=== PATIENT | male | born 1940 | race Caucasian/White ===

== ENCOUNTER 2016-07-24 06:09 | Inpatient (IN) | payer OTHER ==
[2016-07-24] MEDS ORDERED: IPRATROPIUM/ALBUTEROL 3 ML DEYVIAL IH ONE (06:14)
--- NOTE | 2016-07-24 06:17 | EDPHY ---
H & P HPI/ROS: HPI CHIEF COMPLAINT: Shortness of breath HISTORY OF PRESENT ILLNESS: Patient is a very pleasant 76-year-old male significant past medical history for COPD, coronary artery disease with multiple stents, hypertension, hyperlipidemia, chronic pain, depression, anemia recurrent falls, presents to the emergency room by EMS after he has been having progressively worsening shortness of breath over the past 2 days. He had called 911 this morning due to respiratory distress. Upon arrival by 911 they found him to be tachypneic in the 30s with room air saturations in the high 80s but with great deal work of breathing and wet breath sounds. They placed him on CPAP and brought emergently here to the emergency room. Upon arrival to the emergency room the patient is tachypneic in the 30s. Does have wet breath sounds bilaterally. He denies chest pain. He tells me he has been coughing and sick for the past 48 hours progressively worse. Past Medical History: COPD, coronary artery disease with multiple stents, hypertension, hyperlipidemia, chronic pain, depression, anemia recurrent falls, Past Surgical History: No recent surgical history Social History: denies daily use of drugs alcohol tobacco products lives independently with Family History: noncontributory ROS REVIEW OF SYSTEMS: A comprehensive 10 point review of systems is otherwise negative aside from elements mentioned in the history of present illness. Exam Constitutional appears nontoxic, moderate respiratory distress, triage nursing summary reviewed, vital signs reviewed, awake/alert. (Fever 39, tachy, tachypnea ) Eyes normal conjunctivae and sclera, EOMI, PERRLA. HENT normal inspection, atraumatic, moist mucus membranes, no epistaxis, neck supple/ no meningismus, no raccoon eyes. Respiratory decreased breath sounds bilaterally, wet breath sounds bilaterally, Cardiovascular rate normal, regular rhythm, no murmur, no edema, distal pulses normal. Gastrointestinal soft, non-tender, no rebound, no guarding, normal bowel sounds, no distension, no pulsatile mass. Genitourinary no CVA tenderness. Musculoskeletal no midline vertebral tenderness, full range of motion, no calf swelling, no tenderness of extremities, no meningismus, good pulses, neurovascularly intact. Skin pink, warm, & dry, no rash, skin atraumatic. Neurologic awake, alert and oriented x 3, AAOx3, moves all 4 extremities equally, motor intact, sensory intact, CN II-XII intact, normal cerebellar, normal vision, normal speech. Psychiatric normal mood/affect. Heme/Lymph/Immune no lymphadenopathy. Differential Diagnosis: Includes but is not limited to in a particular order decompensated heart failure, pneumonia, pneumothorax, COPD exacerbation, ACS Medical Decision Making: plan for this patient transition over from EMS CPAP to full face BiPAP in the emergency room. In-line DuoNeb breathing treatment. EKG blood draw, portable one-view chest x-ray. ABG. Patient will need to be admitted for respiratory distress. Re-evaluation: EKG interpretation by me on record in [employer] system. Impression time of EKG 6:22 a.m., sinus tachycardia rate of 107, of the anterior fascicular block present. Some motion artifact in the inferior leads to 3 AVF. Otherwise I do not appreciate acute ischemic change. When Compared to old EKG 12/06/2014 acute change. Critical Care: Total Critical Care Time Spent Managing this Patient: 65 Minutes. This time was spent Exclusively with this patient. This Care was exclusive of procedures. The Organ System/life at risk was Pulmonary This Patient was in Critical Condition because Resp distress, Pneumonia, Fever , Sepsis. ED x-ray chest one view: Multifocal pneumonia appreciated. Image interpreted by myself. [id number]: Patient currently on full face BiPAP still tachypneic but not in severe distress. X-ray reviewed shows multifocal pneumonia. Broad-spectrum antibiotics have been ordered IV vancomycin IV Zosyn. 1 g of Tylenol for fever. 2 L fluid bolus. Lactic is pending. Blood cultures pending. Influenza pending. Sputum culture I have ordered. Due the patient's respiratory distress, hypoxia, fever, evidence of sepsis with pneumonia on his x -ray and elevated white count patient be admitted to the ICU. Spoke with Dr. Silveira who agrees to admit this patient. Source: Patient, EMS - Personal History Tetanus Vaccine Date: last 10 years - Medical/Surgical History Hx Asthma: No Hx Chronic Respiratory Disease: Yes Hx Diabetes: No Hx Cardiac Disease: Yes Hx Renal Disease: No Hx Cirrhosis: No Hx Alcoholism: No Hx HIV/AIDS: No Hx Splenectomy or Spleen Trauma: Yes Other PMH: pmh- chronic pain, COPD, htn, hld. psh- 6 cardiac stents, artifical L femur, appy, tonsilectomy, cataract sx both eyes - Social History Smoking Status: Former smoker Constitutional: Initial Vital Signs O2 Sat (%) 98 07/24/16 06:14 O2 Delivery Mode Bi-Pap O2 (L/minute) 6 Allergies/Adverse Reactions: No Known Allergies Allergy (Unverified 07/24/16 06:25) Home Medications: Medication Instructions Recorded Bupropion HCl [Bupropion XL] 300 mg PO DAILY 10/25/11 Clopidogrel Bisulfate [Plavix (*)] 75 mg PO DAILY 10/25/11 Montelukast Sodium [Singulair 10 10 mg PO DAILY@18 10/25/11 mg (RX)] Ranolazine [RANEXA 500mg (RX)] 500 mg PO BID 10/25/11 Simvastatin [Zocor 40 mg] 40 mg PO DAILY18 10/25/11 Ropinirole HCl [Requip 0.5mg] 0.5 mg PO HS 02/10/15 clonIDINE [Catapres (*)] 0.1 mg PO BID 02/10/15 Acyclovir 5% [Zovirax 5%] 1 eb TP 5XD 07/24/16 Albuterol [Proventil Inhaler HFA 1 - 2 puffs IH Q6HRS PRN 07/24/16 (*)] Betamethasone Lary 0.1% 1 eb TP BID 07/24/16 [Betamethasone Lary 0.1% (*)] Cholecalciferol Vit D3 [Vitamin D3 2,000 units PO DAILY 07/24/16 2000 units tab (OTC)] Diclofenac Sodium [Voltaren Gel 4 g TP QID 07/24/16 (*)] Fluticasone/Vilanterol [Breo 1 each IH DAILY 07/24/16 Ellipta 200-25 Mcg INH] Herbals/Supplements -Info Only 1 ea PO DAILY 07/24/16 Lidocaine 5% [Lidoderm 5% Patch 2 ea TD DAILY 07/24/16 (*)] Lubiprostone [Amitiza 24 mcg (*)] 24 mcg PO BIDMEAL 07/24/16 Methocarbamol [Robaxin 750 mg (*)] 375 - 750 mg PO HS PRN 07/24/16 amLODIPine BESYLATE [Norvasc 5 mg 5 mg PO DAILY 07/24/16 (*)] oxyCODONE IR [Oxycodone Ir (*)] 5 mg PO BID PRN 07/24/16 traZODone [traZODONE 50MG (*)] 50 mg PO HS 07/24/16 Medical Decision Making - Data Points Laboratory Results: Laboratory Results 07/24/16 06:10 07/24/16 06:10 Microbiology Results: MICROBIOLOGY 07/24/16 06:15 Urine,Clean Catch Urine Culture - Preliminary 07/24/16 06:30 Blood Blood Culture - Preliminary Medications Given: Discontinued Medications Acetaminophen (Tylenol) 1,000 mg PO EDNOW ONE Stop: 07/24/16 06:25 Last Admin: 07/24/16 06:40 Dose: 1,000 mg Albuterol/Ipratropium (Duoneb) 3 ml IH EDNOW ONE Stop: 07/24/16 06:15 Last Admin: 07/24/16 06:54 Dose: 3 ml Clopidogrel Bisulfate (Plavix) 75 mg PO DAILY VANDANA Stop: 01/20/17 13:29 Last Admin: 07/24/16 15:35 Dose: Not Given Sodium Chloride (Ns) 1,000 mls @ 0 mls/hr IV ONCE ONE PRN Reason: Wide Open Stop: 07/24/16 06:25 Last Admin: 07/24/16 06:40 Dose: 1,000 mls Vancomycin/Sodium Chloride (Vancomycin 1 Gm (Premix)) 250 mls @ 250 mls/hr IV EDNOW ONE PRN Reason: Protocol Stop: 07/24/16 07:24 Last Admin: 07/24/16 06:50 Dose: 250 mls Piperacillin/Tazobactam/Dextrose (Zosyn (Premix)) 100 mls @ 200 mls/hr IV EDNOW ONE PRN Reason: Protocol Stop: 07/24/16 06:54 Last Admin: 07/24/16 06:50 Dose: 100 mls Sodium Chloride (Ns) 1,000 mls @ 0 mls/hr IV ONCE ONE PRN Reason: Wide Open Stop: 07/24/16 06:26 Last Admin: 07/24/16 06:45 Dose: 1,000 mls Sodium Chloride (Ns) 1,000 mls @ 75 mls/hr IV CONT VANDANA Stop: 07/24/16 20:19 Last Admin: 07/24/16 15:54 Dose: 1,000 mls Departure - Departure Disposition: [facility] Inpatient Acute Clinical Impression: Dyspnea Qualifiers: Dyspnea type: unspecified Qualified Code(s): R06.00 - Dyspnea, unspecified Pneumonia Qualifiers: Pneumonia type: due to unspecified organism Laterality: bilateral Lung location : unspecified part of lung Qualified Code(s): J18.9 - Pneumonia, unspecified organism Sepsis Qualifiers: Sepsis type: sepsis due to unspecified organism Qualified Code(s): A41.9 - Sepsis, unspecified organism Condition: Serious
[2016-07-24 06:22] LABS: % IMMATURE GRANULYOCYTES 0.8 % (0.0-1.1); ABSOLUTE IMMATURE GRANULOCYTES 0.17 10^3/uL (0.00-0.10); ADD DIFF? NO; ADD MORPH? NO; ADD SCAN? NO; ATYPICAL LYMPHOCYTE FLAG 0 (0-99); FRAGMENT RBC FLAG 0 (0-99); HEMATOCRIT 50.2 % (40.0-51.0); HEMOGLOBIN 17.2 g/dL (13.7-17.5); LEFT SHIFT FLG 10 (0-99); LIPEMIA HEMOLYSIS FLAG 90 (0-99); MEAN CELL HEMOGLOBIN CONCENTR. 34.3 g/dL (32.4-36.7); MEAN PLATELET VOLUME 8.7 fL (8.7-11.7); PLATELET CLUMPS FLAG 0 (0-99); PLATELET COUNT 265 10^3/uL (150-400); RED BLOOD CELL COUNT 4.78 10^6/uL (4.40-6.38); RED CELL DISTRIBUTION WIDTH 15.9 % (11.5-15.2)
[2016-07-24] MEDS ORDERED: NS 1,000 ML IV ONE ×2 (06:24→06:25)
[2016-07-24] MEDS ORDERED: ACETAMINOPHEN 500 MG TAB PO ONE (06:24)
--- NOTE | 2016-07-24 06:24 | CPEKG ---
Heart Rate: 107 RR Interval: 561 P-R Interval: 136 QRSD Interval: 94 QT Interval: 336 QTC Interval: 449 P [place]: 0 QRS [place]: 266 T Wave [place]: 74 EKG Severity - ABNORMAL ECG - EKG Impression: SINUS TACHYCARDIA EKG Impression: LEFT ANTERIOR FASCICULAR BLOCK EKG Impression: CONSIDER RIGHT VENTRICULAR HYPERTROPHY Electronically Signed By: Jimmy Penaloza 25-Jul-2016 23:56:37
[2016-07-24] MEDS ORDERED: PIPERACILLIN/TAZO 4.5 GM/DEX 100 ML IV ONE (06:25)
[2016-07-24] MEDS ORDERED: VANCOMYCIN HCL/NORMAL SALINE 250 ML IV ONE (06:25)
[2016-07-24 06:33] LABS: INR 1.04 (0.83-1.16); PROTIME(PATIENT) 13.5 SEC (12.0-15.0)
[2016-07-24 06:34] LABS: ALANINE AMINOTRANSFERASE 28 IU/L (21-72); ALBUMIN 3.9 g/dL (3.5-5.0); ALKALINE PHOSPHATASE 100 IU/L (38-126); ANION GAP 12 mEq/L (8-16); ASPARTATE AMINOTRANSFERASE 38 IU/L (17-59); BILIRUBIN,TOTAL 1.1 mg/dL (0.1-1.4); BILIRUBIN-CONJUGATED 0.4 mg/dL (0.0-0.5); BILIRUBIN-UNCONJUGATED 0.7 mg/dL (0.0-1.1); CALCIUM 8.8 mg/dL (8.5-10.4); CARBON DIOXIDE 26 mEq/l (22-31); CHLORIDE 98 mEq/L (97-110); CREATININE 0.9 mg/dL (0.7-1.3); GLOMERULAR FILTRATION RATE > 60; GLUCOSE 128 mg/dL (70-100); SODIUM 136 mEq/L (134-144); TOTAL PROTEIN 7.6 g/dL (6.3-8.2)
[2016-07-24 06:35] LABS: COLOR YELLOW; LEUKOCYTE ESTERASE,URINE NEGATIVE (NEGATIVE); NITRITE,URINE NEGATIVE (NEGATIVE)
[2016-07-24] MEDS ORDERED: ONDANSETRON 4 MG/2 ML VIAL IVP PRN (06:39)
[2016-07-24] MEDS ORDERED: ONDANSETRON DISINTEGRATING 4 MG TAB PO PRN (06:39)
[2016-07-24] MEDS ORDERED: ACETAMINOPHEN 325 MG TAB PO PRN (06:39)
[2016-07-24 06:45] LABS: BACTERIA TRACE /hpf (NONE SEEN); MUCUS TRACE /lpf (NONE-1+); RBC,URINE 25-50 /hpf (0-3); YEAST PRESENT /hpf (NONE SEEN)
[2016-07-24 06:46] LABS: CREATINE KINASE-MB FRACTION 2.43 ng/mL (0-3.19); TROPONIN I 0.081 ng/mL (0-0.034)
[2016-07-24 07:04] LABS: BASE EXCESS -1.4 mEq/L (-2.5-2.5); BICARBONATE 21 mEq/L (22-26); MEASURED OXYGEN SATURATION 99 % (92-95); PCO2 28 mmHg (34-38); PO2 114 mmHg (65-75); TCO2 21 mEq/L (23-27)
[2016-07-24 07:05] LABS: BIPAP YES; EXP PRESSURE 7; INSP PRESSURE 14; O2 CONCENTRATIION 50 % (0-100); P/F RATIO 228 RATIO
[2016-07-24] MEDS: NS 1,000 ML IV SCH ×4 (08:04→15:54)
--- NOTE | 2016-07-24 08:24 | GHP ---
[f rep st] HISTORY AND PHYSICAL DATE OF ADMISSION: 07/24/2016 CHIEF COMPLAINT: Severe sepsis, [id number] hypoxic respiratory failure. HISTORY OF PRESENT ILLNESS: The patient is a 76-year-old male with multiple comorbidities including CAD with 6 stents, COPD on oxygen, hypertension, hyperlipidemia, presented to the emergency room by EMS having progressive shortness of breath over the past couple days. He called 911 this morning due to respiratory distress. Per , it sounded like he was gurgling this morning. He endorses a dry cough that started yesterday. Denied fevers, chills , or sweats. No nausea, vomiting, diarrhea. No ill contacts. Has tight chest pain with breathing; no radiation or associated numbness or tingling or diaphoresis. In the emergency room, he was tachypneic in the 30s with a room sat in the 80s with increased work of breathing. REVIEW OF SYSTEMS: I completed a 10-point review of systems, negative, except as noted in HPI. PAST MEDICAL HISTORY: 1. CAD, status post 6 stents to RCA, LAD, left circumflex. 2. Chronic pain, on chronic narcotics. 3. Hypertension. 4. Hyperlipidemia. 5. COPD, on CPAP. 6. Chronic hypoxemic respiratory failure. 7. Depression. 8. Anemia. 9. Recurrent falls. PAST SURGICAL HISTORY: Appendectomy, right hip surgery, tonsillectomy. FAMILY HISTORY: Adopted. 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 Smoked a pack a day for 40 years. No illicits or alcohol. PHYSICAL EXAM: VITAL SIGNS: Temperature 39.1, blood pressure 176/108, heart rate 105, respiration 30s. 80s on room air, 92% on 6 L, 98% on BiPAP. GENERAL : Patient is sitting in bed on BiPAP with no distress. HEENT: PERRLA. EOMI. Dry mucous membranes. CV: Tachy, regular. No murmurs, gallops, or rubs. LUNGS: Rhonchorous bilaterally. Increased work of breathing using accessory muscles. ABDOMEN: Firm, nondistended. No tenderness with palpation. Positive bowel sounds. : No suprapubic tenderness. MUSCULOSKELETAL: 5/5 upper and lower extremity strength. NEURO: 2 through 12 intact. PSYCH: Alert and oriented x3. LABORATORY DATA: WBC 20, hemoglobin 17, hematocrit 50, platelets 265. Coags within normal. Blood gas AB.48, pCO2 of 28, pO2 of 114. Sodium 136, potassium 4, chloride 98, carbon dioxide 24, BUN 14, creatinine 0.9 , glucose 128, calcium 8.8. LFTs within normal. Lactate is 2.7. Troponin 0.081. BNP is 6060. UA: 25-50 RBCs, trace bacteria. Influenza negative. Blood cultures, urine cultures pending. Sputum culture pending. EKG, personally reviewed by me: Biphasic T waves in the anterior leads. Chest x-ray, personally reviewed by me: Right lower lobe opacity. ASSESSMENT/PLAN: 1. Severe sepsis: Patient with suspected pneumonia with elevated WBC to 20, elevated lactate of 2.7, and tachycardia. Patient received IV vancomycin and Zosyn in the emergency room. Will treat for community-acquired pneumonia with azithromycin and ceftriaxone. IV fluids; patient has already received 2 L, will continue IV fluids. Repeat lactate. Will be admitted to the ICU for closer monitoring. Blood and sputum cultures are pending. UA is negative. Added Legionella and strep urine antigens. Influenza negative. 2. Ctfii-ni-efwxiqm hypoxemic respiratory failure secondary to pneumonia: Patient is currently on BiPAP. Would permit intubation if warranted. Again, start broad-spectrum antibiotics as stated above. Cultures pending. 3. Indeterminate troponin, elevated at 0.081: Patient denies active chest pain. EKG does show biphasic T waves in the anterior leads. Will rapid cycle with repeat troponin and EKG in 4 hours. 4. Accelerated hypertension: Will hold off on antihypertensive at this time with sepsis. Will re-evaluate. 5. Lactic acidosis elevated to 2.7 due to acute infection: IV fluids and repeat lab. 6. Hyperlipidemia: Statin. 7. Coronary artery disease: Continue Plavix, statin, and Ranexa. 8. Chronic obstructive pulmonary disease: Will treat with DuoNeb. 9. Depression: Wellbutrin. 10. Constipation: Bowel protocol. 11. Diet: Cardiac. 12. Deep vein thrombosis prophylaxis: Lovenox. DISPOSITION: Patient warrants inpatient admission to the ICU, given acute-on- chronic hypoxemic respiratory failure and sepsis warranting IV antibiotics, IV fluids, and close monitoring. Critical care time spent: 60 min evaluating pt, obtaining hx, reviewing imagining, records, and treatment plan /[id number]/MODL MTDD
[2016-07-24] MEDS: CLOPIDOGREL BISULFATE 75 MG TAB PO SCH (09:32)
[2016-07-24] MEDS: ENOXAPARIN 40 MG/0.4 ML SYR SC SCH (09:32)
[2016-07-24] MEDS: AZITHROMYCIN IV 500 MG in D5W 250 ML IV SCH (09:32)
--- NOTE | 2016-07-24 10:40 | CPEKG ---
Heart Rate: 90 RR Interval: 667 P-R Interval: 180 QRSD Interval: 106 QT Interval: 396 QTC Interval: 485 P [place]: -74 QRS [place]: -88 T Wave [place]: 79 EKG Severity - ABNORMAL ECG - EKG Impression: MULTIPLE ATRIAL PREMATURE COMPLEXES EKG Impression: LEFT ANTERIOR FASCICULAR BLOCK EKG Impression: BORDERLINE PROLONGED QT INTERVAL EKG Impression: SINUS RHYTHM Electronically Signed By: Jimmy Lee 25-Jul-2016 08:33:41
[2016-07-24] MEDS: IPRATROPIUM/ALBUTEROL 3 ML DEYVIAL IH SCH ×3 (12:07→22:20)
[2016-07-24] MEDS ORDERED: METHOCARBAMOL 750 MG TAB PO PRN (13:05)
[2016-07-24] MEDS ORDERED: CLOPIDOGREL BISULFATE 75 MG TAB PO SCH (13:30)
[2016-07-24] MEDS ORDERED: ACYCLOVIR 5% TP SCH (14:00)
[2016-07-24] MEDS: oxyCODONE IR 5 MG TAB PO PRN ×2 (14:14→20:54)
[2016-07-24] MEDS ORDERED: HYDROmorphONE/DILAUDID 1 MG/ML SYR IVP PRN (15:35)
--- NOTE | 2016-07-24 15:36 | HOSPPROG ---
Hospitalist Progress Note Assessment/Plan: patient seen and examined pneumonia is responding to antibiotics and oxygen requirements come down mild sepsis has resolved continue antibiotics Objective: Vital Signs Temp Pulse Resp BP Pulse Ox 36.8 C 76 24 H 132/79 H 96 07/24/16 08:45 07/24/16 12:05 07/24/16 12:05 07/24/16 12:00 07/24/16 12:05 Microbiology 07/24/16 09:17 - Final Sputum, Expectorated 07/23/16 07/24/16 07/25/16 05:59 05:59 05:59 Intake Total 2200 Balance 2200 PT 13.5 SEC (12.0-15.0) 07/24/16 06:10 INR 1.04 (0.83-1.16) 07/24/16 06:10 ICD10 Worksheet Patient Problems: Problems Problem Status Onset Chronic Disease Mgmt/Transitional Care Acute Dyspnea Acute Pneumonia Acute Sepsis Acute Anemia Acute CHI (closed head injury) Acute Depression Acute HTN (hypertension) Acute Multiple falls Acute Post concussion syndrome Acute Unsteady gait Acute Weakness of both legs Acute
[2016-07-24] MEDS: LIDOCAINE 5% 1 EA PATCH TD SCH (15:53)
[2016-07-24] MEDS: (Fluticasone/Vilanterol [Breo Ellipta 200-25 Mcg Inh] 1 EACH) IH SCH (16:12)
[2016-07-24] MEDS ORDERED: PRAVASTATIN SODIUM 40 MG TAB PO SCH (18:00)
[2016-07-24] MEDS ORDERED: NON-FORMULARY NEW DRUG (Simvastatin [Zocor 40 Mg] 40 MG) PO SCH (18:00)
[2016-07-24] MEDS: MONTELUKAST SODIUM 10 MG TAB PO SCH (18:07)
[2016-07-24] MEDS: ATORVASTATIN CALCIUM 20 MG TAB PO SCH (18:07)
[2016-07-24] MEDS: LUBIPROSTONE 24 MCG CAP PO SCH (18:09)
[2016-07-24] MEDS: RANOLAZINE 500 MG TAB.ER PO SCH (20:53)
[2016-07-24] MEDS: traZODone 50 MG TAB PO SCH (20:54)
[2016-07-24] MEDS: BETAMETHASONE VAL 0.1% 15 GM CREAM TP SCH (20:54)
[2016-07-24] MEDS ORDERED: NON-FORMULARY NEW DRUG (Ropinirole Hcl [Requip 0.5mg] 0.5 MG) PO SCH (21:00)
[2016-07-24 21:42] LABS: TROPONIN I 0.07 ng/mL (0-0.034)
[2016-07-25] MEDS: IPRATROPIUM/ALBUTEROL 3 ML DEYVIAL IH SCH ×4 (04:38→23:16)
[2016-07-25 05:31] LABS: HEMATOCRIT 36.2 % (40.0-51.0); HEMOGLOBIN 12.2 g/dL (13.7-17.5); MEAN CELL HEMOGLOBIN 35.9 pg (27.9-34.1); MEAN CELL HEMOGLOBIN CONCENTR. 33.7 g/dL (32.4-36.7); MEAN CELL VOLUME 106.5 fL (81.5-99.8); RED BLOOD CELL COUNT 3.4 10^6/uL (4.40-6.38); RED CELL DISTRIBUTION WIDTH 16.1 % (11.5-15.2)
[2016-07-25 06:04] LABS: ANION GAP 6 mEq/L (8-16); CALCIUM 7.3 mg/dL (8.5-10.4); CARBON DIOXIDE 24 mEq/l (22-31); CHLORIDE 103 mEq/L (97-110); CREATININE 0.8 mg/dL (0.7-1.3); GLOMERULAR FILTRATION RATE > 60; GLUCOSE 94 mg/dL (70-100); POTASSIUM 3.4 mEq/L (3.5-5.2); SODIUM 133 mEq/L (134-144)
[2016-07-25] MEDS: BETAMETHASONE VAL 0.1% 15 GM CREAM TP SCH ×2 (08:18→21:29)
[2016-07-25] MEDS ORDERED: BUPROPION HCL 300 MG PO SCH (09:00)
[2016-07-25] MEDS: BENZONATATE 100 MG CAP PO PRN (09:21)
[2016-07-25] MEDS: RANOLAZINE 500 MG TAB.ER PO SCH ×2 (09:22→21:24)
[2016-07-25] MEDS: buPROPion XL 150 MG TAB PO SCH (09:23)
[2016-07-25] MEDS: CLOPIDOGREL BISULFATE 75 MG TAB PO SCH (09:23)
[2016-07-25] MEDS: amLODIPine BESYLATE 5 MG TAB PO SCH (09:24)
[2016-07-25] MEDS: AZITHROMYCIN IV 500 MG in D5W 250 ML IV SCH (09:31)
[2016-07-25] MEDS: ENOXAPARIN 40 MG/0.4 ML SYR SC SCH (09:32)
[2016-07-25] MEDS: LIDOCAINE 5% 1 EA PATCH TD SCH (09:34)
[2016-07-25] MEDS: (Fluticasone/Vilanterol [Breo Ellipta 200-25 Mcg Inh] 1 EACH) IH SCH (10:14)
--- NOTE | 2016-07-25 11:21 | HOSPPROG ---
Hospitalist Progress Note Assessment/Plan: # severe sepsis d/t pna - resolved, WBC improving # acute hypoxic resp failure - d/t pna with underlying COPD # bilat pneumonia - cont rocephin and azith - blood and suptum cx's indeterminate # COPD with acute exacerbation d/t pna - start pred and mucinex, cont nebs # indet troponin - ECG ok, no CP; suspect d/t demand ischemia # CAD s/p stents - plavix/statin/ranexa # htn - clonidine/norvasc # depression - buproprion ## CXR personally reviewed ECG personally reviewed chart reviewed Subjective: ongoing SOB, unable to cough up sputum; no CP Objective: Vital Signs Temp Pulse Resp BP Pulse Ox 36.7 C 98 16 135/84 H 93 07/25/16 08:00 07/25/16 08:00 07/25/16 08:00 07/25/16 09:24 07/25/16 10:48 Microbiology 07/24/16 09:17 - Final Sputum, Expectorated Laboratory Results 07/25/16 05:01 07/25/16 05:01 07/24/16 07/25/16 07/26/16 05:59 05:59 05:59 Intake Total 3025 305 Balance 3025 305 PT 13.5 SEC (12.0-15.0) 07/24/16 06:10 INR 1.04 (0.83-1.16) 07/24/16 06:10 - Physical Exam Constitutional: other (mild resp distress) Cardiovascular: regular rate and rhythym, no murmur, rub, or gallop Respiratory: other (mild resp distress; diffuse rhonchi and wheezes; no rales) Gastrointestinal: normoactive bowel sounds, soft, non-tender abdomen, no palpable masses ICD10 Worksheet Patient Problems: Problems Problem Status Onset Chronic Disease Mgmt/Transitional Care Acute Dyspnea Acute Pneumonia Acute Sepsis Acute Anemia Acute CHI (closed head injury) Acute Depression Acute HTN (hypertension) Acute Multiple falls Acute Post concussion syndrome Acute Unsteady gait Acute Weakness of both legs Acute
[2016-07-25] MEDS: predniSONE 20 MG TAB PO SCH (11:45)
[2016-07-25] MEDS: guaiFENesin 600 MG TAB.ER PO SCH ×2 (11:46→21:23)
[2016-07-25] MEDS: LUBIPROSTONE 24 MCG CAP PO SCH ×2 (11:47→17:56)
[2016-07-25] MEDS ORDERED: FUROSEMIDE 20 MG/2 ML VIAL IVP ONE (15:40)
[2016-07-25] MEDS: ATORVASTATIN CALCIUM 20 MG TAB PO SCH (17:54)
[2016-07-25] MEDS: MONTELUKAST SODIUM 10 MG TAB PO SCH (17:55)
[2016-07-25] MEDS: oxyCODONE IR 5 MG TAB PO PRN ×2 (18:01→21:28)
[2016-07-25] MEDS: traZODone 50 MG TAB PO SCH (21:24)
[2016-07-26 05:16] LABS: HEMATOCRIT 38.5 % (40.0-51.0); MEAN CELL HEMOGLOBIN CONCENTR. 33.8 g/dL (32.4-36.7); MEAN CELL VOLUME 106.6 fL (81.5-99.8); RED BLOOD CELL COUNT 3.61 10^6/uL (4.40-6.38); RED CELL DISTRIBUTION WIDTH 15.3 % (11.5-15.2)
[2016-07-26 05:29] LABS: ANION GAP 4 mEq/L (8-16); CARBON DIOXIDE 25 mEq/l (22-31); CHLORIDE 100 mEq/L (97-110); CREATININE 0.8 mg/dL (0.7-1.3); GLOMERULAR FILTRATION RATE > 60; GLUCOSE 120 mg/dL (70-100); POTASSIUM 3.9 mEq/L (3.5-5.2); SODIUM 129 mEq/L (134-144)
[2016-07-26] MEDS: IPRATROPIUM/ALBUTEROL 3 ML DEYVIAL IH SCH ×4 (06:19→22:21)
[2016-07-26] MEDS: CLOPIDOGREL BISULFATE 75 MG TAB PO SCH (09:03)
[2016-07-26] MEDS: guaiFENesin 600 MG TAB.ER PO SCH ×2 (09:03→20:18)
[2016-07-26] MEDS: RANOLAZINE 500 MG TAB.ER PO SCH ×2 (09:03→20:19)
[2016-07-26] MEDS: amLODIPine BESYLATE 5 MG TAB PO SCH (09:04)
[2016-07-26] MEDS: predniSONE 20 MG TAB PO SCH (09:04)
[2016-07-26] MEDS: buPROPion XL 150 MG TAB PO SCH (09:05)
[2016-07-26] MEDS: AZITHROMYCIN IV 500 MG in D5W 250 ML IV SCH (09:06)
[2016-07-26] MEDS: ENOXAPARIN 40 MG/0.4 ML SYR SC SCH (09:06)
[2016-07-26] MEDS: LIDOCAINE 5% 1 EA PATCH TD SCH (09:07)
[2016-07-26] MEDS: BETAMETHASONE VAL 0.1% 15 GM CREAM TP SCH ×2 (09:09→20:18)
[2016-07-26] MEDS: (Fluticasone/Vilanterol [Breo Ellipta 200-25 Mcg Inh] 1 EACH) IH SCH (09:10)
--- NOTE | 2016-07-26 09:12 | HOSPPROG ---
Hospitalist Progress Note Assessment/Plan: #Acute on chronic hypoxemic resp failure: / #CAP: cont abx for total of 5 days #COPD exacerbation: cont inhalers, add pred for 3 more days #Normocytic anemia: H/H stable. Denies bleeding. Had colonoscopy in past that was normal #CAD: statin #Disp: See full dc summary. DC today Subjective: Cough with min sputum Objective: Vital Signs Temp Pulse Resp BP Pulse Ox 36.4 C 77 16 149/102 H 94 07/26/16 08:00 07/26/16 08:00 07/26/16 08:00 07/26/16 09:04 07/26/16 08:00 Microbiology 07/24/16 09:17 - Final Sputum, Expectorated Laboratory Results 07/26/16 04:42 07/26/16 04:42 07/25/16 07/26/16 07/27/16 05:59 05:59 05:59 Intake Total 3025 2067 540 Output Total 800 650 Balance 3025 1267 -110 PT 13.5 SEC (12.0-15.0) 07/24/16 06:10 INR 1.04 (0.83-1.16) 07/24/16 06:10 - Physical Exam Constitutional: no apparent distress Eyes: PERRL Ears, Nose, Mouth, Throat: moist mucous membranes Cardiovascular: regular rate and rhythym Respiratory: expiratory wheeze (mild exp wheeze), rhonchi Gastrointestinal: normoactive bowel sounds Genitourinary: no bladder fullness Skin: warm Musculoskeletal: full muscle strength Neurologic: AAOx3 ICD10 Worksheet Patient Problems: Problems Problem Status Onset Chronic Disease Mgmt/Transitional Care Acute Dyspnea Acute Pneumonia Acute Sepsis Acute Anemia Acute CHI (closed head injury) Acute Depression Acute HTN (hypertension) Acute Multiple falls Acute Post concussion syndrome Acute Unsteady gait Acute Weakness of both legs Acute
--- NOTE | 2016-07-26 09:46 | GDS ---
[f rep st] DISCHARGE SUMMARY DISCHARGE DIAGNOSES: 1. Severe sepsis. 2. Community-acquired pneumonia. 3. Gqsud-ht-isgbgcs hypoxemic respiratory failure. 4. Coronary artery disease, status post stents. 5. Chronic pain. 6. Indeterminate troponin. 7. Accelerated hypertension. 8. Hyperlipidemia. 9. Chronic obstructive pulmonary disease exacerbation. 10. Depression. 11. Normocytic anemia. 12. Recurrent falls. HISTORY OF PRESENT ILLNESS: The patient is a 76-year-old male with multiple comorbidities including CAD with 6 stents, COPD on oxygen, hypertension, hyperlipidemia who presented to emergency room having progressive shortness of breath over the past couple days prior to admission. He called 911 early in the morning due to respiratory distress. Per his , it sounds like he was gurgling that morning. He endorsed a dry cough that started the day prior, but he denied fevers, chills, or sweats. No nausea, vomiting, or diarrhea. He has tight chest pain with breathing, but no radiation or associated numbness or diaphoresis. In the emergency room, he was tachypneic to the 30s and had a room sat in the 80s. HOSPITAL COURSE BY PROBLEM: 1. Severe sepsis: Secondary to bilateral pneumonia. WBC was elevated to 20 with a lactate of 2.7. Patient was initially warranting BiPAP due to respiratory distress. He was initially admitted to the ICU and started on community-acquired pneumonia coverage with azithromycin and ceftriaxone. This has since resolved with normal white count. 2. Leukocytosis: WBC elevated at 20 secondary to pneumonia, now resolved. Blood, urine, and sputum cultures have remained negative. 3. Mdmza-dp-ivvbnlp hypoxemic respiratory failure: The patient normally uses oxygen only at night. Needs 1-2L now with acute illness. RT to arrange at [place]. 4. COPD exacerbation: Secondary to pneumonia. We will continue prednisone and azithromycin at discharge. 5. Community-acquired pneumonia: Bilateral infiltrate. The patient will receive a total of 5 days of antibiotics. 6. Accelerated hypertension: Resume home medications. 7. Hyperlipidemia: Statin. 8. CAD, status post stents to RCA, LAD, and left circumflex: Continue statin, Ranexa, Plavix. 9. Chronic pain: Patient may resume home medications. 10. Indeterminate troponin: Troponin peaked at 0.107. It was likely secondary to demand with acute illness. He denies chest pain. 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 11. Depression: Continue Wellbutrin. 12. Normocytic anemia: The patient was to be discharged yesterday; however, there was a noted drop in his H and H from 17 and 50 to 12 and 36. Suspect this was probably dilutional with fluids. He denies any overt bleeding. H and H are stable today. He has had a prior colonoscopy that was normal. Patient may follow up with his PCP. DISPOSITION: Patient is stable for discharge. NEW MEDICATIONS: 1. Tessalon Perles. 2. Azithromycin. 3. Prednisone. FOLLOWUP: Follow up with primary care physician, Dr. Breezy Rocha /[id number]/MODL LEONEL
[2016-07-26] MEDS: LUBIPROSTONE 24 MCG CAP PO SCH ×2 (12:20→18:31)
[2016-07-26] MEDS: FUROSEMIDE 20 MG TAB PO SCH (16:00)
[2016-07-26] MEDS: MONTELUKAST SODIUM 10 MG TAB PO SCH (18:31)
[2016-07-26] MEDS: ATORVASTATIN CALCIUM 20 MG TAB PO SCH (18:31)
[2016-07-26] MEDS: traZODone 50 MG TAB PO SCH (20:20)
[2016-07-26] MEDS: oxyCODONE IR 5 MG TAB PO PRN (20:26)
[2016-07-27] MEDS: oxyCODONE IR 5 MG TAB PO PRN (01:30)
[2016-07-27] MEDS: BENZONATATE 100 MG CAP PO PRN (01:42)
[2016-07-27 05:18] LABS: HEMATOCRIT 39.5 % (40.0-51.0); HEMOGLOBIN 13.3 g/dL (13.7-17.5); MEAN CELL HEMOGLOBIN 35.7 pg (27.9-34.1); MEAN CELL HEMOGLOBIN CONCENTR. 33.7 g/dL (32.4-36.7); MEAN CELL VOLUME 105.9 fL (81.5-99.8); RED BLOOD CELL COUNT 3.73 10^6/uL (4.40-6.38); RED CELL DISTRIBUTION WIDTH 15.1 % (11.5-15.2)
[2016-07-27 05:27] LABS: ANION GAP 4 mEq/L (8-16); CALCIUM 8.4 mg/dL (8.5-10.4); CARBON DIOXIDE 27 mEq/l (22-31); CHLORIDE 99 mEq/L (97-110); CREATININE 0.7 mg/dL (0.7-1.3); GLOMERULAR FILTRATION RATE > 60; GLUCOSE 116 mg/dL (70-100); POTASSIUM 3.9 mEq/L (3.5-5.2); SODIUM 130 mEq/L (134-144)
[2016-07-27] MEDS: IPRATROPIUM/ALBUTEROL 3 ML DEYVIAL IH SCH ×2 (05:42→11:02)
[2016-07-27 08:34] VITALS: TEMP 97.8
[2016-07-27] MEDS: ENOXAPARIN 40 MG/0.4 ML SYR SC SCH (09:35)
[2016-07-27] MEDS: RANOLAZINE 500 MG TAB.ER PO SCH (09:36)
[2016-07-27] MEDS: amLODIPine BESYLATE 5 MG TAB PO SCH (09:36)
[2016-07-27] MEDS: FUROSEMIDE 20 MG TAB PO SCH (09:36)
[2016-07-27] MEDS: CLOPIDOGREL BISULFATE 75 MG TAB PO SCH (09:36)
[2016-07-27] MEDS: predniSONE 20 MG TAB PO SCH (09:36)
[2016-07-27] MEDS: LUBIPROSTONE 24 MCG CAP PO SCH (09:36)
[2016-07-27] MEDS: guaiFENesin 600 MG TAB.ER PO SCH (09:36)
[2016-07-27] MEDS: buPROPion XL 150 MG TAB PO SCH (09:37)
[2016-07-27] MEDS: (Fluticasone/Vilanterol [Breo Ellipta 200-25 Mcg Inh] 1 EACH) IH SCH (09:45)
[2016-07-27] MEDS: AZITHROMYCIN IV 500 MG in D5W 250 ML IV SCH (10:45)
[2016-07-27 11:07] VITALS: RESP 20; O2SAT 92
[2016-07-27 11:34] VITALS: BP 144/89; PULSE 83
--- NOTE | 2016-07-27 12:54 | GDS ---
[f rep st] DISCHARGE SUMMARY ADDENDUM TO DISCHARGE SUMMARY DISCHARGE DIAGNOSES: 1. Acute on chronic hypoxic respiratory failure. 2. Severe sepsis. 3. Community-acquired pneumonia. 4. Coronary artery disease, status post stents. 5. Chronic pain. 6. Indeterminate troponin. 7. Accelerated hypertension. 8. Hyperlipidemia. 9. Chronic obstructive pulmonary disease exacerbation. 10. Depression. 11. Normocytic anemia. HISTORY OF PRESENT ILLNESS: Please see the full discharge summary dated 2016 for full details of the hospital stay. The patient was kept overnight due to worsening shortness of breath that has since resolved. ASSESSMENT AND PLAN: 1. Pneumonia. We will treat for total of 7 days, with 3 more days at home. 2. Chronic obstructive pulmonary disease exacerbation. We will send him home with a nebulizer machine and DuoNebs, along with prednisone. 3. Deconditioning: home PT, RN PE: Gen: NAD, CV: RRR, no LE edema, Lungs: less rhochi and wheezing today, Abd: soft, NT, +BS [place]: 5/5 strength, Neuro: 2-12 intact afebrile, 94% on 2L FOLLOWUP: The patient should follow up with his primary baler. /[id number]/MODL MTDD
--- NOTE | 2016-07-27 14:20 | PDIAF ---
- Diagnosis Diagnosis: CAP Code Status: Full Code - Medication Management Discharge Medications: Medications to Continue on Transfer Bupropion HCl [Bupropion XL] 300 mg PO DAILY 10/25/11 [Last Taken 07/23/16] Clopidogrel Bisulfate [Plavix (*)] 75 mg PO DAILY 10/25/11 [Last Taken 07/23/16] Montelukast Sodium [Singulair 10 mg (*)] 10 mg PO DAILY@18 10/25/11 [Last Taken 07/22/16] Ranolazine [Ranexa] 500 mg PO BID 10/25/11 [Last Taken 07/23/16 09:00] Simvastatin [Zocor 40 mg] 40 mg PO DAILY18 10/25/11 [Last Taken 07/22/16] Ropinirole HCl [Requip 0.5mg] 0.5 mg PO HS 02/10/15 [Last Taken 07/22/16] clonIDINE [Catapres (*)] 0.1 mg PO BID 02/10/15 [Last Taken 07/23/16 09:00] Acyclovir 5% [Zovirax 5% Cream 2gm (RX)] 1 eb TP 5XD 07/24/16 [Last Taken Unknown] Albuterol [Proventil Inhaler HFA (*)] 1 - 2 puffs IH Q6HRS PRN 07/24/16 [Last Taken Unknown] Betamethasone Lary 0.1% [Betamethasone Lary 0.1% (*)] 1 eb TP BID 07/24/16 [Last Taken Unknown] Cholecalciferol Vit D3 [Vitamin D3 2000 units tab (OTC)] 2,000 units PO DAILY [Last Taken 07/23/16] Diclofenac Sodium [Voltaren Gel (*)] 4 g TP QID 07/24/16 [Last Taken Unknown] Fluticasone/Vilanterol [Breo Ellipta 200-25 Mcg INH] 1 each IH DAILY 07/24/16 [ Last Taken 07/23/16] Herbals/Supplements -Info Only 1 ea PO DAILY 07/24/16 [Last Taken Unknown] Lidocaine 5% [Lidoderm 5% Patch (*)] 2 ea TD DAILY 07/24/16 [Last Taken 07/23/16 ] Lubiprostone [Amitiza 24 mcg (*)] 24 mcg PO BIDMEAL 07/24/16 [Last Taken 09:00] Methocarbamol [Robaxin 750 mg (*)] 375 - 750 mg PO HS PRN 07/24/16 [Last Taken Unknown] amLODIPine BESYLATE [Norvasc 5 mg (*)] 5 mg PO DAILY 07/24/16 [Last Taken ] oxyCODONE IR [Oxycodone Ir (*)] 5 mg PO BID PRN 07/24/16 [Last Taken 07/23/16] traZODone [traZODONE 50MG (*)] 50 mg PO HS 07/24/16 [Last Taken 07/22/16] Albuterol [Proventil Inhaler HFA (*)] 1 - 2 puffs IH Q6H #1 mdi 07/26/16 [Last Taken Unknown] Benzonatate [Tessalon Pearles] 100 mg PO TID PRN #20 cap 07/26/16 [Last Taken Unknown] predniSONE 40 mg PO DAILY #6 tablet 07/26/16 [Last Taken Unknown] Azithromycin 500 mg PO DAILY #3 tablet 07/27/16 [Last Taken Unknown] Ipratropium/Albuterol [Duoneb (*)] 3 ml IH QID PRN #30 deyvial 07/27/16 [Last Taken Unknown] Discharge Medications: Refer to the Discharge Home Medication list for PRN reason. - Orders Services needed: Home Care, Registered Nurse, Physical Therapy Home Care Face to Face: I certify that this patient was under my care and that I had the required [id number] encounter meeting the encounter requirements on the discharge day. My findings support the fact that the patient is homebound as defined in CMS Chapter 7 Medicare Benefits Manual 30.1.1, The condition of the patient is such that there exists a normal inability to leave home and consequently, leaving home would require a considerable and taxing effort. Diet Recommendation: no restrictions on diet Diet Texture: Regular Texture Diet - Follow Up Care Current Providers and Referrals: Patient,NotPresent [Unknown] - As per Instructions
== END 2016-07-27 14:12 | disposition home health service (06) | DRG 871 ==
LOC: EDUNIT# → EEVIPCON 06:37 → F2N 08:41 → F1N 13:58
PROVIDERS: ADMIT Internal Medicine; ATTEND Internal Medicine
DX: A41.9 Sepsis, unspecified organism (principal); J18.9 Pneumonia, unspecified organism; R65.20 Severe sepsis without septic shock; J96.21 Acute and chronic respiratory failure with hypoxia; I25.10 Atherosclerotic heart disease of native coronary artery without angina pectoris; G89.29 Other chronic pain; I10 Essential (primary) hypertension; E78.5 Hyperlipidemia, unspecified; J44.0 Chronic obstructive pulmonary disease with (acute) lower respiratory infection; J44.1 Chronic obstructive pulmonary disease with (acute) exacerbation; F32.9 Major depressive disorder, single episode, unspecified; D64.9 Anemia, unspecified; K59.00 Constipation, unspecified; R29.6 Repeated falls; Z95.5 Presence of coronary angioplasty implant and graft; Z99.81 Dependence on supplemental oxygen; Z79.02 Long term (current) use of antithrombotics/antiplatelets
CPT/HCPCS: 87449-90; J0456; J0696; J1170; J1650; J2543; J3370

== ENCOUNTER → 2016-08-30 | Outpatient (CLI) | payer OTHER | LOC: FIMAGING 15:24 | PROVIDERS: ATTEND Internal Medicine Pulmonary Disease | DX: J18.1 Lobar pneumonia, unspecified organism (principal); J44.9 Chronic obstructive pulmonary disease, unspecified; J42 Unspecified chronic bronchitis; J45.909 Unspecified asthma, uncomplicated; Z87.81 Personal history of (healed) traumatic fracture ==

== ENCOUNTER 2016-09-22 07:13 | Inpatient (IN) | payer OTHER ==
--- NOTE | 2016-09-22 07:20 | EDPHY ---
H & P Time Seen by Provider: 09/22/16 07:13 HPI/ROS: CHIEF COMPLAINT: Left chest pain after trauma HISTORY OF PRESENT ILLNESS: This 76-year-old man slipped last night fell down 3 steps landing on the left side of his chest. He did hit his head but did not lose consciousness. He called the paramedics today because of severe left- sided chest wall pain which is much worse with deep breath or moving. He was unable to move out of his bed to the stair chair until they gave him 100 mcg of IV fentanyl. On arrival his pain is all in the left side of his chest. Does not radiate. Worse with certain things as described above. Pain is moderate now after IV narcotics. REVIEW OF SYSTEMS: Eye: no change in vision ENT: no sore throat Cardiac: No fainting or syncope. Pulmonary: Mildly short of breath. Abdomen: no vomiting, diarrhea, abdominal pain Musculoskeletal: no back pain or neck pain Skin: Skin abrasion to the left knee and left elbow and left forehead. Neuro: no headache Constitutional: no fever : no urinary symptoms A comprehensive 10 point review of systems is otherwise negative aside from elements mentioned in the history of present illness. PAST MEDICAL HISTORY: Includes cardiac stenting on Plavix Social history: Nonsmoker, lives with his General Appearance: Alert and conversant, cooperative. Eyes: No scleral icterus. Pupils equal and extraocular motion intact, left eyebrow abrasion. ENT, Mouth: Normal mucous membranes. Respiratory: Breath sounds equal but decreased effort because of splinting. Cardiovascular: Regular rate and rhythm. Gastrointestinal: Left upper quadrant abdominal tenderness over the spleen but no rebound or guarding. Neurological: Alert and oriented x3. Normally conversant. Face symmetric, normal movement and sensation in all extremities. Skin: Skin tear on the left elbow and abrasion on the left knee, abrasion to the left eyebrow with bruising around the left eye. Musculoskeletal: No cervical thoracic or lumbar spine tenderness. No extremity tenderness and normal range of motion of the left elbow. Tender to palpation over the left chest wall from the axilla to the costal margin Psychiatric: Not agitated. Emergency Department course/MDM: Plan for head CT in 76-year-old man with trauma on Plavix. Supplemental oxygen applied for relative hypoxemia on arrival. Cervical spine, chest abdomen and pelvis CT. Wound care. 838: CT reported by Dr. Arshad at this time. Head and cervical spine negative. Chest shows displaced rib fractures 2 and 7 anteriorly and 4-6 posteriorly. Also has nondisplaced anterior 3rd through 8th rib fractures. Left inferior and superior pubic rami fractures. Negative for pneumothorax or hemothorax or splenic injury. Plan for surgery admission to Trauma Service. Multiple doses IV Dilaudid for pain. 940: Left shoulder x-ray shows minimally displaced clavicle fracture. Smoking Status: Former smoker Constitutional: Initial Vital Signs Temperature (C) 37.3 C 09/22/16 07:13 Heart Rate 97 09/22/16 07:13 Respiratory Rate 16 09/22/16 07:13 Blood Pressure 202/122 H 09/22/16 07:13 O2 Sat (%) 93 09/22/16 07:13 O2 Delivery Mode Nasal Cannula O2 (L/minute) 2 Allergies/Adverse Reactions: No Known Allergies Allergy (Unverified 07/24/16 06:25) Home Medications: Medication Instructions Recorded Clopidogrel Bisulfate [Plavix (*)] 75 mg PO DAILY 10/25/11 Montelukast Sodium [Singulair 10 10 mg PO DAILY@18 10/25/11 mg (*)] Ranolazine [Ranexa] 500 mg PO BID 10/25/11 Simvastatin [Zocor 40 mg] 20 mg PO DAILY18 10/25/11 Ropinirole HCl [Requip 0.5mg] 0.5 mg PO HS 02/10/15 clonIDINE [Catapres (*)] 0.1 mg PO BID 02/10/15 Lubiprostone [Amitiza 24 mcg (*)] 24 mcg PO BIDMEAL 07/24/16 oxyCODONE IR [Oxycodone Ir (*)] 5 mg PO BID PRN 07/24/16 traZODone [traZODONE 50MG (*)] 50 mg PO HS 07/24/16 Albuterol [Proventil Inhaler HFA 1 - 2 puffs IH Q6H PRN 09/22/16 (*)] Medical Decision Making - Diagnostics Imaging Results: Imaging Impressions Abdomen CT 09/22/16 07:17 Impression: 1. Acute, mildly displaced rib fractures as above, with 2 site fractures in the left fourth, fifth, sixth, eighth, and probably seventh ribs. 2. Comminuted, minimally displaced left superior pubic ramus fracture and minimally displaced left inferior pubic ramus fracture. 3. Nonspecific mildly prominent lymph nodes in the chest. Follow-up CT is recommended in 3 months. 4. Diffuse bladder wall thickening with an enhancing nodule that could be related to prostatic hypertrophy or a bladder mass. Recommend ultrasound or direct visualization to exclude malignancy. 5. Mild [id number] dilatation of the ascending aorta, measuring 4.3 cm, without dissection. 6. Additional findings as above. Findings discussed with Giulia Parker , at 0839 hours. The images were subsequently reviewed with Dr. Dasha Sofia, and several additional posterior rib fractures were discussed with her September 22, 2016 at [address] 09/22/16 07:17 Impression: 1. No acute posttraumatic abnormality identified. If there is persistent pain or neurologic deficit, consider MRI and/or flexion and extension views if clinically indicated. 2. Grossly stable multilevel degenerative change most prominent from C5 through C7 with spinal canal narrowing and neural foraminal stenosis. Findings discussed with GIULIA PARKER 09/22/[address] 09/22/16 07:17 Impression: 1. Acute, mildly displaced rib fractures as above, with 2 site fractures in the left fourth, fifth, sixth, eighth, and probably seventh ribs. 2. Comminuted, minimally displaced left superior pubic ramus fracture and minimally displaced left inferior pubic ramus fracture. 3. Nonspecific mildly prominent lymph nodes in the chest. Follow-up CT is recommended in 3 months. 4. Diffuse bladder wall thickening with an enhancing nodule that could be related to prostatic hypertrophy or a bladder mass. Recommend ultrasound or direct visualization to exclude malignancy. 5. Mild [id number] dilatation of the ascending aorta, measuring 4.3 cm, without dissection. 6. Additional findings as above. Findings discussed with Giulia Parker , at 0839 hours. The images were subsequently reviewed with Dr. Dasha Sofia, and several additional posterior rib fractures were discussed with her September 22, [address] 09/22/16 07:17 Impression: 1. No acute intracranial findings. 2. Maxillary and sphenoid sinusitis. 3. Diffuse cerebral atrophy with periventricular and subcortical low attenuation consistent with chronic microvascular ischemic gliosis. Findings discussed with GIULIA PARKER 09/22/2016 at 839. Differential Diagnosis: Differential diagnosis considered for chest trauma considered including but not limited to pneumothorax, hemothorax, rib fracture, chest contusion, spleen injury. Consult/Admit Bed Type: [facility] 843am for admit Critical Care Time: Critical care time spent by me, Dr. Parker, exclusively with the care of this patient was 30 minutes, exclusive of PA or COUNTY LIBRARY DIRECTOR time and exclusive of separate procedures. The organ system at risk was pulmonary and I ordered supplemental oxygen, Trauma surgery consultation, multiple doses of IV pain medications, multiple diagnostic studies to stabilize the patient and prevent worsening of the patient's condition. - Data Points Laboratory Results: Laboratory Results 09/22/16 07:24 09/22/16 07:24 09/22/16 09/22/16 09/22/16 07:24 07:24 07:24 WBC 14.61 10^3/uL H 10^3/uL (3.80-9.50) RBC 4.08 10^6/uL L 10^6/uL (4.40-6.38) Hgb 14.8 g/dL g/dL (13.7-17.5) POC Hgb Hct 42.7 % % (40.0-51.0) POC Hct MCV 104.7 fL H fL (81.5-99.8) MCH 36.3 pg H pg (27.9-34.1) MCHC 34.7 g/dL g/dL (32.4-36.7) RDW 15.5 % H % (11.5-15.2) Plt Count 229 10^3/uL 10^3/uL (150-400) MPV 8.8 fL fL (8.7-11.7) Neut % (Auto) Not Reported Lymph % (Auto) Not Reported [place] % (Auto) Not Reported Eos % (Auto) Not Reported Baso % (Auto) Not Reported Nucleat RBC Rel Count 0.0 % % (0.0-0.2) Absolute Neuts (auto) Not Reported Absolute Lymphs (auto) Not Reported Absolute Monos (auto) Not Reported Absolute Eos (auto) Not Reported Absolute Basos (auto) Not Reported Absolute Nucleated RBC 0.00 10^3/uL 10^3/uL (0-0.01) Immature Gran % Not Reported Seg Neutrophils % 59 % % Band Neutrophils % 4 % % Lymphocytes % 15 % % Monocytes % 9 % % Eosinophils % 8 % % Basophils % 1 % % Metamyelocytes % 4 % % Immature Gran # Not Reported Absolute Seg Neuts 8.62 10^/uL H 10^/uL (1.70-6.50) Absolute Band Neuts 0.58 10^3/uL 10^3/uL (0.00-0.70) Absolute Lymphocytes 2.19 10^3/uL 10^3/uL (1.00-3.00) Absolute Monocytes 1.31 10^3/uL H 10^3/uL (0.30-0.80) Absolute Eosinophils 1.17 10^3/uL H 10^3/uL (0.03-0.40) Absolute Basophils 0.15 10^3/uL H 10^3/uL (0.02-0.10) Absolute Metamyelocyte 0.58 10^3/mL H 10^3/mL (0.00-0.00) RBC/WBC/PLT Morphology NORMAL (NORMAL) Platelet Estimate ADEQUATE (ADEQ) PT 13.3 SEC SEC (12.0-15.0) INR 1.02 (0.83-1.16) POC Sodium Sodium 134 mEq/L mEq/L (134-144) POC Potassium Potassium 3.6 mEq/L mEq/L (3.5-5.2) POC Chloride Chloride 102 mEq/L mEq/L (97-110) Carbon Dioxide 22 mEq/l mEq/l (22-31) Anion Gap 10 mEq/L mEq/L (8-16) POC BUN BUN 11 mg/dL mg/dL (7-23) Creatinine 0.8 mg/dL mg/dL (0.7-1.3) POC Creatinine Estimated GFR > 60 Glucose 99 mg/dL mg/dL (70-100) POC Glucose Calcium 9.1 mg/dL mg/dL (8.5-10.4) 09/22/16 07:23 WBC RBC Hgb POC Hgb 15.3 gm/dL gm/dL (13.7-17.5) Hct POC Hct 45 % % (40-51) MCV MCH MCHC RDW Plt Count MPV Neut % (Auto) Lymph % (Auto) [place] % (Auto) Eos % (Auto) Baso % (Auto) Nucleat RBC Rel Count Absolute Neuts (auto) Absolute Lymphs (auto) Absolute Monos (auto) Absolute Eos (auto) Absolute Basos (auto) Absolute Nucleated RBC Immature Gran % Seg Neutrophils % Band Neutrophils % Lymphocytes % Monocytes % Eosinophils % Basophils % Metamyelocytes % Immature Gran # Absolute Seg Neuts Absolute Band Neuts Absolute Lymphocytes Absolute Monocytes Absolute Eosinophils Absolute Basophils Absolute Metamyelocyte RBC/WBC/PLT Morphology Platelet Estimate PT INR POC Sodium 139 mEq/L mEq/L (134-144) Sodium POC Potassium 3.3 mEq/L mEq/L (3.3-5.0) Potassium POC Chloride 99 mEq/L mEq/L (97-110) Chloride Carbon Dioxide Anion Gap POC BUN 10 mg/dL mg/dL (7-23) BUN Creatinine POC Creatinine 0.9 mg/dL mg/dL (0.7-1.3) Estimated GFR Glucose POC Glucose 105 mg/dL H mg/dL (70-100) Calcium Medications Given: Discontinued Medications Hydromorphone HCl (Dilaudid) 0.5 mg IVP EDNOW ONE Stop: 09/22/16 08:29 Last Admin: 09/22/16 08:00 Dose: 0.5 mg Hydromorphone HCl (Dilaudid) 0.5 mg IVP EDNOW ONE Stop: 09/22/16 08:56 Last Admin: 09/22/16 09:05 Dose: 0.5 mg Hydromorphone HCl (Dilaudid) 1 mg IVP EDNOW ONE Stop: 09/22/16 10:01 Last Admin: 09/22/16 10:00 Dose: 1 mg Point of Care Test Results: 09/22/16 07:23 POC Sodium 139 POC Potassium 3.3 POC Chloride 99 POC BUN 10 POC Creatinine 0.9 POC Glucose 105 H Departure - Departure Disposition: [facility] Inpatient Acute Clinical Impression: Ribs, multiple fractures Qualifiers: Encounter type: initial encounter Fracture type: closed Laterality: left Qualified Code(s): S22.42XA - Multiple fractures of ribs, left side, initial encounter for closed fracture Closed left clavicular fracture Qualifiers: Encounter type: initial encounter Clavicle location: lateral end Fracture alignment: displaced Qualified Code(s): S42.032A - Displaced fracture of lateral end of left clavicle, initial encounter for closed fracture Fracture of pubic ramus Qualifiers: Encounter type: initial encounter Fracture type: closed Laterality: left Qualified Code(s): S32.592A - Other specified fracture of left pubis, initial encounter for closed fracture Abrasion of left elbow, initial encounter Qualifiers: Encounter type: initial encounter Qualified Code(s): S50.312A - Abrasion of left elbow, initial encounter Condition: Serious
[2016-09-22] MEDS ORDERED: IOPAMIDOL (ISOVUE-300) 100 ML BTL ONE (07:21)
[2016-09-22 07:42] LABS: ADD DIFF? YES; ADD MORPH? NO; ADD SCAN? NO; ATYPICAL LYMPHOCYTE FLAG 0 (0-99); FRAGMENT RBC FLAG 0 (0-99); HEMATOCRIT 42.7 % (40.0-51.0); HEMOGLOBIN 14.8 g/dL (13.7-17.5); LEFT SHIFT FLG 10 (0-99); LIPEMIA HEMOLYSIS FLAG 90 (0-99); MEAN CELL HEMOGLOBIN 36.3 pg (27.9-34.1); MEAN CELL HEMOGLOBIN CONCENTR. 34.7 g/dL (32.4-36.7); MEAN CELL VOLUME 104.7 fL (81.5-99.8); MEAN PLATELET VOLUME 8.8 fL (8.7-11.7); PLATELET CLUMPS FLAG 10 (0-99); PLATELET COUNT 229 10^3/uL (150-400); RED BLOOD CELL COUNT 4.08 10^6/uL (4.40-6.38); RED CELL DISTRIBUTION WIDTH 15.5 % (11.5-15.2)
[2016-09-22] MEDS ORDERED: HYDROmorphONE/DILAUDID 1 MG/ML SYR ONE (07:53)
[2016-09-22 07:55] LABS: INR 1.02 (0.83-1.16); PROTIME(PATIENT) 13.3 SEC (12.0-15.0)
[2016-09-22] MEDS ORDERED: ONDANSETRON 4 MG/2 ML VIAL ONE (08:01)
[2016-09-22 08:05] LABS: ANION GAP 10 mEq/L (8-16); CALCIUM 9.1 mg/dL (8.5-10.4); CARBON DIOXIDE 22 mEq/l (22-31); CHLORIDE 102 mEq/L (97-110); CREATININE 0.8 mg/dL (0.7-1.3); GLOMERULAR FILTRATION RATE > 60; GLUCOSE 99 mg/dL (70-100); POTASSIUM 3.6 mEq/L (3.5-5.2); SODIUM 134 mEq/L (134-144)
[2016-09-22 08:09] LABS: PLATELET ESTIMATE ADEQUATE (ADEQ)
[2016-09-22] MEDS ORDERED: HYDROmorphONE/DILAUDID 1 MG/ML SYR IVP ONE ×3 (08:28→10:00)
[2016-09-22] MEDS ORDERED: LET GEL TOPICAL 1 EA SYR TP ONE (08:47)
[2016-09-22] MEDS ORDERED: NALOXONE HCL 0.4 MG/ML INJ IVP PRN (09:18)
[2016-09-22] MEDS ORDERED: ONDANSETRON 4 MG/2 ML VIAL IVP PRN (09:18)
[2016-09-22] MEDS ORDERED: NS 1,000 ML IV SCH (09:30)
[2016-09-22] MEDS ORDERED: KETAMINE 500 MG in D5W 500 ML IV SCH (09:30)
--- NOTE | 2016-09-22 10:28 | GHP ---
[f rep st] HISTORY AND PHYSICAL DATE OF ADMISSION: 09/22/2016 REASON FOR CONSULTATION: Multi-system trauma. REQUESTING PHYSICIAN: Dr. Robert Garcia HISTORY OF PRESENT ILLNESS: The patient is a 76-year-old man who is on Plavix for previous stents and fell down 3 stairs yesterday. Today, he had difficulty ambulating and breathing, and so he called EMS. He had a workup performed in the emergency room, which included a head CT, C-spine CT, chest CT, and abdominal and pelvis CT. His diagnoses included multiple rib fractures and superior and inferior pubic rami fractures. He does not think that his pain is controlled with fentanyl. The ribcage hurts the worst. He does have difficulty moving his left leg. PAST MEDICAL HISTORY: Includes frequent falls, coronary artery disease, status post 6 stents, chronic pain, hypertension, hyperlipidemia, COPD on CPAP, depression and anemia. PAST SURGICAL HISTORY: Appendectomy,left hip arthoplasty, tonsillectomy. FAMILY HISTORY: He is adopted. 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 He lives in [place] with his . He previously smoked a pack a day for 40 years. He likes to ride his bicycle. He does not use any illegal drugs. REVIEW OF SYSTEMS: Significant for frequent falls, some shortness of breath, pain on left side. Otherwise, 10-point review of systems is negative. PHYSICAL EXAMINATION: VITAL SIGNS: Temperature 37.3, pulse 97, blood pressure 173/97, respiratory rate 18, 95% on 2 L. GENERAL: Pleasant, sitting up in bed. Alert, oriented. at bedside. He is cheerful, but is in obvious discomfort when even moving slightly. HEENT: Normocephalic, no gross hearing deficits. Pupils equal and round. No scleral icterus. No hemotympanum, no otorrhea. No rhinorrhea. Teeth fit together normally. Ecchymosis by left eye. CERVICAL SPINE: No cervical spine tenderness. Full range of motion without pain. LUNGS: Decreased breath sounds bilaterally. No wheezing. Moderate inspiratory effort due to pain. CARDIAC: Regular rate. No peripheral edema. Chest: Tender by ribs and clavicle ABDOMEN: Bowel sounds present. He is slightly firm, as he is maryana his abdominal muscles. Bowel sounds present. No ecchymosis. MUSCULOSKELETAL: 5/5 strength upper and lower extremity, with the exception of his left upper proximal arm, as well as his proximal leg. NEURO: Sensation intact. Neuro: II-XII intact. SKIN: He has a skin tear that is at least 10 cm x 4 cm on his left arm, I did trim the devitalized skin. PSYCH: Mood and affect normal. LABORATORY WORK: Reveals a white count of 14,000. His hemoglobin and hematocrit are within normal limits. He had a CT scan of his head, which showed no intracranial abnormality. The C-spine showed no acute posttraumatic abnormalities. There is degenerative change C5 through C7. His chest CT reveals rib fractures 2 through 8, with fractures in 4th, 5th, 6th, 8th and 7th ribs. He has a mixture of old and new fractures. He does have a comminuted minimally displaced left superior pubic rami fracture, and minimally displaced left inferior pubic rami fracture. He does have some lymph nodes in his chest and follow up CT is recommended in 3 months. He does have diffuse bladder wall thickening, which should be followed up as an outpatient. IMPRESSION AND PLAN: 1. The patient is a 76-year-old man status post fall, on Plavix. His injuries include multiple rib fractures with pain not controlled. I will admit him to the ICU and put him on the ketamine drip for the rib protocol. He will be encouraged to use the incentive spirometer. He will also have breakthrough for morphine. 2. Chronic obstructive pulmonary disease. May continue on his home CPAP. 3. Coronary artery disease. He should continue his home medications. Due to his multiple medical problems, I have asked the hospitalist to also see him. 4. Superior and inferior pubic rami fracture, and distal clavicle fracture. I have asked Dr. Alcantar to see him. Sling for comfort 5. Outpatient follow up CT chest and bladder ultrasound 6. Prophylaxis. He will be on subcu Lovenox. DISPOSITION: I anticipate this will be greater than 2 midnights due to the multiple injuries. /[id number]/MODL MTDD
--- NOTE | 2016-09-22 12:14 | GCON ---
[f rep st] CONSULTATION REFERRING PHYSICIAN: Dasha Watts MD REASON FOR CONSULTATION: Management of chronic medical issues. CHIEF COMPLAINT: Multiple rib fractures, pain. HISTORY OF PRESENT ILLNESS: Patient is a 76-year-old male with multiple comorbidities, including CAD with 6 stents, COPD on oxygen, hypertension, hyperlipidemia who presented to the emergency room today with left flank pain. He was at a friend's house last night for dinner and lost his balance and fell down 3 steps on the left side of his chest. He did hit his head but denies any loss of consciousness. His drove him home, and he went to bed without issue. However, today the pain was so significant that he came in. Pain is worse with movement. He denies any prodromal symptoms before fall, including chest pain, shortness of breath, dizziness, clamminess, lightheadedness. Currently, pain in the left ribs is 5-1/2 right now. REVIEW OF SYSTEMS: I completed a 10-point review of systems, negative except as noted in HPI. PAST MEDICAL HISTORY: 1. CAD, status post 6 stents to RCA, LAD and left circumflex. 2. Chronic pain, on chronic narcotics. 3. Hypertension. 4. Hyperlipidemia. 5. COPD on CPAP. 6. Chronic hypoxemic respiratory failure. 7. Depression. 8. Anemia. 9. Recurrent falls. 10. Sepsis secondary to pneumonia in July 2016. PAST SURGICAL HISTORY: Appendectomy, right hip surgery, tonsillectomy. FAMILY HISTORY: Adopted. 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 He smoked a pack a day for 40 years. No illicits, has occasional alcohol. ALLERGIES: No known drug allergies. HOME MEDICATIONS: 50 mg at bedtime, , oxycodone 5 mg twice daily p.r.n., clonidine 0.1 mg twice daily, Norvasc 5 daily, Zocor 40 mg daily, Requip 0.5 mg at bedtime, Ranexa 500 mg twice daily, Singulair 10 mg daily, Robaxin 750 mg as needed, Amitiza 24 mcg p.o. twice daily, Lidoderm patch 2 each daily, DuoNebs as needed, herbal supplement, fluticasone/vilanterol 1 inhale daily, Voltaren gel, Plavix 75 mg daily, vitamin D 2000 units daily, bupropion 300 mg daily, Tessalon Perles as needed, albuterol inhaler as needed. PHYSICAL EXAM: VITAL SIGNS: Temperature 37.3, blood pressure initially 202/122 , now 145/63, heart rate is in the 80s, respiration 18, 95% on room air. GENERAL: Patient is lying in bed, no acute distress. HEENT: Small abrasion above left eye. Pupils are round and reactive. Moist mucous membranes. CV: Regular rate and rhythm. No murmurs, gallops, or rubs. LUNGS: Clear to auscultation anteriorly. ABDOMEN: Soft, nontender, nondistended. He has tenderness along his left flank. He has left upper quadrant tenderness to palpation. NEURO: 2 through 12 intact. MUSCULOSKELETAL: He has a sling on left arm. Moving all extremities. Limited range of motion left lower extremity secondary to pain in the pubic region. PSYCH: Alert and oriented x3. LABS: WBCs 14, hemoglobin is 14, hematocrit is 42, platelets are 229. Coags within normal. Sodium 134, potassium 3.6, chloride 102 carbon dioxide 22, creatinine 0.8, calcium 9.1. IMAGING: Head CT: No acute intracranial findings. Maxillary and sphenoid sinusitis. Abdominal CT: Comminuted, minimally displaced left superior pubic ramus fracture, minimally displaced left inferior pubic ramus fracture. Nonspecific prominent lymph nodes in the chest. Diffuse bladder wall thickening with an enhancing nodule. Mild aneurysm measuring 4.[address] chest : Acute mildly displaced anterior left 2nd and lateral 7th rib fractures with subtle contour irregularities of the lateral left 3rd, 4th, 5th, 6th, 7th and 8th ribs, suggesting nondisplaced fractures. Mildly displaced posterior left through 4th, 6th rib fractures. Acute nondisplaced posterior left 8th and 9th rib fractures with probable nondisplaced left 7th fracture. Shoulder x-ray: Nondisplaced distal left clavicular fracture. ASSESSMENT AND PLAN: 1. Multiple rib fractures. Patient will be admitted to the ICU under the care of Dr. Watts with Trauma Surgery and started on a ketamine drip for rib protocol. Encourage incentive spirometry. 2. Clavicular, pubic ramus fractures: Dr. Alcatnar with Orthopedics will see. Sling for comfort. 3. Chronic obstructive pulmonary disease. Stable. No evidence of exacerbation. Continue the CPAP. 4. Coronary artery disease. Significant stenting in the past with 6 to the RCA , LAD and left circumflex. We will continue his home medications. His will bring these in. 5. Depression. Continue home medications. 6. Accelerated hypertension: This likely in setting of acute pain. Will resume his home medications. Bladder wall thickening with nodule: Patient can have a bladder ultrasound as an outpatient. 7. Prominent chest lymphadenopathy. Repeat CT and chest in 3 months. 8. Hyperlipidemia. Statin. 9. Normocytic anemia. H and H are stable. 10. Leukocytosis: Suspect this is a stress inflammation given acute fall with fractures. He is afebrile. Will monitor. Denies any infectious symptoms. 11. Diet: Regular. 12. Deep venous thrombosis prophylaxis. Lovenox. Thank you for this consultation. We will follow along. Please call if questions. /[id number]/MODL MTDD
--- NOTE | 2016-09-22 12:57 | SOAPPROG ---
SOAP Progress Note Assessment/Plan: Assessment: HPI: 76 y/o old male s/p fall on 09/21/16 with multiple left-sided rib fractures, left lateral clavicle fracture (non-displaced), and left superior and inferior pubic rami fractures s/p previous left EDIL. PE: Gen: NAD AVSS LUE: TTP overlying the lateral clavicle, TTP overlying the anterior and posterior rib cage +D, B, T, ECRL, ECRB, EPL, FPL, FDS, FDP, FDP-I, DI, PI +M/R/U SILT 2+ radial and ulnar pulses LLE: TTP overlying the groin +Q, H, TA, EHL, FHL, G/S +SILT in DP, SP, Sural, T, Saphenous distributions 2+ DP and PT pulses Assessment and plan: 76 y/o old male s/p fall on 09/21/16 with multiple left-sided rib fractures, left lateral clavicle fracture (non-displaced), and left superior and inferior pubic rami fractures s/p previous left EDIL. -Strict NWB on LUE with sling for comfort -WBAT on LLE with assist due to balance problems and probable intolerance to full weight bearing without an assistive device -FU as an outpatient in 2 weeks -Full consult to follow 09/22/16 12:54 09/22/16 16:08 Objective: Vital Signs Temp Pulse Resp BP Pulse Ox 36.8 C 79 19 179/91 H 97 09/22/16 12:00 09/22/16 12:00 09/22/16 12:00 09/22/16 12:00 09/22/16 12:00 09/21/16 09/22/16 09/23/16 05:59 05:59 05:59 Intake Total 250 Balance 250 PT 13.3 SEC (12.0-15.0) 09/22/16 07:24 INR 1.02 (0.83-1.16) 09/22/16 07:24 ICD10 Worksheet Patient Problems: Problems Problem Status Onset Abrasion of left elbow, initial encounter Acute Closed left clavicular fracture Acute Fracture of pubic ramus Acute Ribs, multiple fractures Acute Anemia Acute CHI (closed head injury) Acute Chronic Disease Mgmt/Transitional Care Acute Depression Acute Dyspnea Acute HTN (hypertension) Acute Multiple falls Acute Pneumonia Acute Post concussion syndrome Acute Sepsis Acute Unsteady gait Acute Weakness of both legs Acute
[2016-09-22] MEDS ORDERED: IPRATROPIUM/ALBUTEROL 3 ML DEYVIAL IH PRN (13:07)
[2016-09-22] MEDS ORDERED: ALBUTEROL 60 PUFFS/8 GM MDI IH PRN (13:14)
[2016-09-22] MEDS ORDERED: PROMETHAZINE HCL 25 MG/ML INJ IVP PRN (13:52)
[2016-09-22] MEDS ORDERED: hydrALAZINE 20 MG/ML VIAL IVP PRN (13:53)
--- NOTE | 2016-09-22 14:09 | GCON ---
[f rep st] CONSULTATION DATE OF CONSULTATION: 09/22/2016 HISTORY OF PRESENT ILLNESS: The patient is a 76-year-old male with a history of COPD and sleep apne a who had a mechanical fall last night. He slipped on a few short stairs and went to bed thinking i t was just a few bruises and came to the emergency department today after the pain seemed to be subs tantially worse. On his workup, he was found to have multiple rib fractures as well as superior and inferior pubic rami fractures and was having difficulty with pain control. He was evaluated by Dr. Watts, admitted to the ICU for a ketamine drip and better pain control and nonoperative management of his fractures. REVIEW OF SYSTEMS: Otherwise negative. The patient has not been having any issues until this mecha nical fall and denies any syncope or cardiac arrhythmias. PAST MEDICAL HISTORY: 1. Does include coronary artery disease, as well as COPD and nocturnal hypoxemia as well as sleep a pnea using CPAP. His FEV1 is 54% of predicted on his most recent pulmonary function tests. 2. Hypertension. 3. Hyperlipidemia. 4. Depression. 5. Anemia. 6. Remote compression fractures. 7. Remote rib fractures. 8. Chronic pain syndrome. 9. Pneumonia. PAST SURGICAL HISTORY: Includes left total hip arthroplasty, appendectomy and tonsillectomy in the past. SOCIAL HISTORY: He has a [id number] smoking history but quit some years ago. Denies any signific ant alcohol or IV drug use. FAMILY HISTORY: Noncontributory. MEDICATIONS: Outpatient medications: Include Breo, Singulair and DuoNeb. Current inpatient medications: Include Warren, Lovenox, ketamine, morphine, Narcan, Zofran and ahmet l saline. PHYSICAL EXAMINATION: VITAL SIGNS: His blood pressure was 179/91 with a heart rate of 79, respirat ions 19, oxygen saturation 97% on 2 L. GENERAL: He was awake and alert, in no apparent distress, a ble to speak in full sentences without using accessory muscles for breathing. HEENT: Pupils are eq ually round, reactive to light. Nonicteric and noninjected. Mucous membranes are moist without cesario thema or exudate. NECK: Supple without adenopathy or jugular vein distention. LUNGS: Breath soun ds were clear to auscultation bilaterally without wheezes, rubs or rales. HEART: Regular rate and rhythm without obvious murmur. ABDOMEN: Soft, nontender, nondistended without hepatosplenomegaly. EXTREMITIES: Show no clubbing, cyanosis, or edema. NEUROLOGIC: A cursory neurological exam is no nfocal, including cranial nerves and deep tendon reflexes. OBJECTIVE DATA: Includes a white count of 14.6, hematocrit of 42, platelets of 229. Basic metaboli c panel was normal. INR was 1.02. I believe he was on Plavix as well. ASSESSMENT/PLAN: 1. Mechanical fall with multiple fractures and intractable pain. This is being managed by Dr. eTllo law with a ketamine drip as well as narcotics as mentioned above. Toradol may be an acceptable altern ative, though we would have to be cautious about his renal function given his advanced age. 2. Chronic obstructive pulmonary disease. This appears to be relatively stable at this time. I wo uld simply continue his outpatient medications, including Breo and Singulair, as well as p.r.n. DuoN eb. 3. Sleep apnea. Will try to make efforts to get his device, though I had difficulty finding that i n his history, and he may just have nocturnal hypoxemia and require oxygen alone. All investigate t hat further. Otherwise, he appears to be relatively stable. /[id number]/MODL
[2016-09-22] MEDS: RANOLAZINE 500 MG TAB.ER PO SCH ×2 (14:47→20:07)
[2016-09-22] MEDS: CLOPIDOGREL BISULFATE 75 MG TAB PO SCH (14:47)
[2016-09-22] MEDS ORDERED: POTASSIUM CL 20 MEQ/15 ML UDCUP PO ONE (15:40)
[2016-09-22] MEDS ORDERED: HYDROmorphONE/DILAUDID 6 MG/30 ML PCA IV PRN (15:41)
[2016-09-22] MEDS ORDERED: MAGNESIUM HYDROXIDE 30 ML UDCUP PO PRN (15:42)
[2016-09-22] MEDS ORDERED: POLYETHYLENE GLYCOL 3350 17 GM PKT PO PRN (15:42)
[2016-09-22] MEDS ORDERED: MONTELUKAST SODIUM 10 MG TAB PO SCH (18:00)
[2016-09-22] MEDS: LUBIPROSTONE 24 MCG CAP PO SCH (18:01)
[2016-09-22] MEDS: KETOROLAC 15 MG/1 ML SDV IVP SCH ×2 (18:01→23:58)
[2016-09-22] MEDS: MONTELUKAST SODIUM 10 MG TAB PO SCH (18:01)
[2016-09-22] MEDS: ATORVASTATIN CALCIUM 10 MG TAB PO SCH (18:01)
--- NOTE | 2016-09-22 18:13 | GCON ---
[f rep st] CONSULTATION Patient Name: OMA FERNANDEZ N-Number: [id number] Date of : 1940 Patient Status: Inpatient Attending Doctor: Dasha Watts MD Consulting Doctor: Chi Alcantar MD Date of service: 09/22/16 CPT codes: CPT code 56451 ER visit requiring admission or initial inpatient visit, level three CPT code 24123 Closed treatment of a pelvic ring fracture, without manipulation CPT code 52267 Closed treatment of a clavicle fracture, without manipulation Modifier 57 Decision for surgery CHIEF COMPLAINT: Chest and pelvic pain s/p a fall HISTORY OF PRESENT ILLNESS: This is a very pleasant 76 year old male with a significant history for left chest and groin pain after a fall down a few stairs at his home last night (09/21). He reports he did hit his head but did not lose consciousness. He did not sustain any other trauma. Upon evaluation he was found to have multiple left- sided rib fractures, left superior and inferior pubic rami fractures, and a left lateral clavicular shaft fracture. PROBLEM LIST: Multiple left-sided rib fracture, left superior and inferior pubic rami fractures, left lateral clavicular shaft fracture PAST MEDICAL HISTORY: CAD, chronic pain (chronic narcotic use), HTN, hyperlipidemia, COPD (CPAP), chronic hypoxemic respiratory failure, depression, anemia, recurrent falls, sepsis secondary to pneumonia in July 2016 SURGERIES: appendectomy, left EDIL, tonsillectomy SOCIAL HISTORY: He is retired and lives with his . He smoked a pack a day for 40 years FAMILY HISTORY: Adopted CURRENT MEDICATIONS: Oxycodone, Clonidine, Norvasc, Zocor, Requip, Ranex, Singulair, Robaxin, Amitiza , Lidoderm patch, Duoneb, Breo ALLERGIES: NKDA REVIEW OF SYSTEMS Constitutional: No unexpected weight loss, weight gain, fevers, chills, or fatigue. Eyes: No blurred or double vision, no eye pain, redness or swelling. ENT: No headaches, difficulty swallowing, nose bleeds, tinnitus, or earaches. Cardiovascular: No chest pain, palpitations, fainting or murmurs. Respiratory: No shortness of breath, wheezing, cough, of difficulty breathing. GI: No reflux, no nausea or vomiting, no constipation, diarrhea, or bloody stools. Genitourinary: No urinary frequency or urgency, no pain with urination. Skin: No skin changes, rashes, itching, or redness. Neurologic: No dizziness, tremors, or seizures. Psychiatric: No nervousness, anxiety, depression, or hallucinations. Hematologic: No increased bleeding or easy bruising. Endocrine: No excessive thirst or urination and no heat or cold intolerances. Allergic: No reactions to food or environment. Musculoskeletal: See history of present illness. PHYSICAL EXAM General: No apparent distress. Orientation: Alert and oriented times three Mood and affect: Calm, appropriate. Gait and station: Normal gait and station. Skin: Warm, dry. Lymph: Non tender neck, axillary and inguinal nodes. Chest: Equal expansion, no pain with deep breaths, speaks in coherent sentences. Cardiovascular: Regular pulse. Abdomen: Soft, non-tender, no masses, no palpable hernias. Bilateral shoulder examination Inspection/palpation: Right: Normal resting posture. Left: TTP overlying the lateral clavicle Shoulder ROM (R / L / Normal) Forward flexion: 170 / KEVIN / 170 Abduction: 160 / KEVIN / 160 Extension: 40 / KEVIN / 40 Shoulder strength (R / L / Normal) Deltoid : 5/ 4 / 5 Biceps: 5/ 4 / 5 Shoulder sensory (R / L / Normal) Axillary: + / + / + Bilateral hip examination Inspection/palpation: Right: Soft, non-tender. Left: Left groin pain Range of motion Flexion: 100 / 40 / 100 Extension: 30 / 10 / 30 Abduction: 40 / 20 / 40 Adduction: 20 / 15 / 20 Strength (R / L / Normal) Muscle(s) Quadriceps (L3-L4): 5 / 3 / 5 Hamstrings (L4-L5): 5 / 3 / 5 Tibialis anterior (L4): 5 / 3 / 5 EHL (L5): 5 / 3 / 5 FHL (S1): 5 / 3 / 5 Gastroc-soleus (S1): 5 / 3 / 5 Sensory (R / L / Normal) Dermatomes L1 (groin): + / + / + L2 (medial upper thigh): + / + / + L3 (anterior thigh): + / + / + L4 (medial ankle): + / + / + L5 (first dorsal web space): + / + / + S1 (lateral border of foot): + / + / + Peripheral nerves Superficial peroneal: + / + / + Deep peroneal: + / + / + Sural: + / + / + Tibial: + / + / + Saphenous: + / + / + Vascular exam (R / L / Normal) Dorsalis pedis: 2+ / 2+ / 2+ Tibialis posterior: 2+ / 2+ / 2+ Medical decision making Data Imaging study: CT of Chest Action: interpreted Interpretation / pertinent findings: 1. Mildly displaced anterior left second and seventh rib fractures with probable nondisplaced fractures of the left third , fourth, fifth, sixth, and eighth ribs. Posterior fourth through ninth rib fractures. 2. Comminuted, minimally displaced left superior pubic ramus fracture and minimally displaced left inferior pubic ramus fracture. Imaging Study: Left shoulder radiographs, two views Action: Interpreted Interpretation/pertinent findings: non-displaced left lateral clavicular shaft fracture Imaging Study: Left hip radiographs, three views Action: Ordered and interpreted Interpretation/pertinent findings: s/p left EDIL without acute fracture. Minimally displaced left superior and inferior pubic rami fractures Diagnoses New diagnosis: Multiple left rib fractures Work-up planned: yes: see assessment and plan New diagnosis: Left superior and inferior pubic rami fractures Work-up planned: yes: see assessment and plan New diagnosis: Left lateral clavicular shaft fracture Work-up planned: yes: see assessment and plan Assessment and plan This is a very pleasant 76 year old male with multiple left-sided rib fractures , left superior and inferior pubic rami fractures, and a non-displaced left lateral clavicular shaft fracture after injury on 09/21/16 - NWB on LUE. Sling for comfort - WBAT on LLE with assistance - Follow up in 2 weeks as an outpatient Time I have spent 80 minutes of [id number] time with the patient during this visit. Over fifty percent of this time was spent counseling the patient on the risks, benefits, alternatives, and complications of both non-operative and operative forms of treatment as outlined above. /[id number]/MODL MTDD
[2016-09-22] MEDS: FAMOTIDINE 20 MG TAB PO SCH (20:07)
[2016-09-22] MEDS: SENNOSIDES/DOCUSATE SODIUM TAB PO SCH (20:08)
[2016-09-22] MEDS: HYDROCODONE/APAP 5/325 TAB PO PRN (20:09)
[2016-09-22] MEDS: traZODone 50 MG TAB PO SCH (20:09)
[2016-09-22] MEDS: FLUTICASONE/SALMETER 250/50MCG DISKUS IH SCH (20:36)
[2016-09-23 04:46] LABS: % IMMATURE GRANULYOCYTES 1.4 % (0.0-1.1); ABSOLUTE IMMATURE GRANULOCYTES 0.14 10^3/uL (0.00-0.10); ABSOLUTE NRBC COUNT 0.03 10^3/uL (0-0.01); ADD DIFF? NO; ADD MORPH? NO; ADD SCAN? NO; ATYPICAL LYMPHOCYTE FLAG 0 (0-99); FRAGMENT RBC FLAG 0 (0-99); HEMATOCRIT 37.6 % (40.0-51.0); HEMOGLOBIN 12.6 g/dL (13.7-17.5); LEFT SHIFT FLG 10 (0-99); LIPEMIA HEMOLYSIS FLAG 80 (0-99); MEAN CELL HEMOGLOBIN 36.4 pg (27.9-34.1); MEAN CELL HEMOGLOBIN CONCENTR. 33.5 g/dL (32.4-36.7); MEAN CELL VOLUME 108.7 fL (81.5-99.8); MEAN PLATELET VOLUME 8.9 fL (8.7-11.7); NRBC-AUTO% 0.3 % (0.0-0.2); PLATELET CLUMPS FLAG 0 (0-99); PLATELET COUNT 159 10^3/uL (150-400); RED BLOOD CELL COUNT 3.46 10^6/uL (4.40-6.38); RED CELL DISTRIBUTION WIDTH 16.1 % (11.5-15.2)
[2016-09-23 04:55] LABS: ANION GAP 3 mEq/L (8-16); CALCIUM 8.2 mg/dL (8.5-10.4); CARBON DIOXIDE 26 mEq/l (22-31); CHLORIDE 105 mEq/L (97-110); CREATININE 0.9 mg/dL (0.7-1.3); GLOMERULAR FILTRATION RATE > 60; GLUCOSE 100 mg/dL (70-100); SODIUM 134 mEq/L (134-144)
[2016-09-23] MEDS: KETOROLAC 15 MG/1 ML SDV IVP SCH ×2 (06:45→11:26)
[2016-09-23 06:57] LABS: COLOR AMBER; LEUKOCYTE ESTERASE,URINE NEGATIVE (NEGATIVE); NITRITE,URINE NEGATIVE (NEGATIVE)
[2016-09-23 07:08] LABS: BACTERIA TRACE /hpf (NONE SEEN); MUCUS 1+ /lpf (NONE-1+)
[2016-09-23] MEDS: SENNOSIDES/DOCUSATE SODIUM TAB PO SCH ×2 (08:55→21:57)
[2016-09-23] MEDS: ENOXAPARIN 40 MG/0.4 ML SYR SC SCH (08:55)
[2016-09-23] MEDS: FAMOTIDINE 20 MG TAB PO SCH ×2 (08:56→21:56)
[2016-09-23] MEDS: HYDROCODONE/APAP 5/325 TAB PO PRN ×4 (08:56→21:58)
[2016-09-23] MEDS: CLOPIDOGREL BISULFATE 75 MG TAB PO SCH (08:57)
[2016-09-23] MEDS: LUBIPROSTONE 24 MCG CAP PO SCH ×2 (09:01→18:14)
[2016-09-23] MEDS: FLUTICASONE/SALMETER 250/50MCG DISKUS IH SCH (09:04)
--- NOTE | 2016-09-23 09:14 | PDINTPN ---
Fire Officer Progress Note Assessment/Plan: Assessment/plan: 76 M s/p mechanical fall resulting in multiple mildly displaced acute left rib fractures (with old healed rib fractures on contralateral side), comminuted mildly displaced left inferior and superior pubic rami fractures, and a non displaced acute distal left clavicular fracture. He had intractable pain in the ED so was admitted for ketamine. Also on long-term plavix and COPD (no ADAN). * Mechanical fall with multiple fractures- Pain well controlled this AM with Dilaudid, Toradol, tylenol. * COPD stable on Advair (substitue for home Breo), singulair, and prn Ventolin. No complaints. Does not use CPAP. * * Objective: Vital Signs Temp Pulse Resp BP Pulse Ox 37 C 66 14 111/98 H 100 09/23/16 04:32 09/23/16 08:28 09/23/16 08:28 09/23/16 08:56 09/23/16 08:28 Laboratory Results 09/23/16 04:35 09/23/16 04:35 09/22/16 09/23/16 09/24/16 05:59 05:59 05:59 Intake Total 2357 Output Total 675 Balance 1682 PT 13.3 SEC (12.0-15.0) 09/22/16 07:24 INR 1.02 (0.83-1.16) 09/22/16 07:24 Physical Exam - Physical Exam General Appearance: WD/WN, alert, no apparent distress EENT: PERRL/EOMI, other (left eye ecchymosis) Neck: supple Respiratory: lungs clear, normal breath sounds, No respiratory distress Cardiac/Chest: regular rate, rhythm, No edema Abdomen: normal bowel sounds, non-tender, soft, No distended Skin: normal color, warm/dry Lymphatic: no adenopathy Extremities: No pedal edema Neuro/Psych: alert, normal mood/affect, oriented x 3 ICD10 Worksheet Patient Problems: Problems Problem Status Onset Abrasion of left elbow, initial encounter Acute Closed left clavicular fracture Acute Fracture of pubic ramus Acute Ribs, multiple fractures Acute Anemia Acute CHI (closed head injury) Acute Chronic Disease Mgmt/Transitional Care Acute Depression Acute Dyspnea Acute HTN (hypertension) Acute Multiple falls Acute Pneumonia Acute Post concussion syndrome Acute Sepsis Acute Unsteady gait Acute Weakness of both legs Acute
[2016-09-23] MEDS: RANOLAZINE 500 MG TAB.ER PO SCH ×2 (10:20→22:12)
--- NOTE | 2016-09-23 11:29 | HOSPPROG ---
Hospitalist Progress Note Assessment/Plan: #Acute rib fractures: pain controlled on oral opioids, Toradol. 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 Bowel regimen. PT/OT #Pubic rami fractures/clavicle fractures: evaluated by Ortho. WBAT on leg, sling for arm #CAD: cont home meds #Accelerated HTN: improved with pain control. Cont Clonidine #Leukocytosis: resolved. Likely stress inflammation with acute fxs #HLD #Diet: regular #DVT ppx: Lovenox #Disp: please call if questions. We will cont to follow Subjective: not requiring TELETYPESETTER OPERATOR overnight Objective: Vital Signs Temp Pulse Resp BP Pulse Ox 37 C 66 14 111/98 H 100 09/23/16 04:32 09/23/16 08:28 09/23/16 08:28 09/23/16 08:56 09/23/16 08:28 Laboratory Results 09/23/16 04:35 09/23/16 04:35 09/22/16 09/23/16 09/24/16 05:59 05:59 05:59 Intake Total 2357 Output Total 675 Balance 1682 PT 13.3 SEC (12.0-15.0) 09/22/16 07:24 INR 1.02 (0.83-1.16) 09/22/16 07:24 - Physical Exam Constitutional: no apparent distress Eyes: other (periorbital brusing. Small lac above left eye) Ears, Nose, Mouth, Throat: moist mucous membranes, hearing normal Cardiovascular: regular rate and rhythym, no murmur, rub, or gallop Respiratory: no respiratory distress, no rales or rhonchi Gastrointestinal: normoactive bowel sounds, soft, non-tender abdomen Genitourinary: no bladder fullness Musculoskeletal: other (sling left arm. TTP along left ribcage) Neurologic: AAOx3, CN II-XII Intact Psychiatric: interacting appropriately ICD10 Worksheet Patient Problems: Problems Problem Status Onset Abrasion of left elbow, initial encounter Acute Closed left clavicular fracture Acute Fracture of pubic ramus Acute Ribs, multiple fractures Acute Anemia Acute CHI (closed head injury) Acute Chronic Disease Mgmt/Transitional Care Acute Depression Acute Dyspnea Acute HTN (hypertension) Acute Multiple falls Acute Pneumonia Acute Post concussion syndrome Acute Sepsis Acute Unsteady gait Acute Weakness of both legs Acute
--- NOTE | 2016-09-23 12:43 | SOAPPROG ---
SOAP Progress Note Assessment/Plan: Assessment: Plan: Subjective: l rib and clavicle x, pelvic fx lungs clear, heart nml s1s2 abd soft. tolerating multiple spring fx very well. plan: eval with ot/pt today to see if he can function at home with walker,etc Objective: Vital Signs Temp Pulse Resp BP Pulse Ox 37 C 66 14 111/98 H 100 09/23/16 04:32 09/23/16 08:28 09/23/16 08:28 09/23/16 08:56 09/23/16 08:28 Laboratory Results 09/23/16 04:35 09/23/16 04:35 09/22/16 09/23/16 09/24/16 05:59 05:59 05:59 Intake Total 2357 Output Total 675 Balance 1682 PT 13.3 SEC (12.0-15.0) 09/22/16 07:24 INR 1.02 (0.83-1.16) 09/22/16 07:24 ICD10 Worksheet Patient Problems: Problems Problem Status Onset Abrasion of left elbow, initial encounter Acute Closed left clavicular fracture Acute Fracture of pubic ramus Acute Ribs, multiple fractures Acute Anemia Acute CHI (closed head injury) Acute Chronic Disease Mgmt/Transitional Care Acute Depression Acute Dyspnea Acute HTN (hypertension) Acute Multiple falls Acute Pneumonia Acute Post concussion syndrome Acute Sepsis Acute Unsteady gait Acute Weakness of both legs Acute
[2016-09-23] MEDS: MONTELUKAST SODIUM 10 MG TAB PO SCH (17:20)
[2016-09-23] MEDS: ATORVASTATIN CALCIUM 10 MG TAB PO SCH (17:21)
[2016-09-23] MEDS: IBUPROFEN 600 MG TAB PO PRN (18:14)
[2016-09-23] MEDS: traZODone 50 MG TAB PO SCH (21:58)
[2016-09-23] MEDS: BREO PO SCH (22:12)
[2016-09-24 05:03] LABS: ANION GAP 1 mEq/L (8-16); CALCIUM 8.3 mg/dL (8.5-10.4); CARBON DIOXIDE 26 mEq/l (22-31); CHLORIDE 103 mEq/L (97-110); CREATININE 0.8 mg/dL (0.7-1.3); GLOMERULAR FILTRATION RATE > 60; GLUCOSE 89 mg/dL (70-100); POTASSIUM 4.4 mEq/L (3.5-5.2); SODIUM 130 mEq/L (134-144)
--- NOTE | 2016-09-24 08:20 | HOSPPROG ---
Hospitalist Progress Note Assessment/Plan: #Acute rib fractures: pain uncontrolled last night, bc he did not take PM dose. Sched APAP, PRN Advil, [place]. Bowel regimen. PT/OT #Pubic rami fractures/clavicle fractures: evaluated by Ortho. WBAT on leg, sling for arm #CAD: cont home meds #Constipation: bowel regimen #Accelerated HTN: improved with pain control. Cont Clonidine #Leukocytosis: resolved. Likely stress inflammation with acute fxs #HLD #Diet: regular #DVT ppx: Lovenox #Disp: please call if questions. We will cont to follow. looking at [facility] rehab Subjective: pain uncontrolled this morning Objective: Vital Signs Temp Pulse Resp BP Pulse Ox 36.8 C 62 14 131/84 H 99 09/24/16 00:00 09/24/16 04:00 09/24/16 04:00 09/24/16 04:00 09/24/16 04:00 Laboratory Results 09/23/16 04:35 09/24/16 04:40 09/23/16 09/24/16 09/25/16 05:59 05:59 05:59 Intake Total 2357 1730 Output Total 675 2025 Balance 1682 -295 PT 13.3 SEC (12.0-15.0) 09/22/16 07:24 INR 1.02 (0.83-1.16) 09/22/16 07:24 - Physical Exam Constitutional: uncomfortable Eyes: PERRL Ears, Nose, Mouth, Throat: moist mucous membranes, hearing normal Cardiovascular: regular rate and rhythym, no murmur, rub, or gallop Respiratory: no respiratory distress, no rales or rhonchi Gastrointestinal: normoactive bowel sounds, soft, non-tender abdomen Genitourinary: no bladder fullness Skin: warm Musculoskeletal: other (TTP along left flank, sling left arm) Neurologic: AAOx3, CN II-XII Intact Psychiatric: interacting appropriately ICD10 Worksheet Patient Problems: Problems Problem Status Onset Abrasion of left elbow, initial encounter Acute Closed left clavicular fracture Acute Fracture of pubic ramus Acute Ribs, multiple fractures Acute Anemia Acute CHI (closed head injury) Acute Chronic Disease Mgmt/Transitional Care Acute Depression Acute Dyspnea Acute HTN (hypertension) Acute Multiple falls Acute Pneumonia Acute Post concussion syndrome Acute Sepsis Acute Unsteady gait Acute Weakness of both legs Acute
[2016-09-24] MEDS: FAMOTIDINE 20 MG TAB PO SCH ×2 (08:30→20:47)
[2016-09-24] MEDS: HYDROCODONE/APAP 5/325 TAB PO PRN ×4 (08:30→20:47)
[2016-09-24] MEDS: IBUPROFEN 600 MG TAB PO PRN ×2 (08:30→16:30)
[2016-09-24] MEDS: SENNOSIDES/DOCUSATE SODIUM TAB PO SCH ×2 (08:31→20:47)
[2016-09-24] MEDS: CLOPIDOGREL BISULFATE 75 MG TAB PO SCH (08:31)
[2016-09-24] MEDS: ENOXAPARIN 40 MG/0.4 ML SYR SC SCH (08:32)
[2016-09-24] MEDS: RANOLAZINE 500 MG TAB.ER PO SCH ×2 (08:47→20:47)
[2016-09-24] MEDS: LUBIPROSTONE 24 MCG CAP PO SCH ×2 (09:13→18:00)
[2016-09-24] MEDS: BREO PO SCH (09:14)
[2016-09-24] MEDS ORDERED: HYDROmorphONE/DILAUDID 1 MG/ML SYR IVP PRN (09:34)
[2016-09-24] MEDS: ACETAMINOPHEN 325 MG TAB PO SCH ×2 (14:27→20:46)
[2016-09-24] MEDS: LACTULOSE 20 GM/30 ML UDCUP PO PRN (16:30)
[2016-09-24] MEDS ORDERED: NS 1,000 ML IV SCH (16:30)
--- NOTE | 2016-09-24 17:18 | SOAPPROG ---
SOAP Progress Note Assessment/Plan: Assessment/Plan: Willie Singh this 76-year-old gentleman status post fall with multiple rib fractures on the left, left clavicular fracture and left superior and inferior rami fracture. Pain control was an issue yesterday he has been started on medications which are addressing his pain. He is able to use his incentive spirometer without difficulty. He has tolerated a diet. He is yet to have a bowel movement. Alert oriented x3 Regular rate and rhythm Clear to auscultation bilaterally Abdomen soft nontender nondistended Left upper extremity in a sling. Good muscle strength. Range of motion painful as expected. Bilateral lower extremities full muscle strength and range of motion Impression: Multi trauma secondary to fall. Plan: Pain control. Encourage incentive spirometry PT OT 09/24/16 17:16 Objective: Vital Signs Temp Pulse Resp BP Pulse Ox 36.5 C 74 18 153/82 H 97 09/24/16 16:00 09/24/16 16:00 09/24/16 16:00 09/24/16 16:00 09/24/16 08:00 Laboratory Results 09/23/16 04:35 09/24/16 04:40 09/23/16 09/24/16 09/25/16 05:59 05:59 05:59 Intake Total 2357 1730 960 Output Total 675 2025 800 Balance 1682 -295 160 PT 13.3 SEC (12.0-15.0) 09/22/16 07:24 INR 1.02 (0.83-1.16) 09/22/16 07:24 ICD10 Worksheet Patient Problems: Problems Problem Status Onset Abrasion of left elbow, initial encounter Acute Closed left clavicular fracture Acute Fracture of pubic ramus Acute Ribs, multiple fractures Acute Anemia Acute CHI (closed head injury) Acute Chronic Disease Mgmt/Transitional Care Acute Depression Acute Dyspnea Acute HTN (hypertension) Acute Multiple falls Acute Pneumonia Acute Post concussion syndrome Acute Sepsis Acute Unsteady gait Acute Weakness of both legs Acute
[2016-09-24] MEDS: MONTELUKAST SODIUM 10 MG TAB PO SCH (18:00)
[2016-09-24] MEDS: ATORVASTATIN CALCIUM 10 MG TAB PO SCH (18:00)
[2016-09-24] MEDS: traZODone 50 MG TAB PO SCH (20:47)
[2016-09-25] MEDS: IBUPROFEN 600 MG TAB PO PRN ×3 (00:30→13:47)
[2016-09-25] MEDS: HYDROCODONE/APAP 5/325 TAB PO PRN ×6 (00:30→21:31)
[2016-09-25 05:53] LABS: ANION GAP 3 mEq/L (8-16); CALCIUM 8.4 mg/dL (8.5-10.4); CARBON DIOXIDE 25 mEq/l (22-31); CHLORIDE 101 mEq/L (97-110); CREATININE 0.7 mg/dL (0.7-1.3); GLOMERULAR FILTRATION RATE > 60; GLUCOSE 96 mg/dL (70-100); POTASSIUM 4.4 mEq/L (3.5-5.2); SODIUM 129 mEq/L (134-144)
[2016-09-25] MEDS: ACETAMINOPHEN 325 MG TAB PO SCH (05:57)
[2016-09-25] MEDS: BISACODYL 10 MG SUPP PR PRN (05:58)
[2016-09-25] MEDS: LUBIPROSTONE 24 MCG CAP PO SCH ×2 (08:04→19:44)
[2016-09-25] MEDS: SENNOSIDES/DOCUSATE SODIUM TAB PO SCH ×2 (08:04→19:45)
[2016-09-25] MEDS: FAMOTIDINE 20 MG TAB PO SCH ×2 (08:04→19:44)
[2016-09-25] MEDS: CLOPIDOGREL BISULFATE 75 MG TAB PO SCH (08:05)
[2016-09-25] MEDS: RANOLAZINE 500 MG TAB.ER PO SCH ×2 (08:06→19:40)
[2016-09-25] MEDS: BREO PO SCH (08:06)
[2016-09-25] MEDS: ENOXAPARIN 40 MG/0.4 ML SYR SC SCH (08:06)
--- NOTE | 2016-09-25 09:03 | TRAUMAPN ---
Assessment/Plan: 76yo M s/p mech fall c L 4-8 min displaced rib fx, L clav fx, L sup/inf pubic rami fx Neuro: pain appears well controlled. AO. No deficits Pulm: min NC supplement, aggressive IS (pulling 200cc this AM) CV: HDS, plavix restarted Abd: soft, ND, NT, having bowel function Sylwia: voiding, UOP appropriate Hb: Hb stable since the . on LMWH Lytes: chronic hypoNa, will defer to IM Re starting salt tabs vs fluid restrict vs monitor Dispo: PT, OT, WBAT per orthopedics. L arm in sling. Wants to go home but has only taken about 3 steps. Subjective: Doing well, wants Ambien Objective: Vital Signs Temp Pulse Resp BP Pulse Ox 36.1 C 92 18 153/89 H 92 09/25/16 08:00 09/25/16 08:00 09/25/16 08:00 09/25/16 08:00 09/25/16 08:00 Laboratory Results 09/23/16 04:35 09/25/16 05:20 09/24/16 09/25/16 09/26/16 05:59 05:59 05:59 Intake Total 1730 2666 Output Total 2024 2049 Balance -295 616 PT 13.3 SEC (12.0-15.0) 09/22/16 07:24 INR 1.02 (0.83-1.16) 09/22/16 07:24 - C-Spine Clearance Cervical Spine Cleared: Yes Physical Exam - Physical Exam General Appearance: WD/WN, alert, no apparent distress EENT: PERRL/EOMI Neck: non-tender, full range of motion Respiratory: chest non-tender, lungs clear Cardiac/Chest: normal peripheral pulses, regular rate, rhythm Abdomen: normal bowel sounds, non-tender Back: Normal inspection Skin: normal color Lymphatic: no adenopathy Extremities: normal range of motion Neuro/Psych: no motor/sensory deficits
--- NOTE | 2016-09-25 14:25 | HOSPPROG ---
Hospitalist Progress Note Assessment/Plan: #Acute rib fractures: pain uncontrolled last night, bc he did not take PM dose. Sched APAP, PRN Advil, [place]. Bowel regimen. PT/OT #Pubic rami fractures/clavicle fractures: evaluated by Ortho. WBAT on leg, sling for arm #CAD: cont home meds #Hyponatremia: he reports taking salt tabs at home. Check urine lytes. #Constipation: had BM today #Accelerated HTN: improved with pain control. Cont Clonidine #Leukocytosis: resolved. Likely stress inflammation with acute fxs #Diet: regular #DVT ppx: Lovenox #Deconditioning: minimal ambulation, will need rehab #Disp: please call if questions. We will cont to follow. looking at [facility] Subjective: wants to go home. Pain controlled this morning Objective: Vital Signs Temp Pulse Resp BP Pulse Ox 36.1 C 92 18 153/89 H 92 09/25/16 08:00 09/25/16 08:00 09/25/16 08:00 09/25/16 08:00 09/25/16 08:00 Laboratory Results 09/23/16 04:35 09/25/16 05:20 09/24/16 09/25/16 09/26/16 05:59 05:59 05:59 Intake Total 1730 2666 Output Total 2024 2049 200 Balance -295 616 -200 PT 13.3 SEC (12.0-15.0) 09/22/16 07:24 INR 1.02 (0.83-1.16) 09/22/16 07:24 - Physical Exam Constitutional: no apparent distress Eyes: PERRL Ears, Nose, Mouth, Throat: moist mucous membranes, other (laceration over left eye) Cardiovascular: regular rate and rhythym, no murmur, rub, or gallop Respiratory: no respiratory distress, no rales or rhonchi Gastrointestinal: normoactive bowel sounds, soft, non-tender abdomen Genitourinary: no bladder fullness Skin: warm Musculoskeletal: other (left arm in sling) Neurologic: AAOx3, CN II-XII Intact Psychiatric: interacting appropriately ICD10 Worksheet Patient Problems: Problems Problem Status Onset Abrasion of left elbow, initial encounter Acute Closed left clavicular fracture Acute Fracture of pubic ramus Acute Ribs, multiple fractures Acute Anemia Acute CHI (closed head injury) Acute Chronic Disease Mgmt/Transitional Care Acute Depression Acute Dyspnea Acute HTN (hypertension) Acute Multiple falls Acute Pneumonia Acute Post concussion syndrome Acute Sepsis Acute Unsteady gait Acute Weakness of both legs Acute
[2016-09-25] MEDS: ATORVASTATIN CALCIUM 10 MG TAB PO SCH (17:33)
[2016-09-25] MEDS: MONTELUKAST SODIUM 10 MG TAB PO SCH (17:34)
[2016-09-25] MEDS: SODIUM CHLORIDE 1,000 MG TAB PO SCH (17:34)
[2016-09-25] MEDS: traZODone 50 MG TAB PO SCH (19:45)
[2016-09-25] MEDS ORDERED: MELATONIN 3 MG TAB PO SCH (21:45)
[2016-09-26 00:22] VITALS: O2SAT 98
[2016-09-26 05:28] LABS: ANION GAP 5 mEq/L (8-16); CALCIUM 8.6 mg/dL (8.5-10.4); CARBON DIOXIDE 27 mEq/l (22-31); CHLORIDE 99 mEq/L (97-110); CREATININE 0.8 mg/dL (0.7-1.3); GLOMERULAR FILTRATION RATE > 60; GLUCOSE 87 mg/dL (70-100); POTASSIUM 4.4 mEq/L (3.5-5.2); SODIUM 131 mEq/L (134-144)
[2016-09-26] MEDS: BISACODYL 10 MG SUPP PR PRN (05:37)
[2016-09-26] MEDS: LACTULOSE 20 GM/30 ML UDCUP PO PRN (05:38)
[2016-09-26] MEDS: HYDROCODONE/APAP 5/325 TAB PO PRN ×3 (06:01→14:04)
[2016-09-26 07:57] VITALS: BP 146/85; PULSE 79; RESP 18; TEMP 98.3
--- NOTE | 2016-09-26 08:32 | HOSPPROG ---
Hospitalist Progress Note Assessment/Plan: #Acute rib fractures: pain uncontrolled last night, bc he did not take PM dose. Sched APAP, PRN Advil, [place]. Bowel regimen. PT/OT #Pubic rami fractures/clavicle fractures: evaluated by Ortho. WBAT on leg, sling for arm #CAD: cont home meds #Hyponatremia: Na improved on salt tabs. #Constipation: having BMs #Accelerated HTN: improved with pain control. Cont Clonidine #Leukocytosis: resolved. Likely stress inflammation with acute fxs #Diet: regular #DVT ppx: Lovenox #Deconditioning: minimal ambulation, will need rehab #Disp: please call if questions. We will cont to follow. Plan for DC to [facility] Subjective: pain better controlled. Mild nausea today Objective: Vital Signs Temp Pulse Resp BP Pulse Ox 36.8 C 79 18 146/85 H 98 09/26/16 07:53 09/26/16 07:53 09/26/16 07:53 09/26/16 07:53 09/26/16 07:53 Laboratory Results 09/23/16 04:35 09/26/16 04:58 09/25/16 09/26/16 09/27/16 05:59 05:59 05:59 Intake Total 2666 280 Output Total 2050 2600 200 Balance 616 -2320 -200 PT 13.3 SEC (12.0-15.0) 09/22/16 07:24 INR 1.02 (0.83-1.16) 09/22/16 07:24 - Physical Exam Constitutional: no apparent distress Eyes: PERRL Ears, Nose, Mouth, Throat: moist mucous membranes Cardiovascular: regular rate and rhythym, no murmur, rub, or gallop Respiratory: no respiratory distress, no rales or rhonchi Gastrointestinal: normoactive bowel sounds, soft, non-tender abdomen Genitourinary: no bladder fullness Skin: warm Musculoskeletal: other (sling left arm) Neurologic: AAOx3, CN II-XII Intact Psychiatric: interacting appropriately Lymph, Heme, Immunologic: no cervical LAD ICD10 Worksheet Patient Problems: Problems Problem Status Onset Abrasion of left elbow, initial encounter Acute Anemia Acute CHI (closed head injury) Acute Chronic Disease Mgmt/Transitional Care Acute Closed left clavicular fracture Acute Depression Acute Dyspnea Acute Fracture of pubic ramus Acute HTN (hypertension) Acute Multiple falls Acute Pneumonia Acute Post concussion syndrome Acute Ribs, multiple fractures Acute Sepsis Acute Unsteady gait Acute Weakness of both legs Acute
[2016-09-26] MEDS: IBUPROFEN 600 MG TAB PO PRN (09:06)
[2016-09-26] MEDS: RANOLAZINE 500 MG TAB.ER PO SCH (09:06)
[2016-09-26] MEDS: ENOXAPARIN 40 MG/0.4 ML SYR SC SCH (09:06)
[2016-09-26] MEDS: SODIUM CHLORIDE 1,000 MG TAB PO SCH (09:06)
[2016-09-26] MEDS: FAMOTIDINE 20 MG TAB PO SCH (09:06)
[2016-09-26] MEDS: SENNOSIDES/DOCUSATE SODIUM TAB PO SCH (09:06)
[2016-09-26] MEDS: CLOPIDOGREL BISULFATE 75 MG TAB PO SCH (09:06)
[2016-09-26] MEDS: LUBIPROSTONE 24 MCG CAP PO SCH (10:02)
[2016-09-26] MEDS: BREO PO SCH (11:47)
--- NOTE | 2016-09-26 11:50 | PDIAF ---
- Diagnosis Diagnosis: s/p fall, rib fractures, clavicle fracture, pubic rami fracture Code Status: Full Code - Medication Management Discharge Medications: Medications to Continue on Transfer Clopidogrel Bisulfate [Plavix (*)] 75 mg PO DAILY 10/25/11 [Last Taken 09/21/16] Montelukast Sodium [Singulair 10 mg (*)] 10 mg PO DAILY@18 10/25/11 [Last Taken 09/21/16] Ranolazine [Ranexa] 500 mg PO BID 10/25/11 [Last Taken 09/21/16] Simvastatin [Zocor 40 mg] 20 mg PO DAILY18 10/25/11 [Last Taken 09/21/16] Ropinirole HCl [Requip 0.5mg] 0.5 mg PO HS 02/10/15 [Last Taken 09/21/16] clonIDINE [Catapres (*)] 0.1 mg PO BID 02/10/15 [Last Taken 09/21/16] Lubiprostone [Amitiza 24 mcg (*)] 24 mcg PO BIDMEAL 07/24/16 [Last Taken ] traZODone [traZODONE 50MG (*)] 50 mg PO HS 07/24/16 [Last Taken 09/21/16] Albuterol [Proventil Inhaler HFA (*)] 1 - 2 puffs IH Q6H PRN 09/22/16 [Last Taken Unknown] Hydrocodone/APAP 5/325 [[place] 5/325 (*)] 1 - 2 tab PO Q4HRS PRN #30 tab [Last Taken Unknown] Ibuprofen [Motrin (*)] 600 mg PO Q6HRS PRN #0 tab 09/26/16 [Last Taken Unknown] Sodium Chloride [Salt Tablet] 1,000 mg PO BIDMEAL #0 tab 09/26/16 [Last Taken Unknown] Discharge Medications: Refer to the Discharge Home Medication list for PRN reason. - Orders Services needed: Registered Nurse, Certified Grab Operator, Physical Therapy, Occupational Therapy Diet Recommendation: no restrictions on diet Diet Texture: Regular Texture Diet Activity/Weight Bearing Restrictions: wbat - Follow Up Care Current Providers and Referrals: Patient,NotPresent [Unknown] - As per Instructions Dasha Watts MD [Medical Doctor] -
--- NOTE | 2016-09-26 12:29 | TRAUMAPN ---
Assessment/Plan: 76yo M s/p mech fall c L 4-8 min displaced rib fx, L clav fx, L sup/inf pubic rami fx Pain controlled Continue IS Return of bowel function, bowel protocol Voiding spontaneousll Chronic hyponatremia- appreciate hospitalists ARTURO VALLE, NGOC MYERSE per Dr. Alcantar Dispo: to rehab today. F/u Dr Watts and Dr Alcantar in 2 weeks Objective: Vital Signs Temp Pulse Resp BP Pulse Ox 36.8 C 79 18 146/85 H 98 09/26/16 07:53 09/26/16 07:53 09/26/16 07:53 09/26/16 07:53 09/26/16 07:53 Laboratory Results 09/23/16 04:35 09/26/16 04:58 09/25/16 09/26/16 09/27/16 05:59 05:59 05:59 Intake Total 2666 280 Output Total 2050 2600 400 Balance 616 -2320 -400 PT 13.3 SEC (12.0-15.0) 09/22/16 07:24 INR 1.02 (0.83-1.16) 09/22/16 07:24 - C-Spine Clearance Cervical Spine Cleared: Yes
[2016-09-26] MEDS ORDERED: MELATONIN 3 MG TAB PO SCH (21:00)
== END 2016-09-26 14:12 | DRG 184 ==
LOC: EDUNIT# → F2N 10:46
PROVIDERS: ADMIT Surgery; ATTEND Surgery
DX: S22.42XA Multiple fractures of ribs, left side, initial encounter for closed fracture (principal); S32.512A Fracture of superior rim of left pubis, initial encounter for closed fracture; S42.002A Fracture of unspecified part of left clavicle, initial encounter for closed fracture; W10.9XXA Fall (on) (from) unspecified stairs and steps, initial encounter; Y92.019 Unspecified place in single-family (private) house as the place of occurrence of the external cause; J96.11 Chronic respiratory failure with hypoxia; G47.30 Sleep apnea, unspecified; E87.1 Hypo-osmolality and hyponatremia; R29.6 Repeated falls; J44.9 Chronic obstructive pulmonary disease, unspecified; I25.10 Atherosclerotic heart disease of native coronary artery without angina pectoris; I10 Essential (primary) hypertension; E78.5 Hyperlipidemia, unspecified; Z96.642 Presence of left artificial hip joint; Z95.5 Presence of coronary angioplasty implant and graft; Z87.891 Personal history of nicotine dependence
CPT/HCPCS: 82947-QW; 92523-GN; 96374; 97116-GP; 97162-GP; 97166-GO; 97530-GO; 97530-GP; 97535-GO; A4565; G8978-GP-CM; G8979-GP-CK; G8987-GO-CL; G8988-GO-CK; G8989-GO-CL; G9165-GN-CH; G9166-GN-CH; G9167-GN-CH; J1170; J1650; J1885; J2405; J2550; Q9967

== ENCOUNTER → 2017-01-14 | Outpatient (CLI) | payer OTHER | LOC: GIMAGING 11:21 | PROVIDERS: ATTEND Family Medicine | DX: S22.42XD Multiple fractures of ribs, left side, subsequent encounter for fracture with routine healing (principal); S42.002D Fracture of unspecified part of left clavicle, subsequent encounter for fracture with routine healing | CPT/HCPCS: 71020-PO ==

== ENCOUNTER → 2017-05-13 | Outpatient (CLI) | payer OTHER | LOC: BMCIMAGING 14:14 | PROVIDERS: ATTEND Family Medicine | DX: Z13.820 Encounter for screening for osteoporosis (principal); M81.0 Age-related osteoporosis without current pathological fracture; S22.42XS Multiple fractures of ribs, left side, sequela ==

== ENCOUNTER 2017-07-16 08:05 | Inpatient (IN) | payer OTHER ==
--- NOTE | 2017-07-16 08:54 | EDPHY ---
HPI/HX/ROS/PE/MDM Narrative: CHIEF COMPLAINT: Weakness HISTORY OF PRESENT ILLNESS: This patient is an anticoagulated (Plavix) 77 year old male arriving with his family complaining of weakness. Over the last 2-3 months, the patient has experienced worsening shakiness and imbalance with bilateral leg weakness. He and his were in [place] recently and about 2.5 weeks ago he collapsed after getting out of a chair. He was unable to assist him up and he was subsequently admitted for three days at a hospital in [place]. He had CT studies of his chest and abdomen at that time, no CT head. His and son at bedside state he has had 3-4 falls with head trauma in the last 2 years. His additionally notes that he has had considerable weight loss recently. They arrived back home about 12 days ago and were scheduled for follow-up testing and imagining today ordered by Dr. Forrest, the patient's primary care provider. For the past two days, the patient has been unable to get out of bed due to weakness. This morning, he wanted to get up but remained very weak so his called for EMS. He does have a wheelchair and a walker at home. The patient denies back pain. No fever, chills, chest pain, shortness of breath, palpitations, vomiting, diarrhea, urinary complaints, headache, lightheadedness. REVIEW OF SYSTEMS: Aside from elements discussed in the HPI, a comprehensive 10-point review of systems was reviewed and is negative. PAST MEDICAL HISTORY: CAD s/p stent placement. SOCIAL HISTORY: . and son at bedside. Former smoker. Moderate alcohol consumption. VITAL SIGNS: Reviewed by me GENERAL: Well-developed, well-nourished, resting comfortably in no respiratory distress. HEENT: Atraumatic. Eyes: No icterus, no injection. Mouth: moist mucous membranes. No erythema or lesions. Neck: supple with no adenopathy. LUNGS: Clear to auscultation bilaterally, no wheezes, rhonchi or rales. CARDIAC: Regular rate and rhythm, no rubs, murmurs or gallops. ABDOMEN: Soft, nontender, nondistended, bowel sounds normal. BACK: No CVA tenderness. No lumbar spine tenderness. EXTREMITIES: No trauma. No edema. Range of motion is normal throughout. NEURO: Alert and oriented, grossly nonfocal. SKIN: Warm and dry, no rash. PSYCHIATRIC: Normal mentation, no agitation. Portions of this note were transcribed by a medical officer. I personally performed a history, physical exam, medical decision making, and confirmed accuracy of information the transcribed note. ED Course: 77 y/o male presents with weakness and imbalance worsening over the past 2-3 months. He is neurologically intact on exam. Gait not assessed. Plan for CT head. Plan for repeat CT chest, abdomen/pelvis. Plan for EKG, labs including CBC , chemistries, troponin, liver, UA. 12-LEAD EKG: Please see the full report in [facility]. My interpretation: Sinus rhythm. Reviewed results of CT scan from patient's recent admission on [place]. CT chest 07/01/17 showed 3.7x3.3cm right perihilar mass suspicious for primary pulmonary malignancy. Patient scheduled for followup here in [place]. CT abdomen showed moderate diverticulosis. Read by Dr. Herron, radiologist. Plan to consult with Dr. Forrest, the patient's primary care provider. 10:[address] Collazo, radiologist. CT head negative for acute processes. UA negative for UTI. 11:[address] Collazo, radiologist. CT chest shows large right pleural effusion. Evidence of cardiomegaly and CAD. CT abdomen/pelvis shows prostatomegaly, diverticulosis. Reassessed patient. Discussed results. His is concerned regarding stairs in the home. Plan to admit. 12:[address] Webb, hospitalist. He accepts admission for weakness , pleural effusion, failure to thrive. MDM: Differential diagnosis of the patient's weakness was considered including but not limited to electrolyte abnormality, anemia, cardiac ischemia, CVA, spinal cord abnormality, and infectious causes. - Data Points Imaging Results: Imaging Impressions Head CT 07/16/17 09:14 Impression: Elderly head CT. Nothing acute identified.. Results called to Dr. Sow at 10:45 AM. General information for patients regarding this examination can be found at [email or web address]. If you have questions or comments about this report, please contact me at (hospital) or [phone] (cell). Abdomen CT 07/16/17 09:15 Impression: 1. No evidence for pulmonary embolic disease. 2. Large right pleural effusion. 3. Cardiomegaly without failure. Triple-vessel coronary artery disease. 2. CT Abdomen and Pelvis With Contrast History: Abdominal pain Technique: 128 slice volumetric data set helical CT obtained through the abdomen and pelvis during bolus administration of 90 mL Isovue-370 nonionic contrast without complication. Images are reviewed on the computer workstation. Dose reduction techniques were utilized. Comparison: None Findings: Abdomen- The liver and spleen are normal in size and homogeneous. There is no biliary dilatation. The gallbladder, pancreas, and kidneys look normal. The adrenal glands and retroperitoneum look normal. There is no ascites or evidence for bowel obstruction. Is dense atherosclerotic calcification of the normal sized abdominal aorta and iliac arteries. Pelvis: There is prostatomegaly with asymmetrical prominence of the right posterolateral gland. The anterior gland indents the urinary bladder base. There is mild circumferential urinary bladder wall thickening suggesting hypertrophy. There is diverticulosis of the sigmoid colon without CT evidence of diverticulitis. There is no pelvic adenopathy or free fluid. There is no retroperitoneal or inguinal adenopathy. Is a chronic severe compression deformity of L2 vertebral body (since September 22, 2016) and is associated with moderate compromise of the central lumbar neural canal. There is a stable mild compression of T12. No new compressions have developed. Impression: 1. No source for abdominal pain identified. 2. Prostatomegaly. Asymmetric enlargement of the right posterior lateral gland. 3. Constipation. 4. Diverticulosis. Results called and discussed with Estella Sow MD, at 07/16/2017 11:21 General information for patients regarding this examination can be found at [email or web address]. If you have questions or comments about this report, please contact me at (hospital) or [phone] (cell). Chest/Thorax CTA 07/16/17 09:16 Impression: 1. No evidence for pulmonary embolic disease. 2. Large right pleural effusion. 3. Cardiomegaly without failure. Triple-vessel coronary artery disease. 2. CT Abdomen and Pelvis With Contrast History: Abdominal pain Technique: 128 slice volumetric data set helical CT obtained through the abdomen and pelvis during bolus administration of 90 mL Isovue-370 nonionic contrast without complication. Images are reviewed on the computer workstation. Dose reduction techniques were utilized. Comparison: None Findings: Abdomen- The liver and spleen are normal in size and homogeneous. There is no biliary dilatation. The gallbladder, pancreas, and kidneys look normal. The adrenal glands and retroperitoneum look normal. There is no ascites or evidence for bowel obstruction. Is dense atherosclerotic calcification of the normal sized abdominal aorta and iliac arteries. Pelvis: There is prostatomegaly with asymmetrical prominence of the right posterolateral gland. The anterior gland indents the urinary bladder base. There is mild circumferential urinary bladder wall thickening suggesting hypertrophy. There is diverticulosis of the sigmoid colon without CT evidence of diverticulitis. There is no pelvic adenopathy or free fluid. There is no retroperitoneal or inguinal adenopathy. Is a chronic severe compression deformity of L2 vertebral body (since September 22, 2016) and is associated with moderate compromise of the central lumbar neural canal. There is a stable mild compression of T12. No new compressions have developed. Impression: 1. No source for abdominal pain identified. 2. Prostatomegaly. Asymmetric enlargement of the right posterior lateral gland. 3. Constipation. 4. Diverticulosis. Results called and discussed with Estella Sow MD, at 07/16/2017 11:21 General information for patients regarding this examination can be found at [email or web address]. If you have questions or comments about this report, please contact me at (hospital) or [phone] (cell). Imaging: Discussed imaging studies w/ on call Radiologist Laboratory Results: Laboratory Results 07/16/17 08:10 07/16/17 08:10 07/16/17 07/16/17 07/16/17 10:30 08:10 08:10 WBC RBC Hgb Hct MCV MCH MCHC RDW Plt Count MPV Neut % (Auto) Lymph % (Auto) [place] % (Auto) Eos % (Auto) Baso % (Auto) Nucleat RBC Rel Count Absolute Neuts (auto) Absolute Lymphs (auto) Absolute Monos (auto) Absolute Eos (auto) Absolute Basos (auto) Absolute Nucleated RBC Immature Gran % Immature Gran # Sodium 134 mEq/L L mEq/L (135-145) Potassium 4.5 mEq/L mEq/L (3.5-5.2) Chloride 93 mEq/L L mEq/L (97-110) Carbon Dioxide 28 mEq/l mEq/l (22-31) Anion Gap 13 mEq/L mEq/L (8-16) BUN 14 mg/dL mg/dL (7-23) Creatinine 1.0 mg/dL mg/dL (0.7-1.3) Estimated GFR > 60 Glucose 72 mg/dL mg/dL (70-100) Calcium 9.3 mg/dL mg/dL (8.5-10.4) Total Bilirubin 1.3 mg/dL mg/dL (0.1-1.4) Conjugated Bilirubin 0.6 mg/dL H mg/dL (0.0-0.5) Unconjugated Bilirubin 0.7 mg/dL mg/dL (0.0-1.1) AST 23 IU/L IU/L (17-59) ALT 33 IU/L IU/L (21-72) Alkaline Phosphatase 94 IU/L IU/L (38-126) Troponin I 0.024 ng/mL ng/mL (0.000-0.034) Total Protein 7.1 g/dL g/dL (6.3-8.2) Albumin 3.4 g/dL L g/dL (3.5-5.0) Urine Color YELLOW Urine Appearance CLEAR Urine pH 6.0 (5.0-7.5) Ur Specific [place] 1.014 (1.002-1.030) Urine Protein 2+ H (NEGATIVE) Urine Ketones NEGATIVE (NEGATIVE) Urine Blood NEGATIVE (NEGATIVE) Urine Nitrate NEGATIVE (NEGATIVE) Urine Bilirubin NEGATIVE (NEGATIVE) Urine Urobilinogen 2.0 EU H EU (0.2-1.0) Ur Leukocyte Esterase NEGATIVE (NEGATIVE) Urine RBC 1-3 /hpf /hpf (0-3) Urine WBC 1-3 /hpf /hpf (0-3) Ur Epithelial Cells NONE SEEN /lpf /lpf (NONE-1+) Urine Mucus TRACE /lpf /lpf (NONE-1+) Urine Glucose NEGATIVE (NEGATIVE) 07/16/17 08:10 WBC 7.75 10^3/uL 10^3/uL (3.80-9.50) RBC 4.61 10^6/uL 10^6/uL (4.40-6.38) Hgb 16.1 g/dL g/dL (13.7-17.5) Hct 48.2 % % (40.0-51.0) MCV 104.6 fL H fL (81.5-99.8) MCH 34.9 pg H pg (27.9-34.1) MCHC 33.4 g/dL g/dL (32.4-36.7) RDW 14.9 % % (11.5-15.2) Plt Count 305 10^3/uL 10^3/uL (150-400) MPV 8.9 fL fL (8.7-11.7) Neut % (Auto) 52.2 % % (39.3-74.2) Lymph % (Auto) 28.1 % % (15.0-45.0) [place] % (Auto) 12.8 % % (4.5-13.0) Eos % (Auto) 3.5 % % (0.6-7.6) Baso % (Auto) 1.7 % % (0.3-1.7) Nucleat RBC Rel Count 0.0 % % (0.0-0.2) Absolute Neuts (auto) 4.05 10^3/uL 10^3/uL (1.70-6.50) Absolute Lymphs (auto) 2.18 10^3/uL 10^3/uL (1.00-3.00) Absolute Monos (auto) 0.99 10^3/uL H 10^3/uL (0.30-0.80) Absolute Eos (auto) 0.27 10^3/uL 10^3/uL (0.03-0.40) Absolute Basos (auto) 0.13 10^3/uL H 10^3/uL (0.02-0.10) Absolute Nucleated RBC 0.00 10^3/uL 10^3/uL (0-0.01) Immature Gran % 1.7 % H % (0.0-1.1) Immature Gran # 0.13 10^3/uL H 10^3/uL (0.00-0.10) Sodium Potassium Chloride Carbon Dioxide Anion Gap BUN Creatinine Estimated GFR Glucose Calcium Total Bilirubin Conjugated Bilirubin Unconjugated Bilirubin AST ALT Alkaline Phosphatase Troponin I Total Protein Albumin Urine Color Urine Appearance Urine pH Ur Specific [place] Urine Protein Urine Ketones Urine Blood Urine Nitrate Urine Bilirubin Urine Urobilinogen Ur Leukocyte Esterase Urine RBC Urine WBC Ur Epithelial Cells Urine Mucus Urine Glucose General Time Seen by Provider: 07/16/17 08:26 Initial Vital Signs: Initial Vital Signs Temperature (C) 36.4 C 04/10/18 08:09 Heart Rate 65 07/16/17 08:09 Respiratory Rate 18 07/16/17 08:09 Blood Pressure 181/117 H 07/16/17 08:09 O2 Sat (%) 96 07/16/17 08:09 O2 Delivery Mode Room Air Allergies/Adverse Reactions: No Known Allergies Allergy (Unverified 07/24/16 06:25) Home Medications: Medication Instructions Recorded Clopidogrel Bisulfate [Plavix (*)] 75 mg PO DAILY 10/25/11 Montelukast Sodium [Singulair 10 10 mg PO DAILY@18 10/25/11 mg (*)] Ranolazine [Ranexa] 500 mg PO BID 10/25/11 Ropinirole HCl [Requip 0.5mg] 0.5 mg PO HS 02/10/15 Lubiprostone [Amitiza 24 mcg (*)] 24 mcg PO BIDMEAL 07/24/16 traZODone [traZODONE 50MG (*)] 50 mg PO HS 07/24/16 Albuterol [Proventil Inhaler HFA 1 - 2 puffs IH Q6H PRN 09/22/16 (*)] Atorvastatin Calcium [Lipitor 10 10 mg PO HS 07/16/17 mg (*)] Carvedilol [Coreg (*)] 12.5 mg PO BID 07/16/17 Cholecalciferol Vit D3 [Vitamin D3 2,000 units PO DAILY 07/16/17 2000 units tab (OTC)] Ferrous Sulfate [Ferrous Sulf 325 325 mg PO DAILY 07/16/17 MG (*)] Fluticasone/Vilanterol [Breo 1 each IH DAILY 07/16/17 Ellipta 200-25 Mcg INH] Lisinopril [Zestril 20 mg (*)] 20 mg PO BID 07/16/17 Sodium Chloride [Salt Tablet] 1,000 mg PO DAILY 07/16/17 buPROPion XL [Wellbutrin Xl] 150 mg PO DAILY 07/16/17 oxyCODONE IR [Oxycodone Ir (*)] 5 mg PO DAILY PRN 07/16/17 Departure - Departure Disposition: [facility] Acute Clinical Impression: Pleural effusion, Weakness, Failure to thrive in adult Condition: Fair Report Scribed for: Estella Sow Report Scribed by: Mckayla Riggs Date of Report: 07/16/17 Time of Report: 10:53
[2017-07-16 09:29] LABS: PLATELET COUNT 305 10^3/uL (150-400)
[2017-07-16] MEDS ORDERED: IOPAMIDOL (ISOVUE 370) 100 ML BTL IV ONE (09:48)
--- NOTE | 2017-07-16 11:03 | CPEKG ---
Heart Rate: 64 RR Interval: 938 P-R Interval: 216 QRSD Interval: 114 QT Interval: 436 QTC Interval: 450 P [place]: 265 QRS [place]: 266 T Wave [place]: 84 EKG Severity - ABNORMAL ECG - EKG Impression: SINUS OR ECTOPIC ATRIAL RHYTHM EKG Impression: LEFT ANTERIOR FASCICULAR BLOCK Electronically Signed By: Evonne Braga 17-Jul-2017 17:02:13
[2017-07-16] MEDS ORDERED: NS 1,000 ML IV SCH (12:45)
[2017-07-16 15:53] LABS: INR 1.24 (0.83-1.16); PROTIME(PATIENT) 15.8 SEC (12.0-15.0)
--- NOTE | 2017-07-16 15:57 | GHP ---
[f rep st] HISTORY AND PHYSICAL DATE OF ADMISSION: 07/16/2017 CHIEF COMPLAINT: Weakness and falls. HISTORY OF PRESENT ILLNESS: A 77-year-old male with extensive past medical history, who presents aft er multiple falls in the recent several weeks. Per the patient and family's report they were traveli ng in [place] when he experienced a very traumatic fall leading to hospitalization. In the process o f his workup in [place] was found to have a pleural effusion and a suspected right-sided pulmonary ma ss. Patient returned home from that hospital stay and remained quite weak with stuttering falls and gait instability. Morning of presentation the was so concerned about his weakness that prompted his presentation to the ED. In the emergency room, patient is denying any lightheadedness, any dizz iness, any palpitations. Denies chest pain. Denies shortness of breath. Denies cough. Denies subj ective fevers or chills. Denies any new rashes. Has been a bit constipated. Denies dysuria. Denie s hematuria. Does report a sensation that his lower extremities are not well coordinated, but denies specific weakness, numbness or tingling. Denies any recent cough or shortness of breath. PAST MEDICAL HISTORY: 1. Coronary artery disease status post 6 stents to his RCA, LAD and left circumflex. 2. Hypertension. 3. Hyperlipidemia. 4. COPD. 5. ADAN on CPAP. 6. Depression. 7. Anemia. 8. History of recurrent falls. SOCIAL HISTORY: Negative for tobacco, rare alcohol. No illicit drugs or marijuana. FAMILY HISTORY: Unknown. He is adopted. ADVANCED DIRECTIVES: Patient is full COR, full tube. REVIEW OF SYSTEMS: A 10-point review of systems is negative with the exception of that reported in t he HPI. PHYSICAL EXAMINATION: VITAL SIGNS: Blood pressure 173/109, heart rate 71, respiratory rate 18, 91% on room air, 36.7. GENERAL: This is a healthy-appearing elderly male in no acute distress. HEENT: Exam is notable for moist mucous membranes. Eye exam is negative for any icterus. CARDIAC: Patien t is regular rate and rhythm. A quiet systolic murmur is appreciated. PULMONARY: Clear to ausculta tion bilaterally. The patient does have diminished breath sounds on the right. No rales or rhonchi are appreciated. GASTROINTESTINAL: Positive bowel sounds. ABDOMEN: Soft and nontender. MUSCULOSK ELETAL: Negative for any lower extremity edema. SKIN: Exam is negative for any rashes. NEUROLOGIC : He is alert and oriented x3. Sensation is intact throughout. Strength appears intact throughout. PSYCHIATRIC: He is pleasant and cooperative on interview and examination. DATA: White count 7.7, hematocrit 48.2, platelet count of 305. Sodium 134, potassium 4.5, creatinin e 1.0. Liver function tests are normal. Troponin 0.024. TSH is 4.4 checked 05/2017. CTA of the est which I personally reviewed and interpreted, shows large right-sided pleural effusion. Radiology comments on no evidence of pulmonary embolic disease. Our radiologist say there is no evidence for mass or pneumonia. ASSESSMENT AND PLAN: This is a 77-year-old male presenting with weakness and new pleural effusion. 1. Large right-sided pleural effusion. We will send the patient for thoracentesis and appropriate a nalysis of his pleural fluid. Imaging performed at [facility] is less concerning for m alignancy. Will need a workup for better understanding. The patient is currently on room air. 2. Weakness with gait instability and falls. Will ask our physical therapy and occupational therapy teams to work with the patient and make recommendations related to safe disposition. 3. Hyponatremia. The patient reports a history of chronic hyponatremia, although his oral intake jaquez s been low. Will fluid resuscitate with normal saline x1 L and recheck his labs in the morning. 4. Coronary artery disease. Patient is without chest pain complaints. We will continue his appropr iate outpatient regimen which includes Plavix, statin, beta shaq, and SAMEER inhibitor. PROPHYLAXIS: Lovenox. DIET: Regular. DISPOSITION: I expect in less than 2 midnights if the patient's thoracentesis is uncomplicated and h e is cleared by Physical Therapy for discharge home with home PT. I have discussed the case with the emergency room physician. Patient will be triaged to the medical surgical floor for care. /[id number]/MODL
[2017-07-16] MEDS: LUBIPROSTONE 24 MCG CAP PO SCH (18:21)
[2017-07-16] MEDS: MONTELUKAST SODIUM 10 MG TAB PO SCH (18:21)
[2017-07-16] MEDS: RANOLAZINE 500 MG TAB.ER PO SCH (20:48)
[2017-07-16] MEDS: CARVEDILOL 6.25 MG TAB PO SCH (20:48)
[2017-07-16] MEDS: ATORVASTATIN CALCIUM 10 MG TAB PO SCH (20:48)
[2017-07-16] MEDS: LISINOPRIL 20 MG TAB PO SCH (20:50)
[2017-07-16] MEDS: traZODone 50 MG TAB PO SCH (20:50)
[2017-07-16] MEDS ORDERED: NON-FORMULARY NEW DRUG (Ropinirole Hcl [Requip 0.5mg] 0.5 MG) PO SCH (21:00)
[2017-07-16] MEDS ORDERED: LACTULOSE 20 GM/30 ML UDCUP PO PRN (23:31)
[2017-07-16] MEDS ORDERED: POLYETHYLENE GLYCOL 3350 17 GM PKT PO PRN (23:31)
[2017-07-16] MEDS ORDERED: BISACODYL 10 MG SUPP PR PRN (23:31)
[2017-07-16] MEDS ORDERED: MAGNESIUM HYDROXIDE 30 ML UDCUP PO PRN (23:31)
[2017-07-17 05:21] LABS: PLATELET COUNT 280 10^3/uL (150-400)
--- NOTE | 2017-07-17 08:28 | PDMN ---
Medical Necessity Medical necessity: Pt meets IP criteria per MD; est los >2 mn for eval/tx of pleural effusion, hyponatremia & failure to thrive w/weakness & gait instability /multiple recent falls; admit for further monitoring/workup-thoracentesis w/ analysis of pleural fluid, IVFs & therapies; hx CAD s/p stents on AC, HTN, COPD , ADAN on CPAP & anemia; per H&P & order 07/16/17
[2017-07-17] MEDS ORDERED: NON-FORMULARY NEW DRUG (Fluticasone/Vilanterol [Breo Ellipta 200-25 Mcg Inh] 1 EACH) IH SCH (09:00)
--- NOTE | 2017-07-17 09:27 | ASMTCMCOM ---
CM Note CM Note Notes: Patient admitted for weakness and falls, both of which have been progressing rapidly in the past weeks. He is also presenting with a large R sided pleural effusion. Patient lives with his and is normally independent. PT/OT have been ordered to evaluate for home safety. Case Management will follow for discharge planning. Date Signed: 07/17/2017 09:26 AM Electronically Signed By:Natacha Plata RN
[2017-07-17] MEDS: SODIUM CHLORIDE 1,000 MG TAB PO SCH (09:31)
[2017-07-17] MEDS: LUBIPROSTONE 24 MCG CAP PO SCH ×2 (09:31→17:25)
[2017-07-17] MEDS: LISINOPRIL 20 MG TAB PO SCH ×2 (09:31→20:29)
[2017-07-17] MEDS: FERROUS SULFATE 325 MG TAB PO SCH (09:31)
[2017-07-17] MEDS: SENNOSIDES/DOCUSATE SODIUM TAB PO SCH ×2 (09:32→20:33)
[2017-07-17] MEDS: RANOLAZINE 500 MG TAB.ER PO SCH ×2 (09:32→20:30)
[2017-07-17] MEDS: CARVEDILOL 6.25 MG TAB PO SCH ×2 (09:32→20:30)
[2017-07-17] MEDS: buPROPion XL 150 MG TAB PO SCH (09:32)
[2017-07-17] MEDS: CHOLECALCIFEROL VIT D3 2,000 UNITS TAB/CAP PO SCH (09:32)
[2017-07-17] MEDS: CLOPIDOGREL BISULFATE 75 MG TAB PO SCH (09:35)
[2017-07-17] MEDS: ENOXAPARIN 40 MG/0.4 ML SYR SC SCH (09:36)
[2017-07-17] MEDS: (Fluticasone/Vilanterol [Breo Ellipta 200-25 Mcg Inh] 1 EACH) IH SCH (09:36)
--- NOTE | 2017-07-17 12:36 | HOSPPROG ---
Hospitalist Progress Note Assessment/Plan: 77 y male admitted with recurrent falls, generalized weakness, and Right pleural effusion #Recurrent Falls #Generalized Weakness: Pt/OT to eval #Right Pleural Effusion: to get diagnostic thoracentesis today #Reported right pulmonary mass found on imaging in [place] -Not seen in our CT study -The pt will obtain records from [place] and f/u with his PCP #Hx of HTN: currently BP appears well controlled. -check Orthostatics -for now cont with home meds #Hyponatremia, possibly chronic. possible SiADH -Appears Euvolemic -Will stop IVF and check urine studies #CAD #COPD not in exacerbation #ADAN DVT Proph: Lovenox Dispo: cont inpatient. May need SNF vs Rehab, awaiting PT eval. Await thoracentesis Subjective: feels about the same. He is concerned about his falling. No clear history of how he has fallens. Reports that his balance is not what it was once. No resp sx's. Na has decreased with IVF Objective: Vital Signs Temp Pulse Resp BP Pulse Ox 36.6 C 67 18 125/109 H 95 07/17/17 08:00 07/17/17 10:55 07/17/17 10:55 07/17/17 09:45 07/17/17 10:55 Laboratory Results 07/17/17 04:35 07/17/17 04:35 07/16/17 07/17/17 07/18/17 05:59 05:59 05:59 Intake Total 1488 Output Total 825 325 Balance 663 -325 PT 15.8 SEC (12.0-15.0) H 07/16/17 15:35 INR 1.24 (0.83-1.16) H 07/16/17 15:35 - Physical Exam Constitutional: no apparent distress Eyes: PERRL, EOMI Ears, Nose, Mouth, Throat: moist mucous membranes, hearing normal Cardiovascular: regular rate and rhythym, No edema Respiratory: reduced air movement (right side) Gastrointestinal: normoactive bowel sounds, soft, non-tender abdomen Skin: warm Musculoskeletal: generalized weakness Neurologic: AAOx3 Psychiatric: interacting appropriately, not anxious, not encephalopathic, thought process linear Lymph, Heme, Immunologic: No petechiae ICD10 Worksheet Patient Problems: Problems Problem Status Onset Failure to thrive in adult Acute Pleural effusion Acute Weakness Acute Abrasion of left elbow, initial encounter Acute Anemia Acute CHI (closed head injury) Acute Chronic Disease Mgmt/Transitional Care Acute Closed left clavicular fracture Acute Depression Acute Dyspnea Acute Fracture of pubic ramus Acute HTN (hypertension) Acute Multiple falls Acute Pneumonia Acute Post concussion syndrome Acute Ribs, multiple fractures Acute Sepsis Acute Unsteady gait Acute Weakness of both legs Acute
[2017-07-17] MEDS ORDERED: LIDOCAINE 1% 300 MG/30 ML SDV ONE (15:07)
[2017-07-17] MEDS: MONTELUKAST SODIUM 10 MG TAB PO SCH (17:25)
[2017-07-17] MEDS: traZODone 50 MG TAB PO SCH (20:29)
[2017-07-17] MEDS: ATORVASTATIN CALCIUM 10 MG TAB PO SCH (20:30)
[2017-07-17] MEDS: ACETAMINOPHEN 325 MG TAB PO PRN (23:49)
[2017-07-18] MEDS: oxyCODONE IR 5 MG TAB PO PRN ×3 (02:01→21:31)
[2017-07-18] MEDS ORDERED: hydrALAZINE 25 MG TAB PO ONE (03:54)
[2017-07-18 05:22] LABS: PLATELET COUNT 238 10^3/uL (150-400)
[2017-07-18] MEDS: SODIUM CHLORIDE 1,000 MG TAB PO SCH (09:04)
[2017-07-18] MEDS: RANOLAZINE 500 MG TAB.ER PO SCH ×2 (09:05→21:31)
[2017-07-18] MEDS: CHOLECALCIFEROL VIT D3 2,000 UNITS TAB/CAP PO SCH (09:07)
[2017-07-18] MEDS: FERROUS SULFATE 325 MG TAB PO SCH (09:07)
[2017-07-18] MEDS: ENOXAPARIN 40 MG/0.4 ML SYR SC SCH (09:07)
[2017-07-18] MEDS: CLOPIDOGREL BISULFATE 75 MG TAB PO SCH (09:07)
[2017-07-18] MEDS: buPROPion XL 150 MG TAB PO SCH (09:07)
[2017-07-18] MEDS: CARVEDILOL 6.25 MG TAB PO SCH ×2 (09:08→22:56)
[2017-07-18] MEDS: LISINOPRIL 20 MG TAB PO SCH (09:08)
[2017-07-18] MEDS ORDERED: hydrALAZINE 20 MG/ML VIAL IVP PRN (09:26)
[2017-07-18] MEDS: LUBIPROSTONE 24 MCG CAP PO SCH ×2 (09:37→17:59)
[2017-07-18] MEDS: SENNOSIDES/DOCUSATE SODIUM TAB PO SCH ×2 (09:38→21:30)
[2017-07-18] MEDS: (Fluticasone/Vilanterol [Breo Ellipta 200-25 Mcg Inh] 1 EACH) IH SCH (09:56)
[2017-07-18] MEDS ORDERED: ALBUTEROL 60 PUFFS/8 GM MDI IH PRN (11:15)
[2017-07-18] MEDS ORDERED: LISINOPRIL 20 MG TAB PO SCH (14:06)
--- NOTE | 2017-07-18 14:14 | HOSPPROG ---
Hospitalist Progress Note Assessment/Plan: 77 y male admitted with recurrent falls, generalized weakness, and Right pleural effusion. He was seen 3 times today I Was called to pts bedside for STAT code called due to pt with near syncope, this was the third time I saw him today #Near Syncope #Recurrent Falls #Generalized Weakness: Pt/OT recc inpatient rehab #Right Pleural Effusion: s/p diagnostic thoracentesis, studies pending #Reported right pulmonary mass found on imaging in [place] -Not seen in our CT study -The pt will obtain records from [place] and f/u with his PCP #Hx of HTN: BPs have been labile -check Orthostatics, normal thus far #Hyponatremia, studies c/w SiADH -fluid restrict -trial of Salt replacement #CAD #COPD not in exacerbation #ADAN #Leukocytosis, likely reactive, no e/o infection. afebrile. DVT Proph: Lovenox Dispo: cont inpatient. May need SNF vs Rehab, awaiting PT eval. Await thoracentesis Plan: I was called to the pt's bedside due to near syncope. Mentation is now near baseline. I had nursing check orthostatics and it appears that he does have orthostatic hypotension. His BP's have been labile and were actually in the 180' s last night. He will get a 500ml Bolus of Normal Saline now We will check an echocardiogram Decrease Lisinopril to 10mg BID as it is currently at 20mg bid. If BP is high will give Hydralazine total critical care time is 40 minutes Subjective: was doing well this morning, felt like he had more energy, but then he had a near syncopal episode. no cp or sob Objective: Vital Signs Temp Pulse Resp BP Pulse Ox 36.6 C 82 22 H 135/78 H 90 L 07/18/17 08:15 07/18/17 11:08 07/18/17 11:08 07/18/17 13:10 07/18/17 11:08 Microbiology 07/16/17 15:01 Gram Stain - Final Thoracic Fluid - Aspirate Laboratory Results 07/18/17 04:58 07/18/17 04:58 07/17/17 07/18/17 07/19/17 05:59 05:59 05:59 Intake Total 1488 915 150 Output Total 825 1225 25 Balance 663 -310 125 PT 15.8 SEC (12.0-15.0) H 07/16/17 15:35 INR 1.24 (0.83-1.16) H 07/16/17 15:35 - Physical Exam Constitutional: no apparent distress Eyes: PERRL Ears, Nose, Mouth, Throat: moist mucous membranes, hearing normal, ears appear normal Cardiovascular: regular rate and rhythym, No edema Respiratory: no respiratory distress, no rales or rhonchi, clear to auscultation Gastrointestinal: normoactive bowel sounds, soft, non-tender abdomen, no palpable masses Genitourinary: no bladder fullness Skin: warm Musculoskeletal: generalized weakness Neurologic: AAOx3 Psychiatric: interacting appropriately, not anxious, not encephalopathic Lymph, Heme, Immunologic: No petechiae ICD10 Worksheet Patient Problems: Problems Problem Status Onset Failure to thrive in adult Acute Pleural effusion Acute Weakness Acute Abrasion of left elbow, initial encounter Acute Anemia Acute CHI (closed head injury) Acute Chronic Disease Mgmt/Transitional Care Acute Closed left clavicular fracture Acute Depression Acute Dyspnea Acute Fracture of pubic ramus Acute HTN (hypertension) Acute Multiple falls Acute Pneumonia Acute Post concussion syndrome Acute Ribs, multiple fractures Acute Sepsis Acute Unsteady gait Acute Weakness of both legs Acute
--- NOTE | 2017-07-18 16:40 | ASMTCMCOM ---
CM Note CM Note Notes: Referral submitted to [facility] yesterday. They have accepted pending review. DC unclear. CM to follow. Date Signed: 07/18/2017 04:39 PM Electronically Signed By:Michelle Schmitz LCSW
[2017-07-18] MEDS: MONTELUKAST SODIUM 10 MG TAB PO SCH (17:57)
[2017-07-18] MEDS: ONDANSETRON 4 MG/2 ML VIAL IVP PRN (18:32)
[2017-07-18] MEDS: ACETAMINOPHEN 325 MG TAB PO PRN (18:57)
[2017-07-18] MEDS ORDERED: LISINOPRIL 10 MG TAB PO SCH (21:00)
[2017-07-18] MEDS: ATORVASTATIN CALCIUM 10 MG TAB PO SCH (21:30)
[2017-07-18] MEDS: traZODone 50 MG TAB PO SCH (21:31)
[2017-07-19] MEDS: (Fluticasone/Vilanterol [Breo Ellipta 200-25 Mcg Inh] 1 EACH) IH SCH (08:06)
[2017-07-19] MEDS: LUBIPROSTONE 24 MCG CAP PO SCH ×2 (09:12→18:23)
[2017-07-19] MEDS: SODIUM CHLORIDE 1,000 MG TAB PO SCH (09:13)
[2017-07-19] MEDS: RANOLAZINE 500 MG TAB.ER PO SCH (09:13)
[2017-07-19] MEDS: buPROPion XL 150 MG TAB PO SCH (09:14)
[2017-07-19] MEDS: FERROUS SULFATE 325 MG TAB PO SCH (09:14)
[2017-07-19] MEDS: SENNOSIDES/DOCUSATE SODIUM TAB PO SCH ×2 (09:14→20:33)
[2017-07-19] MEDS: CLOPIDOGREL BISULFATE 75 MG TAB PO SCH (09:14)
[2017-07-19] MEDS: CHOLECALCIFEROL VIT D3 2,000 UNITS TAB/CAP PO SCH (09:14)
[2017-07-19] MEDS: ENOXAPARIN 40 MG/0.4 ML SYR SC SCH (09:15)
[2017-07-19] MEDS: NS W/ 20 KCl/L 1,000 ML IV SCH ×2 (09:28→21:27)
[2017-07-19 09:59] LABS: PLATELET COUNT 180 10^3/uL (150-400)
[2017-07-19] MEDS ORDERED: NS 500 ML IV ONE ×3 (11:46→13:05)
--- NOTE | 2017-07-19 12:08 | HOSPPROG ---
Hospitalist Progress Note Assessment/Plan: 77 y male admitted with recurrent falls, generalized weakness, and Right pleural effusion. on 07/18 he had a rapid response called for near syncope and AMS. Cognition recovered very quickly and he did not have a post ictal period. BP was found to be low 100's systolic. Orthostatics were positive. BP overnight has continued to drop and all BP meds have been held. He is now confused. He looks dry. He has remained afebrile. He has leukocytosis. Infectious w/u originally was negative. He is on 2-3 liters O2 which are essentially what he has been on. There is no cough. He denies urinary symptoms. He has not had urgency or increased urinary frequency. He does have erythema to the left arm which is actually improved since admission. #Hypotension, Dehydration, possible infectious source, possible sepsis. Source unclear -will provide IVF bolus now -obtain procalcitonin -repeat CBC -Hold all BP meds -Hold Ranexa -Hold Ropinerole -will likely start abx pending repeat labs and w/u -CXR, UA, Blood Cultures #Acute Encephalopathy: likely due to above -holding meds per above. -For now hold off on imaging head #Leukocytosis #Near Syncope on 07/18 #Recurrent Falls #Generalized Weakness: Pt/OT [facility] inpatient rehab #Right Pleural Effusion: s/p diagnostic thoracentesis, studies pending #Reported right pulmonary mass found on imaging in [place] -Not seen in our CT study -The pt will obtain records from [place] and f/u with his PCP. I have spoken to his and she is obtaining the imaging #Hyponatremia, studies c/w SiADH -given possible sepsis, will lift fluid restriction -trial of Salt replacement #CAD #COPD not in exacerbation #ADAN #Restless Leg Syndrome: holding Requip DVT Proph: Lovenox Plan: per above await w/u will likely start empiric abx IVF per above Subjective: altereded mentation. hypotensive. looks dry. denies pain. Objective: Vital Signs Temp Pulse Resp BP Pulse Ox 36.7 C 90 18 130/88 H 94 07/19/17 11:41 07/19/17 11:41 07/19/17 11:41 07/19/17 11:41 07/19/17 11:41 Microbiology 07/16/17 15:01 Gram Stain - Final Thoracic Fluid - Aspirate Laboratory Results 07/19/17 09:52 07/19/17 04:34 07/18/17 07/19/17 07/20/17 05:59 05:59 05:59 Intake Total 915 1650 220 Output Total 1225 225 Balance -310 1425 220 PT 15.8 SEC (12.0-15.0) H 07/16/17 15:35 INR 1.24 (0.83-1.16) H 07/16/17 15:35 - Physical Exam Constitutional: no apparent distress Eyes: PERRL, EOMI Ears, Nose, Mouth, Throat: dry mucous membranes Cardiovascular: regular rate and rhythym, No edema Respiratory: reduced air movement Gastrointestinal: normoactive bowel sounds, soft, non-tender abdomen Genitourinary: no bladder fullness Skin: warm Musculoskeletal: generalized weakness Neurologic: No AAOx3 Psychiatric: encephalopathic Lymph, Heme, Immunologic: No petechiae ICD10 Worksheet Patient Problems: Problems Problem Status Onset Failure to thrive in adult Acute Pleural effusion Acute Weakness Acute Abrasion of left elbow, initial encounter Acute Anemia Acute CHI (closed head injury) Acute Chronic Disease Mgmt/Transitional Care Acute Closed left clavicular fracture Acute Depression Acute Dyspnea Acute Fracture of pubic ramus Acute HTN (hypertension) Acute Multiple falls Acute Pneumonia Acute Post concussion syndrome Acute Ribs, multiple fractures Acute Sepsis Acute Unsteady gait Acute Weakness of both legs Acute
[2017-07-19] MEDS: PIPERACILLIN/TAZO 3.375 GM/DEX 50 ML IV SCH ×2 (12:47→18:23)
[2017-07-19] MEDS ORDERED: VANCOMYCIN HCL/NORMAL SALINE 250 ML IV SCH (13:30)
[2017-07-19] MEDS ORDERED: VANCOMYCIN 1 GM in NS 250 ML IV SCH (13:30)
[2017-07-19] MEDS ORDERED: NS 1,000 ML IV ONE (14:30)
[2017-07-19] MEDS: oxyCODONE IR 5 MG TAB PO PRN (16:40)
--- NOTE | 2017-07-19 17:32 | ASMTCMCOM ---
CM Note CM Note Notes: Reviewed chart, spoke with FRANSICO Craig regarding discharge plan of care, pt's progress. Per Kiara, pt with elevated WBC today, 's to r/o bactertial infection. Call received from Addis with [facility] - Addis requesting CM resend H&P and pt's medication list. Information resent twice via [employer]. Addis to review pt's chart for final acceptance. LVM with Addis to follow up, awaiting call back. Pt to discharge to [facility], pending acceptance, when medically stable. CM will continue to follow. Current Discharge Plan: SNF Date Signed: 07/19/2017 05:31 PM Electronically Signed By:Jessica Resendiz RN
[2017-07-19] MEDS: MONTELUKAST SODIUM 10 MG TAB PO SCH (18:23)
[2017-07-19] MEDS: ATORVASTATIN CALCIUM 10 MG TAB PO SCH (20:33)
[2017-07-19] MEDS ORDERED: NS 250 ML IV ONE (20:43)
[2017-07-19] MEDS: traZODone 50 MG TAB PO SCH (22:46)
[2017-07-20] MEDS: PIPERACILLIN/TAZO 3.375 GM/DEX 50 ML IV SCH ×3 (00:45→12:26)
[2017-07-20] MEDS: oxyCODONE IR 5 MG TAB PO PRN ×2 (02:28→12:30)
[2017-07-20 05:30] LABS: PLATELET COUNT 164 10^3/uL (150-400)
[2017-07-20] MEDS: NS W/ 20 KCl/L 1,000 ML IV SCH ×2 (05:42→15:25)
[2017-07-20] MEDS: LUBIPROSTONE 24 MCG CAP PO SCH ×2 (09:08→17:38)
[2017-07-20] MEDS: SENNOSIDES/DOCUSATE SODIUM TAB PO SCH ×2 (09:08→22:34)
[2017-07-20] MEDS: FERROUS SULFATE 325 MG TAB PO SCH (09:09)
[2017-07-20] MEDS: ENOXAPARIN 40 MG/0.4 ML SYR SC SCH (09:09)
[2017-07-20] MEDS: CHOLECALCIFEROL VIT D3 2,000 UNITS TAB/CAP PO SCH (09:09)
[2017-07-20] MEDS: SODIUM CHLORIDE 1,000 MG TAB PO SCH (09:09)
[2017-07-20] MEDS: buPROPion XL 150 MG TAB PO SCH (09:09)
[2017-07-20] MEDS: CLOPIDOGREL BISULFATE 75 MG TAB PO SCH (09:09)
[2017-07-20] MEDS: (Fluticasone/Vilanterol [Breo Ellipta 200-25 Mcg Inh] 1 EACH) IH SCH (09:11)
--- NOTE | 2017-07-20 13:11 | GCON ---
[f rep st] CONSULTATION INFECTIOUS DISEASE CONSULTATION DATE OF CONSULTATION: 07/20/2017 Physician requesting consultation is Prsoper Lira. REASON FOR CONSULTATION: Group A strep bacteremia, query source. HPI: [age]-old male who has a past medical history of COPD and coronary artery disease, who was in his usual state of health until earlier in June, when he had a fall while traveling in [place]. Reportedly, patient was hospitalized and underwent imaging that showed a small right upper lobe nodule, 4-mm, a 3.7 mediastinal mass, but was on a noncontrasted CT, and a right-sided effusion. Some mediastinal adenopathy was noted. Over this period, patient has had continued generalized weakness, and on 07/16, symptoms became severe enough that patient was prompted to present to the emergency room where he was evaluated and found to have a normal white count at that time. Over the course of his hospitalization, he became increasingly confused with a near syncopal episode on 07/19. In addition, he had a rapidly progressive leukocytosis, and on 07/19/2017, his white count was 26,000. Sepsis protocol was initiated and blood cultures were obtained, which rapidly grew group A strep. The patient's only complaint is pleuritic chest pain on the right and left great toe pain. Notably, there is erythema on his left forearm. He is unclear of the chronicity of this abnormality. He denies any GI complaints or other rashes that he has noted. He admits to weight loss of 40 pounds recently with an associated decreased appetite. He denies any night sweats at home. He describes the duration of his weakness as 3 months and has been progressive. Imaging was also performed at time of admission on 07/16/2017, that was personally reviewed by me with Radiology. The chest CT showed a right pleural effusion with no associated parenchymal abnormalities, no pulmonary embolus. He did have mild mediastinal adenopathy and a 4 mm pulmonary nodule in the right upper lobe that was previously present years back on prior CT scans, dated 09/25/2016. Patient continues to feel significant malaise today and denies any significant changes in his minimal symptomatology other than weakness today. Of note, in addition, laboratory findings include an increasing creatinine to 1.4 today. PAST MEDICAL AND SURGICAL HISTORY: 1. Coronary artery disease with stent. 2. COPD. 3. Appendectomy. 4. Left hip replacement. 5. Dementia. 6. Hyperlipidemia. 7. Hypertension. 8. Osteoporosis with compression compression fractures. 9. Vitamin D deficiency. SOCIAL HISTORY: Two children. He is . 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 Occasional alcohol. Former tobacco. Has 2 children. FAMILY HISTORY: Reviewed and noncontributory. VACCINATIONS: Flu was received 12/19/2016, Prevnar 07/21/2014. ALLERGIES: NKDA. MEDICATIONS: Overnight, patient received vancomycin 1 g IV q.24 and Zosyn 3.375 g IV q6. He is also on Tylenol, albuterol, Lipitor, Wellbutrin, vitamin D , Plavix 75 mg daily, Lovenox 40 subcu daily, hydralazine 5 mg IV q.6 p.r.n., iron 325 daily, Amitiza 24 mcg twice daily, Singulair 10 mg daily, Zofran as needed, oxycodone as needed, MiraLAX as needed, trazodone 50 mg p.o. q.h.s. p.r.n. REVIEW OF SYSTEMS: A complete 10-point review of systems was performed and is negative except as mentioned in the HPI. PHYSICAL EXAMINATION: VITAL SIGNS: T-max is 37.3, T. current 36.6, BP 106/62, heart rate 85, respiratory rate 14, saturation 96% on 3 L. GENERAL: This is an elderly male, lying in bed in no acute distress. He has fluent speech and is responding appropriately to questions. HEENT: Pupils are reactive bilaterally. No conjunctival hemorrhages. No icterus. Oropharynx: Fair dentition. Moist mucous membranes. No oral ulcerations or exudate. NECK: Supple. No lymphadenopathy. CARDIOVASCULAR: Distant heart sounds. Regular rate. No murmurs were appreciated. CHEST: Patient had decreased breath sounds in bilateral bases, right greater than left, and generalized decreased breath sounds throughout. No wheezing. ABDOMEN: Soft, nontender. Bowel sounds are present. SKIN: Patient had a full skin exam. No rashes were appreciated except the left antecubital erythema seem to be associated with prior IV site/thrombosis. EXTREMITIES: No joint swelling was noted. No lower extremity edema. The patient had some pain of his right great toe, but no abnormalities noted on exam other than tenderness to palpation. NEUROLOGICAL: He had generalized weakness. No focal neurologic deficits were noted by me. Cranial nerves were grossly intact and he answered all questions appropriately. LABORATORY: White count 26 yesterday, 23,000, with 88% neutrophils today. Hematocrit 44, platelets of 180. Creatinine today 1.4, previously 0.8. Sodium 133, BUN 25, procalcitonin 3.33. Admission AST 23, ALT 33. The patient underwent a thoracentesis with pleural WBCs of 1212, RBCs of 76,000, 88% lymphocytes, 4% other cells, LDH 579, glucose 68. Path review showed negative flow cytometry and no cells that were consistent with malignancy. Blood cultures, 07/19/2017, two sets, group A strep, 2/2 sets. Pleural fluid culture 07/16/2017, is no growth to date with a negative Gram stain. ASSESSMENT AND PLAN: This is a 77-year-old male with chronic obstructive pulmonary disease and coronary artery disease, with a several month history of progressive weakness and weight loss, and was undergoing an evaluation for possible underlying malignancy, who worsened and presented to the emergency room 4 days ago. While hospitalized, patient became increasingly weak, altered , and developed a leukocytosis and soft BP. Blood cultures rapidly revealed 2/ 2 sets of group A strep. Source considerations include left antecubital superficial clot. Pulmonary source seems less likely as pleural fluid is exudative but not consistent with empyema and further cultures are no growth to date, and no clear associated parenchymal abnormalities to associate with effusion. There were some minor abnormalities on imaging that could be reactive to infection, such as very mild increased mediastinal adenopathy. A previously mentioned pulmonary nodule has been present for several years without significant change. RECOMMENDATIONS: 1. Would discontinue vancomycin and Zosyn and narrow antibiotics to ceftriaxone 2 g IV daily. 2. Due to unclear source of group A strep bacteremia, I would obtain an echocardiogram. 3. US left antecubital to evaluate for deeper thrombosis/septic thrombophlebitis. Currently, clinically, appears to be a superficial septic thrombophlebitis. 4. We will repeat blood cultures after on antibiotics for 48 hours. Thank you for this consultation. We will continue to follow on a daily basis. Time 75 min >50% time spent with education and counseling of patient and family regarding potential sources for infection and planned work up to include ECHO, doppler, potential repeat chest imaging, multiple cultures. Review of radiologic reports. Imaging personally reviewed with radiologist. /[id number]/MODL MTDD
--- NOTE | 2017-07-20 13:38 | HOSPPROG ---
Hospitalist Progress Note Assessment/Plan: 77 y male admitted with recurrent falls, generalized weakness, and Right pleural effusion. #Sepsis as e/o by Leukocytosis, Hypotension, encephalopathy, acute renal failure , and now Strep Pyogenes Bacteremia -Source is unclear. Possible sources include lung (not as likely) and left forearm thrombophlebitis which is more likely but the erythema appears to have been receding prior to abx administration -He was empirically started on Vancomycin and Zosyn and these likely can be deescalated. I will consult ID for abx mgmt -Cont IVF at 125ml/hr given still low output -MAP is stable and at goal #Hypotension -Hold all BP meds -Hold Ranexa -Hold Ropinerole #Acute Encephalopathy: Resolved. This was transient due to infection #Leukocytosis, likely from infection. will Trend #Near Syncope on 07/18 #Recurrent Falls and Generalized Weakness and rapid physical decline over the past 6 weeks: Pt/OT [facility] inpatient rehab #Concern for Malignantcy, and Right Pleural Effusion: s/p diagnostic thoracentesis -Cytology c/w Lymphocytic Effusion with immature appearing forms. The sample is being sent for flow cytometric analysis. Correlate with pending cytology and flow cytometry -Other test shows no clear diagnosis #Reported right pulmonary mass found on imaging in [place] -Not seen in our CT study -The pt will obtain records from [place] and f/u with his PCP. I have spoken to his and she is obtaining the imaging #Hyponatremia, studies c/w SiADH -fluid restriction was lifted due to sepsis, once better, will need to restart -trial of Salt replacement #CAD #COPD not in exacerbation #ADAN #Restless Leg Syndrome: holding Requip DVT Proph: Lovenox Plan: ID consult Awaiting flow cytometric analysis, will discuss with Oncology Cont IVF total critical care time spent on this pt with improving Sepsis is 45 minutes. D /W ID. Subjective: feeling better. no cp or sob. still with left forearm erythema and pain, but better. Occassional cough. Objective: Vital Signs Temp Pulse Resp BP Pulse Ox 36.6 C 80 17 102/58 L 97 07/20/17 11:52 07/20/17 11:52 07/20/17 11:52 07/20/17 11:52 07/20/17 11:52 Microbiology 07/19/17 12:30 Blood Panel (PCR) - Final Blood Strep Pyogenes Group A 07/16/17 15:01 Gram Stain - Final Thoracic Fluid - Aspirate Laboratory Results 07/20/17 04:46 07/20/17 04:46 07/19/17 07/20/17 07/21/17 05:59 05:59 05:59 Intake Total 1650 4890 Output Total 225 705 250 Balance 1425 4185 -250 PT 15.8 SEC (12.0-15.0) H 07/16/17 15:35 INR 1.24 (0.83-1.16) H 07/16/17 15:35 - Physical Exam Constitutional: no apparent distress, appears nourished, not in pain Eyes: PERRL, anicteric sclera, EOMI Ears, Nose, Mouth, Throat: moist mucous membranes, No dry mucous membranes Cardiovascular: regular rate and rhythym, no murmur, rub, or gallop Respiratory: no respiratory distress, reduced air movement Gastrointestinal: normoactive bowel sounds, soft, non-tender abdomen Genitourinary: no bladder fullness Skin: warm, other (erythema and induration at left forearm/arm) Musculoskeletal: generalized weakness Neurologic: AAOx3 Psychiatric: interacting appropriately, not anxious, not encephalopathic Lymph, Heme, Immunologic: No petechiae ICD10 Worksheet Patient Problems: Problems Problem Status Onset Failure to thrive in adult Acute Pleural effusion Acute Weakness Acute Abrasion of left elbow, initial encounter Acute Anemia Acute CHI (closed head injury) Acute Chronic Disease Mgmt/Transitional Care Acute Closed left clavicular fracture Acute Depression Acute Dyspnea Acute Fracture of pubic ramus Acute HTN (hypertension) Acute Multiple falls Acute Pneumonia Acute Post concussion syndrome Acute Ribs, multiple fractures Acute Sepsis Acute Unsteady gait Acute Weakness of both legs Acute
[2017-07-20] MEDS ORDERED: VANCOMYCIN 1 GM in NS 250 ML IV SCH (14:30)
[2017-07-20] MEDS: cefTRIAXone 2 GM in STERILE WATER INJ 20 ML IV SCH (14:30)
[2017-07-20] MEDS: MONTELUKAST SODIUM 10 MG TAB PO SCH (17:38)
[2017-07-20] MEDS: traZODone 50 MG TAB PO SCH (22:34)
[2017-07-20] MEDS: ATORVASTATIN CALCIUM 10 MG TAB PO SCH (22:34)
[2017-07-21] MEDS: NS W/ 20 KCl/L 1,000 ML IV SCH ×2 (01:03→10:24)
[2017-07-21] MEDS ORDERED: ALBUTEROL 3 ML DEYVIAL ONE (05:09)
[2017-07-21] MEDS: ALBUTEROL 3 ML DEYVIAL IH PRN ×2 (05:24→09:50)
[2017-07-21] MEDS: (Fluticasone/Vilanterol [Breo Ellipta 200-25 Mcg Inh] 1 EACH) IH SCH (08:55)
[2017-07-21] MEDS: oxyCODONE IR 5 MG TAB PO PRN ×2 (09:26→20:47)
[2017-07-21] MEDS: CHOLECALCIFEROL VIT D3 2,000 UNITS TAB/CAP PO SCH (09:28)
[2017-07-21] MEDS: buPROPion XL 150 MG TAB PO SCH (09:28)
[2017-07-21] MEDS: FERROUS SULFATE 325 MG TAB PO SCH (09:28)
[2017-07-21] MEDS: CLOPIDOGREL BISULFATE 75 MG TAB PO SCH (09:28)
[2017-07-21] MEDS: SODIUM CHLORIDE 1,000 MG TAB PO SCH (09:28)
[2017-07-21] MEDS: SENNOSIDES/DOCUSATE SODIUM TAB PO SCH ×2 (09:28→20:46)
[2017-07-21] MEDS: cefTRIAXone 2 GM in STERILE WATER INJ 20 ML IV SCH (09:28)
[2017-07-21] MEDS: LUBIPROSTONE 24 MCG CAP PO SCH ×2 (09:29→19:29)
[2017-07-21] MEDS: ENOXAPARIN 40 MG/0.4 ML SYR SC SCH (09:29)
--- NOTE | 2017-07-21 10:17 | ECHO ---
[email or web address] [address] [address] Main: [phone] Fax: Transthoracic Echocardiogram Name: OMA FERNANDEZ MR#: [id number] Study Date: 07/20/2017 Study Time: 03:11 PM Date of : 1940 Age: 77 year(s) Height: 175.3 cm (69 in.) Weight: 79.38 kg (175 lb.) BSA: 1.95 m2 Gender: Male Examination: Echo Indication: No source for GAS bacteremia/hx COPD/CAD Image Quality: Technically Difficult Contrast: Requested by: Abimbola Mcneil BP: 106 mmHg/62 mmHg Heart Rate: Rhythm: Indication: No source for GAS bacteremia/hx COPD/CAD Procedure Staff Vtc Technician: Katerina Oliveira RDCS Reading Physician: Yung Bermudez MD Requesting Provider: Conclusions: Normal global systolic LV function. The ejection fraction is estimated to be 65-70 %. Normal size right ventricle. The mitral valve is normal in appearance. Mild mitral valve regurgitation is present. Mild tricuspid regurgitation is present. The pulmonary artery pressure is normal. Pulmonary valve not well visualized. Limited views available for interpretation due to COPD. This test was ordered and canceled yesterday for no images to obtain. . Measurements: Chambers Valvular Assessment AV/MV Valvular Assessment TV/PV Normal Normal Normal Name Value Range Name Value Range Name Value Range Ao Jazz[place] (MM): 4.0 cm (2.2 cm-3.7 AV Vmax: 0.99 m/s (1 m/s-1.7 TR Vmax: 2.90 mm/s ( - ) cm) m/s) TR PGmax: 34 mmHg ( - ) IVSd (2D): 0.5 cm (0.6 cm-1.1 AV maxP mmHg ( - ) syst. PAP: 39 mmHg ( - ) cm) LVDd (2D): 5.6 cm (4.2 cm-5.9 cm) LVDs (2D): 3.1 cm (2.1 cm-4 cm) LVPWd (2D): 0.6 cm (0.6 cm-1 cm) LVEF (2D): 76 (>=54 %) EF Range: 65-70 % Continued Measurements: Chambers Valvular Assessment TV/PV Patient: OMA FERNANDEZ Study Date: 07/20/2017 Page 1 of 2 03:11 PM Name Value Name Value LADs: 4.9 cm CVP (est.): 5 mmHg Findings: Left Ventricle: Normal global systolic LV function. The ejection fraction is estimated to be 65-70 %. Right Ventricle: Normal size right ventricle. Mitral Valve: The mitral valve is normal in appearance. Mild mitral valve regurgitation is present. Aortic Valve: AV opens well.. Tricuspid Valve: Mild tricuspid regurgitation is present. The pulmonary artery pressure is normal. Pulmonic Valve: Pulmonary valve not well visualized. Pericardium: Left side pleural effusion. Exam Comments: Limited views available for interpretation due to COPD. This test was ordered and canceled yesterday for no images to obtain. . (No Signature Object) Patient: OMA FERNANDEZ Study Date: 07/20/2017 Page 2 of 2 03:11 PM [id number]
[2017-07-21] MEDS ORDERED: ALTEPLASE 2 MG VIAL IVP PRN (13:20)
--- NOTE | 2017-07-21 13:24 | PCMIDPN ---
Assessment/Plan: # Group a strep bacteremia due to septic thrombophlebitis left arm, likely superficial. --unable to repeat blood cultures today due to difficult blood draws, will place PICC. Drop blood cultures after placement with the hopes that blood cultures are clear --ultrasound of left upper extremity to establish whether superficial or deep thrombosis --follow-up on echocardiographic result --continue ceftriaxone, reviewed with family he will need a minimum of 2 weeks of therapy and possibly longer depending on extent of infection established # general decline: No clear source of malignancy on CT chest, abdomen, pelvis Medication Ceftriaxone 2 g IV daily, # 2 Microbiology 07/19/2017 blood cultures (05/10) group a strep 07/16/2017 pleural fluid culture: No growth to date Subjective: Still feels severe fatigue Objective: Vital Signs Temp Pulse Resp BP Pulse Ox 36.8 C 90 20 152/81 H 96 07/21/17 08:00 07/21/17 09:51 07/21/17 09:51 07/21/17 08:00 07/21/17 09:51 Microbiology 07/19/17 12:25 Blood Culture - Final Blood Streptococcus Pyogenes Grp A 07/19/17 12:30 Blood Culture - Final Blood Streptococcus Pyogenes Grp A Blood Panel (PCR) - Final Strep Pyogenes Group A 07/16/17 15:01 Gram Stain - Final Thoracic Fluid - Aspirate Laboratory Results 07/21/17 09:48 07/20/17 07/21/17 07/22/17 05:59 05:59 05:59 Intake Total 4890 2213 Output Total 705 700 Balance 4185 1513 - Physical Exam General Appearance: alert, no apparent distress EENT: pale conjunctiva Respiratory: other (Decreased breath sounds throughout), No accessory muscle use Neck: supple Extremities: pedal edema, erythema (Left antecubital with palpable cord. Stable erythema compared to yesterday) Abdomen: non-tender, soft Male Genitalia: No phan Skin: No rash (Other than was described on extremity exam, multiple scattered ecchymosis from repeated phlebotomy) Neuro/Psych: alert, normal mood/affect, oriented x 3 - Time Spent With Patient Time Spent with Patient: greater than 35 minutes (Reviewed diagnosis, source of bacteremia, planned treatment and side effects with patient, , son and [id number].) Time Spent with Patient: Greater than 35 minutes spent on this patients care, greater than 50% of time spent counseling, educating, and coordinating care regarding the above mentioned plan. ICD10 Worksheet Patient Problems: Problems Problem Status Onset Failure to thrive in adult Acute Pleural effusion Acute Weakness Acute Abrasion of left elbow, initial encounter Acute Anemia Acute CHI (closed head injury) Acute Chronic Disease Mgmt/Transitional Care Acute Closed left clavicular fracture Acute Depression Acute Dyspnea Acute Fracture of pubic ramus Acute HTN (hypertension) Acute Multiple falls Acute Pneumonia Acute Post concussion syndrome Acute Ribs, multiple fractures Acute Sepsis Acute Unsteady gait Acute Weakness of both legs Acute
--- NOTE | 2017-07-21 13:53 | ASMTCMCOM ---
CM Note CM Note Notes: Pt will now need IV ABX at DC. Sent [facility] an update. CM to follow. Date Signed: 07/21/2017 01:53 PM Electronically Signed By:Michelle Schmitz LCSW
--- NOTE | 2017-07-21 17:12 | HOSPPROG ---
Hospitalist Progress Note Assessment/Plan: 77 y male admitted with recurrent falls, generalized weakness, and Right pleural effusion. #Sepsis as e/o by Leukocytosis, Hypotension, encephalopathy, acute renal failure , and Strep Pyogenes Bacteremia -Source is unclear. Possible sources include lung (not as likely) and left forearm/basilic thrombophlebitis (per Doppler) which is more likely but the erythema appears to have been receding prior to abx administration -He was empirically started on Vancomycin and Zosyn. ID is following and these have been stopped and Rocephin started. -BP is better, and will do a trial off IVF -MAP is stable and at goal -place PICC #Hypotension -Hold all BP meds. May need to restart in the future -Hold Ranexa -Hold Ropinerole #Acute Encephalopathy: Resolved. This was transient due to infection #Leukocytosis, likely from infection. will Trend #Near Syncope on 07/18, likely from infection and orthostatic hypotension. #Recurrent Falls and Generalized Weakness and rapid physical decline over the past 6 weeks: Pt/OT [facility] inpatient rehab #Concern for Malignancy, and Right Pleural Effusion: s/p diagnostic thoracentesis -Cytology c/w Lymphocytic Effusion with immature appearing forms. The sample is being sent for flow cytometric analysis. Correlate with pending cytology and flow cytometry -Other test, CT chest, abd, pelvist shows no clear diagnosis -Oncology will consult #Reported right pulmonary mass found on imaging in [place] -Not seen in our CT study -The pt will obtain records from [place] and f/u with his PCP. I have spoken to his and she is obtaining the imaging #Hyponatremia, initial studies c/w SiADH. However since starting aggressive IVF , Na has improved. -fluid restriction was lifted due to sepsis, once better, may need to restart -trial of Salt replacement #CAD #COPD not in exacerbation #ADAN #Restless Leg Syndrome: holding Requip DVT Proph: Lovenox Subjective: feeling better. no confusion. no cp or sob. Objective: Vital Signs Temp Pulse Resp BP Pulse Ox 36.7 C 82 17 162/78 H 94 07/21/17 16:00 07/21/17 16:00 07/21/17 16:00 07/21/17 16:00 07/21/17 16:00 Microbiology 07/19/17 12:25 Blood Culture - Final Blood Streptococcus Pyogenes Grp A 07/19/17 12:30 Blood Culture - Final Blood Streptococcus Pyogenes Grp A Blood Panel (PCR) - Final Strep Pyogenes Group A Laboratory Results 07/21/17 13:13 07/21/17 09:48 07/20/17 07/21/17 07/22/17 05:59 05:59 05:59 Intake Total 4890 2213 Output Total 705 700 240 Balance 4185 1513 -240 PT 15.8 SEC (12.0-15.0) H 07/16/17 15:35 INR 1.24 (0.83-1.16) H 07/16/17 15:35 - Physical Exam Constitutional: no apparent distress Eyes: PERRL, EOMI Ears, Nose, Mouth, Throat: moist mucous membranes, hearing normal Cardiovascular: regular rate and rhythym, edema Respiratory: no respiratory distress, no rales or rhonchi, clear to auscultation Gastrointestinal: normoactive bowel sounds, soft, non-tender abdomen Skin: warm Musculoskeletal: generalized weakness Neurologic: AAOx3 Psychiatric: interacting appropriately, not anxious, not encephalopathic Lymph, Heme, Immunologic: petechiae ICD10 Worksheet Patient Problems: Problems Problem Status Onset Failure to thrive in adult Acute Pleural effusion Acute Weakness Acute Abrasion of left elbow, initial encounter Acute Anemia Acute CHI (closed head injury) Acute Chronic Disease Mgmt/Transitional Care Acute Closed left clavicular fracture Acute Depression Acute Dyspnea Acute Fracture of pubic ramus Acute HTN (hypertension) Acute Multiple falls Acute Pneumonia Acute Post concussion syndrome Acute Ribs, multiple fractures Acute Sepsis Acute Unsteady gait Acute Weakness of both legs Acute
[2017-07-21] MEDS: MONTELUKAST SODIUM 10 MG TAB PO SCH (19:29)
--- NOTE | 2017-07-21 19:51 | GCON ---
[f rep st] CONSULTATION HEMATOLOGY/ONCOLOGY CONSULTATION REASON FOR CONSULTATION: Unexplained weight loss with lymphocytic pleural effusion. HISTORY OF PRESENT ILLNESS: The patient is a very pleasant 77-year-old male recently admitted after being evaluated in [place] for falling, and was found to have a large right pleural effusion and a questionable pulmonary nodule. The patient is accompanied today by his and daughter. They state that he has been in his usual state of health up until a few months ago. Over the last few months, he has lost anywhere from 15-20 pounds. He describe increasing anorexia. He has fallen a number of times and has had a significant increase in generalized weakness. He fell while in [place] on a recent trip and was evaluated with a CT scan showing a small 4 mm right-sided lung nodule with a question of a mediastinal mass and a right-sided pleural effusion. The patient returned home and due to increasing weakness, presented to the emergency room here for further evaluation. On admission, he had a normal white blood cell count, but shortly after admission, he developed a significant leukocytosis with a white blood cell counts in the 20,000 range. This is primarily a neutrophilia. Blood cultures grew group A strep and ultimately he was diagnosed with group A strep bacteremia felt to be due to a septic thrombophlebitis in his left arm from an IV while he was in [place]. He has been started on ceftriaxone and an echocardiogram has been performed. ID is following. On admission, a chest CT showed a large right pleural effusion with cardiomegaly and some shotty noncalcified mediastinal and right hilar lymph nodes. There was no evidence of an obvious mass. CT scan of the abdomen and pelvis showed a normal liver and spleen without any adenopathy. Of note, he does have an enlarged prostate. He underwent a diagnostic thoracentesis on July 17. The pleural fluid was described as having septations and 220 mL of serosanguineous pleural fluid was removed. The cytology described atypical cells present, mostly lymphocytes. While the cells appeared atypical, flow cytometry was unremarkable. The features of the pleural fluid were more consistent with a transudate. Twelve hundred white blood cells were seen, 88% lymphocytes, and 75,000 red blood cells were seen. The patient currently describes right-sided chest pain that is somewhat pleuritic. He denies any abdominal pain or change in bowel habits or blood in the stool. He denies any night sweats, or adenopathy. He denies any pain other than the right-sided chest pain. We are asked to consult regarding concern for possible underlying malignancy. PAST MEDICAL HISTORY: Coronary artery disease with placement of a stent, COPD, dementia, hyperlipidemia, hypertension, osteoporosis. PAST SURGICAL HISTORY: Appendectomy, left hip replacement. SOCIAL HISTORY: He has 2 children. 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 He is . Drinks alcohol occasionally. Has a remote history of smoking. FAMILY HISTORY: Noncontributory. REVIEW OF SYSTEMS: A 10-point review of systems is negative other than HPI. PHYSICAL EXAM: VITAL SIGNS: Blood pressure is 106/62, heart rate 85, respirations 14, O2 saturation is 96% on 3 L. GENERAL: He is an elderly male appearing comfortable in bed. HEENT: Pupils are equal. NECK: Supple without any lymphadenopathy. HEART: Regular rate. LUNGS: Decreased breath sounds bilaterally, right greater than left. No wheezing. ABDOMEN: Soft and nontender without organomegaly. EXTREMITIES: He has some mild tenderness in the left antecubital area at the site of a prior IV with some associated erythema. NEUROLOGIC: Generalized weakness. LABORATORY DATA: White blood cell count 22,000, hematocrit 36.9 (41.9 on admission), platelets 164. Differentials consistent with neutrophilia, 87% neutrophils, 7% bands, 1%, lymphocytes. Comprehensive metabolic panel unremarkable except for mild hyponatremia with sodium of 134. IMPRESSION: This is a 77-year-old male with a several-month history of weight loss and generalized weakness and has been found to have a right pleural effusion of uncertain etiology. The effusion is primarily lymphocytic and transudative with negative flow cytometry. Cytology is described as atypical cells. We will try to gain some additional information tomorrow, speaking with the pathologist. Currently, the patient is acutely bacteremic and being treated for group A streptococcus bacteremia. While imaging studies are not identifying any obvious malignancy, the patient's history and presentation is worrisome for some type of underlying malignancy that has not yet been identified. He may need an additional thoracentesis with repeat cytology. We will check a prostate-specific antigen, but his presentation is not consistent with metastatic prostate cancer, nor is imaging. Thus far, there is not an obvious infectious etiology identified for the pleural effusion. We will continue to follow along with you. /[id number]/MODL MTDD
[2017-07-21] MEDS: ATORVASTATIN CALCIUM 10 MG TAB PO SCH (20:46)
[2017-07-21] MEDS: traZODone 50 MG TAB PO SCH (20:46)
[2017-07-22 05:09] LABS: PLATELET COUNT 195 10^3/uL (150-400)
--- NOTE | 2017-07-22 08:30 | HOSPPROG ---
Hospitalist Progress Note Assessment/Plan: #Group A strep bacteremia: from superficial thrombophlebitis. IV ceftriaxone for 2 weeks from date of blood clearance. No veggies on echo -repeat bld cultures today #Lymphocytic predominate pleural effusion: reaccumulated quickly. No e/o cancer on cytology or imaging. Normal EF, no e/o cirrhosis -Repeat tap tomorrow: repeat cytology, add Cr. -SPEP, PSA pending. Rheum eval: check WAQAS, RF -coags, hold LMWH for procedure #Acute hypoxic resp failure: due to effusion #Hypotension: resolved. Now hypertensive. Normal EF #Hypoglycemia: not eating much, infection. q6hr glucose checks. D5W for 500cc #CAD: h/o stents. Plavix, statin #Hypertension: restart low-dose SAMEER-I tomorrow. PRN hydral #Leukocytosis: mild improvement #LUE thrombophlebitis: apply warm compress, Ibuprofen #Falls: PT/OT #Reported lung mass: not seen on CT #Diet: regular #DVT ppx: SCDs #Disp: cont inpatient admission for thoracentesis, PT, IV abx Subjective: fatigued. Pain in LUE, swelling Objective: Vital Signs Temp Pulse Resp BP Pulse Ox 36.5 C 85 16 162/79 H 97 07/22/17 07:56 07/22/17 07:56 07/22/17 07:56 07/22/17 07:56 07/22/17 07:56 Microbiology 07/19/17 12:25 Blood Culture - Final Blood Streptococcus Pyogenes Grp A 07/19/17 12:30 Blood Culture - Final Blood Streptococcus Pyogenes Grp A Blood Panel (PCR) - Final Strep Pyogenes Group A Laboratory Results 07/22/17 04:30 07/22/17 04:30 07/21/17 07/22/17 07/23/17 05:59 05:59 05:59 Intake Total 2213 500 500 Output Total 700 730 Balance 1513 -230 500 PT 15.8 SEC (12.0-15.0) H 07/16/17 15:35 INR 1.24 (0.83-1.16) H 07/16/17 15:35 - Physical Exam Constitutional: cachectic, other (ill-appearing) Eyes: PERRL Ears, Nose, Mouth, Throat: moist mucous membranes Cardiovascular: regular rate and rhythym Respiratory: other (decreased BS right mid-lung to base) Gastrointestinal: normoactive bowel sounds, soft, non-tender abdomen Skin: warm Musculoskeletal: other (LUE with mild erythema, palpable cord, TTP. RUE with PICC) ICD10 Worksheet Patient Problems: Problems Problem Status Onset Failure to thrive in adult Acute Pleural effusion Acute Weakness Acute Abrasion of left elbow, initial encounter Acute Anemia Acute CHI (closed head injury) Acute Chronic Disease Mgmt/Transitional Care Acute Closed left clavicular fracture Acute Depression Acute Dyspnea Acute Fracture of pubic ramus Acute HTN (hypertension) Acute Multiple falls Acute Pneumonia Acute Post concussion syndrome Acute Ribs, multiple fractures Acute Sepsis Acute Unsteady gait Acute Weakness of both legs Acute
[2017-07-22] MEDS: (Fluticasone/Vilanterol [Breo Ellipta 200-25 Mcg Inh] 1 EACH) IH SCH (08:33)
[2017-07-22] MEDS: FERROUS SULFATE 325 MG TAB PO SCH (09:38)
[2017-07-22] MEDS: SENNOSIDES/DOCUSATE SODIUM TAB PO SCH ×2 (09:38→21:54)
[2017-07-22] MEDS: SODIUM CHLORIDE 1,000 MG TAB PO SCH (09:39)
[2017-07-22] MEDS: buPROPion XL 150 MG TAB PO SCH (09:39)
[2017-07-22] MEDS: CLOPIDOGREL BISULFATE 75 MG TAB PO SCH (09:39)
[2017-07-22] MEDS: CHOLECALCIFEROL VIT D3 2,000 UNITS TAB/CAP PO SCH (09:39)
[2017-07-22] MEDS: ENOXAPARIN 40 MG/0.4 ML SYR SC SCH (09:40)
[2017-07-22] MEDS: cefTRIAXone 2 GM in STERILE WATER INJ 20 ML IV SCH (09:40)
[2017-07-22] MEDS: LUBIPROSTONE 24 MCG CAP PO SCH ×2 (09:45→18:53)
[2017-07-22] MEDS ORDERED: IBUPROFEN 200 MG TAB PO PRN (10:08)
--- NOTE | 2017-07-22 10:41 | PCMIDPN ---
Assessment/Plan: Assessment: Left upper extremity superficial septic thrombophlebitis secondary to group a strep. Patient was bacteremic. Echocardiogram did not reveal any vegetations. Patient is doing well on ceftriaxone monotherapy. Plan to continue this going forward. Plan: 1. Continue IV ceftriaxone daily. Suspect will need a 2 week course from blood culture clearance. Subjective: Patient is sleeping in his hospital room. Did not awakened. No significant overnight events. Objective: Ceftriaxone # 3 Vital Signs Temp Pulse Resp BP Pulse Ox 36.5 C 87 16 162/79 H 97 07/22/17 07:56 07/22/17 08:34 07/22/17 08:34 07/22/17 07:56 07/22/17 08:34 Microbiology 07/19/17 12:25 Blood Culture - Final Blood Streptococcus Pyogenes Grp A 07/19/17 12:30 Blood Culture - Final Blood Streptococcus Pyogenes Grp A Blood Panel (PCR) - Final Strep Pyogenes Group A Laboratory Results 07/22/17 04:30 07/22/17 04:30 07/21/17 07/22/17 07/23/17 05:59 05:59 05:59 Intake Total 2213 500 500 Output Total 700 730 Balance 1513 -230 500 - Physical Exam General Appearance: WD/WN, alert, no apparent distress, non-toxic Respiratory: lungs clear, normal breath sounds, No respiratory distress Cardiac/Chest: regular rate, rhythm, No tachycardia Extremities: No normal inspection Skin: normal color, warm/dry, No rash ICD10 Worksheet Patient Problems: Problems Problem Status Onset Failure to thrive in adult Acute Pleural effusion Acute Weakness Acute Abrasion of left elbow, initial encounter Acute Anemia Acute CHI (closed head injury) Acute Chronic Disease Mgmt/Transitional Care Acute Closed left clavicular fracture Acute Depression Acute Dyspnea Acute Fracture of pubic ramus Acute HTN (hypertension) Acute Multiple falls Acute Pneumonia Acute Post concussion syndrome Acute Ribs, multiple fractures Acute Sepsis Acute Unsteady gait Acute Weakness of both legs Acute
[2017-07-22] MEDS: oxyCODONE IR 5 MG TAB PO PRN (11:21)
--- NOTE | 2017-07-22 13:01 | SOAPPROG ---
SOAP Progress Note Assessment/Plan: Assessment/Plan: 77 yo man w weight loss, fatigue and recurrent falls admitted for workup discovered to have large R sided pleual effusion 1. Pleural effusion - thoracentesis transudative w some "atypical lymphocytes" however, flow cytometry normal pt is reaccumulating unilaterally plan repeat CXR and repeat diagnostic/therapeutic thoracentesis - will resend flow Notably, Echo shows no sig heart failure, UA w 3+ protein, liver fxn ok Could this be a viral process? may need pulmonology consult 2. fatigue/weakness - unclear etiology of recurrent falls not entirely clear if malignant process going on LDH slightly up ongoing workup consider brain imaging? given recurrent falls 3. Group A strep bacteremia - appreciate ID on ceftriaxone Echo neg for vegetations 4. Macrocytosis - sent B12 and folate as well as TSH will follow along 30 min spent w pt and family D/W Dr Silveira 07/22/17 13:06 07/22/17 13:08 07/22/17 13:10 Subjective: Still feeling very weak and short of breath Objective: Vital Signs Temp Pulse Resp BP Pulse Ox 36.5 C 87 24 H 173/89 H 94 07/22/17 11:03 07/22/17 11:03 07/22/17 11:03 07/22/17 11:03 07/22/17 11:03 Microbiology 07/19/17 12:25 Blood Culture - Final Blood Streptococcus Pyogenes Grp A 07/19/17 12:30 Blood Culture - Final Blood Streptococcus Pyogenes Grp A Blood Panel (PCR) - Final Strep Pyogenes Group A Laboratory Results 07/22/17 04:30 07/22/17 04:30 07/21/17 07/22/17 07/23/17 05:59 05:59 05:59 Intake Total 2213 500 500 Output Total 700 730 Balance 1513 -230 500 PT 15.8 SEC (12.0-15.0) H 07/16/17 15:35 INR 1.24 (0.83-1.16) H 07/16/17 15:35 Gen - weak and fatigued appearing, NAD HEENT - anicteric, OP clear CV - RRR Chest - decreased BS on R half way up coarse BS on left Abd - soft, NT Ext - TTP along RUE where previous IVs in place, +hematoma Neuro - A&O x 3 ICD10 Worksheet Patient Problems: Problems Problem Status Onset Failure to thrive in adult Acute Pleural effusion Acute Weakness Acute Abrasion of left elbow, initial encounter Acute Anemia Acute CHI (closed head injury) Acute Chronic Disease Mgmt/Transitional Care Acute Closed left clavicular fracture Acute Depression Acute Dyspnea Acute Fracture of pubic ramus Acute HTN (hypertension) Acute Multiple falls Acute Pneumonia Acute Post concussion syndrome Acute Ribs, multiple fractures Acute Sepsis Acute Unsteady gait Acute Weakness of both legs Acute
[2017-07-22] MEDS ORDERED: D50W 25 GM/50 ML VIAL IVP PRN (15:44)
[2017-07-22] MEDS ORDERED: D5W 1,000 ML IV SCH (15:45)
[2017-07-22] MEDS: MONTELUKAST SODIUM 10 MG TAB PO SCH (18:51)
[2017-07-22] MEDS: traZODone 50 MG TAB PO SCH (21:53)
[2017-07-22] MEDS: ATORVASTATIN CALCIUM 10 MG TAB PO SCH (21:53)
[2017-07-23 05:35] LABS: INR 1.15 (0.83-1.16); PROTIME(PATIENT) 14.9 SEC (12.0-15.0)
[2017-07-23] MEDS ORDERED: POTASSIUM CL 20 MEQ TAB PO ONE ×2 (08:05→11:30)
[2017-07-23] MEDS ORDERED: NS 1,000 ML IV SCH (08:15)
[2017-07-23] MEDS ORDERED: LIDOCAINE 1% 300 MG/30 ML SDV ONE (08:32)
[2017-07-23] MEDS ORDERED: LISINOPRIL 5 MG TAB PO SCH ×2 (09:00→11:30)
[2017-07-23] MEDS ORDERED: IBUPROFEN 600 MG TAB PO PRN (11:24)
--- NOTE | 2017-07-23 11:25 | ASMTCMCOM ---
CM Note CM Note Notes: Patient with profound fatigue complicating discharge. Multiple etiologies in question. I updated Add[facility] at [facility] that patient will not d/c for a few days. Sent PT/OT notes through [employer]. Case Management will follow. Date Signed: 07/23/2017 11:24 AM Electronically Signed By:Natacha Plata RN
[2017-07-23] MEDS: cefTRIAXone 2 GM in STERILE WATER INJ 20 ML IV SCH (11:26)
[2017-07-23] MEDS: LUBIPROSTONE 24 MCG CAP PO SCH ×2 (11:28→20:08)
[2017-07-23] MEDS: CLOPIDOGREL BISULFATE 75 MG TAB PO SCH (11:29)
[2017-07-23] MEDS: CHOLECALCIFEROL VIT D3 2,000 UNITS TAB/CAP PO SCH (11:29)
[2017-07-23] MEDS: buPROPion XL 150 MG TAB PO SCH (11:29)
[2017-07-23] MEDS: SODIUM CHLORIDE 1,000 MG TAB PO SCH (11:29)
[2017-07-23] MEDS: SENNOSIDES/DOCUSATE SODIUM TAB PO SCH ×2 (11:29→21:15)
[2017-07-23] MEDS: FERROUS SULFATE 325 MG TAB PO SCH (11:29)
[2017-07-23] MEDS: (Fluticasone/Vilanterol [Breo Ellipta 200-25 Mcg Inh] 1 EACH) IH SCH (11:32)
--- NOTE | 2017-07-23 12:36 | SOAPPROG ---
SOAP Progress Note Assessment/Plan: Assessment/Plan: 77 yo man w weight loss, fatigue and recurrent falls admitted for workup discovered to have large R sided pleual effusion 1. Pleural effusion - initial thoracentesis transudative w some "atypical lymphocytes" however, flow cytometry normal pt is reaccumulated unilaterally repeat thoracentesis now looks exudative? repeating flow pulmonology to see Notably, Echo shows no sig heart failure, UA w 3+ protein, liver fxn ok 2. fatigue/weakness - unclear etiology of recurrent falls not entirely clear if malignant process going on LDH slightly up ongoing workup consider brain imaging? given recurrent falls 3. Group A strep bacteremia - appreciate ID on ceftriaxone Echo neg for vegetations 4. Macrocytosis - B12 and folate ok TSH up but likely due to acute illness add T4 will follow along 30 min spent w pt and family D/W Dr Silveira 07/23/17 12:33 07/23/17 12:35 07/23/17 12:36 Subjective: Pt c/o fatigue today denies new symptoms breathing still an issue Objective: Vital Signs Temp Pulse Resp BP Pulse Ox 36.6 C 77 18 153/83 H 93 07/23/17 10:03 07/23/17 10:03 07/23/17 10:03 07/23/17 11:32 07/23/17 10:03 Microbiology 07/23/17 10:00 Gram Stain - Final Thoracic Fluid - Aspirate Laboratory Results 07/23/17 05:15 07/23/17 05:15 07/22/17 07/23/17 07/24/17 05:59 05:59 05:59 Intake Total 500 1300 Output Total 730 1300 800 Balance -230 0 -800 PT 14.9 SEC (12.0-15.0) 07/23/17 05:15 INR 1.15 (0.83-1.16) 07/23/17 05:15 Gen - fatigues appearing, chronically ill HEENT - anicteric CV - RRR Chest - diminished BS bilaterally Abd - soft, NT Ext - no edema ICD10 Worksheet Patient Problems: Problems Problem Status Onset Failure to thrive in adult Acute Pleural effusion Acute Weakness Acute Abrasion of left elbow, initial encounter Acute Anemia Acute CHI (closed head injury) Acute Chronic Disease Mgmt/Transitional Care Acute Closed left clavicular fracture Acute Depression Acute Dyspnea Acute Fracture of pubic ramus Acute HTN (hypertension) Acute Multiple falls Acute Pneumonia Acute Post concussion syndrome Acute Ribs, multiple fractures Acute Sepsis Acute Unsteady gait Acute Weakness of both legs Acute
--- NOTE | 2017-07-23 12:42 | HOSPPROG ---
Hospitalist Progress Note Assessment/Plan: #Group A strep bacteremia: from superficial thrombophlebitis. -IV ceftriaxone for 2 weeks from date of blood clearance. No veggies on echo -blood cxs 07/22 NGTD #Recurrent right pleural effusion: -repeat tap c/w empyema. IR stats no residual fluid for chest tube placement. Monitor and repeat imaging in 2 days. Still concern for malignancy with significant weight loss. Normal EF, no e/o cirrhosis -SPEP, PSA pending. Rheum eval: WAQAS, RF pending -may warrant pleural bx for further diagnostics #Acute hypoxic resp failure: due to effusion. Tap today #Significant weight loss: concern for malignancy. No mass seen on imaging. Repeat cytology pending. #Hypotension: resolved. Now hypertensive. Normal EF #Hypoglycemia: resolved with D5W, eating. #CAD: h/o stents. Plavix, statin #Hypertension: restart low-dose SAMEER-I. PRN hydral #Leukocytosis: trending down #LUE thrombophlebitis: apply warm compress, Ibuprofen #Deconditioning: recommend SNF #Falls: PT/OT #Reported lung mass: not seen on CT #Diet: regular #DVT ppx: SCDs #Disp: cont inpatient admission for thoracentesis, PT, IV abx Time spent on visit: 60 min with patient and family. Discussed consultation with Dr. Bautista and Dr. Mcneil Subjective: mild SOB Objective: Vital Signs Temp Pulse Resp BP Pulse Ox 36.6 C 77 18 153/83 H 93 07/23/17 10:03 07/23/17 10:03 07/23/17 10:03 07/23/17 11:32 07/23/17 10:03 Microbiology 07/23/17 10:00 Gram Stain - Final Thoracic Fluid - Aspirate Laboratory Results 07/23/17 05:15 07/23/17 05:15 07/22/17 07/23/17 07/24/17 05:59 05:59 05:59 Intake Total 500 1300 Output Total 730 1300 800 Balance -230 0 -800 PT 14.9 SEC (12.0-15.0) 07/23/17 05:15 INR 1.15 (0.83-1.16) 07/23/17 05:15 - Time Spent With Patient Time Spent with Patient: greater than 35 minutes Time Spent with Patient: Greater than 35 minutes spent on this patients care, greater than 50% of time spent counseling, educating, and coordinating care regarding the above mentioned plan. - Physical Exam Constitutional: chronically ill appearing, cachectic Ears, Nose, Mouth, Throat: moist mucous membranes Cardiovascular: regular rate and rhythym, edema (trace pedal edema) Respiratory: reduced air movement (decreased breath sounds at base) Gastrointestinal: normoactive bowel sounds Genitourinary: no bladder fullness Skin: warm Musculoskeletal: other (swelling LUE with palpable cord, mild redness) Neurologic: AAOx3, CN II-XII Intact Psychiatric: interacting appropriately ICD10 Worksheet Patient Problems: Problems Problem Status Onset Failure to thrive in adult Acute Pleural effusion Acute Weakness Acute Abrasion of left elbow, initial encounter Acute Anemia Acute CHI (closed head injury) Acute Chronic Disease Mgmt/Transitional Care Acute Closed left clavicular fracture Acute Depression Acute Dyspnea Acute Fracture of pubic ramus Acute HTN (hypertension) Acute Multiple falls Acute Pneumonia Acute Post concussion syndrome Acute Ribs, multiple fractures Acute Sepsis Acute Unsteady gait Acute Weakness of both legs Acute
--- NOTE | 2017-07-23 16:29 | PCMIDPN ---
Assessment/Plan: # Group a strep bacteremia due to superficial septic thrombophlebitis left arm, still with very painful palpable cord. ECHO neg for obvious veg. WBC improving --continue IV ceftriaxone --duration of therapy based on sorting out pleural effusion etiology --consider repeat US to eval for evolving abscess L arm vs surgical consult. Clearance of blood cx support eventual resolution with conservative measures. # Exudative pleural effusion: --marked increase wbc, neutrophil predominance, low pH, low glucose and high LDH suggestive of empyema --culture pending --tapped dry today therefore holding off on Chest Tube for now # Diarrhea: continue to monitor Medication Ceftriaxone 2 g IV daily, #5 Microbiology 07/21/2017 pleural fluid; gram stain 4+ PMN, no organism: pending 07/21/2017 blood cultures (2/2) ngtd 07/19/2017 blood cultures (2/2) group a strep 07/16/2017 pleural fluid culture: No growth to date Subjective: breathing a little easier diarrhea today L arm still quite painful but better Objective: Vital Signs Temp Pulse Resp BP Pulse Ox 36.6 C 77 18 153/83 H 93 07/23/17 10:03 07/23/17 10:03 07/23/17 10:03 07/23/17 11:32 07/23/17 10:03 Microbiology 07/23/17 10:00 Gram Stain - Final Thoracic Fluid - Aspirate Laboratory Results 07/23/17 05:15 07/23/17 05:15 07/22/17 07/23/17 07/24/17 05:59 05:59 05:59 Intake Total 500 1300 Output Total 730 1300 800 Balance -230 0 -800 Laboratory Tests 07/16/17 07/23/17 15:01 10:00 Pleural pH 7.4 7.1 Pleural WBC 1212 5298 Pleural RBC 676 Pleural Neutrophils 7 89 Pleural Lymphocytes % 88 2 Pleural Other Cells % 4 H Pleural LDH 579 9667 Pleural Glucose 68 35 L - Physical Exam General Appearance: alert, no apparent distress EENT: pale conjunctiva, No scleral icterus Respiratory: other (decreased bs bases), No accessory muscle use Cardiac/Chest: regular rate, rhythm, systolic murmur (faint) Extremities: pedal edema (1+), other (L anticubital area with palpable tender cord, erythema less intense but minimal recession) Abdomen: normal bowel sounds, non-tender, soft Male Genitalia: No phan Skin: other (Scattered ecchymotic lesions), No rash Neuro/Psych: alert, normal mood/affect, oriented x 3 - Line/s RUE PICC Lines: No drainage, No erythema - Time Spent With Patient Time Spent with Patient: greater than 35 minutes (Reviewed clinical findings with patient, and [id number]. care was coordinated with Dr. Bautista and Dr. Silveira) Time Spent with Patient: Greater than 35 minutes spent on this patients care, greater than 50% of time spent counseling, educating, and coordinating care regarding the above mentioned plan. ICD10 Worksheet Patient Problems: Problems Problem Status Onset Failure to thrive in adult Acute Pleural effusion Acute Weakness Acute Abrasion of left elbow, initial encounter Acute Anemia Acute CHI (closed head injury) Acute Chronic Disease Mgmt/Transitional Care Acute Closed left clavicular fracture Acute Depression Acute Dyspnea Acute Fracture of pubic ramus Acute HTN (hypertension) Acute Multiple falls Acute Pneumonia Acute Post concussion syndrome Acute Ribs, multiple fractures Acute Sepsis Acute Unsteady gait Acute Weakness of both legs Acute
[2017-07-23] MEDS: LISINOPRIL 10 MG TAB PO SCH (18:32)
[2017-07-23] MEDS: MONTELUKAST SODIUM 10 MG TAB PO SCH (19:06)
[2017-07-23] MEDS: MELATONIN 3 MG TAB PO SCH (21:14)
[2017-07-23] MEDS: ATORVASTATIN CALCIUM 10 MG TAB PO SCH (21:15)
[2017-07-23] MEDS: traZODone 50 MG TAB PO SCH (21:16)
--- NOTE | 2017-07-23 21:53 | GCON ---
[f rep st] CONSULTATION DATE OF CONSULTATION: 07/23/2017 PULMONARY CONSULTATION HISTORY OF PRESENT ILLNESS: This patient is a 77-year-old male with a history of coronary artery dis ease, COPD, and sleep apnea, who has been experiencing weight loss and anorexia over the past several months and has also had several falls resulting in rib fractures. He is normally followed by Dr. Joshua Rocha in the [facility] pulmonary office where he was noted to have an increasing oxygen req uirement in May shortly before he traveled to [place]. While he was in [place], he had a fall a gain, resulted in about a 3-day hospital stay. A CT scan reportedly showed a mediastinal mass, but t he dimensions are not clear to me in [place] and this was not seen here in [place]. In any case, he came back to [place] and was having increasing weakness and lethargy and was therefore brought to the hospital. At the time of admission, his white count was 7.7. He was afebrile. His sodium was 134, and a CT an giogram ruled out pulmonary embolism and showed a small pleural effusion (described as large by Radio logy), and he underwent a thoracentesis, which resulted in 220 mL of serosanguineous fluid. There wa s discussion of this being septated at the time. This cells that came out were 1200 white cells, 88% of which were lymphocytes and about 76,000 red cells. Cytology suggested atypical lymphocytes, but flow cytometry was negative. He seemed to do fairly well over the next couple of days, but had incre asing confusion and near syncope on the . His workup included blood culture showing group A stre p. His white count had jumped to 26,000 and an infectious disease consult was obtained while he was started on vancomycin and Zosyn. He did have what appeared to be cellulitis of his left antecubital fossa where an IV had been placed. An echocardiogram was negative for endocarditis, and he was fischer ed to ceftriaxone. He was also seen by Dr. Noonan from [facility] the following day. CTA o f his abdomen and pelvis was negative except for an enlarged prostate, but no clear evidence of malig jennifer was found. A chest x-ray on 07/22 showed an increase in his pleural effusion and today he unde rwent a second thoracentesis now showing a pH 7.1 with about 5300 white cells and a glucose of 35. Symptomatically, he says he is feeling okay and denies any pain or shortness of breath at this time. His arm is better than it was previously with less erythema, and this is confirmed by his family who was at the bedside during my discussion. He was on Plavix for his stents time of his falls. REVIEW OF SYSTEMS: Otherwise negative. PAST MEDICAL HISTORY: Includes: 1. Coronary artery disease with multiple stents in the past. 2. Hypertension. 3. Hyperlipidemia. 4. Chronic obstructive pulmonary disease. 5. Obstructive sleep apnea on CPAP. 6. Depression. 7. Anemia. 8. Multiple falls with rib fractures. 9. Very low, mild dementia. SOCIAL HISTORY: He is a nonsmoker. No alcohol or IV drug use. FAMILY HISTORY: He is adopted, so family history is unknown. MEDICATIONS: At this time include albuterol, Lipitor, Dulcolax, Wellbutrin, ceftriaxone, vitamin D, Plavix, Lovenox, iron, hydralazine p.r.n., Motrin, lisinopril, melatonin, Singulair, Zofran, MiraLAX, and trazodone. PHYSICAL EXAMINATION: VITAL SIGNS: He has been afebrile throughout his hospital stay. Blood pressu re 153/83, heart rate 77, respirations 18, oxygen saturation 93% on 4.5 L. GENERAL: He was awake an d alert, and oriented in no apparent distress. Able to speak in full sentences without using accesso ry muscles for breathing. HEENT: Pupils are equally round and reactive to light. Nonicteric and no ninjected. Mucous membranes are moist without erythema or exudate. NECK: Supple without adenopathy or jugular vein distention. RESPIRATORY: Breath sounds were a little bit coarse in the right lower lobe, but otherwise mostly clear to auscultation without wheezing or rales. HEART: Had a regular r ate and rhythm. I did not detect a murmur. ABDOMEN: Soft, nontender, nondistended without hepatosp lenomegaly. EXTREMITIES: Show no clubbing, cyanosis, or edema. SKIN: Had varying ecchymoses on hi s right arm of small size in his left antecubital fossa. It is a point where an IV was obviously sta rted in the past. This was not terribly erythematous, but was fluctuant and tender to palpation. NE UROLOGIC: Nonfocal. LABORATORY DATA: Includes today's white count of 14.5 which is down from 21.2 yesterday, hematocrit 32, platelets of 156. Coags were normal. Sodium is 130. The rest of his basic metabolic panel was unremarkable save for an LDH of 501. On his thoracentesis today, the pH was reported at 7.1, and the white count is 5298. LDH is now . The glucose is only 35. An WAQAS screen is pending. Cy tology is pending. The previous tap had a pH 7.4, white count 1212, 88% lymphocytes, red cells 75,95 6. LDH of 579 with a serum of 392, leading pleural to serum ratio of 1.4. The glucose was 60 at helena t time. Blood cultures of the group A strep, as described above. ASSESSMENT AND PLAN: 1. Pleural effusion. The initial pleural effusion was probably just traumatic, as it was a nonspeci fic exudate, and no evidence of malignancy at that time. It does not explain his weight loss and ano rexia over that period of time and although it is remote it is possible that it could represent under lying pleural disease including malignancy. Of note, he has no significant asbestos exposure despite thorough discussion with him about that particular issue. His pleural effusion now, however, does l ook like empyema with a low pH and very low glucose. It still is an exudate and requires tube thorac ostomy drainage. I think Interventional Radiology would be reasonable to go at this until it is dry at which time we can reconsider pulling the tube. I do not believe a video-assisted thoracoscopic kebede rgery is necessary at this time, though there was some septation described in the initial CT scan. I t is possible he will need an eventual pleural biopsy, depending on the clinical course. 2. Hypoxemia. This is likely driven by his atelectasis, pleural effusion, sleep apnea, and chronic obstructive pulmonary disease. I would keep his oxygen saturation normal, as best as tolerated. 3. Sleep apnea. He should use CPAP while he is here in the hospital. 4. Chronic obstructive pulmonary disease. He does not appear to be in acute exacerbation at this ti me. He should be on his usual medications at home. /[id number]/MODL
[2017-07-24] MEDS: LUBIPROSTONE 24 MCG CAP PO SCH ×2 (08:55→18:44)
[2017-07-24] MEDS: FERROUS SULFATE 325 MG TAB PO SCH (09:07)
[2017-07-24] MEDS: buPROPion XL 150 MG TAB PO SCH (09:07)
[2017-07-24] MEDS: CHOLECALCIFEROL VIT D3 2,000 UNITS TAB/CAP PO SCH (09:07)
[2017-07-24] MEDS: CLOPIDOGREL BISULFATE 75 MG TAB PO SCH (09:08)
[2017-07-24] MEDS: LISINOPRIL 10 MG TAB PO SCH ×2 (09:08→20:12)
[2017-07-24] MEDS: SODIUM CHLORIDE 1,000 MG TAB PO SCH (09:08)
[2017-07-24] MEDS: SENNOSIDES/DOCUSATE SODIUM TAB PO SCH ×2 (09:12→20:24)
[2017-07-24] MEDS: (Fluticasone/Vilanterol [Breo Ellipta 200-25 Mcg Inh] 1 EACH) IH SCH (09:13)
--- NOTE | 2017-07-24 09:30 | PCMIDPN ---
Assessment/Plan: # Group a strep bacteremia due to superficial septic thrombophlebitis left arm, still with very painful palpable cord. ECHO neg for obvious veg. WBC continues to improve. Blood cultures from 07/21/2017 remain clear. --continue IV ceftriaxone --duration of therapy based on sorting out pleural effusion --hold off on L arm further imaging and surgical consult w gradual clinical improvement # Exudative pleural effusion: marked increase pleural wbc, neutrophil predominance, low pH, low glucose and high LDH suggestive of empyema --culture pending --tapped dry w yesterday, but now O2 requirement up, check CXR, may still need chest tube # Diarrhea: continue to monitor, no complaints today Medication Ceftriaxone 2 g IV daily, #6 Microbiology 07/21/2017 pleural fluid; gram stain 4+ PMN, no organism: pending 07/21/2017 blood cultures (2/2) ngtd 07/19/2017 blood cultures (2/2) group a strep 07/16/2017 pleural fluid culture: No growth to date Subjective: Does not feel any different compared to yesterday. Left arm still very painful Objective: Vital Signs Temp Pulse Resp BP Pulse Ox 36.6 C 94 20 169/108 H 99 07/24/17 07:44 07/24/17 07:44 07/24/17 07:44 07/24/17 09:08 07/24/17 07:44 Microbiology 07/23/17 10:00 Gram Stain - Final Thoracic Fluid - Aspirate Laboratory Results 07/24/17 05:18 07/24/17 05:18 07/23/17 07/24/17 07/25/17 05:59 05:59 05:59 Intake Total 1300 400 Output Total 1300 1600 Balance 0 -1200 - Physical Exam General Appearance: alert, no apparent distress, non-toxic (But chronic ill appearance) Respiratory: other (Decreased breath sounds throughout with poor inspiratory effort), No accessory muscle use, No crackles, No wheezing Neck: supple Cardiac/Chest: regular rate, rhythm Extremities: No pedal edema Abdomen: non-tender, soft Male Genitalia: No phan Skin: erythema (Left antecubital, intensity of erythema is 80% improved. Cord in antecubital area is still palpable and quite tender), other (Scattered ecchymosis) Neuro/Psych: alert, normal mood/affect, oriented x 3 - Line/s RUE PICC Lines: No drainage, No erythema - Time Spent With Patient Time Spent with Patient: greater than 35 minutes (Care coordinated with Dr. Nilton Webb) Time Spent with Patient: Greater than 35 minutes spent on this patients care, greater than 50% of time spent counseling, educating, and coordinating care regarding the above mentioned plan. ICD10 Worksheet Patient Problems: Problems Problem Status Onset Failure to thrive in adult Acute Pleural effusion Acute Weakness Acute Abrasion of left elbow, initial encounter Acute Anemia Acute CHI (closed head injury) Acute Chronic Disease Mgmt/Transitional Care Acute Closed left clavicular fracture Acute Depression Acute Dyspnea Acute Fracture of pubic ramus Acute HTN (hypertension) Acute Multiple falls Acute Pneumonia Acute Post concussion syndrome Acute Ribs, multiple fractures Acute Sepsis Acute Unsteady gait Acute Weakness of both legs Acute
[2017-07-24] MEDS: cefTRIAXone 2 GM in STERILE WATER INJ 20 ML IV SCH (10:52)
--- NOTE | 2017-07-24 13:51 | HOSPPROG ---
Hospitalist Progress Note Assessment/Plan: 77 yo M w sepsis, grp A steep bacteremia sepsis: septic physiology has resolved Group A strep bacteremia: from superficial thrombophlebitis. -IV ceftriaxone for 2 weeks from date of blood clearance. No veggies on echo -blood cxs 07/22 NGTD Recurrent right pleural effusion: -repeat tap c/w empyema. IR stats no residual fluid for chest tube placement. Monitor and repeat imaging in 2 days. Still concern for malignancy with significant weight loss. Normal EF, no e/o cirrhosis repeat cxr unchanged afebrile, white count improving follow cxr daily -SPEP, PSA pending. Rheum eval: WAQAS, RF pending -may warrant pleural bx for further diagnostics Acute hypoxic resp failure: due to effusion. Tap today s/p thoracentesis Significant weight loss: concern for malignancy. No mass seen on imaging. Repeat cytology pending. Hypotension: resolved. Now hypertensive. Normal EF Hypoglycemia: resolved with D5W, eating. CAD: h/o stents. Plavix, statin Hypertension: restart low-dose SAMEER-I. Leukocytosis: trending down LUE thrombophlebitis: apply warm compress, Ibuprofen improved today The Deconditioning: recommend SNF Falls: PT/OT Reported lung mass: not seen on CT Diet: regular The DVT ppx: SCDs Disp: cont inpatient admission for thoracentesis, PT, IV abx Subjective: case d/w dr bucio. repeat cxr today w unchanged minimal R pleural effusion (interp by me) Objective: Vital Signs Temp Pulse Resp BP Pulse Ox 36.6 C 77 20 174/93 H 98 07/24/17 07:44 07/24/17 10:13 07/24/17 07:44 07/24/17 10:13 07/24/17 10:13 Microbiology 07/23/17 10:00 Gram Stain - Final Thoracic Fluid - Aspirate Laboratory Results 07/24/17 05:18 07/24/17 05:18 07/23/17 07/24/17 07/25/17 05:59 05:59 05:59 Intake Total 1300 400 Output Total 1300 1600 Balance 0 -1200 PT 14.9 SEC (12.0-15.0) 07/23/17 05:15 INR 1.15 (0.83-1.16) 07/23/17 05:15 - Physical Exam Constitutional: no apparent distress, appears nourished Eyes: PERRL, anicteric sclera Ears, Nose, Mouth, Throat: moist mucous membranes, hearing normal Cardiovascular: regular rate and rhythym, no murmur, rub, or gallop Respiratory: no respiratory distress, other (ccrackles R base), No no rales or rhonchi Gastrointestinal: normoactive bowel sounds, soft, non-tender abdomen Genitourinary: no bladder fullness, no bladder tenderness Skin: warm, normal color Musculoskeletal: full muscle strength, no muscle tenderness Neurologic: AAOx3, sensation intact bilaterally Psychiatric: interacting appropriately Lymph, Heme, Immunologic: no cervical LAD ICD10 Worksheet Patient Problems: Problems Problem Status Onset Failure to thrive in adult Acute Pleural effusion Acute Weakness Acute Abrasion of left elbow, initial encounter Acute Anemia Acute CHI (closed head injury) Acute Chronic Disease Mgmt/Transitional Care Acute Closed left clavicular fracture Acute Depression Acute Dyspnea Acute Fracture of pubic ramus Acute HTN (hypertension) Acute Multiple falls Acute Pneumonia Acute Post concussion syndrome Acute Ribs, multiple fractures Acute Sepsis Acute Unsteady gait Acute Weakness of both legs Acute
--- NOTE | 2017-07-24 15:38 | PDINTPN ---
[employer] Tech Progress Note Assessment/Plan: Assessment\plan: 77 M with CAD, ADAN, and chronic hypoxemia developed right pleural effusion after multiple falls in the setting of weight loss and anorexia. The etiology has been unclear and he underwent thoracentesis on admission which was a non- specific exudate. He seemed to re-accumulate so underwent a second tap, noiw revealing labs consistent with empyema (low pH and glucose). * Pleural effusion- confusing picture since first tap was benign and appeared consistent with trauma/falls. Second tap could be empyema/parapneumonic effusion , but ddx includes RA (RF pending), malignancy, lupus TB. Labs still pending, but not enough fluid to place chest tube. Follow films and labs; other giraldo appears stable Subjective: feels OK; sleepy Objective: Vital Signs Temp Pulse Resp BP Pulse Ox 36.6 C 77 20 174/93 H 98 07/24/17 07:44 07/24/17 10:13 07/24/17 07:44 07/24/17 10:13 07/24/17 10:13 Microbiology 07/23/17 10:00 Gram Stain - Final Thoracic Fluid - Aspirate Laboratory Results 07/24/17 05:18 07/24/17 05:18 07/23/17 07/24/17 07/25/17 05:59 05:59 05:59 Intake Total 1300 400 Output Total 1300 1600 Balance 0 -1200 PT 14.9 SEC (12.0-15.0) 07/23/17 05:15 INR 1.15 (0.83-1.16) 07/23/17 05:15 Physical Exam - Physical Exam General Appearance: alert, no apparent distress EENT: PERRL/EOMI Neck: supple Respiratory: lungs clear, normal breath sounds, No respiratory distress, No accessory muscle use Cardiac/Chest: regular rate, rhythm, No edema Abdomen: non-tender, soft, No distended Skin: normal color, warm/dry, No cyanosis Lymphatic: no adenopathy Extremities: No pedal edema Neuro/Psych: alert, normal mood/affect, oriented x 3, other (a bit somnolent today) ICD10 Worksheet Patient Problems: Problems Problem Status Onset Failure to thrive in adult Acute Pleural effusion Acute Weakness Acute Abrasion of left elbow, initial encounter Acute Anemia Acute CHI (closed head injury) Acute Chronic Disease Mgmt/Transitional Care Acute Closed left clavicular fracture Acute Depression Acute Dyspnea Acute Fracture of pubic ramus Acute HTN (hypertension) Acute Multiple falls Acute Pneumonia Acute Post concussion syndrome Acute Ribs, multiple fractures Acute Sepsis Acute Unsteady gait Acute Weakness of both legs Acute
[2017-07-24] MEDS: MONTELUKAST SODIUM 10 MG TAB PO SCH (18:44)
[2017-07-24] MEDS: ATORVASTATIN CALCIUM 10 MG TAB PO SCH (20:11)
[2017-07-24] MEDS: MELATONIN 3 MG TAB PO SCH (20:11)
[2017-07-24] MEDS: oxyCODONE IR 5 MG TAB PO PRN (20:11)
[2017-07-24] MEDS: traZODone 50 MG TAB PO SCH (20:11)
[2017-07-25] MEDS: (Fluticasone/Vilanterol [Breo Ellipta 200-25 Mcg Inh] 1 EACH) IH SCH (08:59)
[2017-07-25] MEDS: LUBIPROSTONE 24 MCG CAP PO SCH ×2 (09:35→21:03)
[2017-07-25] MEDS: cefTRIAXone 2 GM in STERILE WATER INJ 20 ML IV SCH (09:36)
[2017-07-25] MEDS: LISINOPRIL 10 MG TAB PO SCH ×2 (09:36→20:58)
[2017-07-25] MEDS: CHOLECALCIFEROL VIT D3 2,000 UNITS TAB/CAP PO SCH (09:36)
[2017-07-25] MEDS: buPROPion XL 150 MG TAB PO SCH (09:36)
[2017-07-25] MEDS: CLOPIDOGREL BISULFATE 75 MG TAB PO SCH (09:36)
[2017-07-25] MEDS: FERROUS SULFATE 325 MG TAB PO SCH (09:36)
[2017-07-25] MEDS: SODIUM CHLORIDE 1,000 MG TAB PO SCH (09:55)
--- NOTE | 2017-07-25 10:16 | PCMIDPN ---
Assessment/Plan: Assessment: Left upper extremity superficial septic thrombophlebitis secondary to group a strep. Patient was bacteremic. Repeat cultures are clear to this point. Patient is tolerating his ceftriaxone monotherapy. The secondary issue is that his right side of his chest x-ray has the appearance of a complex effusion. Fluid testing shows signs of this being exudative. Discussed case with Dr. Webb and we feel the correct next step is to obtain a CT scan of the chest to get a 3 dimensional picture of what is going on. This will inform further intervention. Meanwhile continue ceftriaxone. Plan: 1. Continue IV ceftriaxone daily. Duration of treatment in question secondary to workup of intrathoracic collections. 07/25/17 10:13 Subjective: Patient is resting very comfortably in his hospital bed. Requiring 5 L of O2 per nasal cannula now. Otherwise the patient has no complaints. States he feels well. Tolerating ceftriaxone without issue. Objective: Ceftriaxone # 7 Vital Signs Temp Pulse Resp BP Pulse Ox 36.7 C 75 16 147/76 H 99 07/25/17 08:00 07/25/17 09:00 07/25/17 08:00 07/25/17 09:36 07/25/17 09:00 Microbiology 07/23/17 10:00 Gram Stain - Final Thoracic Fluid - Aspirate Laboratory Results 07/24/17 05:18 07/24/17 05:18 07/24/17 07/25/17 07/26/17 05:59 05:59 05:59 Intake Total 400 300 Output Total 1600 300 Balance -1200 0 - Physical Exam General Appearance: WD/WN, alert, no apparent distress, non-toxic Respiratory: No lungs clear, No normal breath sounds (Decreased breath sounds right side), No respiratory distress, No crackles Cardiac/Chest: regular rate, rhythm, No tachycardia Skin: normal color, warm/dry, No rash Neuro/Psych: alert, normal mood/affect, oriented x 3 ICD10 Worksheet Patient Problems: Problems Problem Status Onset Failure to thrive in adult Acute Pleural effusion Acute Weakness Acute Abrasion of left elbow, initial encounter Acute Anemia Acute CHI (closed head injury) Acute Chronic Disease Mgmt/Transitional Care Acute Closed left clavicular fracture Acute Depression Acute Dyspnea Acute Fracture of pubic ramus Acute HTN (hypertension) Acute Multiple falls Acute Pneumonia Acute Post concussion syndrome Acute Ribs, multiple fractures Acute Sepsis Acute Unsteady gait Acute Weakness of both legs Acute
[2017-07-25] MEDS: SENNOSIDES/DOCUSATE SODIUM TAB PO SCH ×2 (11:24→23:04)
--- NOTE | 2017-07-25 12:03 | SOAPPROG ---
SOAP Progress Note Assessment/Plan: Assessment/Plan: 77 yo man w weight loss, fatigue and recurrent falls admitted for workup discovered to have R sided pleural effusion 1. Pleural effusion - initial thoracentesis w some "atypical lymphocytes" however, flow cytometry normal pt is reaccumulated unilaterally repeat thoracentesis is exudative; repeat flow pending looks like complicated pleural effusion vs empyema pulmonology and ID following; repeat CT chest planned Notably, Echo shows no sig heart failure, UA w 3+ protein, liver fxn ok RF normal, WAQAS pending, SPEP ok 2. fatigue/weakness - unclear etiology of recurrent falls not entirely clear if malignant process going on LDH slightly up ongoing workup consider brain imaging? given recurrent falls 3. Group A strep bacteremia - appreciate ID on ceftriaxone Echo neg for vegetations 4. Macrocytosis - B12 and folate ok TSH up but likely due to acute illness T4 not low enough to explain effusions will follow along D/W Dr Webb 07/25/17 12:02 Subjective: No acute events pt reports breathing the same Objective: Vital Signs Temp Pulse Resp BP Pulse Ox 36.7 C 75 16 147/76 H 99 07/25/17 08:00 07/25/17 09:00 07/25/17 08:00 07/25/17 09:36 07/25/17 09:00 Microbiology 07/23/17 10:00 Gram Stain - Final Thoracic Fluid - Aspirate Laboratory Results 07/24/17 05:18 07/24/17 05:18 07/24/17 07/25/17 07/26/17 05:59 05:59 05:59 Intake Total 400 300 Output Total 1600 300 Balance -1200 0 PT 14.9 SEC (12.0-15.0) 07/23/17 05:15 INR 1.15 (0.83-1.16) 07/23/17 05:15 Gen - chronically ill appearing HEENT - anicteric CV II/ KARRIE at LUSB Chest - decreased BS at R but less than previous Ext - no sig edema MSK- diffuse arthralgias ICD10 Worksheet Patient Problems: Problems Problem Status Onset Failure to thrive in adult Acute Pleural effusion Acute Weakness Acute Abrasion of left elbow, initial encounter Acute Anemia Acute CHI (closed head injury) Acute Chronic Disease Mgmt/Transitional Care Acute Closed left clavicular fracture Acute Depression Acute Dyspnea Acute Fracture of pubic ramus Acute HTN (hypertension) Acute Multiple falls Acute Pneumonia Acute Post concussion syndrome Acute Ribs, multiple fractures Acute Sepsis Acute Unsteady gait Acute Weakness of both legs Acute
--- NOTE | 2017-07-25 12:25 | PDINTPN ---
Ostomy Rn Progress Note Assessment/Plan: Assessment\plan: 77 M with CAD, ADAN, and chronic hypoxemia developed right pleural effusion after multiple falls in the setting of weight loss and anorexia. The etiology has been unclear and he underwent thoracentesis on admission which was a non- specific exudate. He seemed to re-accumulate so underwent a second tap, noiw revealing labs consistent with empyema (low pH and glucose). * Pleural effusion- confusing picture since first tap was benign and appeared consistent with trauma/falls. Second tap could be empyema/parapneumonic effusion , but ddx includes RA (RF pending), malignancy, lupus TB. Labs still pending, but not enough fluid to place chest tube. CXR today with increasing fluid. Agree with plans for chest CT. He may need a VATS. * Bacteremia from left arm cellulitis- decreasing wbc on abx 07/25/17 12:24 Subjective: no complaints Objective: Vital Signs Temp Pulse Resp BP Pulse Ox 36.7 C 75 16 147/76 H 99 07/25/17 08:00 07/25/17 09:00 07/25/17 08:00 07/25/17 09:36 07/25/17 09:00 Microbiology 07/23/17 10:00 Gram Stain - Final Thoracic Fluid - Aspirate Laboratory Results 07/24/17 05:18 07/24/17 05:18 07/24/17 07/25/17 07/26/17 05:59 05:59 05:59 Intake Total 400 300 Output Total 1600 300 Balance -1200 0 PT 14.9 SEC (12.0-15.0) 07/23/17 05:15 INR 1.15 (0.83-1.16) 07/23/17 05:15 Physical Exam - Physical Exam General Appearance: alert, no apparent distress EENT: PERRL/EOMI Neck: supple Respiratory: lungs clear, normal breath sounds, decreased breath sounds, No respiratory distress, No accessory muscle use Cardiac/Chest: regular rate, rhythm, No edema Abdomen: non-tender, soft, No distended Skin: normal color, warm/dry, No cyanosis Lymphatic: no adenopathy Extremities: No pedal edema Neuro/Psych: alert, normal mood/affect, oriented x 3 ICD10 Worksheet Patient Problems: Problems Problem Status Onset Failure to thrive in adult Acute Pleural effusion Acute Weakness Acute Abrasion of left elbow, initial encounter Acute Anemia Acute CHI (closed head injury) Acute Chronic Disease Mgmt/Transitional Care Acute Closed left clavicular fracture Acute Depression Acute Dyspnea Acute Fracture of pubic ramus Acute HTN (hypertension) Acute Multiple falls Acute Pneumonia Acute Post concussion syndrome Acute Ribs, multiple fractures Acute Sepsis Acute Unsteady gait Acute Weakness of both legs Acute
[2017-07-25] MEDS: ONDANSETRON 4 MG/2 ML VIAL IVP PRN (15:14)
--- NOTE | 2017-07-25 16:42 | HOSPPROG ---
Hospitalist Progress Note Assessment/Plan: 77 yo M w sepsis, grp A steep bacteremia sepsis: septic physiology has resolved Group A strep bacteremia: from superficial thrombophlebitis. -IV ceftriaxone for 2 weeks from date of blood clearance. No veggies on echo -blood cxs 07/22 NGTD Recurrent right pleural effusion: -repeat tap c/w empyema. IR stats no residual fluid for chest tube placement. Monitor and repeat imaging in 2 days. Still concern for malignancy with significant weight loss. Normal EF, no e/o cirrhosis repeat cxr unchanged afebrile, white count improving follow cxr daily -SPEP, PSA pending. Rheum eval: WAQAS, RF pending -may warrant pleural bx for further diagnostics check chest ct today to eval for loulated effusion given worsening cxr ( interp by me) Acute hypoxic resp failure: due to effusion. Tap today s/p thoracentesis Significant weight loss: concern for malignancy. No mass seen on imaging. Repeat cytology pending. Hypotension: resolved. Now hypertensive. Normal EF Hypoglycemia: resolved with D5W, eating. CAD: h/o stents. Plavix, statin Hypertension: restart low-dose SAMEER-I. Leukocytosis: trending down LUE thrombophlebitis: apply warm compress, Ibuprofen improved today The Deconditioning: recommend SNF Falls: PT/OT Reported lung mass: not seen on CT Diet: regular The DVT ppx: SCDs Disp: cont inpatient admission for thoracentesis, PT, IV abx Subjective: case d/w jesus byers, luke Objective: Vital Signs Temp Pulse Resp BP Pulse Ox 36.9 C 65 15 162/94 H 100 07/25/17 16:00 07/25/17 16:00 07/25/17 16:00 07/25/17 16:00 07/25/17 16:00 Microbiology 07/23/17 10:00 Gram Stain - Final Thoracic Fluid - Aspirate Laboratory Results 07/24/17 05:18 07/24/17 05:18 07/24/17 07/25/17 07/26/17 05:59 05:59 05:59 Intake Total 400 300 Output Total 1600 300 Balance -1200 0 PT 14.9 SEC (12.0-15.0) 07/23/17 05:15 INR 1.15 (0.83-1.16) 07/23/17 05:15 - Physical Exam Constitutional: no apparent distress, appears nourished Eyes: PERRL, anicteric sclera Ears, Nose, Mouth, Throat: moist mucous membranes, hearing normal Cardiovascular: regular rate and rhythym, no murmur, rub, or gallop Respiratory: no respiratory distress, No no rales or rhonchi Gastrointestinal: normoactive bowel sounds, soft, non-tender abdomen Genitourinary: no bladder fullness, No phan in urethra Skin: warm, normal color Musculoskeletal: full muscle strength, other (Lantecubital fossa improved, stil; l inurated,, not warm) Neurologic: AAOx3 ICD10 Worksheet Patient Problems: Problems Problem Status Onset Failure to thrive in adult Acute Pleural effusion Acute Weakness Acute Abrasion of left elbow, initial encounter Acute Anemia Acute CHI (closed head injury) Acute Chronic Disease Mgmt/Transitional Care Acute Closed left clavicular fracture Acute Depression Acute Dyspnea Acute Fracture of pubic ramus Acute HTN (hypertension) Acute Multiple falls Acute Pneumonia Acute Post concussion syndrome Acute Ribs, multiple fractures Acute Sepsis Acute Unsteady gait Acute Weakness of both legs Acute
[2017-07-25] MEDS ORDERED: IOPAMIDOL (ISOVUE-300) 100 ML BTL ONE (17:02)
[2017-07-25] MEDS: oxyCODONE IR 5 MG TAB PO PRN (17:43)
[2017-07-25 18:16] LABS: PLATELET COUNT 182 10^3/uL (150-400)
[2017-07-25] MEDS: MELATONIN 3 MG TAB PO SCH (20:57)
[2017-07-25] MEDS: MONTELUKAST SODIUM 10 MG TAB PO SCH (20:57)
[2017-07-25] MEDS: traZODone 50 MG TAB PO SCH (20:57)
[2017-07-25] MEDS: ATORVASTATIN CALCIUM 10 MG TAB PO SCH (21:02)
[2017-07-26 04:47] LABS: PLATELET COUNT 201 10^3/uL (150-400)
[2017-07-26] MEDS: LUBIPROSTONE 24 MCG CAP PO SCH ×2 (09:20→19:16)
[2017-07-26] MEDS: FERROUS SULFATE 325 MG TAB PO SCH (09:21)
[2017-07-26] MEDS: CHOLECALCIFEROL VIT D3 2,000 UNITS TAB/CAP PO SCH (09:21)
[2017-07-26] MEDS: buPROPion XL 150 MG TAB PO SCH (09:21)
[2017-07-26] MEDS: SODIUM CHLORIDE 1,000 MG TAB PO SCH (09:21)
[2017-07-26] MEDS: SENNOSIDES/DOCUSATE SODIUM TAB PO SCH ×2 (09:22→20:02)
[2017-07-26] MEDS: CLOPIDOGREL BISULFATE 75 MG TAB PO SCH ×2 (09:22→09:56)
[2017-07-26] MEDS: LISINOPRIL 10 MG TAB PO SCH ×2 (09:26→20:02)
[2017-07-26] MEDS: cefTRIAXone 2 GM in STERILE WATER INJ 20 ML IV SCH (09:29)
[2017-07-26] MEDS: (Fluticasone/Vilanterol [Breo Ellipta 200-25 Mcg Inh] 1 EACH) IH SCH (09:32)
[2017-07-26] MEDS: oxyCODONE IR 5 MG TAB PO PRN ×2 (09:57→20:01)
--- NOTE | 2017-07-26 10:15 | PCMIDPN ---
Assessment/Plan: 1. Group a strep bacteremia secondary to superficial thrombophlebitis of the left basilic vein: Patient's blood cultures have cleared on ceftriaxone. He does continue to have some swelling in the left antecubital fossa area, but he feels that this is better and less painful compared to previous. Apparently this is secondary to a peripheral IV placed upon admission. I do not feel that he needs surgical intervention at this point in time. Continue warm compresses. 2. Loculated right exudative pleural effusion: The patient's pleural fluid parameters changed dramatically in 1 week. His fluid parameters look much more consistent with possible empyema, although Gram stain showed no organisms, and culture so far has been negative. (fluid not able to be set up anaerobically, however). His chest CT is also worsening. The patient may require a VATS moving forward, and I have asked Dr. Oviedo to see the patient today to get his opinion. Case also discussed with Dr. Webb. For now, will hold off on adding metronidazole, and continue ceftriaxone as is pending further decision making. Patient is agreeable to an HIV antibody test. 3. Mild oral thrush: Clotrimazole troches. Over 35 min spent with this patient today. 07/26/17 10:17 Subjective: Patient tells me that he has no energy. Not really coughing, per se. Left arm is still somewhat tender, but he feels that it is improving. No diarrhea, nausea or vomiting. Tells me that he has lost over 25 lb in the past 6 months. Does not understand why he does not feel well. Objective: Ceftriaxone 2 g IV daily day 7 Afebrile Vital Signs Temp Pulse Resp BP Pulse Ox 36.7 C 78 20 150/96 H 97 07/26/17 04:52 07/26/17 09:33 07/26/17 09:33 07/26/17 09:26 07/26/17 09:33 Microbiology 07/23/17 10:00 Gram Stain - Final Thoracic Fluid - Aspirate Body Fluid Culture - Final Laboratory Results 07/26/17 04:03 07/24/17 05:18 07/25/17 07/26/17 07/27/17 05:59 05:59 05:59 Intake Total 300 1250 Output Total 300 825 Balance 0 425 Pleural fluid from July 16 showed 2+ monos, no polys or organisms, culture negative. PH 7.4, 1212 white blood cells, 88% lymphocytes, 75,[address] revealed some atypical cells, but flow cytometry negative Pleural fluid from July 23, 600 cc removed. 5298 white blood cells, 89% neutrophils, LDH 9667, pH 7.1, glucose 35. 4+ polys, no organisms, culture negative - Physical Exam General Appearance: other (Appears older than stated age, sitting in chair.) EENT: thrush Respiratory: other (Decreased breath sounds at both bases, poor inspiratory effort.) Cardiac/Chest: regular rate, rhythm, No systolic murmur Extremities: other (Left arm is swollen at the antecubital fossa, with some pinkish erythema. Palpable cord. Patient reports this is improved. PICC line right upper extremity looks fine.) Abdomen: non-tender, soft Skin: No embolic lesions ICD10 Worksheet Patient Problems: Problems Problem Status Onset Failure to thrive in adult Acute Pleural effusion Acute Weakness Acute Abrasion of left elbow, initial encounter Acute Anemia Acute CHI (closed head injury) Acute Chronic Disease Mgmt/Transitional Care Acute Closed left clavicular fracture Acute Depression Acute Dyspnea Acute Fracture of pubic ramus Acute HTN (hypertension) Acute Multiple falls Acute Pneumonia Acute Post concussion syndrome Acute Ribs, multiple fractures Acute Sepsis Acute Unsteady gait Acute Weakness of both legs Acute
--- NOTE | 2017-07-26 10:23 | ASMTCMCOM ---
CM Note CM Note Notes: Pt is still not ready for DC yet. Provided updates to [place]. CM will continue to follow. Date Signed: 07/26/2017 10:22 AM Electronically Signed By:Michelle Schmitz LCSW
--- NOTE | 2017-07-26 12:56 | PDINTPN ---
[employer] Architect Progress Note Assessment/Plan: Assessment\plan: 77 M with CAD, ADAN, and chronic hypoxemia developed right pleural effusion after multiple falls in the setting of weight loss and anorexia. The etiology has been unclear and he underwent thoracentesis on admission which was a non- specific exudate. He seemed to re-accumulate so underwent a second tap, now revealing labs consistent with empyema (low pH and glucose). * Pleural effusion- confusing picture since first tap was benign, non-specific exudate and appeared consistent with trauma/falls. Second tap consistent with empyema/parapneumonic effusion, but ddx includes RA (RF pending), malignancy, lupus, TB. WAQAS, RF negative. Cultures negative. CT with loculated collections and surgery to see for VATS, pleural biopsy, pleurodesis. Cytology on both taps negative, but profound weight loss. Discussed with family and patient * Bacteremia from left arm cellulitis- decreasing wbc on abx. ID recs noted. 07/26/17 12:56 Subjective: No events Objective: Vital Signs Temp Pulse Resp BP Pulse Ox 36.7 C 78 20 150/96 H 97 07/26/17 04:52 07/26/17 09:33 07/26/17 09:33 07/26/17 09:26 07/26/17 09:33 Microbiology 07/23/17 10:00 Gram Stain - Final Thoracic Fluid - Aspirate Body Fluid Culture - Final Laboratory Results 07/26/17 04:03 07/24/17 05:18 07/25/17 07/26/17 07/27/17 05:59 05:59 05:59 Intake Total 300 1250 Output Total 300 825 300 Balance 0 425 -300 PT 14.9 SEC (12.0-15.0) 07/23/17 05:15 INR 1.15 (0.83-1.16) 07/23/17 05:15 Physical Exam - Physical Exam General Appearance: no apparent distress, other (sleeping) EENT: PERRL/EOMI Neck: supple Respiratory: lungs clear, decreased breath sounds, No respiratory distress, No accessory muscle use Cardiac/Chest: regular rate, rhythm, No edema Abdomen: non-tender, soft, No distended Skin: normal color, warm/dry, No cyanosis Lymphatic: no adenopathy Extremities: No pedal edema Neuro/Psych: cognition abnormalities ICD10 Worksheet Patient Problems: Problems Problem Status Onset Failure to thrive in adult Acute Pleural effusion Acute Weakness Acute Abrasion of left elbow, initial encounter Acute Anemia Acute CHI (closed head injury) Acute Chronic Disease Mgmt/Transitional Care Acute Closed left clavicular fracture Acute Depression Acute Dyspnea Acute Fracture of pubic ramus Acute HTN (hypertension) Acute Multiple falls Acute Pneumonia Acute Post concussion syndrome Acute Ribs, multiple fractures Acute Sepsis Acute Unsteady gait Acute Weakness of both legs Acute
--- NOTE | 2017-07-26 14:33 | HOSPPROG ---
Hospitalist Progress Note Assessment/Plan: 77 yo M w sepsis, grp A steep bacteremia sepsis: septic physiology has resolved Group A strep bacteremia: from superficial thrombophlebitis. -IV ceftriaxone for 2 weeks from date of blood clearance. No veggies on echo -blood cxs 07/22 NGTD Recurrent right pleural effusion: low pH on repeat tap (7.1) multiple loculations on today's CT (images interp by me) elevated inflammatory markers i think he would benefit from VATS w pleural biopsy given uncertainty of current situation and likelihood of pleural space infection Acute hypoxic resp failure: due to effusion. Tap today s/p thoracentesis Significant weight loss: concern for malignancy. No mass seen on imaging. Repeat cytology pending. Hypotension: resolved. Now hypertensive. Normal EF Hypoglycemia: resolved with D5W, eating. CAD: h/o stents. Plavix, statin Hypertension: restart low-dose SAMEER-I. Leukocytosis: trending down LUE thrombophlebitis: apply warm compress, Ibuprofen improved today The Deconditioning: recommend SNF Falls: PT/OT Reported lung mass: not seen on CT Diet: regular The DVT ppx: SCDs Disp: cont inpatient admission for thoracentesis, PT, IV abx Subjective: case d/w jesus donnelly and zeeshan. markedly elevated inflammatory markers noted Objective: Vital Signs Temp Pulse Resp BP Pulse Ox 36.7 C 78 18 143/96 H 96 07/26/17 13:09 07/26/17 13:09 07/26/17 13:09 07/26/17 13:09 07/26/17 13:09 Microbiology 07/23/17 10:00 Gram Stain - Final Thoracic Fluid - Aspirate Body Fluid Culture - Final Laboratory Results 07/26/17 12:58 07/24/17 05:18 07/25/17 07/26/17 07/27/17 05:59 05:59 05:59 Intake Total 300 1250 Output Total 300 825 300 Balance 0 425 -300 PT 14.9 SEC (12.0-15.0) 07/23/17 05:15 INR 1.15 (0.83-1.16) 07/23/17 05:15 - Physical Exam Constitutional: no apparent distress, appears nourished Eyes: PERRL, anicteric sclera Ears, Nose, Mouth, Throat: moist mucous membranes, hearing normal Cardiovascular: regular rate and rhythym, no murmur, rub, or gallop Respiratory: no respiratory distress, no rales or rhonchi Gastrointestinal: normoactive bowel sounds, soft, non-tender abdomen Genitourinary: no bladder fullness, No phan in urethra Skin: warm, normal color Musculoskeletal: full muscle strength Neurologic: AAOx3 ICD10 Worksheet Patient Problems: Problems Problem Status Onset Failure to thrive in adult Acute Pleural effusion Acute Weakness Acute Abrasion of left elbow, initial encounter Acute Anemia Acute CHI (closed head injury) Acute Chronic Disease Mgmt/Transitional Care Acute Closed left clavicular fracture Acute Depression Acute Dyspnea Acute Fracture of pubic ramus Acute HTN (hypertension) Acute Multiple falls Acute Pneumonia Acute Post concussion syndrome Acute Ribs, multiple fractures Acute Sepsis Acute Unsteady gait Acute Weakness of both legs Acute
[2017-07-26 14:36] LABS: HIV TYPE 1 AND 2 NEGATIVE (NEGATIVE)
--- NOTE | 2017-07-26 15:05 | PDCONSULT ---
[employer] Consultant Note: Surgery consult dictated #[id number] S MD Ivelisse, FACS
--- NOTE | 2017-07-26 15:42 | GCON ---
[f rep st] CONSULTATION SURGICAL CONSULTATION. DATE OF CONSULTATION: 07/26/2017 REFERRING PHYSICIAN: Lisbeth Hannon MD The patient is on the hospitalist service. CHIEF COMPLAINT: Bilateral pleural effusions. HISTORY OF PRESENT ILLNESS: The patient is a 77-year-old male who returned to [place] after spendin g a [place] where he sustained a fall and had some right-sided chest pain. The patient pres ented to the emergency room after he returned to [place], was seen, evaluated in the emergency room by Dr. Sheppard and admitted to the hospital with a moderate right pleural effusion. Additional histo ry is that he had been losing weight for the past 2 months. He had a normal white blood cell count a t time of admission. CT of the thorax. A CT angiogram was performed to rule out pulmonary embolus an d he was found to have a right pleural effusion, with no left pleural effusion and some consolidation at the lung bases. A thoracentesis was performed. He was started on empiric antibiotic therapy aft er he was noted to have marked leukocytosis in the days to follow the thoracentesis. The initial thoracentesis showed a pH of 7.4, pleural WBCs of 1212, and a pleural RBC of 75,000. LDH was 579 and a glucose was 68. Cultures showed nothing on Gram stain and were no growth at 72 hours. He became febrile several days into his hospital course and developed leukocytosis. Blood cultures were obtained and he grew out Strep pyogenes. The source was felt to be from a septic thrombophlebit is in the left upper extremity. Infectious Disease was consulted and he was started on ceftriaxone. The patient had decline in his l eukocytosis, persistent low-grade fevers. Repeat imaging showed reaccumulation of the pleural fluid in the right chest and a repeat thoracentesis was performed on 07/23/2017. The fluid appeared mildly cloudy, pH had dropped to 7.1, WBC had increased to 5298, and his pleural RBC declined to 776. Neutr ophils comprised 89% of the white blood cells, and the pleural LDH was 9667, with a pleural glucose o f 35. Cytology showed some atypical cells, but nothing specific for malignancy. Repeat CT of the chest was performed on 07/25/2017 which showed recurrence of loculated fluid in the posterobasilar right chest . The patient, however, in the interval developed a fairly significant left pleural effusion as well with consolidation of the lung. Surgical consultation was requested for possible VATS for both ther apeutic and diagnostic evaluation. PAST MEDICAL HISTORY: Significant for prior appendectomy, bilateral inguinal hernia repair, history of COPD, history of possible early dementia and obstructive sleep apnea on CPAP. The patient also jaquez s a history of anemia, recurrent falls, hyperlipidemia, hypertension, and coronary artery disease wit h 6 prior stents placed in the right coronary, left anterior descending and left circumflex arteries. Past history: The patient quit smoking several years ago. He denies significant alcohol use. ALLERGIES: He has no known drug allergies. 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 He is currently semi-retired. He is accompanied by his and daughter who lives in [place]. FAMILY HISTORY: Noncontributory. The patient is adopted. REVIEW OF SYSTEMS: The patient denies chest pain, cough, sputum production, hemoptysis. He has rece ived a pneumococcal vaccine and receives influenza vaccines annually. He grew up [place], [place]. PHYSICAL EXAMINATION: VITAL SIGNS: Blood pressure 143/96, heart rate 78, respiratory rate 18, O2 sa turation is 96% on 2 L, temperature is 36.7. GENERAL: The patient is a pleasant, chronically ill-ap pearing elderly male who is in mild distress. HEENT: There is no jugular venous distention. No scl eral icterus. No cervical or supraclavicular adenopathy. LUNGS: Are clear to auscultation with dim inished breath sounds at both bases. No rales, rhonchi, or wheezing. HEART: Regular in rate and rh ythm without murmurs. ABDOMEN: Soft, nontender, without hepatosplenomegaly or mass. The patient's presenting CT on 07/[address] on 07/24 were both reviewed. The striking con trast is the development of a significant left pleural effusion which has not been tapped. There are some anterior mediastinal adenopathy in the peritracheal region which is nonspecific and some calcif ications in the posterior parietal pleura of the right chest. The pleural fluid appears somewhat loc ulated with adjacent atelectasis of the lower lobe segments of the affected region of lung. Repeat thoracentesis on 07/23 showed a pleural pH of 7.1, WBC of 5298, neutrophils comprised 89%, ple ural LDH was 9667 and pleural glucose was 35. Cultures remain no growth to date and Gram stains were negative. IMPRESSION: Bilateral pleural effusions of unclear etiology. Initial presentation was with right pl eural effusion. Differential including parapneumonic effusion with empyema, malignancy, inflammatory pleuritis such as rheumatoid. RECOMMENDATIONS: Discussed the findings with the patient, his and his daughter in detail and ag diana that a video assisted thoracoscopy (VATS) procedure would be appropriate to obtain tissue sample s for exclusion of malignancy and to drain the pleural fluid definitively. As the patient is on Plav ix and low-molecular weight heparin, would recommend waiting and discontinuing Plavix at this time. Consider platelet functional assays to assist in deciding when the appropriate timing would be best a nd would hold Lovenox for at least 12 if not 24 hours prior to surgery. /[id number]/MODL
[2017-07-26] MEDS: CLOTRIMAZOLE 10 MG TROCHE PO SCH ×3 (16:08→22:55)
[2017-07-26] MEDS: MONTELUKAST SODIUM 10 MG TAB PO SCH (19:16)
[2017-07-26] MEDS: ATORVASTATIN CALCIUM 10 MG TAB PO SCH (20:01)
[2017-07-26] MEDS: MELATONIN 3 MG TAB PO SCH (20:02)
[2017-07-26] MEDS: traZODone 50 MG TAB PO SCH (20:03)
[2017-07-27] MEDS: ONDANSETRON 4 MG/2 ML VIAL IVP PRN (00:30)
[2017-07-27] MEDS: CLOTRIMAZOLE 10 MG TROCHE PO SCH ×5 (05:55→22:13)
--- NOTE | 2017-07-27 09:24 | SOAPPROG ---
SOAP Progress Note Assessment/Plan: 07/27/17 09:16 Assessment: Stable: afebrile, discomfort - no change, reps rate decreased 20 to 17, Sats stable at 98 on 2lpm. Thoracic cultures still negative. Has E to A changes at right base as expected Off Plavix x 24 hours Plan: Will get decubitus films to see if fluid truly loculated. If not a chest tube may help. Optimize: Will start incentive spirometry, EF 60-70%, EKG showed Left anterior bundle, will work on re-conditioning with increased activity. Await return of platelet function. If he deteriorates, will use platelets and proceed with VATS urgently. Subjective: I'm no better and no worse but I'd like to get out of the hospital Objective: Vital Signs Temp Pulse Resp BP Pulse Ox 36.8 C 90 17 160/92 H 98 07/27/17 08:42 07/27/17 08:42 07/27/17 08:42 07/27/17 08:42 07/27/17 08:42 Microbiology 07/21/17 17:20 Blood Culture - Final Blood 07/23/17 10:00 Mycobacterial Smear (EKTA) - Final Thoracic Fluid - Aspirate 07/21/17 12:47 Blood Culture - Final Blood 07/23/17 10:00 Gram Stain - Final Thoracic Fluid - Aspirate Body Fluid Culture - Final Laboratory Results 07/26/17 12:58 07/24/17 05:18 07/26/17 07/27/17 07/28/17 05:59 05:59 05:59 Intake Total 1250 620 Output Total 825 1575 250 Balance 425 -955 -250 PT 14.9 SEC (12.0-15.0) 07/23/17 05:15 INR 1.15 (0.83-1.16) 07/23/17 05:15 - Time Spent With Patient Time Spent With Patient: 25 - Pending Discharge Pending Discharge Within 24 Hours: No Pending Discharge Within 48 Hours: No Physical Exam - Physical Exam General Appearance: WD/WN, alert, mild distress Neck: non-tender, full range of motion, supple Respiratory: chest non-tender, lungs clear, normal breath sounds, other (E to A changes in right base) Cardiac/Chest: regular rate, rhythm ICD10 Worksheet Patient Problems: Problems Problem Status Onset Failure to thrive in adult Acute Pleural effusion Acute Weakness Acute Abrasion of left elbow, initial encounter Acute Anemia Acute CHI (closed head injury) Acute Chronic Disease Mgmt/Transitional Care Acute Closed left clavicular fracture Acute Depression Acute Dyspnea Acute Fracture of pubic ramus Acute HTN (hypertension) Acute Multiple falls Acute Pneumonia Acute Post concussion syndrome Acute Ribs, multiple fractures Acute Sepsis Acute Unsteady gait Acute Weakness of both legs Acute
[2017-07-27] MEDS: LUBIPROSTONE 24 MCG CAP PO SCH ×2 (09:25→17:34)
[2017-07-27] MEDS: CLOPIDOGREL BISULFATE 75 MG TAB PO SCH (09:25)
[2017-07-27] MEDS: CHOLECALCIFEROL VIT D3 2,000 UNITS TAB/CAP PO SCH (09:25)
[2017-07-27] MEDS: SODIUM CHLORIDE 1,000 MG TAB PO SCH (09:25)
[2017-07-27] MEDS: SENNOSIDES/DOCUSATE SODIUM TAB PO SCH ×2 (09:25→19:49)
[2017-07-27] MEDS: buPROPion XL 150 MG TAB PO SCH (09:26)
[2017-07-27] MEDS: cefTRIAXone 2 GM in STERILE WATER INJ 20 ML IV SCH (09:26)
[2017-07-27] MEDS: FERROUS SULFATE 325 MG TAB PO SCH (09:26)
[2017-07-27] MEDS: LISINOPRIL 10 MG TAB PO SCH ×2 (09:26→22:13)
[2017-07-27] MEDS: (Fluticasone/Vilanterol [Breo Ellipta 200-25 Mcg Inh] 1 EACH) IH SCH (10:17)
--- NOTE | 2017-07-27 12:20 | HOSPPROG ---
Hospitalist Progress Note Assessment/Plan: 77 yo M w sepsis, grp A steep bacteremia sepsis: septic physiology has resolved Group A strep bacteremia: from superficial thrombophlebitis. -IV ceftriaxone for 2 weeks from date of blood clearance. No veggies on echo -blood cxs 07/22 NGTD Recurrent right pleural effusion: low pH on repeat tap (7.1) multiple loculations on today's CT (images interp by me) elevated inflammatory markers i think he would benefit from VATS w pleural biopsy given uncertainty of current situation and likelihood of pleural space infection plavix and lmwh on hold for VATS this week, sooner if decompensates deconitionig: encouraged OOB and ambulation Acute hypoxic resp failure: due to effusion. Significant weight loss: concern for malignancy. No mass seen on imaging. Repeat cytology also neg Hypotension: resolved. Now hypertensive. Normal EF Hypoglycemia: resolved with D5W, eating. CAD: h/o stents. Plavix, statin Hypertension: restart low-dose SAMEER-I. Leukocytosis: trending down LUE thrombophlebitis: apply warm compress, Ibuprofen improved today The Deconditioning: recommend SNF Falls: PT/OT Reported lung mass: not seen on CT Diet: regular The DVT ppx: SCDs Disp: cont inpatient admission for thoracentesis, PT, IV abx Subjective: case d/w dr germain. cxr today - limited free flowing fluid (interp by me) Objective: Vital Signs Temp Pulse Resp BP Pulse Ox 36.8 C 83 16 160/92 H 96 07/27/17 08:42 07/27/17 10:26 07/27/17 10:26 07/27/17 09:26 07/27/17 10:26 Microbiology 07/21/17 17:20 Blood Culture - Final Blood 07/23/17 10:00 Mycobacterial Smear (EKTA) - Final Thoracic Fluid - Aspirate 07/21/17 12:47 Blood Culture - Final Blood 07/23/17 10:00 Gram Stain - Final Thoracic Fluid - Aspirate Body Fluid Culture - Final Laboratory Results 07/26/17 12:58 07/24/17 05:18 07/26/17 07/27/17 07/28/17 05:59 05:59 05:59 Intake Total 1250 620 Output Total 825 1575 250 Balance 425 -955 -250 PT 14.9 SEC (12.0-15.0) 07/23/17 05:15 INR 1.15 (0.83-1.16) 07/23/17 05:15 - Physical Exam Constitutional: no apparent distress, appears nourished Eyes: PERRL, anicteric sclera Ears, Nose, Mouth, Throat: moist mucous membranes, hearing normal Cardiovascular: regular rate and rhythym, no murmur, rub, or gallop Respiratory: no respiratory distress, no rales or rhonchi, other (decreased breath sounds on R) Gastrointestinal: normoactive bowel sounds, soft, non-tender abdomen Genitourinary: no bladder fullness, No phan in urethra Skin: warm, normal color Musculoskeletal: full muscle strength, no muscle tenderness Neurologic: AAOx3, sensation intact bilaterally Psychiatric: interacting appropriately ICD10 Worksheet Patient Problems: Problems Problem Status Onset Failure to thrive in adult Acute Pleural effusion Acute Weakness Acute Abrasion of left elbow, initial encounter Acute Anemia Acute CHI (closed head injury) Acute Chronic Disease Mgmt/Transitional Care Acute Closed left clavicular fracture Acute Depression Acute Dyspnea Acute Fracture of pubic ramus Acute HTN (hypertension) Acute Multiple falls Acute Pneumonia Acute Post concussion syndrome Acute Ribs, multiple fractures Acute Sepsis Acute Unsteady gait Acute Weakness of both legs Acute
--- NOTE | 2017-07-27 16:04 | PCMIDPN ---
Assessment/Plan: Assessment/Plan: * Group A streptococcal bacteremia due to septic superficial thrombophlebitis: Thrombophlebitis has resolved. Continue ceftriaxone with repeat blood culture showing clearance of bacteremia. * Loculated exudative right pleural effusion: CT shows complex quality to right -sided pleural effusion which does not layer by decubitus films. Agree with plans for VATS both for diagnostic and therapeutic purposes once has been off Plavix long enough to reduce risk of bleeding. Continue ceftriaxone. 07/27/17 16:01 Subjective: Patient feels "bad". Notes occasional cough. Objective: Vital Signs Temp Pulse Resp BP Pulse Ox 36.5 C 78 16 172/101 H 94 07/27/17 15:13 07/27/17 15:13 07/27/17 15:13 07/27/17 15:13 07/27/17 15:13 Microbiology 07/21/17 17:20 Blood Culture - Final Blood 07/23/17 10:00 Mycobacterial Smear (EKTA) - Final Thoracic Fluid - Aspirate 07/21/17 12:47 Blood Culture - Final Blood 07/23/17 10:00 Gram Stain - Final Thoracic Fluid - Aspirate Body Fluid Culture - Final Laboratory Results 07/26/17 12:58 07/24/17 05:18 07/26/17 07/27/17 07/28/17 05:59 05:59 05:59 Intake Total 1250 620 Output Total 825 1575 250 Balance 425 -955 -250 ESR 81 MM/HR (0-20) H 07/26/17 12:58 C-Reactive Protein 155.2 mg/L (<10.0) H 07/26/17 12:58 Ceftriaxone # 8 Blood cultures 07/21/2017 no growth Pleural fluid cultures no growth; AFB smear negative - Physical Exam General Appearance: alert, no apparent distress, other (Chronically ill- appearing) EENT: No scleral icterus, No thrush Respiratory: other (Decreased breath sounds right base) Cardiac/Chest: regular rate, rhythm Extremities: pedal edema Abdomen: non-tender, No distended Skin: other (Thrombophlebitis in left arm has resolved), No embolic lesions - Line/s RUE PICC Lines: No drainage, No erythema ICD10 Worksheet Patient Problems: Problems Problem Status Onset Failure to thrive in adult Acute Pleural effusion Acute Weakness Acute Abrasion of left elbow, initial encounter Acute Anemia Acute CHI (closed head injury) Acute Chronic Disease Mgmt/Transitional Care Acute Closed left clavicular fracture Acute Depression Acute Dyspnea Acute Fracture of pubic ramus Acute HTN (hypertension) Acute Multiple falls Acute Pneumonia Acute Post concussion syndrome Acute Ribs, multiple fractures Acute Sepsis Acute Unsteady gait Acute Weakness of both legs Acute
[2017-07-27] MEDS: oxyCODONE IR 5 MG TAB PO PRN (17:31)
[2017-07-27] MEDS: MONTELUKAST SODIUM 10 MG TAB PO SCH (17:35)
[2017-07-27] MEDS: MELATONIN 3 MG TAB PO SCH (22:12)
[2017-07-27] MEDS: ATORVASTATIN CALCIUM 10 MG TAB PO SCH (22:13)
[2017-07-27] MEDS: traZODone 50 MG TAB PO SCH (22:13)
[2017-07-28] MEDS: ONDANSETRON DISINTEGRATING 4 MG TAB PO PRN ×2 (02:35→06:24)
[2017-07-28] MEDS: oxyCODONE IR 5 MG TAB PO PRN ×3 (03:09→21:13)
[2017-07-28] MEDS: CLOTRIMAZOLE 10 MG TROCHE PO SCH ×5 (05:51→21:13)
[2017-07-28 06:28] LABS: PLATELET COUNT 289 10^3/uL (150-400)
[2017-07-28] MEDS: CHOLECALCIFEROL VIT D3 2,000 UNITS TAB/CAP PO SCH (08:27)
[2017-07-28] MEDS: SODIUM CHLORIDE 1,000 MG TAB PO SCH (08:27)
[2017-07-28] MEDS: FERROUS SULFATE 325 MG TAB PO SCH (08:27)
[2017-07-28] MEDS: LISINOPRIL 10 MG TAB PO SCH ×2 (08:27→21:14)
[2017-07-28] MEDS: LUBIPROSTONE 24 MCG CAP PO SCH ×2 (08:27→17:05)
[2017-07-28] MEDS: cefTRIAXone 2 GM in STERILE WATER INJ 20 ML IV SCH (08:27)
[2017-07-28] MEDS: buPROPion XL 150 MG TAB PO SCH (08:27)
[2017-07-28] MEDS: SENNOSIDES/DOCUSATE SODIUM TAB PO SCH ×2 (08:28→21:13)
--- NOTE | 2017-07-28 10:02 | PDINTPN ---
Armature Tester Progress Note Assessment/Plan: Assessment\plan: 77 M with CAD, ADAN, and chronic hypoxemia developed right pleural effusion after multiple falls in the setting of weight loss and anorexia. The etiology has been unclear and he underwent thoracentesis on admission which was a non- specific exudate. He seemed to re-accumulate so underwent a second tap, now revealing labs consistent with empyema (low pH and glucose). * Pleural effusion- confusing picture since first tap was benign, non-specific exudate and appeared consistent with trauma/falls. Second tap consistent with empyema/parapneumonic effusion, but ddx includes RA, malignancy, lupus, TB. WAQAS , RF negative. Cultures negative. CT with loculated collections and surgery to see for VATS, pleural biopsy, pleurodesis. Cytology on both taps negative, but profound weight loss. Discussed with family and patient. Awaiting VATS after plavix dc'd * Bacteremia from left arm cellulitis- decreasing wbc on abx. ID recs noted. Subjective: no complaints Objective: Vital Signs Temp Pulse Resp BP Pulse Ox 36.6 C 91 18 155/96 H 98 07/28/17 07:45 07/28/17 07:45 07/28/17 07:45 07/28/17 08:27 07/28/17 07:45 Microbiology 07/21/17 17:20 Blood Culture - Final Blood Laboratory Results 07/28/17 06:15 07/24/17 05:18 07/27/17 07/28/17 07/29/17 05:59 05:59 05:59 Intake Total 620 700 Output Total 1575 850 Balance -955 -150 PT 14.9 SEC (12.0-15.0) 07/23/17 05:15 INR 1.15 (0.83-1.16) 07/23/17 05:15 Physical Exam - Physical Exam General Appearance: alert, no apparent distress EENT: PERRL/EOMI Neck: supple Respiratory: normal breath sounds, decreased breath sounds, No respiratory distress, No accessory muscle use Cardiac/Chest: regular rate, rhythm, No edema Abdomen: non-tender, soft, No distended Skin: normal color, warm/dry, No cyanosis Lymphatic: no adenopathy Extremities: No pedal edema Neuro/Psych: alert, normal mood/affect, oriented x 3, cognition abnormalities ICD10 Worksheet Patient Problems: Problems Problem Status Onset Failure to thrive in adult Acute Pleural effusion Acute Weakness Acute Abrasion of left elbow, initial encounter Acute Anemia Acute CHI (closed head injury) Acute Chronic Disease Mgmt/Transitional Care Acute Closed left clavicular fracture Acute Depression Acute Dyspnea Acute Fracture of pubic ramus Acute HTN (hypertension) Acute Multiple falls Acute Pneumonia Acute Post concussion syndrome Acute Ribs, multiple fractures Acute Sepsis Acute Unsteady gait Acute Weakness of both legs Acute
--- NOTE | 2017-07-28 10:45 | SOAPPROG ---
SOAP Progress Note Assessment/Plan: 07/27/17 09:16 Assessment: Stable: afebrile, discomfort - no change, reps rate decreased 20 to 17, Sats stable at 98 on 2lpm. Thoracic cultures still negative. Has E to A changes at right base as expected Off Plavix x 24 hours Plan: Will get decubitus films to see if fluid truly loculated. If not a chest tube may help. Optimize: Will start incentive spirometry, EF 60-70%, EKG showed Left anterior bundle, will work on re-conditioning with increased activity. Await return of platelet function. If he deteriorates, will use platelets and proceed with VATS urgently. 07/28/17 10:36 Assessment: Stable. Afebrile, Sats stable on 2 lpm, resp rate 16-18, WBC stable at 12K. Thoracentesis cultures still negative E-A changes persist in Right Lower lung [place]. IS only to ~1200. Decubitus films confirmed loculated nature of effusions. PT seeing patient Plan: Dr. Holland will perform a VATS tomorrow. NPO past MN, Will give platelets tomorrow AM. Will type and screen. Subjective: I feel week Objective: Vital Signs Temp Pulse Resp BP Pulse Ox 36.6 C 91 18 155/96 H 98 07/28/17 07:45 07/28/17 07:45 07/28/17 07:45 07/28/17 08:27 07/28/17 07:45 Microbiology 07/21/17 17:20 Blood Culture - Final Blood Laboratory Results 07/28/17 06:15 07/24/17 05:18 07/27/17 07/28/17 07/29/17 05:59 05:59 05:59 Intake Total 620 700 Output Total 1575 850 Balance -955 -150 PT 14.9 SEC (12.0-15.0) 07/23/17 05:15 INR 1.15 (0.83-1.16) 07/23/17 05:15 - Time Spent With Patient Time Spent With Patient: 25 - Pending Discharge Pending Discharge Within 48 Hours: No Physical Exam - Physical Exam General Appearance: alert, mild distress, other (appears cachectic) Respiratory: chest non-tender, lungs clear, normal breath sounds, other (E to A changes in right base) Cardiac/Chest: regular rate, rhythm Abdomen: non-tender, soft Male Genitalia: deferred Rectal: deferred Back: Normal inspection Skin: normal color, warm/dry Neuro/Psych: alert, normal mood/affect ICD10 Worksheet Patient Problems: Problems Problem Status Onset Failure to thrive in adult Acute Pleural effusion Acute Weakness Acute Abrasion of left elbow, initial encounter Acute Anemia Acute CHI (closed head injury) Acute Chronic Disease Mgmt/Transitional Care Acute Closed left clavicular fracture Acute Depression Acute Dyspnea Acute Fracture of pubic ramus Acute HTN (hypertension) Acute Multiple falls Acute Pneumonia Acute Post concussion syndrome Acute Ribs, multiple fractures Acute Sepsis Acute Unsteady gait Acute Weakness of both legs Acute
[2017-07-28] MEDS: (Fluticasone/Vilanterol [Breo Ellipta 200-25 Mcg Inh] 1 EACH) IH SCH (10:57)
--- NOTE | 2017-07-28 11:14 | PCMIDPN ---
Assessment/Plan: Assessment/Plan: * Group A streptococcal bacteremia due to septic superficial thrombophlebitis: Bacteremia has cleared and thrombophlebitis resolved clinically. Continue ceftriaxone. * Loculated exudative right pleural effusion: No interval changes. Plans for VATS tomorrow for diagnostic and therapeutic purposes with anaerobic/AFB/fungal cultures and tissue for histopathology. Clinical findings and plan discussed with patient and Dr. Ogden. 07/28/17 11:16 Subjective: Feels better today. No pain over left forearm. Objective: Vital Signs Temp Pulse Resp BP Pulse Ox 36.6 C 82 18 155/96 H 96 07/28/17 07:45 07/28/17 10:44 07/28/17 10:44 07/28/17 08:27 07/28/17 10:44 Microbiology 07/21/17 17:20 Blood Culture - Final Blood Laboratory Results 07/28/17 06:15 07/24/17 05:18 07/27/17 07/28/17 07/29/17 05:59 05:59 05:59 Intake Total 620 700 Output Total 1575 850 Balance -955 -150 ESR 81 MM/HR (0-20) H 07/26/17 12:58 C-Reactive Protein 155.2 mg/L (<10.0) H 07/26/17 12:58 Ceftriaxone #9 Pleural cultures no growth - Physical Exam General Appearance: alert, no apparent distress EENT: No scleral icterus, No thrush Respiratory: other (bronchial breath sounds with crackles right base) Cardiac/Chest: regular rate, rhythm Extremities: inflammation (left forearm phlebitis resolved) Abdomen: non-tender, No distended - Line/s RUE PICC Lines: No drainage, No erythema ICD10 Worksheet Patient Problems: Problems Problem Status Onset Failure to thrive in adult Acute Pleural effusion Acute Weakness Acute Abrasion of left elbow, initial encounter Acute Anemia Acute CHI (closed head injury) Acute Chronic Disease Mgmt/Transitional Care Acute Closed left clavicular fracture Acute Depression Acute Dyspnea Acute Fracture of pubic ramus Acute HTN (hypertension) Acute Multiple falls Acute Pneumonia Acute Post concussion syndrome Acute Ribs, multiple fractures Acute Sepsis Acute Unsteady gait Acute Weakness of both legs Acute
--- NOTE | 2017-07-28 12:23 | HOSPPROG ---
Hospitalist Progress Note Assessment/Plan: 77 yo M w sepsis, grp A steep bacteremia sepsis: septic physiology has resolved Group A strep bacteremia: from superficial thrombophlebitis. -IV ceftriaxone for 2 weeks from date of blood clearance. No veggies on echo -blood cxs 07/22 NGTD Recurrent right pleural effusion: low pH on repeat tap (7.1) multiple loculations on today's CT (images interp by me) elevated inflammatory markers i think he would benefit from VATS w pleural biopsy given uncertainty of current situation and likelihood of pleural space infection VATS 07/29 nausea: received oxycodone at 3 AM. no lactulose today last bm two days ago benign exam follow deconitionig: encouraged OOB and ambulation Acute hypoxic resp failure: due to effusion. Significant weight loss: concern for malignancy. No mass seen on imaging. Repeat cytology also neg Hypotension: resolved. Now hypertensive. Normal EF Hypoglycemia: resolved with D5W, eating. CAD: h/o stents. Plavix, statin Hypertension: restart low-dose SAMEER-I. Leukocytosis: trending down LUE thrombophlebitis: apply warm compress, Ibuprofen improved today The Deconditioning: recommend SNF Falls: PT/OT Reported lung mass: not seen on CT Diet: regular The DVT ppx: SCDs Disp: cont inpatient admission for thoracentesis, PT, IV abx Subjective: case d/w jesus byers and Objective: Vital Signs Temp Pulse Resp BP Pulse Ox 36.6 C 82 18 155/96 H 96 07/28/17 07:45 07/28/17 10:44 07/28/17 10:44 07/28/17 08:27 07/28/17 10:44 Microbiology 07/21/17 17:20 Blood Culture - Final Blood Laboratory Results 07/28/17 06:15 07/24/17 05:18 07/27/17 07/28/17 07/29/17 05:59 05:59 05:59 Intake Total 620 700 Output Total 1575 850 Balance -955 -150 PT 14.9 SEC (12.0-15.0) 07/23/17 05:15 INR 1.15 (0.83-1.16) 07/23/17 05:15 - Physical Exam Constitutional: no apparent distress, appears nourished Eyes: PERRL, anicteric sclera Ears, Nose, Mouth, Throat: moist mucous membranes, hearing normal Cardiovascular: regular rate and rhythym, no murmur, rub, or gallop Respiratory: no respiratory distress, no rales or rhonchi Gastrointestinal: normoactive bowel sounds, soft, non-tender abdomen, No guarding, No rebound, No distension Genitourinary: no bladder fullness, No phan in urethra Skin: warm, normal color Musculoskeletal: no joint effusions, No full muscle strength Neurologic: AAOx3, sensation intact bilaterally Psychiatric: interacting appropriately ICD10 Worksheet Patient Problems: Problems Problem Status Onset Failure to thrive in adult Acute Pleural effusion Acute Weakness Acute Abrasion of left elbow, initial encounter Acute Anemia Acute CHI (closed head injury) Acute Chronic Disease Mgmt/Transitional Care Acute Closed left clavicular fracture Acute Depression Acute Dyspnea Acute Fracture of pubic ramus Acute HTN (hypertension) Acute Multiple falls Acute Pneumonia Acute Post concussion syndrome Acute Ribs, multiple fractures Acute Sepsis Acute Unsteady gait Acute Weakness of both legs Acute
[2017-07-28] MEDS: ONDANSETRON 4 MG/2 ML VIAL IVP PRN ×2 (13:11→17:24)
[2017-07-28] MEDS: MONTELUKAST SODIUM 10 MG TAB PO SCH (17:05)
[2017-07-28] MEDS: ATORVASTATIN CALCIUM 10 MG TAB PO SCH (21:13)
[2017-07-28] MEDS: traZODone 50 MG TAB PO SCH (21:13)
[2017-07-28] MEDS: ACETAMINOPHEN 325 MG TAB PO PRN (21:14)
[2017-07-28] MEDS: MELATONIN 3 MG TAB PO SCH (21:14)
[2017-07-29] MEDS: CLOTRIMAZOLE 10 MG TROCHE PO SCH ×5 (05:38→22:28)
[2017-07-29] MEDS: ONDANSETRON DISINTEGRATING 4 MG TAB PO PRN (06:37)
[2017-07-29] MEDS: (Fluticasone/Vilanterol [Breo Ellipta 200-25 Mcg Inh] 1 EACH) IH SCH (08:24)
[2017-07-29] MEDS: cefTRIAXone 2 GM in STERILE WATER INJ 20 ML IV SCH (08:47)
[2017-07-29] MEDS: ONDANSETRON 4 MG/2 ML VIAL IVP PRN (08:48)
[2017-07-29] MEDS: LUBIPROSTONE 24 MCG CAP PO SCH ×2 (08:53→20:05)
[2017-07-29] MEDS: LISINOPRIL 10 MG TAB PO SCH ×2 (08:56→22:24)
[2017-07-29] MEDS: buPROPion XL 150 MG TAB PO SCH (08:56)
[2017-07-29] MEDS: FERROUS SULFATE 325 MG TAB PO SCH (08:57)
[2017-07-29] MEDS: SENNOSIDES/DOCUSATE SODIUM TAB PO SCH ×2 (08:57→22:25)
[2017-07-29] MEDS: CHOLECALCIFEROL VIT D3 2,000 UNITS TAB/CAP PO SCH (08:57)
[2017-07-29] MEDS: SODIUM CHLORIDE 1,000 MG TAB PO SCH (08:57)
--- NOTE | 2017-07-29 10:39 | PCMIDPN ---
Assessment/Plan: Assessment: Left upper extremity superficial septic thrombophlebitis secondary to group a strep. Patient was bacteremic. Repeat cultures are clear to this point and he is tolerating his ceftriaxone monotherapy. Ongoing complex right-sided effusions. These are exudate of on testing. Will go for VATS later today. Plan: 1. Continue IV ceftriaxone daily. 2. Follow-up after VATS procedure today. Subjective: Patient is resting comfortably in his hospital bed. No overnight events. Awaiting OR procedure with video-assisted thoracoscopy. Objective: Ceftriaxone # 10 Vital Signs Temp Pulse Resp BP Pulse Ox 36.6 C 80 16 163/95 H 96 07/29/17 09:13 07/29/17 09:13 07/29/17 05:38 07/29/17 09:13 07/29/17 09:13 Laboratory Results 07/28/17 06:15 07/24/17 05:18 07/28/17 07/29/17 07/30/17 05:59 05:59 05:59 Intake Total 700 1500 Output Total 850 1300 175 Balance -150 200 -175 ESR 81 MM/HR (0-20) H 07/26/17 12:58 C-Reactive Protein 155.2 mg/L (<10.0) H 07/26/17 12:58 - Physical Exam General Appearance: WD/WN, no apparent distress, non-toxic Skin: normal color, warm/dry, No rash Neuro/Psych: alert, normal mood/affect, oriented x 3 ICD10 Worksheet Patient Problems: Problems Problem Status Onset Failure to thrive in adult Acute Pleural effusion Acute Weakness Acute Abrasion of left elbow, initial encounter Acute Anemia Acute CHI (closed head injury) Acute Chronic Disease Mgmt/Transitional Care Acute Closed left clavicular fracture Acute Depression Acute Dyspnea Acute Fracture of pubic ramus Acute HTN (hypertension) Acute Multiple falls Acute Pneumonia Acute Post concussion syndrome Acute Ribs, multiple fractures Acute Sepsis Acute Unsteady gait Acute Weakness of both legs Acute
[2017-07-29] MEDS: oxyCODONE IR 5 MG TAB PO PRN (12:49)
[2017-07-29] MEDS ORDERED: BUPIVACAINE/EPI 0.5% 30 ML SDV ONE (14:17)
[2017-07-29] MEDS ORDERED: fentaNYL 100 MCG/2 ML INJ ONE ×2 (15:23→15:59)
[2017-07-29] MEDS ORDERED: PROPOFOL 200 MG/20 ML VIAL ONE (15:27)
--- NOTE | 2017-07-29 15:57 | ASMTCMCOM ---
CM Note CM Note Notes: Pt scheduled for VATS procedure today and will go to ICU after. ID continues to follow. Current d/c plan is [facility] when he is medically cleared to go. CM will continue to follow. Date Signed: 07/29/2017 03:56 PM Electronically Signed By:ADILENE Wade
--- NOTE | 2017-07-29 16:18 | PDANEPAE ---
ANE History of Present Illness here for Jada GRAVES Past Medical History - Cardiovascular History Hx Hypertension: Yes Hx Arrhythmias: No Hx Chest Pain: No Hx Coronary Artery / Peripheral Vascular Disease: Yes Hx CHF / Valvular Disease: No - Pulmonary History Hx COPD: Yes Hx Asthma/Reactive Airway Disease: Yes Hx Recent Upper Respiratory Infection: No Hx Oxygen in Use at Home: No Hx Sleep Apnea: No Sleep Apnea Screening Result - Last Documented: Positive - Neurologic History Hx Cerebrovascular Accident: No Hx Seizures: No Hx Dementia: No - Endocrine History Hx Diabetes: No - Renal History Hx Renal Disorders: No - Liver History Hx Hepatic Disorders: No - Neurological & Psychiatric Hx Hx Neurological and Psychiatric Disorders: Yes Neurological / Psychiatric History Comment: 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 TONSILLECTOMY CHILD. APPENDECTOMY CHILD ANE Review of Systems Review of Systems: - Exercise capacity Exercise capacity: <4 METS ANE Patient History - Allergies Allergies/Adverse Reactions: No Known Allergies Allergy (Unverified 07/24/16 06:25) - Home Medications Home medications: home medication list seen and reviewed Home Medications: Clopidogrel Bisulfate [Plavix (*)] 75 mg PO DAILY 10/25/11 [Last Taken 07/15/17] Montelukast Sodium [Singulair 10 mg (*)] 10 mg PO DAILY@18 10/25/11 [Last Taken 07/15/17] Ranolazine [Ranexa] 500 mg PO BID 10/25/11 [Last Taken 07/15/17 21:00] Ropinirole HCl [Requip 0.5mg] 0.5 mg PO HS 02/10/15 [Last Taken 07/15/17] Lubiprostone [Amitiza 24 mcg (*)] 24 mcg PO BIDMEAL 07/24/16 [Last Taken 18:00] traZODone [traZODONE 50MG (*)] 50 mg PO HS 07/24/16 [Last Taken 07/15/17] Albuterol [Proventil Inhaler HFA (*)] 1 - 2 puffs IH Q6H PRN 09/22/16 [Last Taken Unknown] Atorvastatin Calcium [Lipitor 10 mg (*)] 10 mg PO HS 07/16/17 [Last Taken ] Carvedilol [Coreg (*)] 12.5 mg PO BID 07/16/17 [Last Taken 07/15/17 21:00] Cholecalciferol Vit D3 [Vitamin D3 2000 units tab (OTC)] 2,000 units PO DAILY [Last Taken 07/15/17] Ferrous Sulfate [Ferrous Sulf 325 MG (*)] 325 mg PO DAILY 07/16/17 [Last Taken 07/15/17] Fluticasone/Vilanterol [Breo Ellipta 200-25 Mcg INH] 1 each IH DAILY 07/16/17 [ Last Taken 07/15/17] Lisinopril [Zestril 20 mg (*)] 20 mg PO BID 07/16/17 [Last Taken 07/15/17 21:00] Sodium Chloride [Salt Tablet] 1,000 mg PO DAILY 07/16/17 [Last Taken Unknown] buPROPion XL [Wellbutrin Xl] 150 mg PO DAILY 07/16/17 [Last Taken 07/15/17] oxyCODONE IR [Oxycodone Ir (*)] 5 mg PO DAILY PRN 07/16/17 [Last Taken Unknown] - NPO status NPO Status: no food or drink >8 hours NPO Since - Liquids (Date): 07/28/17 NPO Since - Liquids (Time): 23:55 NPO Since - Solids (Date): 07/28/17 NPO Since - Solids (Time): 23:55 - Smoking Hx Smoking Status: Former smoker ANE Labs/Vital Signs - Labs Result Diagrams: 07/28/17 06:15 07/24/17 05:18 - Vital Signs Vital Signs: reviewed preoperatively; see RN documention for details Blood Pressure: 152/86 Heart Rate: 78 Respiratory Rate: 18 O2 Sat (%): 89 Height: 175.26 cm Weight: 65.6 kg ANE Physical Exam - Airway Neck exam: FROM Mallampati Score: Class 1 Mouth exam: poor dentition - Pulmonary Pulmonary: no respiratory distress - Cardiovascular Cardiovascular: regular rate and rhythym - ASA Status ASA Status: III ANE Anesthesia Plan Anesthesia Plan: general endotracheal anesthesia Specialized Airway: double lumen tube Urgent/Emergent Case: Karina houston completed preop but documented later for safe timely pt care
[2017-07-29] MEDS ORDERED: DEXAMETHASONE 4 MG/ML VIAL IVP PRN (16:43)
[2017-07-29] MEDS ORDERED: HYDROmorphONE/DILAUDID 2 MG/ML INJ IVP PRN (16:43)
[2017-07-29] MEDS ORDERED: NALOXONE HCL 0.4 MG/ML INJ IVP PRN (16:43)
[2017-07-29] MEDS ORDERED: ALBUTEROL 3 ML DEYVIAL IH PRN (16:43)
[2017-07-29] MEDS ORDERED: PROMETHAZINE HCL 25 MG/ML INJ IVP PRN (16:43)
[2017-07-29] MEDS ORDERED: ONDANSETRON 4 MG/2 ML VIAL IVP PRN (16:43)
[2017-07-29] MEDS ORDERED: fentaNYL 100 MCG/2 ML INJ IVP PRN (16:43)
[2017-07-29] MEDS ORDERED: HYDROmorphONE/DILAUDID 2 MG/ML INJ ONE (16:54)
--- NOTE | 2017-07-29 17:40 | HOSPPROG ---
Hospitalist Progress Note Assessment/Plan: Assessment: 77 yo M p/w sepsis, grp A strep bacteremia c/b persistent RLL pleural effusion and respiratory failure Plan: # sepsis POA: evidenced by autonomic dysregulation in setting of infxn w/ e/o end-organ failure (ELIER, lactic acidosis, resp failure) # group A strep bacteremia: 2/2 superficial thrombophlebitis on LUE, d/w Dr. Cox, he recommends 2 weeks IV Abx from neg Cx date - Echo w/o veg - appreciate ongoing ID consultation # persistent RLL pleural effusion: loculations, not free flowing fluid on CXR ( personally interpreted in RLL) - VATS today s/p platelet transfusion # acute hypoxic respiratory failure: evidenced by SpO2 89% on room air (=Tyrone 58mmHg) w/ objective tachypnea and labored breathing, requiring up to 5LPM high flow o2, 2/2 sepsis and pleural effusion - stabilized on 2LPM # HTN: cont lisinopril 10mg bid # CAD: chronic, h/o stents, cont plavix/statin # LUE thrombophlebitis: warm compression, NSAID # acute encephalopathy: evidenced by global brain dysfunction characterized as somnolence and poor arousability, which is an acute change from his baseline, and likely 2/2 hemodynamic effects of acute hypotension experienced early in his hospitalization, resolved # acute hyponatremia: 2/2 poor renal flow in setting of above, resolved Diet: regular PPx: high risk, SCDs, hold pharm given VATs Code: full Dispo: ADD uncertain, pending stabilization following VATs High-level of medical complexity, high risk of worsening morbidity and/or mortality secondary to the issues as outlined above. Subjective: Patient denies any pain, expresses that he is very fatigued Objective: Vital Signs Temp Pulse Resp BP Pulse Ox 36.6 C 78 18 152/86 H 89 L 07/29/17 13:59 07/29/17 16:17 07/29/17 16:17 07/29/17 16:17 07/29/17 16:17 Laboratory Results 07/28/17 06:15 07/24/17 05:18 07/28/17 07/29/17 07/30/17 05:59 05:59 05:59 Intake Total 700 1500 Output Total 850 1300 175 Balance -150 200 -175 PT 14.9 SEC (12.0-15.0) 07/23/17 05:15 INR 1.15 (0.83-1.16) 07/23/17 05:15 - Physical Exam Constitutional: no apparent distress, not in pain, chronically ill appearing, uncomfortable Cardiovascular: irregularly irregular, No systolic murmur, No tachycardia, No edema Respiratory: reduced air movement (Right base), No expiratory wheeze, No inspiratory crackles, No bronchial breath sounds, No respiratory distress Gastrointestinal: normoactive bowel sounds, soft, non-tender abdomen, no palpable masses, No distension Neurologic: AAOx3, No weakness (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), No facial droop Psychiatric: not anxious, flat affect, other (Somnolent but arousable to verbal stimuli), No agitated ICD10 Worksheet Patient Problems: Problems Problem Status Onset Failure to thrive in adult Acute Pleural effusion Acute Weakness Acute Abrasion of left elbow, initial encounter Acute Anemia Acute CHI (closed head injury) Acute Chronic Disease Mgmt/Transitional Care Acute Closed left clavicular fracture Acute Depression Acute Dyspnea Acute Fracture of pubic ramus Acute HTN (hypertension) Acute Multiple falls Acute Pneumonia Acute Post concussion syndrome Acute Ribs, multiple fractures Acute Sepsis Acute Unsteady gait Acute Weakness of both legs Acute
[2017-07-29 17:55] LABS: PLATELET COUNT 464 10^3/uL (150-400)
[2017-07-29] MEDS ORDERED: SUGAMMADEX SODIUM 200 MG/2 ML VIAL IVP ONE (18:12)
[2017-07-29] MEDS ORDERED: HYDROmorphONE/DILAUDID 1 MG/ML INJ IVP PRN (18:28)
--- NOTE | 2017-07-29 18:33 | POSTOPPROG ---
Post Op Note Date of Operation: 08/02/17 Surgeon: Yung Holland Materials Inspector: Tali Canada Anesthesiologist: Bhavesh Bonilla Anesthesia: GET(General Endotracheal) Pre-op Diagnosis: empyema Post-op Diagnosis: same Procedure: VATS c thoracotomy, decortication, wedge lung, plueral, and LN biopsies Findings: extremely thick rubbery adherent rind with fluid, large air leak Inf/Abcess present in the surg proc area at time of surgery?: Yes Depth: Organ Space EBL: 400cc Complications: none Drains: Other (chest tube x 2) Specimen(s): lung, pleura, LN, and rind to path and also some sent for culture
--- NOTE | 2017-07-29 18:50 | POSTANESTH ---
Post Anesthetic Evaluation Cardiovascular Status: Normal, Stable Respiratory Status: Normal, Stable Level of Consciousness/Mental Status: Can Participate in Eval Pain Control: Adequate, Prn Tx Ordered Nausea/Vomiting Control: Adequate, Prn Tx Ordered Complications Possibly Related to Anesthesia: None Noted
[2017-07-29] MEDS: MONTELUKAST SODIUM 10 MG TAB PO SCH (20:05)
[2017-07-29] MEDS ORDERED: PHENYLEPHRINE HCL 100 MCG/ML SYR ONE (20:15)
[2017-07-29] MEDS: HYDROmorphone HCL/NS 0.5 MG/ML SYR IVP PRN (20:23)
[2017-07-29] MEDS: OXYCODONE/APAP 5/325 TAB PO PRN (20:58)
[2017-07-29 22:24] LABS: INR 1.54 (0.83-1.16); PROTIME(PATIENT) 18.6 SEC (12.0-15.0)
[2017-07-29] MEDS: MELATONIN 3 MG TAB PO SCH (22:24)
[2017-07-29] MEDS: traZODone 50 MG TAB PO SCH (22:25)
[2017-07-29] MEDS ORDERED: ALBUMIN 5% 500 ML BOTTLE IV ONE (22:56)
[2017-07-29] MEDS: ATORVASTATIN CALCIUM 10 MG TAB PO SCH (23:00)
[2017-07-29] MEDS ORDERED: ALBUMIN 5% 500 ML IV PRN (23:30)
[2017-07-29] MEDS ORDERED: ALBUMIN 5% 500 ML IV ONE (23:30)
[2017-07-30] MEDS: OXYCODONE/APAP 5/325 TAB PO PRN (02:19)
[2017-07-30] MEDS: HYDROmorphone HCL/NS 0.5 MG/ML SYR IVP PRN ×5 (04:22→23:32)
[2017-07-30] MEDS ORDERED: ALBUMIN 5% 500 ML BOTTLE IV ONE (04:33)
[2017-07-30 04:34] LABS: PLATELET COUNT 371 10^3/uL (150-400)
[2017-07-30] MEDS: CLOTRIMAZOLE 10 MG TROCHE PO SCH ×6 (06:41→21:13)
[2017-07-30] MEDS ORDERED: PROTOCOL POTASSIUM 1 DOSE MISC PRN (07:23)
[2017-07-30] MEDS ORDERED: POTASSIUM CL 10 MEQ TAB PO ONE (07:25)
[2017-07-30] MEDS ORDERED: DESMOPRESSIN ACETATE 20 MCG in NS 50 ML IV ONE (08:04)
[2017-07-30] MEDS ORDERED: *INFUSION*TRANEX ACID 1,000 MG/NS 50 ML IV ONE (08:15)
--- NOTE | 2017-07-30 08:18 | SOAPPROG ---
SOAP Progress Note Assessment/Plan: Assessment/Plan: 77 Y M s/p VATS c thoracotomy, decortication, wedge lung biopsy and pleural and LN biopsies, POD#1. Intraoperative cultures and path pending. Acute post op blood loss anemia. 1u pRBCs. DDVAP. TXA. D/w Dr. Holland and pharmacy. Hold plavix. Repeat H&H after blood transfusion. S: working with RN and PT to get OOB in chair. Tired. O: alert, nad, appropriate mild wob, +air leak with cough--not resting. 07/30/17 08:12 Objective: Vital Signs Temp Pulse Resp BP Pulse Ox 36.7 C 102 H 15 108/56 L 99 07/30/17 04:00 07/30/17 06:00 07/30/17 06:00 07/30/17 06:00 07/30/17 06:00 Microbiology 07/29/17 17:44 Gram Stain - Final Lung - Tissue Laboratory Results 07/30/17 04:10 07/30/17 04:10 07/29/17 07/30/17 07/31/17 05:59 05:59 05:59 Intake Total 1500 4050 Output Total 1300 1565 Balance 200 2485 PT 18.6 SEC (12.0-15.0) H 07/29/17 22:10 INR 1.54 (0.83-1.16) H 07/29/17 22:10 ICD10 Worksheet Patient Problems: Problems Problem Status Onset Failure to thrive in adult Acute Pleural effusion Acute Weakness Acute Abrasion of left elbow, initial encounter Acute Anemia Acute CHI (closed head injury) Acute Chronic Disease Mgmt/Transitional Care Acute Closed left clavicular fracture Acute Depression Acute Dyspnea Acute Fracture of pubic ramus Acute HTN (hypertension) Acute Multiple falls Acute Pneumonia Acute Post concussion syndrome Acute Ribs, multiple fractures Acute Sepsis Acute Unsteady gait Acute Weakness of both legs Acute
[2017-07-30] MEDS: SENNOSIDES/DOCUSATE SODIUM TAB PO SCH ×2 (08:48→20:33)
[2017-07-30] MEDS: FERROUS SULFATE 325 MG TAB PO SCH (08:48)
[2017-07-30] MEDS: CHOLECALCIFEROL VIT D3 2,000 UNITS TAB/CAP PO SCH (08:48)
[2017-07-30] MEDS: SODIUM CHLORIDE 1,000 MG TAB PO SCH (08:48)
[2017-07-30] MEDS: buPROPion XL 150 MG TAB PO SCH (08:49)
[2017-07-30] MEDS: (Fluticasone/Vilanterol [Breo Ellipta 200-25 Mcg Inh] 1 EACH) IH SCH (08:56)
[2017-07-30] MEDS ORDERED: MAGNESIUM SULF 2 GM/WATER 50 ML IV ONE (09:16)
--- NOTE | 2017-07-30 10:11 | PCMIDPN ---
Assessment/Plan: # Group a strep bacteremia due to superficial septic thrombophlebitis left arm, now complicated by Empyema s/p VATs. Patient generally doing well postoperatively. Leukocytosis likely multifactorial, stress from the OR as well as postop blood loss. Patient remains afebrile --continue ceftriaxone --follow tissue cultures from the OR # Post op management --dc a line when feasible Medication Ceftriaxone 2 g IV daily, #11 Microbiology 07/29/2017 pleural tissue: Gram stain +3 GPCs 07/21/2017 pleural fluid; gram stain 4+ PMN, no organism: Neg 07/21/2017 blood cultures (2/2) neg 07/19/2017 blood cultures (2/2) group a strep, ceftriaxone EKTA less than 0.0625 07/16/2017 pleural fluid culture: neg Subjective: Patient describes some right-sided chest pain/pressure No other complaints Objective: Vital Signs Temp Pulse Resp BP Pulse Ox 36.7 C 106 H 20 117/57 L 96 07/30/17 04:00 07/30/17 08:00 07/30/17 08:00 07/30/17 08:00 07/30/17 08:00 Microbiology 07/29/17 17:44 Gram Stain - Final Lung - Tissue Laboratory Results 07/30/17 04:10 07/30/17 04:10 07/29/17 07/30/17 07/31/17 05:59 05:59 05:59 Intake Total 1500 4050 Output Total 1300 1565 Balance 200 2485 ESR 81 MM/HR (0-20) H 07/26/17 12:58 C-Reactive Protein 155.2 mg/L (<10.0) H 07/26/17 12:58 - Physical Exam General Appearance: alert, no apparent distress EENT: pale conjunctiva, other (No oral ulcerations or exudate), No scleral icterus, No thrush Respiratory: other (High pitched with wistling associated w air leak heard throughout chest [place]), No accessory muscle use Extremities: pedal edema (trace B), other (persistent palpable superficial thrombophlebitis L anticub, erythema resolved) Peripheral Pulses: 1+: dorsalis-pedis (R), dorsalis-pedis (L) Abdomen: normal bowel sounds, non-tender, soft Skin: pallor, No rash Neuro/Psych: alert, normal mood/affect, oriented x 3 - Line/s RUE PICC Lines: No drainage, No erythema other Lines: other (L radial a line), No drainage, No erythema - Time Spent With Patient Time Spent with Patient: greater than 35 minutes (Care coordinated with Dr. Gee) Time Spent with Patient: Greater than 35 minutes spent on this patients care, greater than 50% of time spent counseling, educating, and coordinating care regarding the above mentioned plan. ICD10 Worksheet Patient Problems: Problems Problem Status Onset Failure to thrive in adult Acute Pleural effusion Acute Weakness Acute Abrasion of left elbow, initial encounter Acute Anemia Acute CHI (closed head injury) Acute Chronic Disease Mgmt/Transitional Care Acute Closed left clavicular fracture Acute Depression Acute Dyspnea Acute Fracture of pubic ramus Acute HTN (hypertension) Acute Multiple falls Acute Pneumonia Acute Post concussion syndrome Acute Ribs, multiple fractures Acute Sepsis Acute Unsteady gait Acute Weakness of both legs Acute
[2017-07-30] MEDS: ONDANSETRON 4 MG/2 ML VIAL IVP PRN (10:50)
[2017-07-30] MEDS: cefTRIAXone 2 GM in STERILE WATER INJ 20 ML IV SCH (10:51)
[2017-07-30] MEDS: LUBIPROSTONE 24 MCG CAP PO SCH ×2 (11:51→18:19)
[2017-07-30] MEDS: LISINOPRIL 10 MG TAB PO SCH ×2 (11:53→22:07)
[2017-07-30] MEDS: oxyCODONE IR 5 MG TAB PO PRN ×4 (11:53→23:31)
--- NOTE | 2017-07-30 14:16 | PDINTPN ---
Botany Professor Progress Note Assessment/Plan: Assessment: 77 M with CAD, ADAN, and chronic hypoxemia developed right pleural effusion after multiple falls in the setting of weight loss and anorexia. The etiology has been unclear and he underwent thoracentesis on admission which was a non- specific exudate. He seemed to re-accumulate so underwent a second tap, labs consistent with empyema (low pH and glucose). * Empyema: S/P decortication 07/29. Clinically recovering well, BP good off pressors s/p fluid boluses. * Bacteremia from left arm cellulitis- Grp A Strep on Blood Cx. WBC back up after VATS. On CTX. * Emphysema: On Breo, montelukast, albuterol as an outpatient. Currently just on albuterol. Plan: Continue ICU monitoring, CTX. May add Breo. Follow CXR, cultures. 07/30/17 14:21 Subjective: Feels OK, has fairly good pain control. Objective: Vital Signs Temp Pulse Resp BP Pulse Ox 36.7 C 85 19 105/49 L 98 07/30/17 11:58 07/30/17 11:58 07/30/17 11:58 07/30/17 11:58 07/30/17 11:58 Microbiology 07/29/17 17:44 Gram Stain - Final Lung - Tissue 07/23/17 10:00 Mycobacterial Smear (EKTA) - Final Thoracic Fluid - Aspirate Laboratory Results 07/30/17 04:10 07/30/17 04:10 07/29/17 07/30/17 07/31/17 05:59 05:59 05:59 Intake Total 1500 4050 Output Total 1300 1565 Balance 200 2485 PT 18.6 SEC (12.0-15.0) H 07/29/17 22:10 INR 1.54 (0.83-1.16) H 07/29/17 22:10 CXR: Stable post-op VAS, decortication. Images reviewed. Physical Exam - Physical Exam General Appearance: alert, no apparent distress EENT: normal ENT inspection Neck: normal inspection Respiratory: decreased breath sounds (right base), crackles (right base) Cardiac/Chest: regular rate, rhythm, No edema Abdomen: normal bowel sounds, non-tender Skin: normal color, warm/dry Extremities: normal inspection Neuro/Psych: alert, normal mood/affect, oriented x 3 ICD10 Worksheet Patient Problems: Problems Problem Status Onset Failure to thrive in adult Acute Pleural effusion Acute Weakness Acute Abrasion of left elbow, initial encounter Acute Anemia Acute CHI (closed head injury) Acute Chronic Disease Mgmt/Transitional Care Acute Closed left clavicular fracture Acute Depression Acute Dyspnea Acute Fracture of pubic ramus Acute HTN (hypertension) Acute Multiple falls Acute Pneumonia Acute Post concussion syndrome Acute Ribs, multiple fractures Acute Sepsis Acute Unsteady gait Acute Weakness of both legs Acute
--- NOTE | 2017-07-30 15:47 | HOSPPROG ---
Hospitalist Progress Note Assessment/Plan: Assessment: 77 yo M p/w sepsis, grp A strep bacteremia c/b persistent RLL empyema and respiratory failure Plan: # sepsis POA: evidenced by autonomic dysregulation in setting of infxn w/ e/o end-organ failure (ELIER, lactic acidosis, resp failure) # group A strep bacteremia: 2/2 superficial thrombophlebitis on LUE, d/w Dr. Mcneil, she recommends 2 weeks IV Abx from neg Cx date - Echo w/o veg - appreciate ongoing ID consultation # RLL empyema: loculated, s/p VATs 07/29 w/ Cx pending, CXR w/ ongoing R inferior air space disease - ongoing chest tube output of bloody material, Dr. Holland managing # acute blood loss anemia: EBL surgery 400 2/2 circulating anticoagulant/anti- platelet effect of plavix, s/p DDAVP and TXA - hgb 8.1 this AM, transfuse another u PRBC - ongoing Hgb level monitoring # acute hypoxic respiratory failure: evidenced by SpO2 89% on room air (=Tyrone 58mmHg) w/ objective tachypnea and labored breathing, requiring up to 5LPM high flow o2, 2/2 sepsis and pleural effusion - stabilized on 2LPM # HTN: cont lisinopril 10mg bid # CAD: chronic, h/o stents, cont plavix/statin # LUE thrombophlebitis: warm compression, NSAID # acute encephalopathy: evidenced by global brain dysfunction characterized as somnolence and poor arousability, which is an acute change from his baseline, and likely 2/2 hemodynamic effects of acute hypotension experienced early in his hospitalization, resolved # acute hyponatremia: 2/2 poor renal flow in setting of above, resolved # atrial fibrillation: unclear type, patient reports he has hx, present on tele - will order outside records from Dr. Parson's office for further clarification, currently off anticoagulation Diet: regular PPx: high risk, SCDs, hold pharm given VATs Code: full Dispo: ADD uncertain, pending stabilization following VATs 35 min of critical care time spent addressing the issues above, coordinating care w/ Dr. Mcneil., specifically patient is group a strep bacteremia resulting in sepsis and empyema, rendering him critically ill with high risk of worsening morbidity and/or mortality Subjective: patient reports R side chest pain Objective: Vital Signs Temp Pulse Resp BP Pulse Ox 36.7 C 81 22 H 118/50 L 99 07/30/17 11:58 07/30/17 14:00 07/30/17 14:00 07/30/17 14:00 07/30/17 14:00 Microbiology 07/29/17 17:44 Mycobacterial Smear (EKTA) - Final Lung - Tissue 07/29/17 17:44 Gram Stain - Final Lung - Tissue 07/23/17 10:00 Mycobacterial Smear (EKTA) - Final Thoracic Fluid - Aspirate Laboratory Results 07/30/17 14:23 07/30/17 04:10 07/29/17 07/30/17 07/31/17 05:59 05:59 05:59 Intake Total 1500 4050 1500 Output Total 1300 1565 170 Balance 200 2485 1330 PT 18.6 SEC (12.0-15.0) H 07/29/17 22:10 INR 1.54 (0.83-1.16) H 07/29/17 22:10 - Physical Exam Constitutional: no apparent distress, chronically ill appearing, uncomfortable Cardiovascular: systolic murmur (I/ at sternum), irregularly irregular, tachycardia, edema (trace bilat LE) Respiratory: reduced air movement (R base), inspiratory crackles (R base), No expiratory wheeze, No bronchial breath sounds Gastrointestinal: normoactive bowel sounds, soft, non-tender abdomen, no palpable masses, No distension Neurologic: AAOx3 Psychiatric: interacting appropriately, not anxious, not encephalopathic, thought process linear ICD10 Worksheet Patient Problems: Problems Problem Status Onset Failure to thrive in adult Acute Pleural effusion Acute Weakness Acute Abrasion of left elbow, initial encounter Acute Anemia Acute CHI (closed head injury) Acute Chronic Disease Mgmt/Transitional Care Acute Closed left clavicular fracture Acute Depression Acute Dyspnea Acute Fracture of pubic ramus Acute HTN (hypertension) Acute Multiple falls Acute Pneumonia Acute Post concussion syndrome Acute Ribs, multiple fractures Acute Sepsis Acute Unsteady gait Acute Weakness of both legs Acute
[2017-07-30] MEDS ORDERED: FUROSEMIDE 20 MG/2 ML VIAL IVP ONE (16:00)
[2017-07-30] MEDS ORDERED: FUROSEMIDE 20 MG/2 ML VIAL ONE (18:20)
[2017-07-30] MEDS: MONTELUKAST SODIUM 10 MG TAB PO SCH (18:23)
[2017-07-30] MEDS: ATORVASTATIN CALCIUM 10 MG TAB PO SCH (20:33)
[2017-07-30] MEDS: MELATONIN 3 MG TAB PO SCH (20:33)
[2017-07-30] MEDS: traZODone 50 MG TAB PO SCH (20:33)
[2017-07-31] MEDS: oxyCODONE IR 5 MG TAB PO PRN (03:55)
[2017-07-31 04:10] LABS: PLATELET COUNT 328 10^3/uL (150-400)
[2017-07-31] MEDS: HYDROmorphone HCL/NS 0.5 MG/ML SYR IVP PRN (05:01)
[2017-07-31] MEDS: CLOTRIMAZOLE 10 MG TROCHE PO SCH ×5 (05:03→22:01)
[2017-07-31] MEDS ORDERED: FUROSEMIDE 20 MG TAB PO ONE (08:17)
[2017-07-31] MEDS: buPROPion XL 150 MG TAB PO SCH (08:28)
[2017-07-31] MEDS: LISINOPRIL 10 MG TAB PO SCH ×2 (08:28→22:03)
[2017-07-31] MEDS: SENNOSIDES/DOCUSATE SODIUM TAB PO SCH ×2 (08:28→22:01)
[2017-07-31] MEDS: SODIUM CHLORIDE 1,000 MG TAB PO SCH (08:28)
[2017-07-31] MEDS: CHOLECALCIFEROL VIT D3 2,000 UNITS TAB/CAP PO SCH (08:28)
[2017-07-31] MEDS: morphINE SR 15 MG TAB PO SCH ×2 (08:28→22:01)
[2017-07-31] MEDS: FERROUS SULFATE 325 MG TAB PO SCH (08:29)
[2017-07-31] MEDS ORDERED: POTASSIUM CL 20 MEQ TAB PO ONE (09:08)
[2017-07-31] MEDS: LUBIPROSTONE 24 MCG CAP PO SCH ×2 (09:15→17:56)
[2017-07-31] MEDS ORDERED: POTASSIUM CL 20 MEQ TAB PO SCH (09:15)
[2017-07-31] MEDS: (Fluticasone/Vilanterol [Breo Ellipta 200-25 Mcg Inh] 1 EACH) IH SCH (09:17)
[2017-07-31] MEDS ORDERED: POTASSIUM Cl (KCl) 100 ML IV SCH (09:45)
--- NOTE | 2017-07-31 09:46 | CPEKG ---
Heart Rate: 86 RR Interval: 698 QRSD Interval: 100 QT Interval: 404 QTC Interval: 484 QRS Steele: -45 T Wave Steele: 99 EKG Severity - ABNORMAL ECG - EKG Impression: SINUS RHYTHM WITH ECTOPIC ATRIAL FOCI EKG Impression: PAIRED VENTRICULAR PREMATURE COMPLEXES EKG Impression: ABERRANT COMPLEX, POSSIBLY SUPRAVENTRICULAR EKG Impression: LAD, CONSIDER LEFT ANTERIOR FASCICULAR BLOCK EKG Impression: BORDERLINE T WAVE ABNORMALITIES Electronically Signed By: Jimmy Penaloza 31-Jul-2017 10:56:44
--- NOTE | 2017-07-31 09:49 | PCMIDPN ---
Assessment/Plan: Assessment: Left upper extremity superficial septic thrombophlebitis secondary to group a strep. Patient was bacteremic. Tolerating his ceftriaxone monotherapy. Now postop day 2 from VATS procedure. Clinically he looks stable. Still requiring some supplemental oxygen to keep saturations up. Serosanguineous discharge from the pleura vac. Plan: 1. Continue IV ceftriaxone daily. 2. Continue ICU support and care. 07/31/17 09:46 Subjective: Patient is resting in his chair in his ICU room. He notes he continues to feel somewhat short of breath although his O2 sat is 100%. Denies any fevers or chills. Continues to have right-sided postoperative pain. Chest tube in place. Objective: Ceftriaxone # 12 Vital Signs Temp Pulse Resp BP Pulse Ox 36.1 C 98 24 H 168/95 H 100 07/31/17 08:00 07/31/17 08:00 07/31/17 08:00 07/31/17 08:28 07/31/17 08:00 Microbiology 07/29/17 17:44 Mycobacterial Smear (EKTA) - Final Lung - Tissue 07/29/17 17:44 Gram Stain - Final Lung - Tissue 07/23/17 10:00 Mycobacterial Smear (EKTA) - Final Thoracic Fluid - Aspirate Laboratory Results 07/31/17 04:00 07/31/17 04:00 07/30/17 07/31/17 08/01/17 05:59 05:59 05:59 Intake Total 4050 3430 Output Total 1565 1175 Balance 2485 2255 ESR 81 MM/HR (0-20) H 07/26/17 12:58 C-Reactive Protein 155.2 mg/L (<10.0) H 07/26/17 12:58 - Physical Exam General Appearance: WD/WN, alert, no apparent distress, non-toxic Respiratory: normal breath sounds, coarse breath sounds, other (Chest tube in place right-sided), No lungs clear Cardiac/Chest: regular rate, rhythm, No tachycardia Skin: normal color, warm/dry, No rash Neuro/Psych: alert, normal mood/affect, oriented x 3 ICD10 Worksheet Patient Problems: Problems Problem Status Onset Failure to thrive in adult Acute Pleural effusion Acute Weakness Acute Abrasion of left elbow, initial encounter Acute Anemia Acute CHI (closed head injury) Acute Chronic Disease Mgmt/Transitional Care Acute Closed left clavicular fracture Acute Depression Acute Dyspnea Acute Fracture of pubic ramus Acute HTN (hypertension) Acute Multiple falls Acute Pneumonia Acute Post concussion syndrome Acute Ribs, multiple fractures Acute Sepsis Acute Unsteady gait Acute Weakness of both legs Acute
--- NOTE | 2017-07-31 09:55 | PDINTPN ---
Bung Remover Progress Note Assessment/Plan: Assessment: 77 M with CAD, ADAN, and chronic hypoxemia developed right pleural effusion after multiple falls in the setting of weight loss and anorexia. The etiology has been unclear and he underwent thoracentesis on admission which was a non- specific exudate. He seemed to re-accumulate so underwent a second tap, labs consistent with empyema (low pH and glucose). * Empyema: S/P decortication 07/29. Increased O2 needs, chest congestion, dyspnea since yesterday. * Bacteremia from left arm cellulitis- Grp A Strep on Blood Cx. WBC back up after VATS. On CTX. * Emphysema: On Breo, montelukast, albuterol as an outpatient. Currently just on albuterol. Plan: Continue ICU monitoring, CTX. Resume Breo. Add flutter valve, Mucomyst, high-flow humidified O2. Follow CXR, cultures. Consider a short course of steroids. 07/31/17 09:59 Subjective: Feels more tired today. Didn't sleep well for non-specific reasons. Has chest congestion with clear sputum that is difficult to bring up. Objective: Vital Signs Temp Pulse Resp BP Pulse Ox 36.1 C 98 24 H 168/95 H 100 07/31/17 08:00 07/31/17 08:00 07/31/17 08:00 07/31/17 08:28 07/31/17 08:00 Microbiology 07/29/17 17:44 Mycobacterial Smear (EKTA) - Final Lung - Tissue 07/29/17 17:44 Gram Stain - Final Lung - Tissue 07/23/17 10:00 Mycobacterial Smear (EKTA) - Final Thoracic Fluid - Aspirate Laboratory Results 07/31/17 04:00 07/31/17 04:00 07/30/17 07/31/17 08/01/17 05:59 05:59 05:59 Intake Total 4050 3430 Output Total 1565 1175 Balance 2485 2255 PT 18.6 SEC (12.0-15.0) H 07/29/17 22:10 INR 1.54 (0.83-1.16) H 07/29/17 22:10 CR: Increased right base infiltrate. Images reviewed by me. Physical Exam - Physical Exam General Appearance: alert, no apparent distress EENT: normal ENT inspection Respiratory: crackles, rhonchi Cardiac/Chest: regular rate, rhythm, edema (trace) Abdomen: normal bowel sounds, non-tender Skin: normal color, warm/dry Extremities: normal inspection Neuro/Psych: alert, normal mood/affect, oriented x 3 ICD10 Worksheet Patient Problems: Problems Problem Status Onset Failure to thrive in adult Acute Pleural effusion Acute Weakness Acute Abrasion of left elbow, initial encounter Acute Anemia Acute CHI (closed head injury) Acute Chronic Disease Mgmt/Transitional Care Acute Closed left clavicular fracture Acute Depression Acute Dyspnea Acute Fracture of pubic ramus Acute HTN (hypertension) Acute Multiple falls Acute Pneumonia Acute Post concussion syndrome Acute Ribs, multiple fractures Acute Sepsis Acute Unsteady gait Acute Weakness of both legs Acute
[2017-07-31] MEDS ORDERED: ALBUMIN 25% 100 ML IV ONE (09:59)
[2017-07-31] MEDS: POTASSIUM Cl (KCl) 10 MEQ in NS 100 ML IV SCH ×4 (10:20→13:14)
[2017-07-31] MEDS: cefTRIAXone 2 GM in STERILE WATER INJ 20 ML IV SCH (10:20)
--- NOTE | 2017-07-31 10:23 | SOAPPROG ---
SOAP Progress Note Assessment/Plan: Assessment: 77 Y M s/p VATS c thoracotomy, decortication, wedge lung biopsy and pleural and LN biopsies, POD#2 Intraoperative cultures and path pending. Acute post op blood loss anemia. 1u pRBCs S: complaining of pain. O: Alert Afebrile Cardiac: irregularly irregular Chest: Left side CTA, Right side with diminished breath sounds and crackles at base. Chest xray shows increasing fluid in right base Chest tube with +air leak with cough. Hct up a bit today after 1 unit pRBCs Plan: Seen with Dr. Holland. Lasix 20mg. MS contin for longer pain control. Respiratory eval and therapy. Discussed with RN. Leander to restart anticoagulation for a-fib. 07/31/17 10:18 Objective: Vital Signs Temp Pulse Resp BP Pulse Ox 36.1 C 93 12 138/64 H 100 07/31/17 08:00 07/31/17 10:00 07/31/17 10:00 07/31/17 10:00 07/31/17 10:00 Microbiology 07/29/17 17:44 Mycobacterial Smear (EKTA) - Final Lung - Tissue 07/29/17 17:44 Gram Stain - Final Lung - Tissue 07/23/17 10:00 Mycobacterial Smear (EKTA) - Final Thoracic Fluid - Aspirate Laboratory Results 07/31/17 04:00 07/31/17 04:00 07/30/17 07/31/17 08/01/17 05:59 05:59 05:59 Intake Total 4050 3430 Output Total 1565 1175 Balance 2485 2255 PT 18.6 SEC (12.0-15.0) H 07/29/17 22:10 INR 1.54 (0.83-1.16) H 07/29/17 22:10 ICD10 Worksheet Patient Problems: Problems Problem Status Onset Failure to thrive in adult Acute Pleural effusion Acute Weakness Acute Abrasion of left elbow, initial encounter Acute Anemia Acute CHI (closed head injury) Acute Chronic Disease Mgmt/Transitional Care Acute Closed left clavicular fracture Acute Depression Acute Dyspnea Acute Fracture of pubic ramus Acute HTN (hypertension) Acute Multiple falls Acute Pneumonia Acute Post concussion syndrome Acute Ribs, multiple fractures Acute Sepsis Acute Unsteady gait Acute Weakness of both legs Acute
[2017-07-31] MEDS: ALBUTEROL 3 ML DEYVIAL IH SCH ×3 (12:09→20:55)
[2017-07-31] MEDS: ACETYLCYSTEINE 10% IH/PO 4 ML VIAL IH SCH ×3 (12:09→20:54)
--- NOTE | 2017-07-31 14:49 | ASMTCMCOM ---
CM Note CM Note Notes: Discharge plan remains patient to [facility] rehab when medically stable. CM will follow. Date Signed: 07/31/2017 02:48 PM Electronically Signed By:Maye Reed LCSW
[2017-07-31] MEDS: FUROSEMIDE 40 MG/4 ML VIAL IVP SCH (15:34)
[2017-07-31] MEDS: MONTELUKAST SODIUM 10 MG TAB PO SCH (17:56)
--- NOTE | 2017-07-31 18:10 | HOSPPROG ---
Hospitalist Progress Note Assessment/Plan: Assessment: 77 yo M p/w sepsis, group A strep bacteremia c/b persistent RLL empyema and respiratory failure, s// VATs Plan: # sepsis POA: evidenced by autonomic dysregulation in setting of infxn w/ e/o end-organ failure (ELIER, lactic acidosis, resp failure) # group A strep bacteremia: 2/2 superficial thrombophlebitis on LUE, 2 weeks IV CTX from neg Cx date - Echo w/o veg - appreciate ongoing ID consultation # RLL empyema: loculated, s/p VATs 07/29 w/ Cx pending, CXR w/ ongoing R inferior air space disease - ongoing chest tube mgmt per Dr. Holland # acute blood loss anemia: EBL surgery 400 2/2 circulating anticoagulant/anti- platelet effect of plavix, s/p DDAVP and TXA - hgb 8.9 this AM - ongoing Hgb level monitoring daily - cont to hold plavix, resume once bloody output stops # acute hypoxic respiratory failure: evidenced by SpO2 89% on room air (=Tyrone 58mmHg) w/ objective tachypnea and labored breathing, requiring up to 5LPM high flow o2, 2/2 sepsis and empyema - increased o2 needs today, CXR demonstrating some fluffy infiltrates and ongoing fluid in the effusion - s/p lasix 20mg IV yesterday w/ net positive volume, increase lasix to 40mg IV bid today and monitor I/O/weights, given 1 dose of albumin today to augment diuresis # COPD: chronic, d/w Dr. Abarca, he will advance pulm tx w/ Advair (on Breo at home), scheduled albuterol nebs, acetylcysteine for pulm hygiene # HTN: cont lisinopril 10mg bid # CAD: chronic, h/o stents, > 1 year, holding plavix re: blood loss, but resume when bloody output stops # LUE thrombophlebitis: warm compression, NSAID # acute encephalopathy: evidenced by global brain dysfunction characterized as somnolence and poor arousability, which is an acute change from his baseline, and likely 2/2 hemodynamic effects of acute hypotension experienced early in his hospitalization, resolved # acute hyponatremia: 2/2 poor renal flow in setting of above, resolved # atrial fibrillation: intermittent w/o RVR, 4/14 Echo w/ EF 65-70% and no focal wall motion abnl, no significant valve issues - reviewed prior Cards consults and cath report by Dr. Mccoy in 2010, no prior hx of Afib mentioned, visualized on tele 07/30 - getting EKG to eval rhythm at this time, asked RN to print any episodes from tele - no anticoagulation presently due to VATS bleeding, but after acute condition resolves, recommend outpt f/u Dr. Parson for 30-day monitor and consideration of AC Diet: regular PPx: high risk, SCDs, hold pharm given VATs Code: full Dispo: ADD uncertain, pending stabilization following VATs High-level of medical complexity, high risk for worsening morbidity and/or mortality secondary to the issues outlined above. Subjective: increased productive cough today, feels tired Objective: Vital Signs Temp Pulse Resp BP Pulse Ox 36.6 C 92 24 H 118/99 H 100 07/31/17 15:59 07/31/17 15:59 07/31/17 15:59 07/31/17 15:59 07/31/17 15:59 Microbiology 07/29/17 17:44 Gram Stain - Final Lung - Tissue 07/29/17 17:44 Mycobacterial Smear (EKTA) - Final Lung - Tissue 07/23/17 10:00 Mycobacterial Smear (EKTA) - Final Thoracic Fluid - Aspirate Laboratory Results 07/31/17 04:00 07/31/17 04:00 07/30/17 07/31/17 08/01/17 05:59 05:59 05:59 Intake Total 4050 3430 Output Total 1565 1175 995 Balance 2485 2255 -995 PT 18.6 SEC (12.0-15.0) H 07/29/17 22:10 INR 1.54 (0.83-1.16) H 07/29/17 22:10 - Physical Exam Constitutional: no apparent distress, chronically ill appearing, uncomfortable, No not in pain (mild R chest) Cardiovascular: regular rate and rhythym, no murmur, rub, or gallop, tachycardia , edema (trace bilat LE), other (occasional PVC), No irregularly irregular Respiratory: reduced air movement (R base w/ insp crackles), No expiratory wheeze, No bronchial breath sounds, No respiratory distress Gastrointestinal: normoactive bowel sounds, soft, non-tender abdomen, no palpable masses, No distension Skin: other (scattered ecchymoses) Neurologic: AAOx3, sensation intact bilaterally, No facial droop Psychiatric: not anxious, not encephalopathic, flat affect, No agitated ICD10 Worksheet Patient Problems: Problems Problem Status Onset Ribs, multiple fractures Acute Closed left clavicular fracture Acute Fracture of pubic ramus Acute Abrasion of left elbow, initial encounter Acute Pleural effusion Acute Weakness Acute Failure to thrive in adult Acute Chronic Disease Mgmt/Transitional Care Acute Unsteady gait Acute Weakness of both legs Acute Multiple falls Acute Post concussion syndrome Acute CHI (closed head injury) Acute Anemia Acute Depression Acute HTN (hypertension) Acute Dyspnea Acute Pneumonia Acute Sepsis Acute
[2017-07-31] MEDS: ATORVASTATIN CALCIUM 10 MG TAB PO SCH (22:03)
[2017-07-31] MEDS: MELATONIN 3 MG TAB PO SCH (22:03)
[2017-07-31] MEDS: traZODone 50 MG TAB PO SCH (22:04)
[2017-08-01] MEDS: oxyCODONE IR 5 MG TAB PO PRN ×2 (00:21→20:31)
[2017-08-01] MEDS: ALBUTEROL 3 ML DEYVIAL IH SCH ×5 (05:09→23:55)
[2017-08-01] MEDS: ACETYLCYSTEINE 10% IH/PO 4 ML VIAL IH SCH ×4 (05:09→21:08)
[2017-08-01 06:22] LABS: PLATELET COUNT 303 10^3/uL (150-400)
[2017-08-01] MEDS: CLOTRIMAZOLE 10 MG TROCHE PO SCH ×5 (08:26→21:32)
--- NOTE | 2017-08-01 08:45 | PCMIDPN ---
Assessment/Plan: # Group a strep bacteremia due to superficial septic thrombophlebitis left arm, now complicated by Empyema s/p VATs. Patient generally doing well postoperatively, remains on some O2 supplementation and has a persistent mild leukocytosis. --continue ceftriaxone, duration to be determined --follow tissue cultures from the OR --path from the OR: shows only evidence of infection and underlying emphysema. No malignancy identified. I did not deliver this news today because it was not back at the time of my exam --no new recommendations --appreciate co-management by surgery, hospitalists and Critical Care Medication Ceftriaxone 2 g IV daily, #13 Microbiology 07/29/2017 pleural tissue: Gram stain +3 GPCs, CX NGTD 07/21/2017 pleural fluid; gram stain 4+ PMN, no organism: Neg 07/21/2017 blood cultures (2/2) neg 07/19/2017 blood cultures (2/2) group a strep, ceftriaxone EKTA less than 0.0625 07/16/2017 pleural fluid culture: neg HIV negative Subjective: Still with some coughing, minimal pain Objective: Vital Signs Temp Pulse Resp BP Pulse Ox 36.4 C 81 20 151/53 H 97 08/01/17 07:35 08/01/17 07:35 08/01/17 07:35 08/01/17 07:35 08/01/17 07:35 Microbiology 07/29/17 17:44 Gram Stain - Final Lung - Tissue Laboratory Results 08/01/17 06:05 08/01/17 06:05 07/31/17 08/01/17 08/02/17 05:59 05:59 05:59 Intake Total 3430 1391 Output Total 1175 2145 Balance 2255 -754 ESR 81 MM/HR (0-20) H 07/26/17 12:58 C-Reactive Protein 155.2 mg/L (<10.0) H 07/26/17 12:58 - Physical Exam General Appearance: alert, no apparent distress Respiratory: coarse breath sounds, No accessory muscle use Cardiac/Chest: irregularly irregular, other (Right chest tube with serosanguineous drainage) Extremities: other (Left antecubital with palpable superficial cord but no erythema) Abdomen: normal bowel sounds, non-tender, soft Male Genitalia: No phan Skin: warm/dry, pallor, other (Scattered ecchymosis), No rash Neuro/Psych: alert, normal mood/affect, oriented x 3 - Line/s RUE PICC Lines: No drainage, No erythema - Time Spent With Patient Time Spent with Patient: greater than 35 minutes (Care coordinated with hospitalist and nursing) Time Spent with Patient: Greater than 35 minutes spent on this patients care, greater than 50% of time spent counseling, educating, and coordinating care regarding the above mentioned plan. ICD10 Worksheet Patient Problems: Problems Problem Status Onset Failure to thrive in adult Acute Pleural effusion Acute Weakness Acute Abrasion of left elbow, initial encounter Acute Anemia Acute CHI (closed head injury) Acute Chronic Disease Mgmt/Transitional Care Acute Closed left clavicular fracture Acute Depression Acute Dyspnea Acute Fracture of pubic ramus Acute HTN (hypertension) Acute Multiple falls Acute Pneumonia Acute Post concussion syndrome Acute Ribs, multiple fractures Acute Sepsis Acute Unsteady gait Acute Weakness of both legs Acute
[2017-08-01] MEDS: FUROSEMIDE 40 MG/4 ML VIAL IVP SCH ×2 (08:46→16:22)
[2017-08-01] MEDS: CHOLECALCIFEROL VIT D3 2,000 UNITS TAB/CAP PO SCH (08:47)
[2017-08-01] MEDS: LISINOPRIL 10 MG TAB PO SCH ×2 (08:47→21:31)
[2017-08-01] MEDS: LUBIPROSTONE 24 MCG CAP PO SCH ×2 (08:48→18:04)
[2017-08-01] MEDS: morphINE SR 15 MG TAB PO SCH ×2 (08:48→20:32)
[2017-08-01] MEDS: SENNOSIDES/DOCUSATE SODIUM TAB PO SCH ×2 (08:48→21:31)
[2017-08-01] MEDS: FERROUS SULFATE 325 MG TAB PO SCH (08:48)
[2017-08-01] MEDS: buPROPion XL 150 MG TAB PO SCH (08:48)
[2017-08-01] MEDS: SODIUM CHLORIDE 1,000 MG TAB PO SCH (08:48)
[2017-08-01] MEDS: (Fluticasone/Vilanterol [Breo Ellipta 200-25 Mcg Inh] 1 EACH) IH SCH (08:52)
[2017-08-01] MEDS: cefTRIAXone 2 GM in STERILE WATER INJ 20 ML IV SCH (09:45)
--- NOTE | 2017-08-01 10:29 | HOSPPROG ---
Hospitalist Progress Note Assessment/Plan: DIAGNOSES: -acute sepsis, resolved at this point -acute streptococcal bacteremia likely secondary to a thrombophlebitis in his left arm * Echo without evidence of vegetations -empyema: acute bilateral pleural effusions initially appeared on infected but eventually became much more exact date of an with evidence of gram-positive cocci on g stain of the 2nd fluid aspiration, consistent with empyema * Bilateral pleural effusions persist at this time -acute hypoxemic respiratory failure due to COPD, effusions, infection, other factors * Notably improved but still requiring oxygen replacement and with significant dyspnea with any activity -acute post hemorrhagic anemia following VATS procedure * Stable at this point -acute encephalopathy, multifactorial * Markedly improved but still out at his baseline -acute rapid atrial fibrillation, new diagnosis at this time * 07/20 Echo w/ EF 65-70% and no focal wall motion abnl, no significant valve issues * recommend outpt f/u Dr. Parson for 30-day monitor and consideration of AC -severe deconditioning, bed-bound at this time * So far patient not very willing to work with therapists on assessment or active therapy -intertriginous dermatitis with skin breakdown in use dermatitis in the groin area -protein calorie malnutrition, severe and with very poor intake at this time ( BMI at admission was 21 however now he has lost significant amount of lean body mass and stores during this hospital admission and has less than 500 calories per day intake so far at this time) -hyponatremia resolved -COPD -chronic stable CAD on Plavix due to prior stents greater than 1 year ago High-level of medical complexity, high risk for worsening morbidity and/or mortality secondary to the issues outlined above. Seen by me today on hospitalist rounds and multidisciplinary ICU rounds I reviewed in detail with Dr. Prasanth Abarca and Dr. Abimbola Mcneil The patient today declined to work with speech physical or occupational therapies. I reviewed with him that of be critical for him to participate very actively in their assessment and care to move forward towards discharge and return to independence. He understands this. PLANS: -continue current antibiotics -continue current supportive care and respiratory care -continue current cardiac medications without change at this moment -strongly encourage patient to participate with therapists -nutritional supplements as able and strongly encouraged patient to continue attempting in eat, however still avoiding on speech language pathology assessment of his swallowing to ensure that that is safe without aspiration -have requested order for wound care nurse for his groin -probably stable for transfer out of ICU today, will need ongoing cardiac monitoring for AFib -will need long term facility when he is ready for discharge from the hospital SUBJECTIVE: Patient has mild AK where he had his VATS procedure, otherwise feels extremely weak and complains of mild ongoing cough Admits to notable dyspnea with any minor exertion It required 3 male nurses to move the patient from bed to chair today and the patient is unable to even sit partially up in the bed with the head of the bed up at 20 degrees OBJECTIVE Vitals reviewed: Mild hypertension otherwise stable without fever Food Processor, my review: Stable sinus rhythm Exam: alert oriented but with some memory difficulty skin warm dry color ok; he is notable intertriginous superficial skin breakdown and some yeast dermatitis in the groin area but no evidence of other infection there and no ulcerations resps not labored lungs clear BSs heart regular abd soft nondistended nontender, bowel sounds present limbs warm, no edema iv site ok Laboratory data: Hemoglobin stable, white blood cell count remains elevated at 15,000 Potassium better 3.5 otherwise stable Chem panel Microbiology data: No new growth on any cultures or infectious studies Chest x-ray done today, I reviewed the images personally: Persistent right given left pleural effusions and bibasilar consolidation Objective: Vital Signs Temp Pulse Resp BP Pulse Ox 36.4 C 81 20 151/53 H 97 08/01/17 07:35 08/01/17 07:35 08/01/17 07:35 08/01/17 08:47 08/01/17 07:35 Microbiology 07/29/17 17:44 Gram Stain - Final Lung - Tissue Laboratory Results 08/01/17 06:05 08/01/17 06:05 07/31/17 08/01/17 08/02/17 06:59 06:59 06:59 Intake Total 3430 1391 Output Total 1175 2145 Balance 2255 -754 PT 18.6 SEC (12.0-15.0) H 07/29/17 22:10 INR 1.54 (0.83-1.16) H 07/29/17 22:10 - Time Spent With Patient Time Spent with Patient: greater than 35 minutes Time Spent with Patient: Greater than 35 minutes spent on this patients care, greater than 50% of time spent counseling, educating, and coordinating care regarding the above mentioned plan. ICD10 Worksheet Patient Problems: Problems Problem Status Onset Failure to thrive in adult Acute Pleural effusion Acute Weakness Acute Abrasion of left elbow, initial encounter Acute Anemia Acute CHI (closed head injury) Acute Chronic Disease Mgmt/Transitional Care Acute Closed left clavicular fracture Acute Depression Acute Dyspnea Acute Fracture of pubic ramus Acute HTN (hypertension) Acute Multiple falls Acute Pneumonia Acute Post concussion syndrome Acute Ribs, multiple fractures Acute Sepsis Acute Unsteady gait Acute Weakness of both legs Acute
--- NOTE | 2017-08-01 12:04 | GOP ---
[f rep st] OPERATIVE REPORT DATE OF OPERATION: 07/29/2017 SURGEON: Yung Holland MD METAL LATHER: Tali Canada, PAC. ANESTHESIOLOGIST: Dr. Bhavesh Bonilla. PREOPERATIVE DIAGNOSIS: Right lung empyema. POSTOPERATIVE DIAGNOSIS: Right lung empyema. PROCEDURE PERFORMED: VATS thoracotomy with decortication, wedge lung biopsy, pleural biopsies and ly mph node biopsies as well as cultures. FINDINGS: Patient was found with very thick fibrinous entrapment of the right lower lobe with a thre e-eighths of an inch thick rind. There was a posterior purulent fluid collection. The lung itself a ppeared to be reasonably normal. There were some inflamed adjacent nodes in the mediastinum. DESCRIPTION OF PROCEDURE: Patient was taken to the operating room where he received satisfactory gen eral endotracheal anesthesia by . He was placed in the left lateral decubitus position , prepped and draped in usual sterile fashion. A short incision was made in the 7th intercostal spac e in the midaxillary line. Trocar was introduced. Thoracoscope was introduced, however, visibility was completely non-existent. The incision was slightly enlarged until a finger could be placed in th e chest and some adhesions were broken down with a small amount of visibility obtained. However, no real progress could be made simply with the scope and the incision was enlarged enough to explore the chest. Tense, fibrinous adhesions were taken down surrounding and entrapping the right lower lobe. Fluid was suctioned clear and sent for culture, and the entire right lung was freed up from adherenc e to the parietal pleura. The wound was irrigated. All free fluid was removed. Tedious dissection ensued dissecting the lung off the diaphragm and off the posterior chest wall. Very thick membranes entrapping the right lower lobe was dissected off in pieces until the lung could be expanded. A wedg e biopsy was taken of the lower lobe. A 2 cm enlarged mediastinal node was dissected free and sent f or pathology as well, and pleural biopsies were taken and sent. There were no obvious signs of malig jennifer. After freeing up the lung so it could completely expand, two 28 chest tubes were brought in t hrough trocar site incisions; one placed posteriorly and one placed anterior around the lung. Wound was infiltrated with 0.5% Marcaine and the thoracotomy incision was then closed in layers with #1 Yong ryl pericostal sutures and running #1 Vicryl suture for the muscular layers. Skin jamil for the sk in. The previous trocar sites were closed with 4-0 Monocryl sutures and chest tubes were secured at the skin with 2-0 silk sutures and connected to a Pleur-Evac drainage system. He tolerated the proce dure quite well. Blood loss was 400 mL. There were no complications. He had lung, pleural lymph no de and tissue sent for pathology and culture. Final procedure was a VATS drainage of empyema and dec ortication with wedge right lower lobe biopsy, pleural biopsies and mediastinal lymph node biopsy. /[id number]/MODL
--- NOTE | 2017-08-01 15:20 | PDINTPN ---
Center Mgr Progress Note Assessment/Plan: Assessment: 77 M with CAD, ADAN, and chronic hypoxemia developed right pleural effusion after multiple falls in the setting of weight loss and anorexia. The etiology has been unclear and he underwent thoracentesis on admission which was a non- specific exudate. He seemed to re-accumulate so underwent a second tap, labs consistent with empyema (low pH and glucose). * Empyema: S/P decortication 07/29. Decreased O2 needs. Still has chest congestion. * Bacteremia from left arm cellulitis- Grp A Strep on Blood Cx. WBC stable last 2 days. On CTX. * Emphysema: On Breo, montelukast, albuterol as an outpatient. Currently just on albuterol. * Anemia: Hgb low but stable * Elevated HCO3 Plan: Continue CTX, Breo, Mucomyst. Check VBG. Follow CXR. May be able to leave ICU. 08/01/17 15:23 Subjective: Feels weak, still with cough and difficulty expectoration Objective: Vital Signs Temp Pulse Resp BP Pulse Ox 36.7 C 97 20 151/53 H 93 08/01/17 12:00 08/01/17 12:00 08/01/17 12:00 08/01/17 08:47 08/01/17 12:00 Microbiology 07/29/17 17:44 Gram Stain - Final Lung - Tissue Laboratory Results 08/01/17 06:05 08/01/17 06:05 07/31/17 08/01/17 08/02/17 05:59 05:59 05:59 Intake Total 3430 1391 Output Total 1175 2145 Balance 2255 -754 PT 18.6 SEC (12.0-15.0) H 07/29/17 22:10 INR 1.54 (0.83-1.16) H 07/29/17 22:10 Path: Fibrosis, emphysema Laboratory Tests 08/01/17 06:05 Albumin 1.9 L CXR: Unchanged. Images reviewed by me. Physical Exam - Physical Exam General Appearance: alert, no apparent distress EENT: normal ENT inspection Neck: normal inspection Respiratory: rhonchi Cardiac/Chest: regular rate, rhythm, No edema Abdomen: normal bowel sounds, non-tender Skin: normal color, warm/dry Extremities: normal inspection Neuro/Psych: alert, normal mood/affect, oriented x 3 ICD10 Worksheet Patient Problems: Problems Problem Status Onset Failure to thrive in adult Acute Pleural effusion Acute Weakness Acute Abrasion of left elbow, initial encounter Acute Anemia Acute CHI (closed head injury) Acute Chronic Disease Mgmt/Transitional Care Acute Closed left clavicular fracture Acute Depression Acute Dyspnea Acute Fracture of pubic ramus Acute HTN (hypertension) Acute Multiple falls Acute Pneumonia Acute Post concussion syndrome Acute Ribs, multiple fractures Acute Sepsis Acute Unsteady gait Acute Weakness of both legs Acute
[2017-08-01] MEDS ORDERED: IBUPROFEN 200 MG TAB PO PRN (16:13)
[2017-08-01] MEDS: MONTELUKAST SODIUM 10 MG TAB PO SCH (18:04)
[2017-08-01] MEDS: ATORVASTATIN CALCIUM 10 MG TAB PO SCH (21:32)
[2017-08-01] MEDS: traZODone 50 MG TAB PO SCH (21:32)
[2017-08-01] MEDS: MELATONIN 3 MG TAB PO SCH (21:32)
[2017-08-02 04:30] LABS: PLATELET COUNT 342 10^3/uL (150-400)
[2017-08-02] MEDS: ACETYLCYSTEINE 10% IH/PO 4 ML VIAL IH SCH ×4 (05:32→21:10)
[2017-08-02] MEDS ORDERED: POTASSIUM CL 20 MEQ TAB PO ONE (05:45)
[2017-08-02] MEDS: CLOTRIMAZOLE 10 MG TROCHE PO SCH ×4 (06:52→17:20)
[2017-08-02] MEDS: (Fluticasone/Vilanterol [Breo Ellipta 200-25 Mcg Inh] 1 EACH) IH SCH (09:00)
[2017-08-02] MEDS: FUROSEMIDE 40 MG/4 ML VIAL IVP SCH ×2 (09:20→15:21)
[2017-08-02] MEDS: LISINOPRIL 10 MG TAB PO SCH ×2 (09:20→20:48)
[2017-08-02] MEDS: cefTRIAXone 2 GM in STERILE WATER INJ 20 ML IV SCH (09:21)
[2017-08-02] MEDS: buPROPion XL 150 MG TAB PO SCH (09:21)
[2017-08-02] MEDS: morphINE SR 15 MG TAB PO SCH ×2 (09:21→20:48)
[2017-08-02] MEDS: LUBIPROSTONE 24 MCG CAP PO SCH ×2 (09:25→17:19)
--- NOTE | 2017-08-02 09:26 | SOAPPROG ---
SOAP Progress Note Assessment/Plan: Assessment/Plan: 77 Y M s/p VATS c thoracotomy, decortication, wedge lung biopsy and pleural and LN biopsies, POD#4. CXR improved. Afebrile. Chest tube drainage is serosanguinous and decreasing. No air leak elicited but poor cough effort--suspect he probably does have a leak due to our extensive decortication. Plan to leave the chest tube in for at least a few more days. S: sitting in chair to eat. hasn't been very hungry. pain about a 6 he says. O: alert, nad mild wob, lung sounds improved. still dull at R base. rrr abd soft wounds well dressed no air leak, see above 08/02/17 09:23 Objective: Vital Signs Temp Pulse Resp BP Pulse Ox 36.7 C 106 H 25 H 159/93 H 96 08/02/17 07:50 08/02/17 09:02 08/02/17 09:02 08/02/17 07:50 08/02/17 09:02 Microbiology 07/29/17 17:44 Gram Stain - Final Lung - Tissue Laboratory Results 08/02/17 04:20 08/02/17 04:20 08/01/17 08/02/17 08/03/17 05:59 05:59 05:59 Intake Total 2141 1700 Output Total 2745 1660 220 Balance -604 40 -220 PT 18.6 SEC (12.0-15.0) H 07/29/17 22:10 INR 1.54 (0.83-1.16) H 07/29/17 22:10 ICD10 Worksheet Patient Problems: Problems Problem Status Onset Failure to thrive in adult Acute Pleural effusion Acute Weakness Acute Abrasion of left elbow, initial encounter Acute Anemia Acute CHI (closed head injury) Acute Chronic Disease Mgmt/Transitional Care Acute Closed left clavicular fracture Acute Depression Acute Dyspnea Acute Fracture of pubic ramus Acute HTN (hypertension) Acute Multiple falls Acute Pneumonia Acute Post concussion syndrome Acute Ribs, multiple fractures Acute Sepsis Acute Unsteady gait Acute Weakness of both legs Acute
[2017-08-02] MEDS: ALBUTEROL 3 ML DEYVIAL IH SCH ×3 (11:56→21:09)
--- NOTE | 2017-08-02 13:00 | ASMTCMCOM ---
CM Note CM Note Notes: Patient may be able to transfer to the floor today. D/C plan remains [facility] when the patient is medically stable.CM will follow. Date Signed: 08/02/2017 12:59 PM Electronically Signed By:Maye Reed LCSW
[2017-08-02] MEDS: SENNOSIDES/DOCUSATE SODIUM TAB PO SCH ×2 (13:02→20:47)
[2017-08-02] MEDS: FERROUS SULFATE 325 MG TAB PO SCH (13:02)
[2017-08-02] MEDS: CHOLECALCIFEROL VIT D3 2,000 UNITS TAB/CAP PO SCH (13:02)
[2017-08-02] MEDS: SODIUM CHLORIDE 1,000 MG TAB PO SCH (13:02)
--- NOTE | 2017-08-02 14:02 | PCMIDPN ---
Assessment/Plan: 1. Group a strep bacteremia secondary to superficial thrombophlebitis of the left basilic vein: Completed therapy with ceftriaxone. Please see 2. 2. Empyema status post VATS: Thankfully, path was negative for malignancy, and this was conveyed to the patient and his family today. Cultures also negative so far. Will likely need a minimum of 4 weeks of IV ceftriaxone post VATS, tentative stop date August 27. 3. Intertriginous candidiasis inguinal area: Continue nystatin powder/wound care. Subjective: Remains very deconditioned. No diarrhea or cough. Decreased appetite. Still has chest tube in place. Objective: Ceftriaxone 2 g IV daily day 14 Afebrile Vital Signs Temp Pulse Resp BP Pulse Ox 36.4 C 112 H 18 142/81 H 97 08/02/17 11:53 08/02/17 12:05 08/02/17 12:05 08/02/17 11:53 08/02/17 12:05 Microbiology 07/29/17 17:44 Gram Stain - Final Lung - Tissue Laboratory Results 08/02/17 04:20 08/02/17 04:20 08/01/17 08/02/17 08/03/17 05:59 05:59 05:59 Intake Total 2141 1700 Output Total 2745 1660 660 Balance -604 40 -660 ESR 81 MM/HR (0-20) H 07/26/17 12:58 C-Reactive Protein 155.2 mg/L (<10.0) H 07/26/17 12:58 Pleural biopsy cultures negative - Physical Exam General Appearance: other (Sitting in chair, no apparent distress. Looks older than stated age.) EENT: pharynx normal, No thrush Respiratory: other (Chest tube in place on the right. Decreased breath sounds for right lung, left is fairly clear.) Cardiac/Chest: irregularly irregular Abdomen: non-tender, soft Back: other Skin: other (Some intertriginous candidiasis, inguinal area) ICD10 Worksheet Patient Problems: Problems Problem Status Onset Failure to thrive in adult Acute Pleural effusion Acute Weakness Acute Abrasion of left elbow, initial encounter Acute Anemia Acute CHI (closed head injury) Acute Chronic Disease Mgmt/Transitional Care Acute Closed left clavicular fracture Acute Depression Acute Dyspnea Acute Fracture of pubic ramus Acute HTN (hypertension) Acute Multiple falls Acute Pneumonia Acute Post concussion syndrome Acute Ribs, multiple fractures Acute Sepsis Acute Unsteady gait Acute Weakness of both legs Acute
--- NOTE | 2017-08-02 14:23 | WOCRNPDOC ---
WOCRN Advanced Assessment Note - Skin Integrity Problem, Advanced Assess Bilateral Groin Incont Assoc Dermatitis Dressing Type: Open to Air Skin Integrity Problem Comment: Diffuse satellite lesions to groin folds consistent with moisture associated dermatitis. Condom cath in place; recommend continued use to dry out area. Wound care obtained order for MAD cream to be applied BID. Sacrum Dressing Type: Mepilex Border (Sacrum) Dressing Description: Clean/Dry, Intact Integumentary Issue Intervention: Dressing Changed Skin Integrity Problem Comment: Redness to sacral area, similar in appearance to groin skin issue of moisture related dermatitis. Patient is at risk for pressure injury due to multiple health issues and lean body composition. Recommend to continue using mepilex border sacrum dressing if it can remain dry. No pressure injury identified.
--- NOTE | 2017-08-02 14:43 | HOSPPROG ---
Hospitalist Progress Note Assessment/Plan: DIAGNOSES: -acute sepsis, resolved at this point -acute streptococcal bacteremia likely secondary to a thrombophlebitis in his left arm * Echo without evidence of vegetations -empyema: acute bilateral pleural effusions initially appeared on infected but eventually became much more exact date of an with evidence of gram-positive cocci on g stain of the 2nd fluid aspiration, consistent with empyema * Bilateral pleural effusions persist at this time -acute hypoxemic respiratory failure due to COPD, effusions, infection, other factors * Notably improved but still requiring oxygen replacement and with significant dyspnea with any activity -possible new diagnosis of hypothyroidism, newly identified today * Will need to trying confirm this by checking free T3 and free T4 as a non free T4 was checked earlier * Will begin on some empiric therapy while waiting for repeat lab tests as he is having enough trouble that this will be important to help him move forward -acute post hemorrhagic anemia following VATS procedure * Stable at this point -acute encephalopathy, multifactorial * Markedly improved but still out at his baseline -acute rapid atrial fibrillation, new diagnosis at this time * 07/20 Echo w/ EF 65-70% and no focal wall motion abnl, no significant valve issues * recommend outpt f/u Dr. Parson for 30-day monitor and consideration of AC * Currently stable on rate control though anticoagulation has been held due to his bleeding episode and anemia -severe deconditioning, bed-bound at this time * So far patient not very willing to work with therapists on assessment or active therapy -intertriginous dermatitis with skin breakdown in use dermatitis in the groin area -protein calorie malnutrition, severe and with very poor intake at this time ( BMI at admission was 21 however now he has lost significant amount of lean body mass and stores during this hospital admission and has less than 500 calories per day intake so far at this time) -hyponatremia resolved -COPD -chronic stable CAD on Plavix due to prior stents greater than 1 year ago High-level of medical complexity, high risk for worsening morbidity and/or mortality secondary to the issues outlined above. Seen by me today on hospitalist rounds and multidisciplinary ICU rounds I reviewed in detail with Dr. Prasanth Abarca and Dr. Lisbeth Hannon The patient today declined to work with speech physical or occupational therapies. I reviewed with him that of be critical for him to participate very actively in their assessment and care to move forward towards discharge and return to independence. He understands this. PLANS: -recheck TSH and check free T3 and free T4 -will give some empiric low-dose levothyroxine to start with while waiting for the repeat tests -continue current antibiotics -continue current supportive care and respiratory care -continue current cardiac medications without change at this moment -strongly encourage patient to participate with therapists -nutritional supplements as able and strongly encouraged patient to continue attempting in eat, however still avoiding on speech language pathology assessment of his swallowing to ensure that that is safe without aspiration; will add multivitamins at this point -wound care nurse management for his groin skin issues -probably stable for transfer out of ICU today, will need ongoing cardiac monitoring for AFib -will need correction facility when he is ready for discharge from the hospital SUBJECTIVE: Again very weak, poor appetite Minimal chest discomfort with chest tube Notes no other new symptoms Nurses note no acute episodes or events OBJECTIVE Vitals reviewed: Mild hypertension otherwise stable without fever 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, 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: Stable sinus rhythm Exam: alert oriented, again some mild disorientation and memory issues but much better than he had been a few days ago skin warm dry color ok; groin skin changes as noted yesterday are unchanged today resps not labored lungs clear BSs heart regular on left decreased at base on right abd soft nondistended nontender, bowel sounds present limbs warm, no edema Chest tube in place on right with some serosanguineous fluid being removed, no air leak noted iv site ok Laboratory data: Little significant change in CBC today Potassium down again at 3.1 Rest of chemistry today unremarkable. Also I notice looking back through labs from earlier in his hospital stay that he has an elevated TSH at approximately 9 and a low T4 though this was not a free T4 Microbiology data: No new growth on any cultures or infectious studies Chest x-ray done today, I reviewed the images personally: Little change from yesterday with ongoing right basilar consolidation/atelectasis, chest tube in place, small effusion is likely in the left with some atelectasis or consolidation there; no pneumothorax noted Objective: Vital Signs Temp Pulse Resp BP Pulse Ox 36.4 C 112 H 18 142/81 H 97 08/02/17 11:53 08/02/17 12:05 08/02/17 12:05 08/02/17 11:53 08/02/17 12:05 Microbiology 07/29/17 17:44 Gram Stain - Final Lung - Tissue Laboratory Results 08/02/17 04:20 08/02/17 04:20 08/01/17 08/02/17 08/03/17 06:59 06:59 06:59 Intake Total 2141 1700 Output Total 2748 1780 540 Balance -604 -80 -540 PT 18.6 SEC (12.0-15.0) H 07/29/17 22:10 INR 1.54 (0.83-1.16) H 07/29/17 22:10 - Time Spent With Patient Time Spent with Patient: greater than 35 minutes Time Spent with Patient: Greater than 35 minutes spent on this patients care, greater than 50% of time spent counseling, educating, and coordinating care regarding the above mentioned plan. ICD10 Worksheet Patient Problems: Problems Problem Status Onset Failure to thrive in adult Acute Pleural effusion Acute Weakness Acute Abrasion of left elbow, initial encounter Acute Anemia Acute CHI (closed head injury) Acute Chronic Disease Mgmt/Transitional Care Acute Closed left clavicular fracture Acute Depression Acute Dyspnea Acute Fracture of pubic ramus Acute HTN (hypertension) Acute Multiple falls Acute Pneumonia Acute Post concussion syndrome Acute Ribs, multiple fractures Acute Sepsis Acute Unsteady gait Acute Weakness of both legs Acute
[2017-08-02] MEDS ORDERED: MULTIVITAMINS W-IRON (PEDS) 1 ML UDSYR PO SCH (15:00)
[2017-08-02] MEDS: LEVOTHYROXINE 75 MCG TAB PO SCH (15:21)
[2017-08-02] MEDS: MULTIVITAMINS 1 EACH TAB PO SCH (15:21)
[2017-08-02] MEDS: MONTELUKAST SODIUM 10 MG TAB PO SCH (17:19)
[2017-08-02] MEDS: MELATONIN 3 MG TAB PO SCH (20:48)
[2017-08-02] MEDS: traZODone 50 MG TAB PO SCH (20:48)
[2017-08-02] MEDS: ATORVASTATIN CALCIUM 10 MG TAB PO SCH (20:48)
[2017-08-03] MEDS: CLOTRIMAZOLE 10 MG TROCHE PO SCH ×6 (00:07→20:25)
[2017-08-03] MEDS: LIDO/ZINC OX/CLOTRIMAZOLE (MAD) 116 GM CREAM TP SCH ×3 (00:07→22:56)
[2017-08-03] MEDS: ACETYLCYSTEINE 10% IH/PO 4 ML VIAL IH SCH ×4 (05:26→20:43)
[2017-08-03] MEDS: ALBUTEROL 3 ML DEYVIAL IH SCH ×4 (05:26→20:43)
[2017-08-03 06:23] LABS: PLATELET COUNT 311 10^3/uL (150-400)
[2017-08-03] MEDS ORDERED: POTASSIUM CL 20 MEQ TAB PO ONE (07:29)
[2017-08-03] MEDS: cefTRIAXone 2 GM in STERILE WATER INJ 20 ML IV SCH (07:59)
[2017-08-03] MEDS: LUBIPROSTONE 24 MCG CAP PO SCH (08:00)
[2017-08-03] MEDS: SODIUM CHLORIDE 1,000 MG TAB PO SCH (08:00)
[2017-08-03] MEDS: FUROSEMIDE 40 MG/4 ML VIAL IVP SCH (08:00)
[2017-08-03] MEDS: LEVOTHYROXINE 75 MCG TAB PO SCH (08:01)
[2017-08-03] MEDS: morphINE SR 15 MG TAB PO SCH ×3 (08:01→21:35)
[2017-08-03] MEDS: LISINOPRIL 10 MG TAB PO SCH ×2 (08:01→22:40)
[2017-08-03] MEDS: CHOLECALCIFEROL VIT D3 2,000 UNITS TAB/CAP PO SCH (08:01)
[2017-08-03] MEDS: FERROUS SULFATE 325 MG TAB PO SCH (08:01)
[2017-08-03] MEDS: buPROPion XL 150 MG TAB PO SCH (08:01)
[2017-08-03] MEDS: MULTIVITAMINS 1 EACH TAB PO SCH (08:01)
[2017-08-03] MEDS: SENNOSIDES/DOCUSATE SODIUM TAB PO SCH (08:07)
[2017-08-03] MEDS ORDERED: PROTOCOL POTASSIUM 1 DOSE MISC PRN (08:57)
[2017-08-03] MEDS: (Fluticasone/Vilanterol [Breo Ellipta 200-25 Mcg Inh] 1 EACH) IH SCH (09:15)
--- NOTE | 2017-08-03 09:19 | HOSPPROG ---
Hospitalist Progress Note Assessment/Plan: DIAGNOSES: -acute sepsis, resolved at this point -acute streptococcal bacteremia likely secondary to a thrombophlebitis in his left arm * Echo without evidence of vegetations -empyema: acute bilateral pleural effusions initially appeared on infected but eventually became much more exact date of an with evidence of gram-positive cocci on g stain of the 2nd fluid aspiration, consistent with empyema * Bilateral pleural effusions persist at this time -acute hypoxemic respiratory failure due to COPD, effusions, infection, other factors * Rising CO2 and more tachypnea potentially indicate a worsening acutely today, though could be other causes of high CO2; O2 needs not currently up -Hypothyroid, new diagnosis: * could significantly affect his mentation, appetite, overall recovery * replacement therapy started -acute post hemorrhagic anemia following VATS procedure * Stable at this point -acute encephalopathy, multifactorial * Markedly improved but still out at his baseline -acute rapid atrial fibrillation, new diagnosis at this time * 07/20 Echo w/ EF 65-70% and no focal wall motion abnl, no significant valve issues * recommend outpt f/u Dr. Parson for 30-day monitor and consideration of AC * Currently stable on rate control though anticoagulation has been held due to his bleeding episode and anemia -severe deconditioning, bed-bound at this time * So far patient not very willing to work with therapists on assessment or active therapy -intertriginous dermatitis with skin breakdown in use dermatitis in the groin area -protein calorie malnutrition, severe and with very poor intake at this time ( BMI at admission was 21 however now he has lost significant amount of lean body mass and stores during this hospital admission and has less than 500 calories per day intake so far at this time) -hyponatremia resolved -COPD -chronic stable CAD on Plavix due to prior stents greater than 1 year ago High-level of medical complexity, high risk for worsening morbidity and/or mortality secondary to the issues outlined above. PLANS: -I have ordered stat ABG and CXR, will review and determine whether further action for resps needed -continue levothyroxine -stool sent to check for Cdiff -continue current antibiotics -continue current supportive care and respiratory care -continue current cardiac medications without change at this moment -strongly encourage patient to participate with therapists -nutritional supplements as able and strongly encouraged patient to continue attempting in eat, however still avoiding on speech language pathology assessment of his swallowing to ensure that that is safe without aspiration; will add multivitamins at this point -wound care nurse management for his groin skin issues -will need intermediate facility when he is ready for discharge from the hospital SUBJECTIVE: says he feels about the same breathing is " so so" no pain quite weak Had a large loose stool this am OBJECTIVE Vitals reviewed: Had a fever 38.4 yest evening, no fever since, currently mild hypertension otherwise stable without fever 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, 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: Stable sinus rhythm Exam: alert, talkative, looks skin warm dry color ok; groin skin changes as noted yesterday are unchanged today resps not labored lungs clear BSs heart regular on left decreased at base on right abd soft nondistended nontender, bowel sounds present limbs warm, no edema chest tube in place on right with some serosanguineous fluid being removed, no air leak noted iv site ok Laboratory data: Little significant change in CBC today Potassium down again at 2.8 CO2 increased much further today at 44 wbc a bit higher today TSH lower than prior test but still a bit high, free T3 and free T4 normal Microbiology data: No new growth on any cultures or infectious studies Chest x-ray done today, I reviewed the images personally: Objective: Vital Signs Temp Pulse Resp BP Pulse Ox 37.0 C 92 22 H 168/117 H 92 08/03/17 08:00 08/03/17 08:00 08/03/17 08:00 08/03/17 08:00 08/03/17 08:00 Microbiology 07/29/17 17:44 Gram Stain - Final Lung - Tissue Laboratory Results 08/03/17 06:17 08/03/17 06:17 08/02/17 08/03/17 08/04/17 06:59 06:59 06:59 Intake Total 1700 400 Output Total 1780 1220 Balance -80 -820 PT 18.6 SEC (12.0-15.0) H 07/29/17 22:10 INR 1.54 (0.83-1.16) H 07/29/17 22:10 - Time Spent With Patient Time Spent with Patient: greater than 35 minutes Time Spent with Patient: Greater than 35 minutes spent on this patients care, greater than 50% of time spent counseling, educating, and coordinating care regarding the above mentioned plan. ICD10 Worksheet Patient Problems: Problems Problem Status Onset Failure to thrive in adult Acute Pleural effusion Acute Weakness Acute Abrasion of left elbow, initial encounter Acute Anemia Acute CHI (closed head injury) Acute Chronic Disease Mgmt/Transitional Care Acute Closed left clavicular fracture Acute Depression Acute Dyspnea Acute Fracture of pubic ramus Acute HTN (hypertension) Acute Multiple falls Acute Pneumonia Acute Post concussion syndrome Acute Ribs, multiple fractures Acute Sepsis Acute Unsteady gait Acute Weakness of both legs Acute
[2017-08-03] MEDS: ONDANSETRON 4 MG/2 ML VIAL IVP PRN (11:15)
--- NOTE | 2017-08-03 12:12 | SOAPPROG ---
SOAP Progress Note Assessment/Plan: Assessment: LOW GRADE TEMP/ CXR WITH SOME HAZINESS/ MODERATE CHEST DRAINAGE/ WBC 17K Plan:CONTINUE DRAINAGE/ MAY NEED FU CT SCAN 08/03/17 12:10 Objective: Vital Signs Temp Pulse Resp BP Pulse Ox 37.2 C 98 22 H 139/84 H 90 L 08/03/17 11:41 08/03/17 11:41 08/03/17 11:41 08/03/17 11:41 08/03/17 11:41 Microbiology 07/29/17 17:44 Gram Stain - Final Lung - Tissue Laboratory Results 08/03/17 06:17 08/03/17 06:17 08/02/17 08/03/17 08/04/17 05:59 05:59 05:59 Intake Total 1700 400 Output Total 1660 1340 Balance 40 -940 PT 18.6 SEC (12.0-15.0) H 07/29/17 22:10 INR 1.54 (0.83-1.16) H 07/29/17 22:10 ICD10 Worksheet Patient Problems: Problems Problem Status Onset Failure to thrive in adult Acute Pleural effusion Acute Weakness Acute Abrasion of left elbow, initial encounter Acute Anemia Acute CHI (closed head injury) Acute Chronic Disease Mgmt/Transitional Care Acute Closed left clavicular fracture Acute Depression Acute Dyspnea Acute Fracture of pubic ramus Acute HTN (hypertension) Acute Multiple falls Acute Pneumonia Acute Post concussion syndrome Acute Ribs, multiple fractures Acute Sepsis Acute Unsteady gait Acute Weakness of both legs Acute
--- NOTE | 2017-08-03 13:53 | PCMIDPN ---
Assessment/Plan: 1. Group a strep bacteremia secondary to superficial thrombophlebitis of the left basilic vein: Completed therapy with ceftriaxone. Please see 2. 2. Empyema status post VATS: Will likely need a minimum of 4 weeks of IV ceftriaxone post VATS, tentative stop date August 27. Repeat chest x-ray looks improved. 3. New fever and leukocytosis: Stool is positive for C difficile, which likely explains his fever and leukocytosis. Will start vancomycin 125 mg p.o. Four times daily. Contact isolation. No evidence of toxic megacolon presently. 08/03/17 13:53 Subjective: Patient had a new fever to 384 and diarrhea this morning. C diff positive. Patient is extremely weak, and really not eating. Had a large loose bowel movement this morning. Seems very tired. Objective: Ceftriaxone 2 g IV daily day 15 T-max 38.4 degrees Vital Signs Temp Pulse Resp BP Pulse Ox 37.2 C 98 22 H 139/84 H 90 L 08/03/17 11:41 08/03/17 11:41 08/03/17 11:41 08/03/17 11:41 08/03/17 11:41 Microbiology 08/03/17 09:39 Gastrointestinal Tract Panel (PCR) - Final Stool Clostridium Difficile Detected 07/29/17 17:44 Gram Stain - Final Lung - Tissue Laboratory Results 08/03/17 06:17 08/03/17 06:17 08/02/17 08/03/17 08/04/17 05:59 05:59 05:59 Intake Total 1700 400 Output Total 1660 1340 Balance 40 -940 ESR 81 MM/HR (0-20) H 07/26/17 12:58 C-Reactive Protein 155.2 mg/L (<10.0) H 07/26/17 12:58 C diff positive - Physical Exam General Appearance: other (Looks very tired.) Respiratory: other (Chest tube on the right. Diminished breath sounds on the right.) Cardiac/Chest: tachycardia Abdomen: other (Not distended. Hyperactive bowel sounds. Some diffuse for mild tenderness to palpation, but no peritoneal signs.) Skin: No rash ICD10 Worksheet Patient Problems: Problems Problem Status Onset Failure to thrive in adult Acute Pleural effusion Acute Weakness Acute Abrasion of left elbow, initial encounter Acute Anemia Acute CHI (closed head injury) Acute Chronic Disease Mgmt/Transitional Care Acute Closed left clavicular fracture Acute Depression Acute Dyspnea Acute Fracture of pubic ramus Acute HTN (hypertension) Acute Multiple falls Acute Pneumonia Acute Post concussion syndrome Acute Ribs, multiple fractures Acute Sepsis Acute Unsteady gait Acute Weakness of both legs Acute
[2017-08-03] MEDS: VANCOMYCIN 125 MG/2.5 ML UDL PO SCH ×3 (15:11→20:24)
[2017-08-03] MEDS: MONTELUKAST SODIUM 10 MG TAB PO SCH (20:25)
[2017-08-03] MEDS: traZODone 50 MG TAB PO SCH (20:25)
[2017-08-03] MEDS: MELATONIN 3 MG TAB PO SCH (20:25)
[2017-08-03] MEDS: ATORVASTATIN CALCIUM 10 MG TAB PO SCH (20:25)
[2017-08-03] MEDS: ACETAMINOPHEN 325 MG TAB PO PRN (21:03)
[2017-08-03] MEDS: oxyCODONE IR 5 MG TAB PO PRN (21:03)
[2017-08-03] MEDS ORDERED: PROTOCOL CALCIUM 1 DOSE IV PRN (21:23)
[2017-08-03] MEDS ORDERED: PROTOCOL K PHOSPHATE 1 DOSE IV PRN (21:23)
[2017-08-03] MEDS ORDERED: PROTOCOL MAGNESIUM 1 DOSE IV PRN (21:23)
[2017-08-03] MEDS ORDERED: MAGNESIUM SULF 2 GM/WATER 50 ML IV ONE (21:25)
[2017-08-03] MEDS ORDERED: CALCIUM GLUCONATE 50 ML IV ONE (21:25)
[2017-08-03] MEDS ORDERED: CALCIUM CHLORIDE 1 GM in D5W 50 ML IV ONE (21:30)
[2017-08-03] MEDS: POTASSIUM Cl (KCl) 50 ML IV SCH ×2 (21:39→21:40)
[2017-08-03] MEDS ORDERED: CALCIUM GLUCONATE 1 GM in D5W 50 ML IV ONE (22:00)
[2017-08-04] MEDS: oxyCODONE IR 5 MG TAB PO PRN ×2 (01:02→06:02)
[2017-08-04] MEDS: CLOTRIMAZOLE 10 MG TROCHE PO SCH ×5 (05:18→21:35)
[2017-08-04] MEDS: VANCOMYCIN 125 MG/2.5 ML UDL PO SCH (05:31)
[2017-08-04] MEDS: LEVOTHYROXINE 75 MCG TAB PO SCH (05:32)
[2017-08-04] MEDS ORDERED: POTASSIUM CL 20 MEQ TAB PO ONE (05:54)
[2017-08-04] MEDS ORDERED: CALCIUM GLUCONATE 1 GM in D5W 50 ML IV ONE (06:00)
[2017-08-04] MEDS: ALBUTEROL 3 ML DEYVIAL IH SCH ×4 (06:05→20:09)
[2017-08-04] MEDS: ACETYLCYSTEINE 10% IH/PO 4 ML VIAL IH SCH ×4 (06:06→20:10)
[2017-08-04] MEDS: LIDO/ZINC OX/CLOTRIMAZOLE (MAD) 116 GM CREAM TP SCH ×2 (08:46→20:35)
--- NOTE | 2017-08-04 10:16 | HOSPPROG ---
Hospitalist Progress Note Assessment/Plan: 77 yo M w sepsis, grp A steep bacteremia now cdiff sepsis: septic physiology has resolved Group A strep bacteremia: from superficial thrombophlebitis. IV ceftriaxone for 2 weeks from date of blood clearance. No veggies on echo blood cxs 07/22 NGTD Recurrent right pleural effusion: empyema s/p VATS cdiff: on po vanc diarrhea has decreased aspiration: HOGS[place] SALVAGE feels swallow unsafe so NPO for now deconitionig: encouraged OOB and ambulation Acute hypoxic resp failure: due to effusion. Significant weight loss: concern for malignancy. No mass seen on imaging. Repeat cytology also neg Hypotension: resolved. Now hypertensive. Normal EF Hypoglycemia: resolved CAD: h/o stents. Plavix, statin Hypertension: restart low-dose SAMEER-I. Leukocytosis: trending down LUE thrombophlebitis: apply warm compress, Ibuprofen improved today The Deconditioning: recommend SNF Falls: PT/OT Reported lung mass: not seen on CT Diet: npo Disp: cont inpatient admission for thoracentesis, PT, IV abx Subjective: case d/w jesus carver and minor Objective: Vital Signs Temp Pulse Resp BP Pulse Ox 36.7 C 93 19 105/66 100 08/04/17 08:00 08/04/17 08:00 08/04/17 08:00 08/04/17 08:00 08/04/17 08:00 Microbiology 08/03/17 09:39 Gastrointestinal Tract Panel (PCR) - Final Stool Clostridium Difficile Detected Laboratory Results 08/04/17 05:00 08/04/17 05:00 08/03/17 08/04/17 08/05/17 05:59 05:59 05:59 Intake Total 400 975 Output Total 1340 670 Balance -940 305 PT 18.6 SEC (12.0-15.0) H 07/29/17 22:10 INR 1.54 (0.83-1.16) H 07/29/17 22:10 - Physical Exam Constitutional: no apparent distress, chronically ill appearing Eyes: PERRL, anicteric sclera Ears, Nose, Mouth, Throat: moist mucous membranes, hearing normal Cardiovascular: regular rate and rhythym, no murmur, rub, or gallop Respiratory: no respiratory distress, other (wet cough, rhonchorous breath sounds. ) Gastrointestinal: normoactive bowel sounds, soft, non-tender abdomen Genitourinary: phan in urethra Skin: warm, normal color Musculoskeletal: full muscle strength, no muscle tenderness Neurologic: AAOx3 ICD10 Worksheet Patient Problems: Problems Problem Status Onset Failure to thrive in adult Acute Pleural effusion Acute Weakness Acute Abrasion of left elbow, initial encounter Acute Anemia Acute CHI (closed head injury) Acute Chronic Disease Mgmt/Transitional Care Acute Closed left clavicular fracture Acute Depression Acute Dyspnea Acute Fracture of pubic ramus Acute HTN (hypertension) Acute Multiple falls Acute Pneumonia Acute Post concussion syndrome Acute Ribs, multiple fractures Acute Sepsis Acute Unsteady gait Acute Weakness of both legs Acute
--- NOTE | 2017-08-04 10:34 | PCMIDPN ---
Assessment/Plan: 1. Group a strep bacteremia secondary to superficial thrombophlebitis of the left basilic vein: Completed therapy with ceftriaxone. Please see 2. 2. Empyema status post VATS: Will likely need a minimum of 4 weeks of IV ceftriaxone post VATS, tentative stop date August 27. Repeat chest x-ray looks improved. 3. C difficile colitis: No evidence of toxic megacolon. Hopefully will start to improve soon. Over 25 min was spent with this patient today. He had multiple questions about why he continued to get sick, and why he had diarrhea. All of these were answered today. Subjective: Back in the ICU. Nurse tells me that he had a large loose bowel movement this morning. Patient is awake and alert, but very fatigued. Voice is weak. Has many questions about why he is back in the ICU and why he is sicker than when he came in. Long conversation with him about C difficile colitis. Objective: Vancomycin orally 125 four times daily day 1 Ceftriaxone 2 g IV daily day 16, tentative stop date August 27 T-max 38.8 degrees Vital Signs Temp Pulse Resp BP Pulse Ox 36.7 C 93 19 105/66 100 08/04/17 08:00 08/04/17 08:00 08/04/17 08:00 08/04/17 08:00 08/04/17 08:00 Microbiology 08/03/17 09:39 Gastrointestinal Tract Panel (PCR) - Final Stool Clostridium Difficile Detected Laboratory Results 08/04/17 05:00 08/04/17 05:00 08/03/17 08/04/17 08/05/17 05:59 05:59 05:59 Intake Total 400 975 Output Total 1340 670 Balance -940 305 ESR 81 MM/HR (0-20) H 07/26/17 12:58 C-Reactive Protein 155.2 mg/L (<10.0) H 07/26/17 12:58 C difficile toxin positive - Physical Exam General Appearance: other (Looks older than stated age, lying in bed, looks tired.) EENT: No thrush Respiratory: other (Chest tube in place on the right, diminished breath sounds right base, poor inspiratory effort otherwise fairly clear upper lung [place]) Cardiac/Chest: regular rate, rhythm Abdomen: other (Not distended. Minimal tenderness to palpation diffusely.) Skin: other, No rash ICD10 Worksheet Patient Problems: Problems Problem Status Onset Failure to thrive in adult Acute Pleural effusion Acute Weakness Acute Abrasion of left elbow, initial encounter Acute Anemia Acute CHI (closed head injury) Acute Chronic Disease Mgmt/Transitional Care Acute Closed left clavicular fracture Acute Depression Acute Dyspnea Acute Fracture of pubic ramus Acute HTN (hypertension) Acute Multiple falls Acute Pneumonia Acute Post concussion syndrome Acute Ribs, multiple fractures Acute Sepsis Acute Unsteady gait Acute Weakness of both legs Acute
[2017-08-04] MEDS: cefTRIAXone 2 GM in STERILE WATER INJ 20 ML IV SCH (11:09)
[2017-08-04] MEDS: CHOLECALCIFEROL VIT D3 2,000 UNITS TAB/CAP PO SCH (11:16)
[2017-08-04] MEDS: FERROUS SULFATE 325 MG TAB PO SCH (11:17)
[2017-08-04] MEDS: morphINE SR 15 MG TAB PO SCH (11:17)
[2017-08-04] MEDS: MULTIVITAMINS 1 EACH TAB PO SCH (11:18)
[2017-08-04] MEDS: LISINOPRIL 10 MG TAB PO SCH (11:18)
[2017-08-04] MEDS: buPROPion XL 150 MG TAB PO SCH (11:21)
[2017-08-04] MEDS ORDERED: ONDANSETRON DISINTEGRATING 4 MG TAB TUBE PRN (11:30)
[2017-08-04] MEDS: (Fluticasone/Vilanterol [Breo Ellipta 200-25 Mcg Inh] 1 EACH) IH SCH (11:55)
[2017-08-04] MEDS: VANCOMYCIN 125 MG/2.5 ML UDL TUBE SCH ×3 (12:27→20:32)
[2017-08-04] MEDS: ENOXAPARIN 40 MG/0.4 ML SYR SC SCH (12:27)
--- NOTE | 2017-08-04 14:25 | PDINTPN ---
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 The etiology has been unclear and he underwent thoracentesis on admission which was a non- specific exudate. He seemed to re-accumulate so underwent a second tap, labs consistent with empyema (low pH and glucose). * Empyema: S/P decortication 07/29. Stains with GPC, Cx (-). Minimal O2 needs. Still has chest congestion. * Bacteremia from left arm cellulitis- Grp A Strep on Blood Cx. WBC stable last 2 days. On CTX. * Emphysema: On Breo, montelukast, albuterol as an outpatient. Currently just on albuterol. * Anemia: Hgb low but stable * Elevated HCO3: likely metabolic alkalosis due to diuresis. * C. Diff colitis * Swallow dysfunction: Failed swallow eval, recommended NPO status. Plan: Continue CTX, Breo, Mucomyst. Start Vanco. Dose of Diamox. Place feeding tube, start TF. Follow CXR. 08/04/17 14:26 Subjective: A bit confused as to why he's NPO. He's hungry. Feels quite weak. Pain controlled. Denies dyspnea. Objective: Vital Signs Temp Pulse Resp BP Pulse Ox 37.2 C 79 18 129/81 H 99 08/04/17 12:00 08/04/17 13:48 08/04/17 13:48 08/04/17 13:48 08/04/17 13:48 Microbiology 08/03/17 09:39 Gastrointestinal Tract Panel (PCR) - Final Stool Clostridium Difficile Detected Laboratory Results 08/04/17 05:00 08/04/17 05:00 08/03/17 08/04/17 08/05/17 05:59 05:59 05:59 Intake Total 400 975 Output Total 1340 670 Balance -940 305 PT 18.6 SEC (12.0-15.0) H 07/29/17 22:10 INR 1.54 (0.83-1.16) H 07/29/17 22:10 CXR: Unchanged post-op changes. Images reviewed by me. Laboratory Tests 08/03/17 09:24 pCO2 41 H pO2 62 L Total CO2 39 H ABG pH 7.57 H ABG HCO3 38 H Microbiology 08/03/17 09:39 Stool Gastrointestinal Tract Panel (PCR) - Final Clostridium Difficile Detected Physical Exam - Physical Exam General Appearance: alert, no apparent distress EENT: normal ENT inspection Neck: normal inspection Respiratory: lungs clear, decreased breath sounds (right base), crackles (right) Cardiac/Chest: regular rate, rhythm, No edema Abdomen: normal bowel sounds, non-tender Skin: normal color, warm/dry Extremities: non-tender Neuro/Psych: alert, normal mood/affect, No oriented x 3 ICD10 Worksheet Patient Problems: Problems Problem Status Onset Failure to thrive in adult Acute Pleural effusion Acute Weakness Acute Abrasion of left elbow, initial encounter Acute Anemia Acute CHI (closed head injury) Acute Chronic Disease Mgmt/Transitional Care Acute Closed left clavicular fracture Acute Depression Acute Dyspnea Acute Fracture of pubic ramus Acute HTN (hypertension) Acute Multiple falls Acute Pneumonia Acute Post concussion syndrome Acute Ribs, multiple fractures Acute Sepsis Acute Unsteady gait Acute Weakness of both legs Acute
[2017-08-04] MEDS ORDERED: acetaZOLAMIDE 250 MG in SYRINGE 0 ML IVP ONE (14:26)
[2017-08-04] MEDS: MULTIVIT/MINERAL/FERR GLUC 15 ML UDL TUBE SCH (16:15)
[2017-08-04] MEDS ORDERED: oxyCODONE IR 5 MG TAB TUBE PRN (16:30)
[2017-08-04] MEDS: MONTELUKAST SODIUM 10 MG TAB TUBE SCH (17:50)
[2017-08-04] MEDS ORDERED: POTASSIUM CL 10 MEQ TAB PO ONE (18:09)
[2017-08-04] MEDS ORDERED: POTASSIUM CL 20 MEQ/15 ML UDCUP TUBE ONE (18:15)
[2017-08-04] MEDS: ATORVASTATIN CALCIUM 10 MG TAB TUBE SCH (20:16)
[2017-08-04] MEDS: LISINOPRIL 10 MG TAB TUBE SCH (20:25)
[2017-08-04] MEDS: buPROPion 75 MG TAB TUBE SCH (20:27)
[2017-08-04] MEDS: MELATONIN 3 MG TAB TUBE SCH (20:29)
[2017-08-04] MEDS: traZODone 50 MG TAB TUBE SCH (20:30)
--- NOTE | 2017-08-04 21:29 | SOAPPROG ---
SOAP Progress Note Assessment/Plan: Assessment: LOW GRADE TEMP/ CXR WITH SOME HAZINESS/ MODERATE CHEST DRAINAGE/ WBC 17K Plan:CONTINUE DRAINAGE/ MAY NEED FU CT SCAN 08/03/17 12:10 08/04/17 21:27 VERY WEAK TODAY/ FEEDING TUBE IN PLACE/ CXR STABLE/ TEMP UP/ MODERATE SEROUS DRAINAGE +C DIFDOWN CAUSE OF FEVER Objective: Vital Signs Temp Pulse Resp BP Pulse Ox 36.9 C 98 26 H 134/74 H 95 08/04/17 20:00 08/04/17 20:00 08/04/17 20:00 08/04/17 20:00 08/04/17 20:00 Laboratory Results 08/04/17 05:00 08/04/17 17:40 08/03/17 08/04/17 08/05/17 05:59 05:59 05:59 Intake Total 400 975 705 Output Total 1340 670 625 Balance -940 305 80 PT 18.6 SEC (12.0-15.0) H 07/29/17 22:10 INR 1.54 (0.83-1.16) H 07/29/17 22:10 ICD10 Worksheet Patient Problems: Problems Problem Status Onset Failure to thrive in adult Acute Pleural effusion Acute Weakness Acute Abrasion of left elbow, initial encounter Acute Anemia Acute CHI (closed head injury) Acute Chronic Disease Mgmt/Transitional Care Acute Closed left clavicular fracture Acute Depression Acute Dyspnea Acute Fracture of pubic ramus Acute HTN (hypertension) Acute Multiple falls Acute Pneumonia Acute Post concussion syndrome Acute Ribs, multiple fractures Acute Sepsis Acute Unsteady gait Acute Weakness of both legs Acute
[2017-08-05] MEDS: LEVOTHYROXINE 75 MCG TAB TUBE SCH (05:02)
[2017-08-05] MEDS: VANCOMYCIN 125 MG/2.5 ML UDL TUBE SCH ×4 (05:02→20:08)
[2017-08-05] MEDS: CLOTRIMAZOLE 10 MG TROCHE PO SCH ×2 (05:03→13:07)
[2017-08-05] MEDS: ALBUTEROL 3 ML DEYVIAL IH SCH (05:16)
[2017-08-05] MEDS: ACETYLCYSTEINE 10% IH/PO 4 ML VIAL IH SCH (05:16)
[2017-08-05] MEDS ORDERED: POTASSIUM Cl (KCl) 100 ML IV ONE ×2 (05:45→07:45)
[2017-08-05] MEDS: CHOLECALCIFEROL VIT D3 2,000 UNITS TAB/CAP TUBE SCH (09:13)
[2017-08-05] MEDS: LISINOPRIL 10 MG TAB TUBE SCH ×2 (09:13→20:06)
[2017-08-05] MEDS: cefTRIAXone 2 GM in STERILE WATER INJ 20 ML IV SCH (09:13)
[2017-08-05] MEDS: buPROPion 75 MG TAB TUBE SCH ×2 (09:13→20:07)
[2017-08-05] MEDS: ENOXAPARIN 40 MG/0.4 ML SYR SC SCH (09:14)
[2017-08-05] MEDS: LIDO/ZINC OX/CLOTRIMAZOLE (MAD) 116 GM CREAM TP SCH ×2 (09:15→20:07)
[2017-08-05] MEDS: (Fluticasone/Vilanterol [Breo Ellipta 200-25 Mcg Inh] 1 EACH) IH SCH (09:32)
--- NOTE | 2017-08-05 10:23 | SOAPPROG ---
SOAP Progress Note Assessment/Plan: Assessment: 77 Y M s/p VATS c thoracotomy, decortication, wedge lung biopsy and pleural and LN biopsies Spiked fever yesterday, C-diff found to be cause. Appreciate ID input S: Feels better today. O: Alert Afebrile RRR No increased WOB, lungs CTA bilaterally, CT drainage down to 30cc in last 24 hours. No air leak. Plan: Pull chest tube today. 08/05/17 10:18 Objective: Vital Signs Temp Pulse Resp BP Pulse Ox 37.1 C 103 H 25 H 143/92 H 97 08/05/17 07:39 08/05/17 09:35 08/05/17 09:35 08/05/17 07:39 08/05/17 09:35 Laboratory Results 08/04/17 05:00 08/05/17 04:15 08/04/17 08/05/17 08/06/17 05:59 05:59 05:59 Intake Total 975 1033 Output Total 670 1225 30 Balance 305 -192 -30 PT 18.6 SEC (12.0-15.0) H 07/29/17 22:10 INR 1.54 (0.83-1.16) H 07/29/17 22:10 ICD10 Worksheet Patient Problems: Problems Problem Status Onset Failure to thrive in adult Acute Pleural effusion Acute Weakness Acute Abrasion of left elbow, initial encounter Acute Anemia Acute CHI (closed head injury) Acute Chronic Disease Mgmt/Transitional Care Acute Closed left clavicular fracture Acute Depression Acute Dyspnea Acute Fracture of pubic ramus Acute HTN (hypertension) Acute Multiple falls Acute Pneumonia Acute Post concussion syndrome Acute Ribs, multiple fractures Acute Sepsis Acute Unsteady gait Acute Weakness of both legs Acute
[2017-08-05] MEDS ORDERED: ACETYLCYSTEINE 10% IH/PO 4 ML VIAL IH PRN (11:30)
[2017-08-05 11:52] LABS: PLATELET COUNT 317 10^3/uL (150-400)
[2017-08-05] MEDS: IPRATROPIUM/ALBUTEROL 3 ML DEYVIAL IH SCH ×3 (12:15→20:47)
--- NOTE | 2017-08-05 13:50 | HOSPPROG ---
Hospitalist Progress Note Assessment/Plan: 77 yo M w sepsis, grp A steep bacteremia now cdiff sepsis: septic physiology has resolved Group A strep bacteremia: from superficial thrombophlebitis. IV ceftriaxone for 2 weeks from date of blood clearance. No veggies on echo blood cxs 07/22 NGTD Recurrent right pleural effusion: empyema s/p VATS path neg for malignancy cdiff: on po vanc diarrhea has decreased 08/05: tender abd w rising white count. check film aspiration: [employer] feels swallow unsafe so NPO for now deconitionig: encouraged OOB and ambulation Acute hypoxic resp failure: due to effusion. Significant weight loss: concern for malignancy. No mass seen on imaging. Repeat cytology also neg Hypotension: resolved. Now hypertensive. Normal EF Hypoglycemia: resolved CAD: h/o stents. statin restart plavix 08/10 Hypertension: restart low-dose SAMEER-I. Leukocytosis: trending down LUE thrombophlebitis: apply warm compress, Ibuprofen improved today The Deconditioning: recommend SNF Falls: PT/OT Reported lung mass: not seen on CT Diet: npo Disp: cont inpatient admission for thoracentesis, PT, IV abx Subjective: case d/w dr trevizo, dr shah. chest tubes out Objective: Vital Signs Temp Pulse Resp BP Pulse Ox 37.6 C 101 H 24 H 158/96 H 100 08/05/17 11:44 08/05/17 12:16 08/05/17 12:16 08/05/17 11:44 08/05/17 12:16 Microbiology 07/29/17 17:44 Gram Stain - Final Lung - Tissue Anaerobic Culture - Final Laboratory Results 08/05/17 11:30 08/05/17 11:30 08/04/17 08/05/17 08/06/17 05:59 05:59 05:59 Intake Total 975 1033 Output Total 670 1225 30 Balance 305 -192 -30 PT 18.6 SEC (12.0-15.0) H 07/29/17 22:10 INR 1.54 (0.83-1.16) H 07/29/17 22:10 - Physical Exam Constitutional: no apparent distress, chronically ill appearing, No appears nourished Eyes: PERRL, anicteric sclera Ears, Nose, Mouth, Throat: moist mucous membranes, hearing normal Cardiovascular: regular rate and rhythym, no murmur, rub, or gallop Respiratory: no respiratory distress, no rales or rhonchi Gastrointestinal: tenderness, guarding, other (hypoactive bowel sounds), No rebound Genitourinary: phan in urethra Skin: warm, normal color Musculoskeletal: full muscle strength, no muscle tenderness Neurologic: AAOx3, sensation intact bilaterally ICD10 Worksheet Patient Problems: Problems Problem Status Onset Failure to thrive in adult Acute Pleural effusion Acute Weakness Acute Abrasion of left elbow, initial encounter Acute Anemia Acute CHI (closed head injury) Acute Chronic Disease Mgmt/Transitional Care Acute Closed left clavicular fracture Acute Depression Acute Dyspnea Acute Fracture of pubic ramus Acute HTN (hypertension) Acute Multiple falls Acute Pneumonia Acute Post concussion syndrome Acute Ribs, multiple fractures Acute Sepsis Acute Unsteady gait Acute Weakness of both legs Acute
--- NOTE | 2017-08-05 14:42 | PCMIDPN ---
Assessment/Plan: Assessment/Plan: * Group A streptococcal bacteremia due to septic superficial thrombophlebitis: Has completed course of therapy for bacteremia. No signs or symptoms of recurrence. * Empyema: Status post VATS. Gram stain positive for GPC with negative cultures - unclear if this could be due to group A Streptococcus versus or pharyngeal streptococci. Plan 4 weeks of ceftriaxone post VATS. * C difficile colitis: Persistent abdominal pain and increasing white blood cell count. Will add metronidazole IV to oral vancomycin. If abdominal film shows significant ileus, would increase vancomycin to 500 mg orally 4 times per day. 08/05/17 14:39 Subjective: Patient complains of abdominal pain. Some diarrhea this a.m.. Objective: Vital Signs Temp Pulse Resp BP Pulse Ox 37.6 C 101 H 24 H 158/96 H 100 08/05/17 11:44 08/05/17 12:16 08/05/17 12:16 08/05/17 11:44 08/05/17 12:16 Microbiology 07/29/17 17:44 Gram Stain - Final Lung - Tissue Anaerobic Culture - Final Laboratory Results 08/05/17 11:30 08/05/17 11:30 08/04/17 08/05/17 08/06/17 05:59 05:59 05:59 Intake Total 975 1033 Output Total 670 1225 30 Balance 305 -192 -30 ESR 81 MM/HR (0-20) H 07/26/17 12:58 C-Reactive Protein 155.2 mg/L (<10.0) H 07/26/17 12:58 Ceftriaxone # 17 (tentative stop date 08/27/2017) Oral vancomycin # 2 Pleural tissue cultures negative - Physical Exam General Appearance: alert, no apparent distress, non-toxic EENT: No scleral icterus, No thrush Respiratory: other (Decreased breath sounds right base) Cardiac/Chest: regular rate, rhythm Abdomen: distended (Mild), tender (Left lower quadrant with voluntary guarding) - Line/s RUE PICC Lines: No drainage, No erythema ICD10 Worksheet Patient Problems: Problems Problem Status Onset Failure to thrive in adult Acute Pleural effusion Acute Weakness Acute Abrasion of left elbow, initial encounter Acute Anemia Acute CHI (closed head injury) Acute Chronic Disease Mgmt/Transitional Care Acute Closed left clavicular fracture Acute Depression Acute Dyspnea Acute Fracture of pubic ramus Acute HTN (hypertension) Acute Multiple falls Acute Pneumonia Acute Post concussion syndrome Acute Ribs, multiple fractures Acute Sepsis Acute Unsteady gait Acute Weakness of both legs Acute
--- NOTE | 2017-08-05 14:55 | PDINTPN ---
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 The etiology has been unclear and he underwent thoracentesis on admission which was a non- specific exudate. He seemed to re-accumulate so underwent a second tap, labs consistent with empyema (low pH and glucose). S/P VATS with decortication on . Has developed bacteremia with group a strep and C difficile colitis. * Empyema: S/P decortication 07/29. Stains with GPC, Cx (-). Minimal O2 needs. * Bacteremia from left arm cellulitis- Grp A Strep on Blood Cx. WBC stable last 2 days. On CTX. * COPD/Emphysema: On Breo, montelukast, albuterol as an outpatient. Will add duo nebs. * Anemia: Hgb 10, stable * Elevated HCO3: likely metabolic alkalosis due to diuresis. * C. Diff colitis - on oral Vanco, IV metronidazole * Swallow dysfunction: Failed swallow eval, NPO. * Nutrition: On tube feedings * DVT prophylaxis: Enoxaparin Plan: Continue CTX. Continue bronchopulmonary therapies. Add routine duo nebs , continue Breo with Mucomyst PRN. Continue oral Vanco and IV Flagyl for C diff. Continue TFs. Follow CXR and laboratory. May need repeat CT scan if he remains febrile to relook for possible residual empyema. 30 min of critical care time spent directly with the patient. Discussed with nursing, respiratory, hospitalist and Infectious Disease. Subjective: Weak. Denies pain, denies significant shortness of breath. Objective: Vital Signs Temp Pulse Resp BP Pulse Ox 37.6 C 101 H 24 H 158/96 H 100 08/05/17 11:44 08/05/17 12:16 08/05/17 12:16 08/05/17 11:44 08/05/17 12:16 Microbiology 07/29/17 17:44 Gram Stain - Final Lung - Tissue Anaerobic Culture - Final Laboratory Results 08/05/17 11:30 08/05/17 11:30 08/04/17 08/05/17 08/06/17 05:59 05:59 05:59 Intake Total 975 1033 Output Total 670 1225 30 Balance 305 -192 -30 PT 18.6 SEC (12.0-15.0) H 07/29/17 22:10 INR 1.54 (0.83-1.16) H 07/29/17 22:10 CXR: Pleural effusions, right greater than left, postop changes in atelectasis on the right. Physical Exam - Physical Exam General Appearance: alert, no apparent distress, thin EENT: other (NG tube and nasal cannula oxygen in place.) Neck: normal inspection (No obvious JVD) Respiratory: lungs clear (Anteriorly), decreased breath sounds (Bilaterally), rhonchi (Few with cough), other (Dullness at bases), No pleural rub Cardiac/Chest: tachycardia (Sinus) Abdomen: normal bowel sounds, non-tender, soft Male Genitalia: other (Monzon catheter in place. Good urine output) Skin: normal color, warm/dry Extremities: No pedal edema Neuro/Psych: no motor/sensory deficits, No cognition abnormalities (Some underlying dementia, but seems at baseline) ICD10 Worksheet Patient Problems: Problems Problem Status Onset Ribs, multiple fractures Acute Closed left clavicular fracture Acute Fracture of pubic ramus Acute Abrasion of left elbow, initial encounter Acute Pleural effusion Acute Weakness Acute Failure to thrive in adult Acute Chronic Disease Mgmt/Transitional Care Acute Unsteady gait Acute Weakness of both legs Acute Multiple falls Acute Post concussion syndrome Acute CHI (closed head injury) Acute Anemia Acute Depression Acute HTN (hypertension) Acute Dyspnea Acute Pneumonia Acute Sepsis Acute
[2017-08-05] MEDS ORDERED: POTASSIUM Cl (KCl) 50 ML IV ONE ×2 (15:30→16:30)
--- NOTE | 2017-08-05 16:18 | ASMTCMCOM ---
CM Note CM Note Notes: PT/OT/ST all recommending SNF Rehab. Patient interested in returning to [facility]. Date Signed: 08/05/2017 04:18 PM Electronically Signed By:Lucero Wood LCSW
[2017-08-05] MEDS: MULTIVIT/MINERAL/FERR GLUC 15 ML UDL TUBE SCH (16:47)
[2017-08-05] MEDS: MONTELUKAST SODIUM 10 MG TAB TUBE SCH (18:14)
[2017-08-05] MEDS: MELATONIN 3 MG TAB TUBE SCH (20:06)
[2017-08-05] MEDS: ATORVASTATIN CALCIUM 10 MG TAB TUBE SCH (20:06)
[2017-08-05] MEDS: traZODone 50 MG TAB TUBE SCH (20:07)
[2017-08-06] MEDS: IPRATROPIUM/ALBUTEROL 3 ML DEYVIAL IH SCH ×4 (04:31→21:30)
[2017-08-06 05:01] LABS: PLATELET COUNT 294 10^3/uL (150-400)
[2017-08-06] MEDS: LEVOTHYROXINE 75 MCG TAB TUBE SCH (05:22)
[2017-08-06] MEDS: VANCOMYCIN 125 MG/2.5 ML UDL TUBE SCH ×4 (05:22→20:12)
[2017-08-06] MEDS: ACETAMINOPHEN 650 MG/20.3 ML UDCUP TUBE PRN ×2 (06:06→13:35)
[2017-08-06] MEDS: LISINOPRIL 10 MG TAB TUBE SCH ×2 (08:21→20:09)
[2017-08-06] MEDS: CHOLECALCIFEROL VIT D3 2,000 UNITS TAB/CAP TUBE SCH (08:21)
[2017-08-06] MEDS: buPROPion 75 MG TAB TUBE SCH (08:21)
[2017-08-06] MEDS: ENOXAPARIN 40 MG/0.4 ML SYR SC SCH (08:21)
[2017-08-06] MEDS: cefTRIAXone 2 GM in STERILE WATER INJ 20 ML IV SCH (08:21)
[2017-08-06] MEDS: LIDO/ZINC OX/CLOTRIMAZOLE (MAD) 116 GM CREAM TP SCH ×2 (08:22→20:46)
[2017-08-06] MEDS ORDERED: POTASSIUM CL 10 MEQ TAB PO ONE (08:24)
[2017-08-06] MEDS ORDERED: POTASSIUM CL 20 MEQ/15 ML UDCUP TUBE ONE ×2 (08:45→19:15)
[2017-08-06] MEDS: MULTIVIT/MINERAL/FERR GLUC 15 ML UDL TUBE SCH (09:10)
--- NOTE | 2017-08-06 09:10 | WOCRNPDOC ---
WOCRN Advanced Assessment Note - Skin Integrity Problem, Advanced Assess Sacrum Dressing Type: Mepilex Border (sacral) Dressing Description: Soiled (stool) Integumentary Issue Intervention: Dressing Removed Kerrie Wound Tissue: Blanching Kerrie Wound Swelling: None Skin Integrity Problem Comment: Raw, denuded skin throughout sacrum/coccyx r/t frequent stooling/C-diff. Removed existing sacral dressing and changed orders to Calazime BID and PRN. Skin is blanching throughout. Will continue w/ pressure -relieving interventions r/t low BWI and immobility.
[2017-08-06] MEDS: (Fluticasone/Vilanterol [Breo Ellipta 200-25 Mcg Inh] 1 EACH) IH SCH (10:13)
[2017-08-06] MEDS: ONDANSETRON 4 MG/2 ML VIAL IVP PRN (13:35)
--- NOTE | 2017-08-06 13:48 | PCMIDPN ---
Assessment/Plan: Assessment/Plan: 1. C. diff: - wbc improving - currently on vanco and iV flagyl -continuing to monitor stools 2. GAs bacteremia -s/p ceftraixone therapy. f/u blood cx from 07/21/17 ngtd 3. Empyema: s/p VATS (07/29/17) -currently on ceftraixone to complete 4 weeks -tenatitive end date: 08/26/17 medss cefetraixone 2g daily vanco 125mg q6 flagyl 500mg q8- Subjective: afebrile. sittin in chair. denies sob. denies abd pain. had two loose stools today and 5 yesterday. Objective: Vital Signs Temp Pulse Resp BP Pulse Ox 36.4 C 102 H 22 H 151/80 H 99 08/06/17 12:00 08/06/17 12:00 08/06/17 12:00 08/06/17 12:00 08/06/17 12:00 Microbiology 07/29/17 17:44 Mycobacterial Smear (EKTA) - Final Lung - Tissue 07/23/17 10:00 Mycobacterial Smear (EKTA) - Final Thoracic Fluid - Aspirate 07/29/17 17:44 Gram Stain - Final Lung - Tissue Anaerobic Culture - Final Laboratory Results 08/06/17 04:30 08/06/17 04:30 08/05/17 08/06/17 08/07/17 05:59 05:59 05:59 Intake Total 1033 2128 Output Total 1225 605 Balance -192 1523 ESR 81 MM/HR (0-20) H 07/26/17 12:58 C-Reactive Protein 155.2 mg/L (<10.0) H 07/26/17 12:58 - Physical Exam General Appearance: alert, no apparent distress Respiratory: coarse breath sounds (mild) Cardiac/Chest: regular rate, rhythm Extremities: No swelling Abdomen: normal bowel sounds, non-tender, soft, No distended Skin: No erythema ICD10 Worksheet Patient Problems: Problems Problem Status Onset Failure to thrive in adult Acute Pleural effusion Acute Weakness Acute Abrasion of left elbow, initial encounter Acute Anemia Acute CHI (closed head injury) Acute Chronic Disease Mgmt/Transitional Care Acute Closed left clavicular fracture Acute Depression Acute Dyspnea Acute Fracture of pubic ramus Acute HTN (hypertension) Acute Multiple falls Acute Pneumonia Acute Post concussion syndrome Acute Ribs, multiple fractures Acute Sepsis Acute Unsteady gait Acute Weakness of both legs Acute
--- NOTE | 2017-08-06 14:05 | SOAPPROG ---
SOAP Progress Note Assessment/Plan: Assessment: 77 M with CAD, ADAN, COPD and chronic hypoxemia developed right pleural effusion after multiple falls in the setting of weight loss and anorexia. The etiology has been unclear and he underwent thoracentesis on admission which was a non- specific exudate. He seemed to re-accumulate so underwent a second tap, labs consistent with empyema (low pH and glucose). S/P VATS with decortication on . Has developed bacteremia with group a strep and C difficile colitis. * Empyema: S/P decortication 07/29. Stains with GPC, Cx (-). Minimal O2 needs. On CTX. * Bacteremia from left arm cellulitis- Grp A Strep on Blood Cx. On CTX. * COPD/Emphysema: On Breo, montelukast, albuterol as an outpatient. Added duo nebs. * Anemia: Hgb 8.7, slightly down. Follow. * Elevated HCO3: likely metabolic alkalosis due to diuresis and CO2 retention * C. Diff colitis - on oral Vanco, IV metronidazole * Swallow dysfunction: Failed swallow eval, NPO. * Nutrition: On tube feedings * DVT prophylaxis: Enoxaparin Plan: Continue CTX for pneumonia/empyema. Continue bronchopulmonary therapies including duo nebs. Continue Breo with Mucomyst PRN. Continue oral Vanco and IV Flagyl for C diff. Continue TFs. Follow CXR and laboratory. Increase mobilization and strengthening as possible. Follow temperatures and clinical status, x-ray. Repeat CT chest not indicated currently. Will follow. 25 min of critical care time spent directly with the patient. Discussed with nursing, respiratory, hospitalist and Infectious Disease. Subjective: Up in chair. No specific complaints. Remains very weak. Denies shortness of breath or significant pain Objective: Vital Signs Temp Pulse Resp BP Pulse Ox 36.4 C 102 H 22 H 151/80 H 99 08/06/17 12:00 08/06/17 12:00 08/06/17 12:00 08/06/17 12:00 08/06/17 12:00 Microbiology 07/29/17 17:44 Mycobacterial Smear (EKTA) - Final Lung - Tissue 07/23/17 10:00 Mycobacterial Smear (EKTA) - Final Thoracic Fluid - Aspirate 07/29/17 17:44 Gram Stain - Final Lung - Tissue Anaerobic Culture - Final Laboratory Results 08/06/17 04:30 08/06/17 04:30 08/05/17 08/06/17 08/07/17 05:59 05:59 05:59 Intake Total 1033 2128 Output Total 1225 605 Balance -192 1523 PT 18.6 SEC (12.0-15.0) H 07/29/17 22:10 INR 1.54 (0.83-1.16) H 07/29/17 22:10 Laboratory Tests 08/05/17 08/05/17 08/05/17 04:15 04:15 11:30 Potassium 3.5 3.5 Calcium Ionized Calcium 1.13 Phosphorus 3.2 Magnesium 2.1 08/06/17 08/06/17 04:30 04:30 Potassium Calcium 8.1 L Ionized Calcium 1.21 Phosphorus 2.5 D Magnesium 2.0 CXR: Bibasilar effusions and atelectasis/infiltrates persist. Physical Exam - Physical Exam General Appearance: alert, no apparent distress (Weak), thin EENT: PERRL/EOMI, other (NG tube in place. Nasal cannula in place at 2 L) Neck: normal inspection Respiratory: lungs clear (Anteriorly), decreased breath sounds (At bases), other (Dullness at bases), No rhonchi, No wheezing Cardiac/Chest: regular rate, rhythm Abdomen: non-tender, soft, No normal bowel sounds (Decreased, present) Male Genitalia: other (Adequate urine output) Skin: warm/dry, pallor Extremities: pedal edema (Trace +) Neuro/Psych: no motor/sensory deficits (Moves all extremities equally but very weak), No cognition abnormalities (At baseline. Some dementia) ICD10 Worksheet Patient Problems: Problems Problem Status Onset Ribs, multiple fractures Acute Closed left clavicular fracture Acute Fracture of pubic ramus Acute Abrasion of left elbow, initial encounter Acute Pleural effusion Acute Weakness Acute Failure to thrive in adult Acute Chronic Disease Mgmt/Transitional Care Acute Unsteady gait Acute Weakness of both legs Acute Multiple falls Acute Post concussion syndrome Acute CHI (closed head injury) Acute Anemia Acute Depression Acute HTN (hypertension) Acute Dyspnea Acute Pneumonia Acute Sepsis Acute
--- NOTE | 2017-08-06 16:21 | HOSPPROG ---
Hospitalist Progress Note Assessment/Plan: 77 yo M w sepsis, grp A steep bacteremia now cdiff sepsis: septic physiology has resolved Group A strep bacteremia: from superficial thrombophlebitis. blood cxs 07/22 NGTD Recurrent right pleural effusion: empyema s/p VATS path neg for malignancy 08/06 cxr unchanged (interp by me) cdiff: on po vanc diarrhea has decreased 08/05: tender abd w rising white count. 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 Significant weight loss: concern for malignancy. No mass seen on imaging. Repeat cytology also neg Hypotension: resolved. Now hypertensive. Normal EF Hypoglycemia: resolved CAD: h/o stents. statin restart plavix 08/10 Falls: PT/OT Reported lung mass: not seen on CT Diet: npo Disp: cont inpatient admission for thoracentesis, PT, IV abx Subjective: incontinent of stool. case d/w dr trevizo Objective: Vital Signs Temp Pulse Resp BP Pulse Ox 36.9 C 96 20 122/70 H 97 08/06/17 15:14 08/06/17 15:14 08/06/17 15:14 08/06/17 15:14 08/06/17 15:14 Microbiology 07/29/17 17:44 Mycobacterial Smear (EKTA) - Final Lung - Tissue 07/23/17 10:00 Mycobacterial Smear (EKTA) - Final Thoracic Fluid - Aspirate 07/29/17 17:44 Gram Stain - Final Lung - Tissue Anaerobic Culture - Final Laboratory Results 08/06/17 04:30 08/06/17 04:30 08/05/17 08/06/17 08/07/17 05:59 05:59 05:59 Intake Total 1033 2128 Output Total 1225 605 Balance -192 1523 PT 18.6 SEC (12.0-15.0) H 07/29/17 22:10 INR 1.54 (0.83-1.16) H 07/29/17 22:10 - Physical Exam Constitutional: chronically ill appearing, other (sleeping. arousable. fatigued) Eyes: PERRL, anicteric sclera Ears, Nose, Mouth, Throat: moist mucous membranes, hearing normal Cardiovascular: regular rate and rhythym, no murmur, rub, or gallop Respiratory: no respiratory distress, no rales or rhonchi Gastrointestinal: normoactive bowel sounds, No guarding, No rebound Genitourinary: no bladder fullness, No phan in urethra Skin: warm, normal color Musculoskeletal: full muscle strength Neurologic: weakness, No AAOx3 Psychiatric: not encephalopathic, No interacting appropriately ICD10 Worksheet Patient Problems: Problems Problem Status Onset Failure to thrive in adult Acute Pleural effusion Acute Weakness Acute Abrasion of left elbow, initial encounter Acute Anemia Acute CHI (closed head injury) Acute Chronic Disease Mgmt/Transitional Care Acute Closed left clavicular fracture Acute Depression Acute Dyspnea Acute Fracture of pubic ramus Acute HTN (hypertension) Acute Multiple falls Acute Pneumonia Acute Post concussion syndrome Acute Ribs, multiple fractures Acute Sepsis Acute Unsteady gait Acute Weakness of both legs Acute
[2017-08-06] MEDS: MONTELUKAST SODIUM 10 MG TAB TUBE SCH (17:06)
--- NOTE | 2017-08-06 17:57 | SOAPPROG ---
SOAP Progress Note Assessment/Plan: Assessment/Plan: 77 Y M s/p VATS c thoracotomy, decortication, wedge lung biopsy and pleural and LN biopsies. Now cdif on oral vanc. Seen briefly during transfer from ICU to floor. Nothing to add to current plan. Reviewed chart. 08/06/17 17:56 Objective: Vital Signs Temp Pulse Resp BP Pulse Ox 36.9 C 98 18 122/70 H 96 08/06/17 15:14 08/06/17 16:39 08/06/17 16:39 08/06/17 15:14 08/06/17 16:39 Microbiology 07/29/17 17:44 Mycobacterial Smear (EKTA) - Final Lung - Tissue 07/23/17 10:00 Mycobacterial Smear (EKTA) - Final Thoracic Fluid - Aspirate 07/29/17 17:44 Gram Stain - Final Lung - Tissue Anaerobic Culture - Final Laboratory Results 08/06/17 04:30 08/05/17 08/06/17 08/07/17 05:59 05:59 05:59 Intake Total 1033 2128 Output Total 1225 605 Balance -192 1523 PT 18.6 SEC (12.0-15.0) H 07/29/17 22:10 INR 1.54 (0.83-1.16) H 07/29/17 22:10 ICD10 Worksheet Patient Problems: Problems Problem Status Onset Failure to thrive in adult Acute Pleural effusion Acute Weakness Acute Abrasion of left elbow, initial encounter Acute Anemia Acute CHI (closed head injury) Acute Chronic Disease Mgmt/Transitional Care Acute Closed left clavicular fracture Acute Depression Acute Dyspnea Acute Fracture of pubic ramus Acute HTN (hypertension) Acute Multiple falls Acute Pneumonia Acute Post concussion syndrome Acute Ribs, multiple fractures Acute Sepsis Acute Unsteady gait Acute Weakness of both legs Acute
[2017-08-06] MEDS: MELATONIN 3 MG TAB TUBE SCH (20:08)
[2017-08-06] MEDS: traZODone 50 MG TAB TUBE SCH (20:09)
[2017-08-06] MEDS: ATORVASTATIN CALCIUM 10 MG TAB TUBE SCH (20:11)
[2017-08-07] MEDS: buPROPion 75 MG TAB TUBE SCH ×2 (01:07→12:39)
[2017-08-07] MEDS: VANCOMYCIN 125 MG/2.5 ML UDL TUBE SCH ×4 (03:42→22:44)
[2017-08-07] MEDS: LEVOTHYROXINE 75 MCG TAB TUBE SCH (03:42)
[2017-08-07] MEDS: IPRATROPIUM/ALBUTEROL 3 ML DEYVIAL IH SCH ×3 (04:19→16:19)
[2017-08-07] MEDS: (Fluticasone/Vilanterol [Breo Ellipta 200-25 Mcg Inh] 1 EACH) IH SCH (08:33)
[2017-08-07] MEDS: cefTRIAXone 2 GM in STERILE WATER INJ 20 ML IV SCH (09:50)
[2017-08-07] MEDS: LISINOPRIL 10 MG TAB TUBE SCH (09:50)
[2017-08-07] MEDS: CHOLECALCIFEROL VIT D3 2,000 UNITS TAB/CAP TUBE SCH (09:50)
[2017-08-07] MEDS: ENOXAPARIN 40 MG/0.4 ML SYR SC SCH (09:50)
[2017-08-07] MEDS: LIDO/ZINC OX/CLOTRIMAZOLE (MAD) 116 GM CREAM TP SCH ×2 (10:20→22:17)
--- NOTE | 2017-08-07 10:21 | PCMIDPN ---
Assessment/Plan: #Cdiff, severe disease, WBC slowly improving, AF, still with multiple BM daily and abdominal distension --continue both IV flagyl started 2 days + PO vancomycin for now # Group A strep bacteremia due to superficial septic thrombophlebitis left arm ( now resolved), complicated by Empyema s/p VATs. Reassured family that path report negative for malignancy. Reviewed last CXR which shows improvement --planning IV antibiotics through 08/27/17 Medication Ceftriaxone 2 g IV daily, #19, 08/27/17 stop date Flagyl 500mg IV q8h , #2 vancomycin 125mg PO QID, #4 CrCl 64 Microbiology 07/29/2017 pleural tissue: Gram stain +3 GPCs, CX NGTD 07/21/2017 pleural fluid; gram stain 4+ PMN, no organism: Neg 07/21/2017 blood cultures (2/2) neg 07/19/2017 blood cultures (2/2) group a strep, ceftriaxone EKTA less than 0.0625 07/16/2017 pleural fluid culture: neg HIV negative Subjective: still with abdominal pain fatigue wanting to drink water Objective: Vital Signs Temp Pulse Resp BP Pulse Ox 36.5 C 105 H 11 L 142/89 H 99 08/07/17 09:59 08/07/17 09:59 08/07/17 09:59 08/07/17 09:59 08/07/17 09:59 Microbiology 07/16/17 15:01 Gram Stain - Final Thoracic Fluid - Aspirate Body Fluid Culture - Final 07/29/17 17:44 Mycobacterial Smear (EKTA) - Final Lung - Tissue 07/23/17 10:00 Mycobacterial Smear (EKTA) - Final Thoracic Fluid - Aspirate Laboratory Results 08/06/17 04:30 08/07/17 03:35 08/06/17 08/07/17 08/08/17 05:59 05:59 05:59 Intake Total 2128 1025 Output Total 605 200 Balance 1523 825 ESR 81 MM/HR (0-20) H 07/26/17 12:58 C-Reactive Protein 155.2 mg/L (<10.0) H 07/26/17 12:58 - Physical Exam General Appearance: alert, no apparent distress, thin EENT: dry mucous membranes Respiratory: other (decreased bs throughout), No accessory muscle use Neck: supple Cardiac/Chest: tachycardia Extremities: No pedal edema Abdomen: normal bowel sounds, non-tender, soft, distended Skin: pallor, other (L anticubital superficial thrombophlebitis resolved), No rash Neuro/Psych: alert, oriented x 3, depressed affect - Time Spent With Patient Time Spent with Patient: greater than 35 minutes (Plan of care, pathology results and current antibiotic therapy reviewed with patient and his at bedside.) Time Spent with Patient: Greater than 35 minutes spent on this patients care, greater than 50% of time spent counseling, educating, and coordinating care regarding the above mentioned plan. ICD10 Worksheet Patient Problems: Problems Problem Status Onset Failure to thrive in adult Acute Pleural effusion Acute Weakness Acute Abrasion of left elbow, initial encounter Acute Anemia Acute CHI (closed head injury) Acute Chronic Disease Mgmt/Transitional Care Acute Closed left clavicular fracture Acute Depression Acute Dyspnea Acute Fracture of pubic ramus Acute HTN (hypertension) Acute Multiple falls Acute Pneumonia Acute Post concussion syndrome Acute Ribs, multiple fractures Acute Sepsis Acute Unsteady gait Acute Weakness of both legs Acute
--- NOTE | 2017-08-07 10:27 | SOAPPROG ---
SOAP Progress Note Assessment/Plan: Assessment: 77 Y M s/p VATS c thoracotomy, decortication, wedge lung biopsy and pleural and LN biopsies Now with C-diff, being treated with vanc S: Stable. No complaints. Yesterday, had concerns about pt's pathology coming back with a CA diagnosis. O: Alert Afebrile WBC count trending down RRR No increased WOB, expiratory wheeze bilaterally, but otherwise clear. Plan: Continue to monitor. Pt slowly improving. Chart reviewed, path did not show cancer. not at bedside during visit. Discussed with RN. 08/07/17 10:25 Objective: Vital Signs Temp Pulse Resp BP Pulse Ox 36.5 C 105 H 11 L 142/89 H 99 08/07/17 09:59 08/07/17 09:59 08/07/17 09:59 08/07/17 09:59 08/07/17 09:59 Microbiology 07/16/17 15:01 Gram Stain - Final Thoracic Fluid - Aspirate Body Fluid Culture - Final 07/29/17 17:44 Mycobacterial Smear (EKTA) - Final Lung - Tissue 07/23/17 10:00 Mycobacterial Smear (EKTA) - Final Thoracic Fluid - Aspirate Laboratory Results 08/06/17 04:30 08/07/17 03:35 08/06/17 08/07/17 08/08/17 05:59 05:59 05:59 Intake Total 2128 1025 Output Total 605 200 Balance 1523 825 PT 18.6 SEC (12.0-15.0) H 07/29/17 22:10 INR 1.54 (0.83-1.16) H 07/29/17 22:10 ICD10 Worksheet Patient Problems: Problems Problem Status Onset Failure to thrive in adult Acute Pleural effusion Acute Weakness Acute Abrasion of left elbow, initial encounter Acute Anemia Acute CHI (closed head injury) Acute Chronic Disease Mgmt/Transitional Care Acute Closed left clavicular fracture Acute Depression Acute Dyspnea Acute Fracture of pubic ramus Acute HTN (hypertension) Acute Multiple falls Acute Pneumonia Acute Post concussion syndrome Acute Ribs, multiple fractures Acute Sepsis Acute Unsteady gait Acute Weakness of both legs Acute
[2017-08-07] MEDS ORDERED: POTASSIUM CL 10 MEQ TAB PO ONE (11:50)
[2017-08-07] MEDS ORDERED: POTASSIUM CL 20 MEQ/15 ML UDCUP TUBE ONE (12:00)
[2017-08-07] MEDS: ONDANSETRON 4 MG/2 ML VIAL IVP PRN (12:35)
[2017-08-07] MEDS: MULTIVIT/MINERAL/FERR GLUC 15 ML UDL TUBE SCH (12:39)
--- NOTE | 2017-08-07 14:30 | ASMTCMCOM ---
CM Note CM Note Notes: 08/07/2017 Case Management Note Met with pt, Elizabeth and Sam from Palliative. Please see Palliative note for details. Elizabeth can be reached at [phone] Son Jimmy can be reached at [phone] Faxed updates to [facility]. Case Management d/c poc[facility] Case Management to follow. Date Signed: 08/07/2017 02:29 PM Electronically Signed By:Jacklyn Perez RN
--- NOTE | 2017-08-07 14:35 | HOSPPROG ---
Hospitalist Progress Note Assessment/Plan: 77 yo M w sepsis, grp A steep bacteremia now cdiff sepsis: septic physiology has resolved Group A strep bacteremia: from superficial thrombophlebitis. blood cxs 07/22 NGTD Recurrent right pleural effusion: empyema s/p VATS path neg for malignancy 08/06 cxr unchanged (interp by me) cxr 08/08 cdiff: on po vanc, IV metronidazole diarrhea has decreased 08/05: tender abd w rising white count. 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 Significant weight loss: concern for malignancy. No mass seen on imaging. Repeat cytology also neg Hypotension: resolved. Now hypertensive. Normal EF Hypoglycemia: resolved CAD: h/o stents. statin restart plavix 08/10 Falls: PT/OT Reported lung mass: not seen on CT Diet: npo Disp: cont inpatient admission for thoracentesis, PT, IV abx Subjective: case d/w dr bucio. more alert. seen by palliative care Objective: Vital Signs Temp Pulse Resp BP Pulse Ox 36.6 C 102 H 12 149/97 H 93 08/07/17 11:53 08/07/17 11:53 08/07/17 11:53 08/07/17 11:53 08/07/17 11:53 Microbiology 07/16/17 15:01 Gram Stain - Final Thoracic Fluid - Aspirate Body Fluid Culture - Final 07/29/17 17:44 Mycobacterial Smear (EKTA) - Final Lung - Tissue 07/23/17 10:00 Mycobacterial Smear (EKTA) - Final Thoracic Fluid - Aspirate Laboratory Results 08/06/17 04:30 08/07/17 03:35 08/06/17 08/07/17 08/08/17 05:59 05:59 05:59 Intake Total 2128 1025 200 Output Total 605 200 2 Balance 1523 825 198 PT 18.6 SEC (12.0-15.0) H 07/29/17 22:10 INR 1.54 (0.83-1.16) H 07/29/17 22:10 - Physical Exam Constitutional: no apparent distress, appears nourished, chronically ill appearing Eyes: PERRL, anicteric sclera Ears, Nose, Mouth, Throat: moist mucous membranes, hearing normal Cardiovascular: regular rate and rhythym, no murmur, rub, or gallop Respiratory: no respiratory distress, no rales or rhonchi Gastrointestinal: normoactive bowel sounds, soft, non-tender abdomen Genitourinary: no bladder fullness, No phan in urethra Skin: warm, normal color Musculoskeletal: full muscle strength Neurologic: AAOx3 ICD10 Worksheet Patient Problems: Problems Problem Status Onset Failure to thrive in adult Acute Pleural effusion Acute Weakness Acute Abrasion of left elbow, initial encounter Acute Anemia Acute CHI (closed head injury) Acute Chronic Disease Mgmt/Transitional Care Acute Closed left clavicular fracture Acute Depression Acute Dyspnea Acute Fracture of pubic ramus Acute HTN (hypertension) Acute Multiple falls Acute Pneumonia Acute Post concussion syndrome Acute Ribs, multiple fractures Acute Sepsis Acute Unsteady gait Acute Weakness of both legs Acute
[2017-08-07] MEDS: MONTELUKAST SODIUM 10 MG TAB TUBE SCH (16:57)
[2017-08-08] MEDS: buPROPion 75 MG TAB TUBE SCH ×3 (03:10→21:42)
[2017-08-08] MEDS: ATORVASTATIN CALCIUM 10 MG TAB TUBE SCH ×2 (03:10→21:42)
[2017-08-08] MEDS: MELATONIN 3 MG TAB TUBE SCH ×2 (03:11→21:42)
[2017-08-08] MEDS: traZODone 50 MG TAB TUBE SCH ×2 (03:11→21:41)
[2017-08-08] MEDS: LISINOPRIL 10 MG TAB TUBE SCH ×4 (03:11→21:40)
[2017-08-08] MEDS: VANCOMYCIN 125 MG/2.5 ML UDL TUBE SCH ×4 (05:06→21:38)
[2017-08-08] MEDS: LEVOTHYROXINE 75 MCG TAB TUBE SCH (05:07)
[2017-08-08 05:33] LABS: PLATELET COUNT 234 10^3/uL (150-400)
[2017-08-08] MEDS: (Fluticasone/Vilanterol [Breo Ellipta 200-25 Mcg Inh] 1 EACH) IH SCH (08:28)
[2017-08-08] MEDS: cefTRIAXone 2 GM in STERILE WATER INJ 20 ML IV SCH (09:13)
[2017-08-08] MEDS: ENOXAPARIN 40 MG/0.4 ML SYR SC SCH ×2 (09:22→14:05)
[2017-08-08] MEDS: CHOLECALCIFEROL VIT D3 2,000 UNITS TAB/CAP TUBE SCH (09:57)
[2017-08-08] MEDS: MULTIVIT/MINERAL/FERR GLUC 15 ML UDL TUBE SCH (09:58)
[2017-08-08] MEDS: LIDO/ZINC OX/CLOTRIMAZOLE (MAD) 116 GM CREAM TP SCH ×2 (10:33→21:38)
--- NOTE | 2017-08-08 10:39 | PCMIDPN ---
Assessment/Plan: Assessment: 1. Empyema secondary to group a strep. This is status post VATS procedure last week. This all presumably began from a left upper extremity septic thrombophlebitis. From the empyema standpoint the patient is stable and doing well. He continues on IV ceftriaxone. 2. C diff colitis. Patient developed increased white blood cell count and significant stooling approximately 4-5 days ago. PCR indicates positive for C diff colitis. Patient was instituted on oral vancomycin and Flagyl. White blood cell count is significantly decreased today. Number of stools so far today is much less. I think he is starting to turn the corner. This is exactly the schedule for improvement that we would expect. Plan: 1. Continue IV ceftriaxone daily. 2. Continue oral vancomycin and Flagyl. 3. Continue medical support and care. Anticipate the patient will need a number of more days to make significant clinical improvement. Subjective: Patient is resting in his hospital bed. He has had liquid stools twice today. This is an improvement from yesterday. Patient is still quite weak from the turn of events over the last week. No fevers or chills. Objective: Ceftriaxone # 20 P.o. Vancomycin # 5 Flagyl # 3 Vital Signs Temp Pulse Resp BP Pulse Ox 36.9 C 103 H 14 152/83 H 93 08/08/17 08:15 08/08/17 08:30 08/08/17 08:30 08/08/17 08:15 08/08/17 09:35 Laboratory Results 08/08/17 05:15 08/08/17 05:15 08/07/17 08/08/17 08/09/17 05:59 05:59 05:59 Intake Total 1025 1540 Output Total 200 4 Balance 825 1536 ESR 81 MM/HR (0-20) H 07/26/17 12:58 C-Reactive Protein 155.2 mg/L (<10.0) H 07/26/17 12:58 - Physical Exam General Appearance: WD/WN, alert, no apparent distress, non-toxic, other (Tired appearing) Respiratory: lungs clear, normal breath sounds, No respiratory distress Cardiac/Chest: regular rate, rhythm, tachycardia (Mildly) Skin: normal color, warm/dry, No rash Neuro/Psych: alert, normal mood/affect, oriented x 3 ICD10 Worksheet Patient Problems: Problems Problem Status Onset Failure to thrive in adult Acute Pleural effusion Acute Weakness Acute Abrasion of left elbow, initial encounter Acute Anemia Acute CHI (closed head injury) Acute Chronic Disease Mgmt/Transitional Care Acute Closed left clavicular fracture Acute Depression Acute Dyspnea Acute Fracture of pubic ramus Acute HTN (hypertension) Acute Multiple falls Acute Pneumonia Acute Post concussion syndrome Acute Ribs, multiple fractures Acute Sepsis Acute Unsteady gait Acute Weakness of both legs Acute
--- NOTE | 2017-08-08 13:55 | HOSPPROG ---
Hospitalist Progress Note Assessment/Plan: 77 yo M w sepsis, grp A steep bacteremia now cdiff sepsis: septic physiology has resolved Group A strep bacteremia: from superficial thrombophlebitis. blood cxs 07/22 NGTD dysphagia: passed swallow eval today SPCM: ensure w meals Recurrent right pleural effusion: empyema s/p VATS path neg for malignancy 08/06 cxr unchanged (interp by me) cxr 08/08 effusions unchanged, airspace disease slightly better cdiff: on po vanc, IV metronidazole diarrhea has decreased 08/05: tender abd w rising white count. 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 Significant weight loss: concern for malignancy. No mass seen on imaging. Repeat cytology also neg Hypotension: resolved. Now hypertensive. Normal EF Hypoglycemia: resolved CAD: h/o stents. statin restart plavix 08/10 Falls: PT/OT Reported lung mass: not seen on CT Diet: npo Disp: cont inpatient admission for thoracentesis, PT, IV abx Subjective: case d.w dr butler. cxr improved a bit (interp by me) Objective: Vital Signs Temp Pulse Resp BP Pulse Ox 36.5 C 105 H 20 141/98 H 96 08/08/17 11:04 08/08/17 11:04 08/08/17 11:04 08/08/17 11:04 08/08/17 11:04 Laboratory Results 08/08/17 05:15 08/08/17 05:15 08/07/17 08/08/17 08/09/17 05:59 05:59 05:59 Intake Total 1025 1540 Output Total 200 4 Balance 825 1536 PT 18.6 SEC (12.0-15.0) H 07/29/17 22:10 INR 1.54 (0.83-1.16) H 07/29/17 22:10 - Physical Exam Constitutional: no apparent distress, other (more aler, looks better), No appears nourished Eyes: PERRL, anicteric sclera Ears, Nose, Mouth, Throat: moist mucous membranes, hearing normal Cardiovascular: regular rate and rhythym, no murmur, rub, or gallop Respiratory: no respiratory distress, No no rales or rhonchi Gastrointestinal: normoactive bowel sounds, soft, non-tender abdomen Genitourinary: No phan in urethra Skin: warm, normal color Musculoskeletal: full muscle strength Neurologic: AAOx3 ICD10 Worksheet Patient Problems: Problems Problem Status Onset Failure to thrive in adult Acute Pleural effusion Acute Weakness Acute Abrasion of left elbow, initial encounter Acute Anemia Acute CHI (closed head injury) Acute Chronic Disease Mgmt/Transitional Care Acute Closed left clavicular fracture Acute Depression Acute Dyspnea Acute Fracture of pubic ramus Acute HTN (hypertension) Acute Multiple falls Acute Pneumonia Acute Post concussion syndrome Acute Ribs, multiple fractures Acute Sepsis Acute Unsteady gait Acute Weakness of both legs Acute
--- NOTE | 2017-08-08 15:01 | ASMTCMCOM ---
CM Note CM Note Notes: CM met w/ pt and a friend for dispo planning. Pt reports that he has not thought more about having outpatient palliative. CM provided pt w/ brochures for outpatient palliative agencies. CM to follow. Plan: Cassandra Date Signed: 08/08/2017 03:00 PM Electronically Signed By:MARY Manley
--- NOTE | 2017-08-08 17:02 | SOAPPROG ---
SOAP Progress Note Assessment/Plan: Assessment: 77 Y M s/p VATS c thoracotomy, decortication, wedge lung biopsy and pleural and LN biopsies Now with C-diff, being treated with vanc S: Stable. No complaints. Yesterday, had concerns about pt's pathology coming back with a CA diagnosis. O: Alert Afebrile WBC count trending down RRR No increased WOB, expiratory wheeze bilaterally, but otherwise clear. Plan: Continue to monitor. Pt slowly improving. Chart reviewed, path did not show cancer. not at bedside during visit. Discussed with RN. 08/07/17 10:25 08/08/17 17:01 No new changes. Pt not progressing as we wound like. Chest tube site dressings cdi. Will continue to follow. Objective: Vital Signs Temp Pulse Resp BP Pulse Ox 36.5 C 105 H 20 141/98 H 96 08/08/17 11:04 08/08/17 11:04 08/08/17 11:04 08/08/17 11:04 08/08/17 11:04 Laboratory Results 08/08/17 05:15 08/08/17 05:15 08/07/17 08/08/17 08/09/17 05:59 05:59 05:59 Intake Total 1025 1540 50 Output Total 200 4 101 Balance 825 1536 -51 PT 18.6 SEC (12.0-15.0) H 07/29/17 22:10 INR 1.54 (0.83-1.16) H 07/29/17 22:10 ICD10 Worksheet Patient Problems: Problems Problem Status Onset Failure to thrive in adult Acute Pleural effusion Acute Weakness Acute Abrasion of left elbow, initial encounter Acute Anemia Acute CHI (closed head injury) Acute Chronic Disease Mgmt/Transitional Care Acute Closed left clavicular fracture Acute Depression Acute Dyspnea Acute Fracture of pubic ramus Acute HTN (hypertension) Acute Multiple falls Acute Pneumonia Acute Post concussion syndrome Acute Ribs, multiple fractures Acute Sepsis Acute Unsteady gait Acute Weakness of both legs Acute
--- NOTE | 2017-08-08 17:22 | SOAPPROG ---
SOAP Progress Note Assessment/Plan: Assessment: LOW GRADE TEMP/ CXR WITH SOME HAZINESS/ MODERATE CHEST DRAINAGE/ WBC 17K Plan:CONTINUE DRAINAGE/ MAY NEED FU CT SCAN 08/03/17 12:10 08/04/17 21:27 VERY WEAK TODAY/ FEEDING TUBE IN PLACE/ CXR STABLE/ TEMP UP/ MODERATE SEROUS DRAINAGE +C DIFDOWN CAUSE OF FEVER 08/08/17 17:22 afebrile/ wound ok/ cxr bilat small effusions/ slow to recover Objective: Vital Signs Temp Pulse Resp BP Pulse Ox 36.5 C 105 H 20 141/98 H 96 08/08/17 11:04 08/08/17 11:04 08/08/17 11:04 08/08/17 11:04 08/08/17 11:04 Laboratory Results 08/08/17 05:15 08/08/17 05:15 08/07/17 08/08/17 08/09/17 05:59 05:59 05:59 Intake Total 1025 1540 50 Output Total 200 4 101 Balance 825 1536 -51 PT 18.6 SEC (12.0-15.0) H 07/29/17 22:10 INR 1.54 (0.83-1.16) H 07/29/17 22:10 ICD10 Worksheet Patient Problems: Problems Problem Status Onset Failure to thrive in adult Acute Pleural effusion Acute Weakness Acute Abrasion of left elbow, initial encounter Acute Anemia Acute CHI (closed head injury) Acute Chronic Disease Mgmt/Transitional Care Acute Closed left clavicular fracture Acute Depression Acute Dyspnea Acute Fracture of pubic ramus Acute HTN (hypertension) Acute Multiple falls Acute Pneumonia Acute Post concussion syndrome Acute Ribs, multiple fractures Acute Sepsis Acute Unsteady gait Acute Weakness of both legs Acute
[2017-08-08] MEDS: MONTELUKAST SODIUM 10 MG TAB TUBE SCH (18:28)
[2017-08-08] MEDS ORDERED: oxyCODONE IR 5 MG TAB PO PRN (23:45)
[2017-08-08] MEDS ORDERED: ONDANSETRON DISINTEGRATING 4 MG TAB PO PRN (23:45)
[2017-08-08] MEDS ORDERED: ACETAMINOPHEN 325 MG TAB PO PRN (23:45)
[2017-08-09] MEDS: VANCOMYCIN 125 MG/2.5 ML UDL PO SCH ×4 (05:10→20:30)
[2017-08-09] MEDS: LEVOTHYROXINE 75 MCG TAB PO SCH (05:10)
[2017-08-09 05:54] LABS: PLATELET COUNT 228 10^3/uL (150-400)
[2017-08-09] MEDS: LISINOPRIL 10 MG TAB PO SCH ×2 (08:30→20:31)
[2017-08-09] MEDS: CHOLECALCIFEROL VIT D3 2,000 UNITS TAB/CAP PO SCH (08:30)
[2017-08-09] MEDS: MULTIVIT/MINERAL/FERR GLUC 15 ML UDL PO SCH (08:31)
[2017-08-09] MEDS: cefTRIAXone 2 GM in STERILE WATER INJ 20 ML IV SCH (08:31)
[2017-08-09] MEDS: ENOXAPARIN 40 MG/0.4 ML SYR SC SCH (08:31)
[2017-08-09] MEDS: LIDO/ZINC OX/CLOTRIMAZOLE (MAD) 116 GM CREAM TP SCH ×2 (08:32→20:30)
[2017-08-09] MEDS: buPROPion 75 MG TAB PO SCH ×2 (09:28→20:31)
[2017-08-09] MEDS ORDERED: POTASSIUM CL 20 MEQ/15 ML UDCUP PO ONE (09:40)
[2017-08-09] MEDS: (Fluticasone/Vilanterol [Breo Ellipta 200-25 Mcg Inh] 1 EACH) IH SCH (10:23)
[2017-08-09] MEDS ORDERED: IPRATROPIUM/ALBUTEROL 3 ML DEYVIAL IH PRN (12:26)
--- NOTE | 2017-08-09 13:25 | PCMIDPN ---
Assessment/Plan: Assessment: 1. Empyema secondary to group a strep. This is status post VATS procedure last week. This all presumably began from a left upper extremity septic thrombophlebitis. From the empyema standpoint the patient is stable and doing well. He continues on IV ceftriaxone. 2. C diff colitis. Patient developed increased white blood cell count and significant stooling approximately 6 days ago. PCR indicates positive for C diff colitis. Patient continues on oral vancomycin and Flagyl. White blood cell count is significantly decreased today. Given his continued improvement we will discontinue Flagyl today. Patient is quite weak from the episode. Plan: 1. Continue IV ceftriaxone daily. 2. Continue oral vancomycin but discontinue Flagyl. 3. Continue medical support and care. 08/09/17 16:06 Subjective: Patient is resting in his hospital bed. He was able to ambulate a little bit with help today. He states he feels wiped out from the diarrhea. No fevers or chills. Has had 1 stool so far by mid day and it was somewhat formed. Objective: Ceftriaxone # 21 P.o. Vancomycin # 6 Vital Signs Temp Pulse Resp BP Pulse Ox 37.2 C 91 20 148/91 H 96 08/09/17 11:39 08/09/17 12:28 08/09/17 12:28 08/09/17 11:39 08/09/17 12:28 Laboratory Results 08/09/17 05:15 08/09/17 05:15 08/08/17 08/09/17 08/10/17 05:59 05:59 05:59 Intake Total 1540 3130 Output Total 4 101 185 Balance 1536 3029 -185 ESR 81 MM/HR (0-20) H 07/26/17 12:58 C-Reactive Protein 155.2 mg/L (<10.0) H 07/26/17 12:58 - Physical Exam General Appearance: WD/WN, alert, no apparent distress, non-toxic Respiratory: lungs clear, normal breath sounds, No respiratory distress Cardiac/Chest: regular rate, rhythm, No tachycardia Extremities: non-tender, normal inspection Skin: normal color, warm/dry, No rash Neuro/Psych: alert, normal mood/affect, oriented x 3 ICD10 Worksheet Patient Problems: Problems Problem Status Onset Failure to thrive in adult Acute Pleural effusion Acute Weakness Acute Abrasion of left elbow, initial encounter Acute Anemia Acute CHI (closed head injury) Acute Chronic Disease Mgmt/Transitional Care Acute Closed left clavicular fracture Acute Depression Acute Dyspnea Acute Fracture of pubic ramus Acute HTN (hypertension) Acute Multiple falls Acute Pneumonia Acute Post concussion syndrome Acute Ribs, multiple fractures Acute Sepsis Acute Unsteady gait Acute Weakness of both legs Acute
--- NOTE | 2017-08-09 14:46 | ASMTCMCOM ---
CM Note CM Note Notes: CM spoke w/ Dr. Gee and Pauly, RN regarding d/c POC. CM met w/ pt, and daughter for dispo planning. Pts reports that they will not go with outpatient palliative services. CM will go to [facility] once medically stable. Updates sent to [facility]. CM to follow. Plan: [facility] Date Signed: 08/09/2017 02:46 PM Electronically Signed By:MARY Manley
--- NOTE | 2017-08-09 16:27 | HOSPPROG ---
Hospitalist Progress Note Assessment/Plan: Assessment: 77 yo M p/w sepsis, group A strep bacteremia c/b RLL empyema, C. diff colitis, and respiratory failure, s/p VATs Plan: # sepsis POA: evidenced by autonomic dysregulation in setting of infxn w/ e/o end-organ failure (ELIER, lactic acidosis, resp failure) # group A strep bacteremia: 2/2 superficial thrombophlebitis on LUE, IV CTX stop date 08/27/17 - Echo w/o veg - appreciate ongoing ID consultation # c. difficile colitis: formed BM this AM on vanco/flagyl - d/w Dr. Cox, he recommends we stop flagyl today, monitor stability on PO vanco, should receive 14 days total # RLL empyema: loculated, s/p VATs 07/29 w/ Cx pending, CXR w/ less R inferior air space disease - d/w Dr. Holland, recommends outpt f/u 1 week, OK for staple removal prior to DC # acute blood loss anemia: EBL surgery 400 2/2 circulating anticoagulant/anti- platelet effect of plavix, s/p DDAVP and TXA - hgb 8.8 this AM - ongoing Hgb level monitoring daily - cont to hold plavix, will d/w Dr. Holland if we can restart # acute hypoxic respiratory failure: evidenced by SpO2 89% on room air (=Tyrone 58mmHg) w/ objective tachypnea and labored breathing, requiring up to 5LPM high flow o2, 2/2 sepsis, empyema, dCHF - weaned to 1LPM # acute diastolic CHF exacerbation: evidenced by bilat effusions which are concomitant to the empyema and contributing to his resp failure - s/p IV lasix + albumin to augment diuresis, now appears euvolemic # COPD: chronic, cont on Breo, scheduled albuterol nebs, PRN duonebs # HTN: cont lisinopril 10mg bid # CAD: chronic, h/o stents, > 1 year, holding plavix re: blood loss # LUE thrombophlebitis: warm compression, NSAID # acute encephalopathy: evidenced by global brain dysfunction characterized as somnolence and poor arousability, which is an acute change from his baseline, and likely 2/2 hemodynamic effects of acute hypotension experienced early in his hospitalization, resolved # acute hyponatremia: 2/2 poor renal flow in setting of above, resolved # atrial fibrillation: intermittent w/o RVR, 07/20 Echo w/ EF 65-70% and no focal wall motion abnl, no significant valve issues - reviewed prior Cards consults and cath report by Dr. Mccoy in 2010, no prior hx of Afib mentioned, visualized on tele 07/30 - recommend outpt f/u Dr. Parson for 30-day monitor and consideration of AC Diet: regular PPx: high risk, SCDs, hold pharm given VATs Code: full Dispo: ADD uncertain, pending clinical stability as outlined above High-level of medical complexity, high risk for worsening morbidity and/or mortality secondary to the issues outlined above. Subjective: pt feels energy is < 100%, he is concerned about ability to get home Objective: Vital Signs Temp Pulse Resp BP Pulse Ox 36.7 C 91 15 144/101 H 98 08/09/17 15:13 08/09/17 15:13 08/09/17 15:13 08/09/17 15:13 08/09/17 15:13 Laboratory Results 08/09/17 05:15 08/09/17 05:15 08/08/17 08/09/17 08/10/17 05:59 05:59 05:59 Intake Total 1540 3130 250 Output Total 4 101 185 Balance 1536 3029 65 PT 18.6 SEC (12.0-15.0) H 07/29/17 22:10 INR 1.54 (0.83-1.16) H 07/29/17 22:10 - Physical Exam Constitutional: no apparent distress, not in pain, chronically ill appearing, No uncomfortable Cardiovascular: systolic murmur (I/ at apex), No irregularly irregular, No tachycardia, No edema Respiratory: reduced air movement (R base), inspiratory crackles (R base), No expiratory wheeze, No bronchial breath sounds, No respiratory distress Gastrointestinal: normoactive bowel sounds, soft, non-tender abdomen, no palpable masses, No distension Neurologic: AAOx3, No weakness Psychiatric: not encephalopathic, thought process linear, anxious, No agitated ICD10 Worksheet Patient Problems: Problems Problem Status Onset Failure to thrive in adult Acute Pleural effusion Acute Weakness Acute Abrasion of left elbow, initial encounter Acute Anemia Acute CHI (closed head injury) Acute Chronic Disease Mgmt/Transitional Care Acute Closed left clavicular fracture Acute Depression Acute Dyspnea Acute Fracture of pubic ramus Acute HTN (hypertension) Acute Multiple falls Acute Pneumonia Acute Post concussion syndrome Acute Ribs, multiple fractures Acute Sepsis Acute Unsteady gait Acute Weakness of both legs Acute
[2017-08-09] MEDS ORDERED: MONTELUKAST SODIUM 10 MG TAB PO SCH (18:00)
[2017-08-09] MEDS ORDERED: MELATONIN 3 MG TAB PO SCH (21:00)
[2017-08-09] MEDS ORDERED: traZODone 50 MG TAB PO SCH (21:00)
[2017-08-09] MEDS ORDERED: ATORVASTATIN CALCIUM 10 MG TAB PO SCH (21:00)
[2017-08-10 04:17] LABS: PLATELET COUNT 260 10^3/uL (150-400)
[2017-08-10] MEDS: VANCOMYCIN 125 MG/2.5 ML UDL PO SCH ×2 (06:33→11:51)
[2017-08-10] MEDS: LEVOTHYROXINE 75 MCG TAB PO SCH (06:34)
[2017-08-10] MEDS: LISINOPRIL 10 MG TAB PO SCH (08:18)
[2017-08-10] MEDS: CHOLECALCIFEROL VIT D3 2,000 UNITS TAB/CAP PO SCH (08:18)
[2017-08-10] MEDS: MULTIVIT/MINERAL/FERR GLUC 15 ML UDL PO SCH (08:18)
[2017-08-10] MEDS: ENOXAPARIN 40 MG/0.4 ML SYR SC SCH (08:19)
[2017-08-10] MEDS: LIDO/ZINC OX/CLOTRIMAZOLE (MAD) 116 GM CREAM TP SCH (08:19)
[2017-08-10] MEDS: buPROPion 75 MG TAB PO SCH (08:19)
[2017-08-10] MEDS: cefTRIAXone 2 GM in STERILE WATER INJ 20 ML IV SCH (08:19)
[2017-08-10] MEDS ORDERED: POTASSIUM CL 20 MEQ TAB PO ONE (08:58)
[2017-08-10] MEDS ORDERED: FUROSEMIDE 20 MG TAB PO ONE (09:53)
[2017-08-10] MEDS ORDERED: METOPROLOL TARTRATE 25 MG TAB PO SCH (10:00)
[2017-08-10] MEDS ORDERED: ASPIRIN EC 81 MG TAB PO SCH (10:00)
[2017-08-10] MEDS: (Fluticasone/Vilanterol [Breo Ellipta 200-25 Mcg Inh] 1 EACH) IH SCH (10:18)
[2017-08-10 11:33] VITALS: BP 143/89
--- NOTE | 2017-08-10 12:20 | PDIAF ---
- Diagnosis Diagnosis: Strep. pyogenes empyema, bacteremia, s/p VATs, Cdiff Code Status: Full Code - Medication Management Discharge Medications: Medications to Continue on Transfer Montelukast Sodium [Singulair 10 mg (*)] 10 mg PO DAILY@18 10/25/11 [Last Taken 07/15/17] Ranolazine [Ranexa] 500 mg PO BID 10/25/11 [Last Taken 07/15/17 21:00] Ropinirole HCl [Requip 0.5mg] 0.5 mg PO HS 02/10/15 [Last Taken 07/15/17] Lubiprostone [Amitiza 24 mcg (*)] 24 mcg PO BIDMEAL 07/24/16 [Last Taken 18:00] traZODone [traZODONE 50MG (*)] 50 mg PO HS 07/24/16 [Last Taken 07/15/17] Albuterol [Proventil Inhaler HFA (*)] 1 - 2 puffs IH Q6H PRN 09/22/16 [Last Taken Unknown] Atorvastatin Calcium [Lipitor 10 mg (*)] 10 mg PO HS 07/16/17 [Last Taken ] Cholecalciferol Vit D3 [Vitamin D3 2000 units tab (OTC)] 2,000 units PO DAILY [Last Taken 07/15/17] Ferrous Sulfate [Ferrous Sulf 325 MG (*)] 325 mg PO DAILY 07/16/17 [Last Taken 07/15/17] Fluticasone/Vilanterol [Breo Ellipta 200-25 Mcg INH] 1 each IH DAILY 07/16/17 [ Last Taken 07/15/17] buPROPion XL [Wellbutrin 150mg XL] 150 mg PO DAILY 07/16/17 [Last Taken 07/15/17 ] oxyCODONE IR [Oxycodone Ir (*)] 5 mg PO DAILY PRN 07/16/17 [Last Taken Unknown] Acetaminophen [Tylenol 325mg (*)] 650 mg PO Q4HRS PRN tab 08/10/17 [Last Taken Unknown] Apixaban [Eliquis] 5 mg PO BID tab 08/10/17 [Last Taken Unknown] Aspirin EC [Aspirin EC 81 mg (*)] 81 mg PO DAILY tab 08/10/17 [Last Taken Unknown] Carvedilol [Coreg (*)] 6.25 mg PO BID #60 08/10/17 [Last Taken 07/15/17 21:00] Furosemide [Lasix 20 MG (*)] 20 mg PO BID@0900,1500 tab 08/10/17 [Last Taken Unknown] Ipratropium/Albuterol [Duoneb (*)] 3 ml IH QID PRN deyvial 08/10/17 [Last Taken Unknown] Levothyroxine [Synthroid 75 mcg (*)] 75 mcg PO DAILY AT 6AM tab 08/10/17 [Last Taken Unknown] Lido/Zinc Ox/Clotrimazole Crm [Moisture Associated Dermatitis Cream] 1 eb TP BID cream 08/10/17 [Last Taken Unknown] Lisinopril [Zestril 10 mg (*)] 10 mg PO BID tab 08/10/17 [Last Taken Unknown] Melatonin [Melatonin 3 MG (*)] 3 mg PO HS tab 08/10/17 [Last Taken Unknown] Polyethylene Glycol 3350 [Miralax 17 gm (*)] 17 gm PO DAILY PRN pkt 08/10/17 [ Last Taken Unknown] Potassium Cl [Klor-Con 20 meq (*)] 20 meq PO DAILY tab 08/10/17 [Last Taken Unknown] Vancomycin [Vancocin Oral Liquid] 125 mg PO QID #40 udl 08/10/17 [Last Taken Unknown] cefTRIAXone [Rocephin] 2 gm IV DAILY #17 vial 08/10/17 [Last Taken Unknown] Sericulture Teacher Antibiotics: Vancomycin 125mg qid PO (stop date 08/20/17), Ceftriaxone 2gm daily IV (08/27 Halfway Antibiotic Stop Date: 08/27/17 (stop date for CTX is 08/27/17) Discharge Medications: Refer to the Discharge Home Medication list for PRN reason. PICC Care - Routine: Yes - Orders Services needed: Registered Nurse, Certified Stage Settings Painter, Physical Therapy, Occupational Therapy, Speech Language Pathologist Isolation Type: CDIFF Isolation, Contact Isolation Oxygen: 2LPM continuous Diet Texture: Dysphagia 1 - Pureed, Thin Liquids, Meds Crushed in Puree Weigh Patient: weekly [place]: Not applicable Wound Care Instructions: R. chest, keep bandaged until healed Activity/Weight Bearing Restrictions: as tolerated - Labs/Radiology BMP Date: 08/13/17 (weekly on Tuesdays) CBC w/diff Date: 08/13/17 (weekly on Tuesdays) CRP Date: 08/13/17 ESR Date: 08/13/17 Call or Fax Lab and Imaging Results to: Dr. Cox and Dr. Parson - Follow Up Care Current Providers and Referrals: Patient,NotPresent [Unknown] - As per Instructions Juliocesar Cox MD [Medical Doctor] - (ID office will call you w/ scheduled date/ time) Yung Holland MD [Medical Doctor] - follow up in 1 week (please call to schedule) Devonte Parson MD [Medical Doctor] - follow up in 1 week (please call to schedule)
[2017-08-10] MEDS ORDERED: FUROSEMIDE 20 MG TAB PO SCH (15:00)
--- NOTE | 2017-08-10 15:50 | ASMTLACE ---
LACE Length of stay for Answers: 14 days or more current admission Acuity / Level of Answers: Yes Care: Did the patient have an inpatient admission? Comorbidities - select Answers: Chronic pulmonary disease all that apply Coronary Artery Disease History of falls Other Notes: HTN, ADAN # of Emergency department Answers: 1-2 visits in the last 6 months Social determinants Answers: Mental health diagnosis (anxiety, depression, pers onality disorders, etc.) Score: 22 Date Signed: 08/10/2017 03:50 PM Electronically Signed By:Imelda Holguin RN
--- NOTE | 2017-08-10 15:54 | ASDISCHSUM ---
Discharge Information Plan Status:SNF Medically Cleared to Leave: Discharge Date:08/10/2017 03:40 PM D/C Disposition:Assisted Facility ADT D/C Disposition:Assisted Facility Projected Discharge Date:08/10/2017 11:00 AM Transportation at D/C: Discharge Delay Reason: Follow-Up Date:08/10/2017 11:00 AM Discharge Slot: Final Diagnosis: Placement Information Referral Type:*Shelter/SNF Referral ID:[id number] Provider Name:[facility] Address 1:[address] Address 2: City:[place] Selection Factors: State:[place] Patient Contact Information Contact Name:KENTRELL Relationship: Address:[address] City:[place] Alternate Phone: State/Zip Code:[place] [address] Email: Financial Information Financial Class:Medicare Primary Plan Desc:MEDICARE INPATIENT Primary Plan Number:[id number] Secondary Plan Desc:[employer] Secondary Plan Number:[id number] Assessment Information LACE LACE Length of stay for Answers: 14 days or more current admission Acuity / Level of Answers: Yes Care: Did the patient have an inpatient admission? Comorbidities - select Answers: Chronic pulmonary disease all that apply Coronary Artery Disease History of falls Other Notes: HTN, ADAN # of Emergency department Answers: 1-2 visits in the last 6 months Social determinants Answers: Mental health diagnosis (anxiety, depression, pers onality disorders, etc.) Score: 22 Date Signed: 08/10/2017 03:50 PM Electronically Signed By:Imelda Holguin RN [facility] Progress Note CM Note CM Note Notes: Patient admitted for weakness and falls, both of which have been progressing rapidly in the past weeks. He is also presenting with a large R sided pleural effusion. Patient lives with his and is normally independent. PT/OT have been ordered to evaluate for home safety. Case Management will follow for discharge planning. Date Signed: 07/17/2017 09:26 AM Electronically Signed By:Natacha Plata RN [facility] CM Progress Note CM Note CM Note Notes: Referral submitted to [facility] yesterday. They have accepted pending review. DC unclear. CM to follow. Date Signed: 07/18/2017 04:39 PM Electronically Signed By:Michelle Schmitz LCSW [facility] CM Progress Note CM Note CM Note Notes: Reviewed chart, spoke with FRANSICO Craig regarding discharge plan of care, pt's progress. Per Kiara, pt with elevated WBC today, MD's to r/o bactertial infection. Call received from Addis with [facility] - Addis requesting CM resend H&P and pt's medication list. Information resent twice via [employer]. Addis to review pt's chart for final acceptance. LVM with [facility] to follow up, awaiting call back. Pt to discharge to [facility], pending acceptance, when medically stable. CM will continue to follow. Current Discharge Plan: SNF Date Signed: 07/19/2017 05:31 PM Electronically Signed By:Jessica Resendiz RN [facility] CM Progress Note CM Note CM Note Notes: Pt will now need IV ABX at DC. Sent [facility] an update. CM to follow. Date Signed: 07/21/2017 01:53 PM Electronically Signed By:Michelle Schmitz LCSW [facility] CM Progress Note CM Note CM Note Notes: Patient with profound fatigue complicating discharge. Multiple etiologies in question. I updated Addis at [facility] that patient will not d/c for a few days. Sent PT/OT notes through [employer]. Case Management will follow. Date Signed: 07/23/2017 11:24 AM Electronically Signed By:Natacha Plata RN [facility] CM Progress Note CM Note CM Note Notes: Pt is still not ready for DC yet. Provided updates to [facility]. CM will continue to follow. Date Signed: 07/26/2017 10:22 AM Electronically Signed By:Michelle Schmitz LCSW [facility] CM Progress Note CM Note CM Note Notes: Pt scheduled for VATS procedure today and will go to ICU after. ID continues to follow. Current d/c plan is [facility] when he is medically cleared to go. CM will continue to follow. Date Signed: 07/29/2017 03:56 PM Electronically Signed By:ADILENE Wade [facility] CM Progress Note CM Note CM Note Notes: Discharge plan remains patient to [facility] rehab when medically stable. CM will follow. Date Signed: 07/31/2017 02:48 PM Electronically Signed By:Maye Reed LCSW [facility] CM Progress Note CM Note CM Note Notes: Patient may be able to transfer to the floor today. D/C plan remains [facility] when the patient is medically stable.CM will follow. Date Signed: 08/02/2017 12:59 PM Electronically Signed By:Maye Reed LCSW [facility] CM Progress Note CM Note CM Note Notes: PT/OT/ST all recommending SNF Rehab. Patient interested in returning to [facility]. Date Signed: 08/05/2017 04:18 PM Electronically Signed By:Lucero Wood LCSW [facility] CM Progress Note CM Note CM Note Notes: 08/07/2017 Case Management Note Met with pt, Elizabeth and Sam from Palliative. Please see Palliative note for details. Elizabeth can be reached at [phone] Leonel Marquez can be reached at [phone] Faxed updates to [facility]. Case Management d[facility] poc[facility]. Case Management to follow. Date Signed: 08/07/2017 02:29 PM Electronically Signed By:Jacklyn Perez RN [facility] CM Progress Note CM Note CM Note Notes: CM met w/ pt and a friend for dispo planning. Pt reports that he has not thought more about having outpatient palliative. CM provided pt w/ brochures for outpatient palliative agencies. CM to follow. Plan: [facility] Date Signed: 08/08/2017 03:00 PM Electronically Signed By:MARY Manley [facility] CM Progress Note CM Note CM Note Notes: CM spoke w/ Dr. Gee and FRANSICO Coats regarding d/c POC. CM met w/ pt, and daughter for dispo planning. Pts reports that they will not go with outpatient palliative services. CM will go to [facility] once medically stable. Updates sent to [facility]. CM to follow. Plan: [facility] Date Signed: 08/09/2017 02:46 PM Electronically Signed By:MARY Manley Case Management Discharge Plan Note Case Management Discharge Discharge Order Complete? Answers: Yes Patient to Obtain Answers: Other Notes: [facility] Transportation Arranged Answers: [facility] will Pick (Date 08/10/2017 03:30 PM & Time) Case Management Transport Answers: Yes Form Complete Agency/Facility Transfer Answers: Yes Report Printed & Faxed to Receiving Agency Family Notified Answers: Yes Discharge Comments Notes: [facility] Spoke w/Tari at [facility] and they are ready to accept. Orders/info sent through [employer]. Discussed w/ and RN who will call report to [facility]. Date Signed: 08/10/2017 03:48 PM Electronically Signed By:Imelda Holguin RN Intervention Information Intervention Type:*IM-Signed Date of Service:08/09/2017 02:39 PM Patient Type:Inpatient Staff Member:Palma Reyes Hours: Discipline: Severity: Comment:
--- NOTE | 2017-08-10 17:26 | PDDCSUM ---
Discharge Summary Discharge Summary: Date of Admission: 07/16/17 Date of Discharge: 08/10/17 Discharge Diagnoses: 1. Sepsis POA 2. Group A Strep (Strep. pyogenes) bacteremia and empyema POA 3. C. difficile colitis 4. Acute blood loss anemia 5. Acute hypoxic respiratory failure 6. Acute diastolic CHF exacerbation 7. COPD 8. Chronic HTN 9. New diagnosis Atrial Fibrillation 10. Chronic Coronary Artery Disease 11. Acute encephalopathy 12. Acute hyponatremia and Acute hypernatremia 13. Superficial thrombophlebitis 14. ELIER 15. Acute metabolic acidosis and acute metabolic alkalosis Procedures: VATs by Dr. Holland 07/29/17 Consultations: Pulmonary, Infectious Disease, General Surgery Physical Exam at discharge: SBP 120-140, HR 90-100, Afebrile x 48hrs, sat'ing well on 1LPM NC, insp crackles and reduced air movement in R base, no erythema around surg site R chest, irreg irreg heart rhythm, not tachycardic, no LE edema , AAOx3, bowel sounds present w/o abd tenderness Labs: K 3.5, Cr 0.7, HCO3 30, WBC 12,500, Hgb 8.8, Na 136 Hospital Course: 77 yo M p/w sepsis, group A strep bacteremia c/b RLL empyema, C. diff colitis, and respiratory failure, s/p VATs # sepsis POA: evidenced by autonomic dysregulation in setting of infxn w/ e/o end-organ failure (ELIER, lactic acidosis, resp failure), responded well to IVF and empiric Abx. # group A strep (strep pyogenes) bacteremia w/ empyema: POA, 2/2 superficial thrombophlebitis on LUE (2/2 recent hospitalization in [place]), seen in consultation by infectious disease, adjusted Abx to IV CTX 2gm w/ stop date 08/27, course extended due to empyema which required prolonged course from date of source control (VATs). Blood cultures cleared. Echo neg for vegetation. Patient will follow-up in ID clinic prior to stopping Abx to determine whether he requires further extension of course. Has CRP/ESR to be drawn next week. # c. difficile colitis: 2/2 Abx exposure, stabilized on PO Vanco/IV flagyl, over the past 4 days his stools have become increasingly formed, and will continue an additional 10 days (for total 14 days from time of clinical improvement), to be reassessed in ID clinic to determine whether to be de- escalated to suppression dosing prior to stopping whilst patient is on CTX. # acute blood loss anemia: EBL surgery 400 2/2 circulating anticoagulant/anti- platelet effect of plavix, s/p DDAVP and TXA christine-procedurally. Hgb stabilized between 8-9, and he was safely restarted on anti-platelet/anti-coagulation prior to DC. He has CBC ordered for next week. # acute hypoxic respiratory failure: evidenced by SpO2 89% on room air (=Tyrone 58mmHg) w/ objective tachypnea and labored breathing, requiring up to 5LPM high flow o2, 2/2 sepsis, empyema, dCHF. These conditions were each treated, and he was weaned to 1LPM prior to discharge. His o2 needs will be further weaned at . # acute diastolic CHF exacerbation: evidenced by bilat effusions which are concomitant to the empyema and contributed to his resp failure. He demonstrated no systolic dysfunction on Echo, and he received IV lasix w/ good diuresis. Given his poor nutritional state, he did receive albumin IV to augment lasix. He appeared net even at discharge, but repeat CXR did demonstrate ongoing R side effusion, so lasix 20mg PO bid was prescribed at discharge w/ supplemental K, w/ labs to be followed next week and sent to Dr. Parson. I suspect that he will require PO lasix at least for a couple weeks moving forward. # COPD: chronic, no e/o exacerbation, seen by Pulm, continued on Breo, mobilized secretions well with duonebs and acetylcysteine, will cont PRN duonebs at . He should f/u w/ his primary plug cutter as outpt. # HTN: chronic, continued lisinopril 10mg bid and added lasix. # CAD: chronic, h/o stents 10 years prior, plavix held prior to VATs 07/29/17, and, since we started him on anticoagulation for AFib, d/w patient, think it would be safest to adjust him to ASA 81 daily and stop his plavix permanently. He did not have any angina during his stay. # LUE thrombophlebitis: this was the suspected, original site of his GAS translocation and bacteremia. It completely healed w/ warm compression. # acute encephalopathy: evidenced by global brain dysfunction characterized as somnolence and poor arousability, which is an acute change from his baseline, and likely 2/2 hemodynamic effects of acute hypotension experienced early in his hospitalization, resolved. He is mentating at his baseline at discharge. # acute hyponatremia and acute hypernatremia: originally 2/2 poor renal flow in setting of above, he responded to IVF. During diuresis, he developed a free water deficit and required increased free water, but at time of discharge, his Na is wnl. # acute metabolic acidosis and acute metabolic alkalosis: he originally experienced metabolic acidosis 2/2 lactic acid 2/2 sepsis and organ hypoperfusion. He responded to IVF, but, after requiring diuresis for his CHF, developed a contraction metabolic alkalosis, which required temporary discontinuation of diuretics in order to equilibrate. He will have ongoing monitoring of his HCO3. # atrial fibrillation: new diagnosis, intermittent w/o RVR, 07/20 Echo w/ EF 65- 70% and no focal wall motion abnl, no significant valve issues. Likely provoked by stress from above, but having ongoing AFib on day of discharge, and counseled patient that it would be prudent to place on anticoagulation for CVA prevention, given his CVA risk score. He has agreed to eliquis as well as low dose metoprolol tartrate (12.5 bid), and he should f/u with Dr. Parson in 1 week. # ELIER: 2/2 hypovolemia + sepsis, resolved w/ IVF, Cr wnl at discharge, peaked at 1.4. Discharge Medications: Please see official discharge med rec sheet in chart; of note, stopping plavix, starting ASA 81 daily, starting eliquis 5 bid, metop tartrate 12.5 bid, lasix 20 bid, K 20 mEq daily, CTX 2gm daily through 08/27/17, Vanco 125mg PO qid for 10 subsequent days. Discharge instructions: f/u Dr. Parson and Dr. Holland in 1 weekl f/u ID as scheduled; f/u plug cutter in 2 weeks. > 30 minutes spent on direct patient care, as well as discharge planning and preparation.
[2017-08-11] MEDS ORDERED: APIXABAN 5 MG TAB PO SCH (09:00)
[2017-08-11] MEDS ORDERED: POTASSIUM CL 20 MEQ TAB PO SCH (09:00)
== END 2017-08-10 15:40 | DRG 853 ==
LOC: EDUNIT# → OBSVTOIN 12:38 → F1N 14:28 → F2N 07-29 18:45 → F2W 08-02 14:34 → F2N 08-03 16:40 → F2W 08-06 15:05
PROVIDERS: ADMIT Internal Medicine; ATTEND Internal Medicine
DX: A40.0 Sepsis due to streptococcus, group A (principal); J86.9 Pyothorax without fistula; J90 Pleural effusion, not elsewhere classified; J96.01 Acute respiratory failure with hypoxia; G93.40 Encephalopathy, unspecified; I11.0 Hypertensive heart disease with heart failure; I50.33 Acute on chronic diastolic (congestive) heart failure; J44.9 Chronic obstructive pulmonary disease, unspecified; I48.91 Unspecified atrial fibrillation; E87.1 Hypo-osmolality and hyponatremia; E87.0 Hyperosmolality and hypernatremia; E87.2 Acidosis; E87.3 Alkalosis; D62 Acute posthemorrhagic anemia; N17.9 Acute kidney failure, unspecified; A04.72 Enterocolitis due to Clostridium difficile, not specified as recurrent; I80.8 Phlebitis and thrombophlebitis of other sites; Z95.5 Presence of coronary angioplasty implant and graft
CPT/HCPCS: 82607-90; 84481-90; 85060-90; 86334-90; 88184-90; 88185-91; 92526-GN; 92610-GN; 97110-GO; 97112-GP; 97116-GP; 97161-GP; 97164-GP; 97165-GO; 97168-GO; 97530-GO; 97530-GP; 97535-GO; C1751; G8978-GP-CJ; G8978-GP-CL; G8978-GP-CM; G8979-GP-CI; G8979-GP-CJ; G8979-GP-CK; G8979-GP-CL; G8987-GO-CI; G8987-GO-CK; G8987-GO-CL; G8988-GO-CI; G8988-GO-CJ; G8988-GO-CK; G8996-GN-CI; G8997-GN-CI; J0360; J0610; J0696; J1120; J1170; J1650; J1940; J2270; J2370; J2405; J2543; J2597; J2704; J3010; J3370; J3475; J3480; J7613; P9016; P9035; P9041; P9047; P9100; Q9967

== ENCOUNTER 2017-08-12 11:00 | Inpatient (IN) | payer OTHER ==
--- NOTE | 2017-08-12 11:03 | EDPHY ---
H & P Source: Patient, Family (Son), RN/MD, Old records Exam Limitations: No limitations - Personal History Tetanus Vaccine Date: last 10 years - Medical/Surgical History Hx Asthma: No Hx Chronic Respiratory Disease: Yes Hx Diabetes: No Hx Cardiac Disease: Yes Hx Renal Disease: No Hx Cirrhosis: No Hx Alcoholism: No Hx HIV/AIDS: No Hx Splenectomy or Spleen Trauma: Yes Other PMH: pmh- chronic pain, COPD, htn, hld. psh- 6 cardiac stents, artifical L femur, appy, tonsilectomy, cataract sx both eyes - Social History Smoking Status: Former smoker Time Seen by Provider: 08/12/17 11:02 HPI/ROS: HPI: This is a 77-year-old male who presents with Chief Complaint: Respiratory infection, coughing up blood Location: Chest Quality: Hemoptysis Duration: 1 hr prior to arrival Signs and Symptoms: + shortness of breath at rest, + shortness of breath on exertion, + cough, no chest pain, no palpitations, no lower extremity edema, no wheezing, + orthopnea, no paroxysmal nocturnal dyspnea, no fever, no injury/ trauma, + hemoptysis, no carpal pedal spasms Timing: Acute Severity: Severe Context: Patient arrived via EMS from assisted facility with complaints of a respiratory infection and coughing up blood approximately 100 cc. Has a PICC line for which he is receiving vancomycin. Son at bedside. O2 sats upon arrival 79% on room air. Placed on non-rebreather with sats coming up to 96-99% . Patient had an extended hospitalization from 07/1017 to 08/10/2017 secondary to sepsis with end-organ failure; group a strep bacteremia in empyema, C diff colitis, acute hypoxic respiratory failure and discharged on 1 L nasal cannula, new onset atrial fibrillation. Son reports that he had a chest tube on the right at 1 point during his hospitalization. Chart review shows that patient is status post VATs by Dr. Holland on 07/29/2017. He also had acute blood-loss anemia status post DDAVP and TXA christine procedure early. He was started on anti- platelet anticoagulation prior to DC. Modifying Factors: Comment: ROS: Limited due to clinical condition. MEDICAL/SURGICAL/SOCIAL HISTORY: pmh- chronic pain, COPD, htn, hld psh- 6 cardiac stents, artificial L femur, appendectomy, tonsillectomy, cataract sx both eyes Social history: At assisted facility CONSTITUTIONAL: Chronically ill-appearing, elderly white male, son at bedside, hospital gown his blood tinged as he is holding paper towel to mouth, awake and alert, moderate distress HEENT: Atraumatic and normocephalic, PERRL, EOMI. Nares patent; no rhinorrhea; no nasal mucosal edema. Tympanic membranes clear. Oropharynx clear, no exudate and moist pink mucosa. Airway patent. No lymphadenopathy. No meningismus. Cardiovascular: Normal S1/S2, irregular rate, regular rhythm, without murmur rub or gallop. PULMONARY/CHEST: Symmetrical and nontender. Diminished bibasilarly with poor effort. Fair air movement. No accessory muscle usage. ABDOMEN: Soft, nondistended, nontender, no rebound, no guarding, no peritoneal signs, no masses or organomegaly. No CVAT. EXTREMITIES: 2/2 pulses, strength 5/5, no deformities, no clubbing, no cyanosis or edema. NEUROLOGICAL: no focal neuro deficits. GCS 15. SKIN: Warm and dry, pallor, no erythema. no rash. Good capillary refill. (Olivia Rollins) Constitutional: Initial Vital Signs Temperature (C) 37.1 C 08/12/17 11:05 Heart Rate 77 08/12/17 11:05 Respiratory Rate 28 H 08/12/17 11:05 Blood Pressure 97/67 L 08/12/17 11:05 O2 Sat (%) 93 08/12/17 11:05 O2 Delivery Mode Nasal Cannula O2 (L/minute) 3 Allergies/Adverse Reactions: No Known Allergies Allergy (Unverified 08/12/17 11:33) Home Medications: Medication Instructions Recorded Montelukast Sodium [Singulair 10 10 mg PO DAILY@18 10/25/11 mg (*)] Ranolazine [Ranexa] 500 mg PO BID 10/25/11 Ropinirole HCl [Requip 0.5mg] 0.5 mg PO HS 02/10/15 Lubiprostone [Amitiza 24 mcg (*)] 24 mcg PO BIDMEAL 07/24/16 traZODone [traZODONE 50MG (*)] 50 mg PO HS 07/24/16 Albuterol [Proventil Inhaler HFA 1 - 2 puffs IH Q6H PRN 09/22/16 (*)] Atorvastatin Calcium [Lipitor 10 10 mg PO HS 07/16/17 mg (*)] Cholecalciferol Vit D3 [Vitamin D3 2,000 units PO DAILY 07/16/17 2000 units tab (OTC)] Ferrous Sulfate [Ferrous Sulf 325 325 mg PO DAILY 07/16/17 MG (*)] Fluticasone/Vilanterol [Breo 1 each IH DAILY 07/16/17 Ellipta 200-25 Mcg INH] buPROPion XL [Wellbutrin 150mg XL] 150 mg PO DAILY 07/16/17 oxyCODONE IR [Oxycodone Ir (*)] 5 mg PO DAILY PRN 07/16/17 Acetaminophen [Tylenol 325mg (*)] 650 mg PO Q4HRS PRN tab 08/10/17 Apixaban [Eliquis] 5 mg PO BID tab 08/10/17 Aspirin EC [Aspirin EC 81 mg (*)] 81 mg PO DAILY tab 08/10/17 Carvedilol [Coreg (*)] 6.25 mg PO BID #60 08/10/17 Furosemide [Lasix 20 MG (*)] 20 mg PO BID@0900,1500 tab 08/10/17 Ipratropium/Albuterol [Duoneb (*)] 3 ml IH QID PRN deyvial 08/10/17 Levothyroxine [Synthroid 75 mcg 75 mcg PO DAILY AT 6AM tab 08/10/17 (*)] Lido/Zinc Ox/Clotrimazole Crm 1 eb TP BID cream 08/10/17 [Moisture Associated Dermatitis Cream] Lisinopril [Zestril 10 mg (*)] 10 mg PO BID tab 08/10/17 Melatonin [Melatonin 3 MG (*)] 3 mg PO HS tab 08/10/17 Polyethylene Glycol 3350 [Miralax 17 gm PO DAILY PRN pkt 08/10/17 17 gm (*)] Potassium Cl [Klor-Con 20 meq (*)] 20 meq PO DAILY tab 08/10/17 Vancomycin [Vancocin Oral Liquid] 125 mg PO QID #40 udl 08/10/17 cefTRIAXone [Rocephin] 2 gm IV DAILY@14 08/12/17 Medical Decision Making - Diagnostics Imaging Results: Imaging Impressions Chest X-Ray 08/12/17 11:03 Impression: 1. No acute change since 2 days prior. 2. Small bilateral pleural effusions and right basilar pleuroparenchymal thickening are unchanged. 3. Cardiomegaly. No failure. ED Course/Re-evaluation: Placed on non-rebreather mask upon arrival with O2 sats going from 79% on room air to 98-99%. Bedside one view chest x-ray obtained and labs drawn. 1134: Reassessed patient who now is on 3 L nasal cannula and sat 98%. 1135: Chest x-ray my read via PAC shows minimal change from the x-ray performed yesterday. ED decision to consult for admission with hospitalist and general surgery secondary to gross hemoptysis and acute respiratory failure. Discussed case with attending, Dr. Linares, who took over care of the case. (Olivia Rollins) Differential Diagnosis: Shortness of breath including but not limited to pulmonary infectious process, COPD, asthma, pulmonary embolus and congestive heart failure. (Olivia Rollins) Other Provider: Independent physician evaluation: I evaluated and participated in the management of the patient. I also evaluated the patient independently. My co-signature indicates that I have reviewed this chart and I agree with the findings and plan of care as documented. My personal H&P findings include: The patient presents to the ED with gross hemoptysis x1 day. The patient recently had a prolonged hospitalization for multiple medical problems including an empyema, status post VATS procedure, status post lung resection, status post sepsis. The patient was discharged to a rehab facility and restarted aspirin and Eliquis at the time of discharge. Patient had done well until today when he developed antionette hemoptysis. Physical exam: General Appearance: Deconditioned elderly male Eyes: Pupils equal and round no pallor or injection ENT, Mouth: Antionette, persistent oral cavity, no evidence of obvious nasal source of bleeding Respiratory: Rhonchorous breath sounds, crackles right lung base, decreased breath sounds right lung base Cardiovascular: Regular rate and rhythm Gastrointestinal: Abdomen is soft and nontender, no masses, bowel sounds normal Neurological: A&O, normal motor function, normal sensory exam, normal cranial nerves Skin: Warm and dry, no rashes Musculoskeletal: Neck is supple nontender Extremities: symmetrical, full range of motion ED course: The patient presents to the ED with antionette hemoptysis. He had approximately a 100-200 mL of bright red blood in the emergency department. The patient clinically is dehydrated. He is not tachycardic. His blood pressure was 100/ 70 upon arrival. He had a brief episode of hypotension after an episode of hemoptysis. The patient received 500 mL of normal saline. I did notify Dr. Holland from General surgery of the patient's presentation. He has requested the patient be admitted to the hospitalist service. I discussed the case with Dr. Gee, who is familiar with the patient during his prior hospitalization, who will admit the patient. (Per Linares) - Data Points Laboratory Results: Laboratory Results 08/12/17 11:25 08/12/17 11:25 08/12/17 08/12/17 08/12/17 11:25 11:25 11:25 WBC RBC Hgb Hct MCV MCH MCHC RDW Plt Count MPV Neut % (Auto) Lymph % (Auto) Sibley % (Auto) Eos % (Auto) Baso % (Auto) Nucleat RBC Rel Count Absolute Neuts (auto) Absolute Lymphs (auto) Absolute Monos (auto) Absolute Eos (auto) Absolute Basos (auto) Absolute Nucleated RBC Immature Gran % Seg Neutrophils % Band Neutrophils % Lymphocytes % Monocytes % Eosinophils % Basophils % Metamyelocytes % Myelocytes % Promyelocytes % Blast Cells % Immature Gran # Absolute Seg Neuts Absolute Band Neuts Absolute Lymphocytes Absolute Monocytes Absolute Eosinophils Absolute Basophils Absolute Metamyelocyte Absolute Myelocytes Absolute Promyelocytes Absolute Plasma Cells Absolute Blast Cells Plasma Cells % Platelet Estimate Polychromasia Microcytic Cells Oval Macrocytes Echinocytes PT 26.2 SEC H SEC (12.0-15.0) INR 2.41 H (0.83-1.16) APTT 42.3 SEC H SEC (23.0-38.0) VBG Lactic Acid 1.6 mmol/L mmol/L (0.7-2.1) Sodium 139 mEq/L mEq/L (135-145) Potassium 3.5 mEq/L mEq/L (3.5-5.2) Chloride 102 mEq/L mEq/L (97-110) Carbon Dioxide 30 mEq/l mEq/l (22-31) Anion Gap 7 mEq/L L mEq/L (8-16) BUN 13 mg/dL mg/dL (7-23) Creatinine 0.7 mg/dL mg/dL (0.7-1.3) Estimated GFR > 60 Glucose 90 mg/dL mg/dL (70-100) Calcium 7.4 mg/dL L mg/dL (8.5-10.4) Total Bilirubin 1.0 mg/dL mg/dL (0.1-1.4) Conjugated Bilirubin 0.7 mg/dL H mg/dL (0.0-0.5) Unconjugated Bilirubin 0.3 mg/dL mg/dL (0.0-1.1) AST 37 IU/L IU/L (17-59) ALT 27 IU/L IU/L (21-72) Alkaline Phosphatase 75 IU/L IU/L (38-126) Total Protein 5.5 g/dL L g/dL (6.3-8.2) Albumin 1.9 g/dL L g/dL (3.5-5.0) 08/12/17 11:25 WBC 12.76 10^3/uL H 10^3/uL (3.80-9.50) RBC 2.93 10^6/uL L 10^6/uL (4.40-6.38) Hgb 9.2 g/dL L g/dL (13.7-17.5) Hct 29.0 % L % (40.0-51.0) MCV 99.0 fL fL (81.5-99.8) MCH 31.4 pg pg (27.9-34.1) MCHC 31.7 g/dL L g/dL (32.4-36.7) RDW 19.7 % H % (11.5-15.2) Plt Count 383 10^3/uL 10^3/uL (150-400) MPV 9.9 fL fL (8.7-11.7) Neut % (Auto) Not Reported Lymph % (Auto) Not Reported Sibley % (Auto) Not Reported Eos % (Auto) Not Reported Baso % (Auto) Not Reported Nucleat RBC Rel Count Not Reported Absolute Neuts (auto) Not Reported Absolute Lymphs (auto) Not Reported Absolute Monos (auto) Not Reported Absolute Eos (auto) Not Reported Absolute Basos (auto) Not Reported Absolute Nucleated RBC Not Reported Immature Gran % Not Reported Seg Neutrophils % 78.0 % % Band Neutrophils % 6.0 % % Lymphocytes % 6.0 % % Monocytes % 8.0 % % Eosinophils % 1.0 % % Basophils % 0 % % Metamyelocytes % 1.0 % % Myelocytes % 0 % % Promyelocytes % 0 % % Blast Cells % 0 % % Immature Gran # Not Reported Absolute Seg Neuts 9.95 10^/uL H 10^/uL (1.70-6.50) Absolute Band Neuts 0.77 10^3/uL H 10^3/uL (0.00-0.70) Absolute Lymphocytes 0.77 10^3/uL L 10^3/uL (1.00-3.00) Absolute Monocytes 1.02 10^3/uL H 10^3/uL (0.30-0.80) Absolute Eosinophils 0.13 10^3/uL 10^3/uL (0.03-0.40) Absolute Basophils 0.00 10^3/uL L 10^3/uL (0.02-0.10) Absolute Metamyelocyte 0.13 10^3/mL H 10^3/mL (0.00-0.00) Absolute Myelocytes 0.00 10^3/mL 10^3/mL (0.00-0.00) Absolute Promyelocytes 0.00 10^3/uL 10^3/uL (0.00-0.00) Absolute Plasma Cells 0.00 10^3/uL 10^3/uL (0.00-0.00) Absolute Blast Cells 0.00 10^3/uL 10^3/uL (0.00-0.00) Plasma Cells % 0 % % Platelet Estimate ADEQUATE (ADEQ) Polychromasia 1+ H Microcytic Cells 1+ H Oval Macrocytes 1+ H Echinocytes 1+ H PT INR APTT VBG Lactic Acid Sodium Potassium Chloride Carbon Dioxide Anion Gap BUN Creatinine Estimated GFR Glucose Calcium Total Bilirubin Conjugated Bilirubin Unconjugated Bilirubin AST ALT Alkaline Phosphatase Total Protein Albumin Medications Given: Discontinued Medications Hydromorphone HCl (Dilaudid) 0.5 mg IVP EDNOW ONE Stop: 08/12/17 12:20 Last Admin: 08/12/17 12:21 Dose: 0.5 mg Sodium Chloride (Ns) 500 mls @ 1,000 mls/hr IV EDNOW ONE PRN Reason: Protocol Stop: 08/12/17 12:34 Last Admin: 08/12/17 12:07 Dose: 500 mls Departure - Departure Disposition: [facility] Acute Clinical Impression: Major hemoptysis, Pleural effusion, Weakness Anemia Qualifiers: Anemia type: other cause Other causes of anemia: acute posthemorrhagic Qualified Code(s): D62 - Acute posthemorrhagic anemia Condition: Critical
[2017-08-12 11:43] LABS: PLATELET COUNT 383 10^3/uL (150-400)
[2017-08-12 11:51] LABS: INR 2.41 (0.83-1.16); PROTIME(PATIENT) 26.2 SEC (12.0-15.0)
[2017-08-12] MEDS ORDERED: ACETAMINOPHEN 325 MG TAB PO PRN ×2 (12:04→12:30)
[2017-08-12] MEDS ORDERED: ONDANSETRON 4 MG/2 ML VIAL IVP PRN (12:04)
[2017-08-12] MEDS ORDERED: ONDANSETRON DISINTEGRATING 4 MG TAB PO PRN (12:04)
[2017-08-12] MEDS ORDERED: NS 500 ML IV ONE ×2 (12:05→12:07)
[2017-08-12] MEDS ORDERED: NS W/ 20 KCl/L 1,000 ML IV SCH (12:15)
[2017-08-12] MEDS ORDERED: HYDROmorphONE/DILAUDID 2 MG/ML INJ ONE (12:16)
[2017-08-12] MEDS ORDERED: HYDROmorphONE/DILAUDID 1 MG/ML INJ IVP ONE (12:19)
[2017-08-12] MEDS ORDERED: IPRATROPIUM/ALBUTEROL 3 ML DEYVIAL IH PRN (12:30)
[2017-08-12] MEDS ORDERED: ALBUTEROL 60 PUFFS/8 GM MDI IH PRN (12:30)
[2017-08-12] MEDS ORDERED: oxyCODONE IR 5 MG TAB PO PRN (12:30)
[2017-08-12] MEDS ORDERED: POLYETHYLENE GLYCOL 3350 17 GM PKT PO PRN (12:30)
--- NOTE | 2017-08-12 12:48 | PDGENHP ---
History and Physical - Chief Complaint Acute hemoptysis - History of Present Illness Primary oven equipment repairer: Dr. Devonte Parson Primary general surgeon: Dr. Holland HPI: 77-year-old male presenting with acute hemoptysis characterized as globular, antionette red blood with associated coughing with onset of symptoms on the morning of presentation and duration several times thereafter. The patient had reportedly had some sort of issue on the evening prior, at approximately 10: 00 p.m., but the prison facility was unable to reach the patient's and the patient is unable to further characterize. The patient reports that outside of the hemoptysis this morning, he has had increased hoarseness as he has not been given anything to eat or drink since that time. The prison facility reports that the patient received his morning medications, which included aspirin, Eliquis, ranolazine. The patient otherwise denies any fevers chills or increased shortness of breath. He was notably 79% on room air on presentation, was initially placed on non-rebreather, and then was weaned to 3 L nasal cannula. History Information - Allergies/Home Medication List Allergies/Adverse Reactions: No Known Allergies Allergy (Unverified 08/12/17 11:33) Home Medications: Montelukast Sodium [Singulair 10 mg (*)] 10 mg PO DAILY@18 10/25/11 [Last Taken 07/15/17] Ranolazine [Ranexa] 500 mg PO BID 10/25/11 [Last Taken 07/15/17 21:00] Ropinirole HCl [Requip 0.5mg] 0.5 mg PO HS 02/10/15 [Last Taken 07/15/17] Lubiprostone [Amitiza 24 mcg (*)] 24 mcg PO BIDMEAL 07/24/16 [Last Taken 18:00] traZODone [traZODONE 50MG (*)] 50 mg PO HS 07/24/16 [Last Taken 07/15/17] Albuterol [Proventil Inhaler HFA (*)] 1 - 2 puffs IH Q6H PRN 09/22/16 [Last Taken Unknown] Atorvastatin Calcium [Lipitor 10 mg (*)] 10 mg PO HS 07/16/17 [Last Taken ] Cholecalciferol Vit D3 [Vitamin D3 2000 units tab (OTC)] 2,000 units PO DAILY [Last Taken 07/15/17] Ferrous Sulfate [Ferrous Sulf 325 MG (*)] 325 mg PO DAILY 07/16/17 [Last Taken 07/15/17] Fluticasone/Vilanterol [Breo Ellipta 200-25 Mcg INH] 1 each IH DAILY 07/16/17 [ Last Taken 07/15/17] buPROPion XL [Wellbutrin 150mg XL] 150 mg PO DAILY 07/16/17 [Last Taken 07/15/17 ] oxyCODONE IR [Oxycodone Ir (*)] 5 mg PO DAILY PRN 07/16/17 [Last Taken Unknown] cefTRIAXone [Rocephin] 2 gm IV DAILY@14 08/12/17 [Last Taken Unknown] I have personally reviewed and updated: family history, medical history, social history, surgical history - Past Medical History atrial fibrillation (Paroxysmal, recently diagnosed in the setting of acute illness, initiated on Eliquis on day prior), coronary artery disease (Status post 6 cardiac stents to the LAD, RCA, left circumflex approximately 10 years ago, currently on ranolazine and adjusted from Plavix to aspirin 1 day prior), COPD, hypertension, hyperlipidemia Additional medical history: ADAN on CPAP. Recurrent falls. Depression. Anemia of chronic inflammatory disease with baseline hemoglobin 8-9. Recent hospitalization for group a strep bacteremia and empyema, originally from suspected superficial thrombophlebitis. C diff colitis - Surgical History Additional surgical history: 07/29/2017 VATS - Family History Additional family history: Unknown by patient comma adopted - Social History Smoking Status: Former smoker Alcohol Use: Occasionally Drug Use: None Additional social history: Discharge to prison facility 1 day prior Review of Systems Review of Systems: ROS: 10pt was reviewed & negative except for what was stated in HPI & below Constitutional: Reports: weakness EENMT: Reports: other (Hoarseness) Respiratory: Reports: cough, shortness of breath, other (Hemoptysis) Physical Exam Physical Exam: Temp Pulse Resp BP Pulse Ox 37.1 C 89 32 H 99/72 L 94 08/12/17 11:05 08/12/17 12:00 08/12/17 12:00 08/12/17 12:00 08/12/17 12:00 O2 (L/minute) 3 Constitutional: no apparent distress, chronically ill appearing, uncomfortable, No not in pain (Moderate) Eyes: PERRL, anicteric sclera, EOMI Ears, Nose, Mouth, Throat: other (Blood on the teeth, tongue, lips with tacky mucous membranes) Cardiovascular: irregularly irregular, No systolic murmur (Distant heart sounds) , No tachycardia, No edema Respiratory: reduced air movement (Right anterior lateral chest), No expiratory wheeze, No inspiratory crackles, No bronchial breath sounds, No respiratory distress Gastrointestinal: normoactive bowel sounds, soft, non-tender abdomen, no palpable masses, No distension Skin: other (Scattered ecchymoses, no erythema around the right-sided surgical site) Musculoskeletal: other (Mild tenderness over right chest wall) Neurologic: AAOx3, sensation intact bilaterally, No weakness Psychiatric: not anxious, not encephalopathic, flat affect, No agitated Lab Data & Imaging Review 08/12/17 11:25 08/12/17 11:25 WBC 12.76 10^3/uL (3.80-9.50) H 08/12/17 11:25 RBC 2.93 10^6/uL (4.40-6.38) L 08/12/17 11:25 Hgb 9.2 g/dL (13.7-17.5) L 08/12/17 11:25 Hct 29.0 % (40.0-51.0) L 08/12/17 11:25 MCV 99.0 fL (81.5-99.8) 08/12/17 11:25 MCH 31.4 pg (27.9-34.1) 08/12/17 11:25 MCHC 31.7 g/dL (32.4-36.7) L 08/12/17 11:25 RDW 19.7 % (11.5-15.2) H 08/12/17 11:25 Plt Count 383 10^3/uL (150-400) 08/12/17 11:25 MPV 9.9 fL (8.7-11.7) 08/12/17 11:25 Neut % (Auto) Not Reported 08/12/17 11:25 Lymph % (Auto) Not Reported 08/12/17 11:25 Potter % (Auto) Not Reported 08/12/17 11:25 Eos % (Auto) Not Reported 08/12/17 11:25 Baso % (Auto) Not Reported 08/12/17 11:25 Nucleat RBC Rel Count Not Reported 08/12/17 11:25 Absolute Neuts (auto) Not Reported 08/12/17 11:25 Absolute Lymphs (auto) Not Reported 08/12/17 11:25 Absolute Monos (auto) Not Reported 08/12/17 11:25 Absolute Eos (auto) Not Reported 08/12/17 11:25 Absolute Basos (auto) Not Reported 08/12/17 11:25 Absolute Nucleated RBC Not Reported 08/12/17 11:25 Immature Gran % Not Reported 08/12/17 11:25 Seg Neutrophils % 78.0 % 08/12/17 11:25 Band Neutrophils % 6.0 % 08/12/17 11:25 Lymphocytes % 6.0 % 08/12/17 11:25 Monocytes % 8.0 % 08/12/17 11:25 Eosinophils % 1.0 % 08/12/17 11:25 Basophils % 0 % 08/12/17 11:25 Metamyelocytes % 1.0 % 08/12/17 11:25 Myelocytes % 0 % 08/12/17 11:25 Promyelocytes % 0 % 08/12/17 11:25 Blast Cells % 0 % 08/12/17 11:25 Immature Gran # Not Reported 08/12/17 11:25 Absolute Seg Neuts 9.95 10^/uL (1.70-6.50) H 08/12/17 11:25 Absolute Band Neuts 0.77 10^3/uL (0.00-0.70) H 08/12/17 11:25 Absolute Lymphocytes 0.77 10^3/uL (1.00-3.00) L 08/12/17 11:25 Absolute Monocytes 1.02 10^3/uL (0.30-0.80) H 08/12/17 11:25 Absolute Eosinophils 0.13 10^3/uL (0.03-0.40) 08/12/17 11:25 Absolute Basophils 0.00 10^3/uL (0.02-0.10) L 08/12/17 11:25 Absolute Metamyelocyte 0.13 10^3/mL (0.00-0.00) H 08/12/17 11:25 Absolute Myelocytes 0.00 10^3/mL (0.00-0.00) 08/12/17 11:25 Absolute Promyelocytes 0.00 10^3/uL (0.00-0.00) 08/12/17 11:25 Absolute Plasma Cells 0.00 10^3/uL (0.00-0.00) 08/12/17 11:25 Absolute Blast Cells 0.00 10^3/uL (0.00-0.00) 08/12/17 11:25 Plasma Cells % 0 % 08/12/17 11:25 Platelet Estimate ADEQUATE (ADEQ) 08/12/17 11:25 Polychromasia 1+ H 08/12/17 11:25 Microcytic Cells 1+ H 08/12/17 11:25 Oval Macrocytes 1+ H 08/12/17 11:25 Echinocytes 1+ H 08/12/17 11:25 PT 26.2 SEC (12.0-15.0) H 08/12/17 11:25 INR 2.41 (0.83-1.16) H 08/12/17 11:25 APTT 42.3 SEC (23.0-38.0) H 08/12/17 11:25 VBG Lactic Acid 1.6 mmol/L (0.7-2.1) 08/12/17 11:25 Sodium 139 mEq/L (135-145) 08/12/17 11:25 Potassium 3.5 mEq/L (3.5-5.2) 08/12/17 11:25 Chloride 102 mEq/L (97-110) 08/12/17 11:25 Carbon Dioxide 30 mEq/l (22-31) 08/12/17 11:25 Anion Gap 7 mEq/L (8-16) L 08/12/17 11:25 BUN 13 mg/dL (7-23) 08/12/17 11:25 Creatinine 0.7 mg/dL (0.7-1.3) 08/12/17 11:25 Estimated GFR > 60 08/12/17 11:25 Glucose 90 mg/dL (70-100) 08/12/17 11:25 Calcium 7.4 mg/dL (8.5-10.4) L 08/12/17 11:25 Total Bilirubin 1.0 mg/dL (0.1-1.4) 08/12/17 11:25 Conjugated Bilirubin 0.7 mg/dL (0.0-0.5) H 08/12/17 11:25 Unconjugated Bilirubin 0.3 mg/dL (0.0-1.1) 08/12/17 11:25 AST 37 IU/L (17-59) 08/12/17 11:25 ALT 27 IU/L (21-72) 08/12/17 11:25 Alkaline Phosphatase 75 IU/L (38-126) 08/12/17 11:25 Total Protein 5.5 g/dL (6.3-8.2) L 08/12/17 11:25 Albumin 1.9 g/dL (3.5-5.0) L 08/12/17 11:25 Visualized and Interpreted Chest x-ray results: Yes Chest X-Ray results: other (Right lower lobe infiltrate with small bilateral pleural effusions unchanged from day prior) Assessment & Plan Assessment: 77-year-old male presents with acute hemoptysis in the setting of recent group a strep empyema and VATS Plan: 1. Hemoptysis. Acute, new problem this provider, further workup indicated. Secondary to circulating anticoagulant affect of Eliquis, aspirin, and ranolazine in a high risk patient status post VATS on 07/[address] Holland -reviewed outside records including 08/10/2017 hemoglobin level of 8.8 -the patient had demonstrated no evidence of blood loss or bleeding after receiving prophylactic Lovenox during his hospitalization, and he was adjusted to aspirin, Eliquis, and home dosage of ranolazine on 08/11 prior to discharge given the patient's history of known coronary disease with cardiac stents, as well as new diagnosis of atrial fibrillation -patient with significant amount of blood loss but stable hemoglobin, stable blood pressure, and no evidence of ongoing exsanguination -discussed with Dr. Ambrosio Ayoub, we both agree that it is prudent to monitor the patient in the hospital for any further bleeding, particularly since the medications were received this morning and will most likely be in his system actively for at least another 24 hr -Dr. Holland is aware of patient's presentation, at the present time does not appear to have need for surgical intervention -will hold patient's aspirin, Eliquis, ranolazine in the short term, recommend outpatient follow-up with Dr. Parson to assist in outpatient staging of reintroduction 2. Coronary artery disease. Continue statin, hold beta-shaq and SAMEER- inhibitor given potential for hypotension, recommend we initiating tomorrow a.m. 3. COPD. No evidence of acute exacerbation continue home medications 4. Group A strep empyema. Patient with recent strep pyogenes knees empyema and bacteremia, continue on IV ceftriaxone through 08/27/2017 5. C difficile colitis. Recent diagnosis during recent hospitalization, continue 9 subsequent days of vancomycin 125 4 times daily, then follow up at outpatient infectious disease clinic for gradual reduction Diet. Regular present, give some additional IV fluid given patient's relative hypovolemia after not receiving any oral intake this morning Prophylaxis. High risk patient, hold pharmacologic given recent bleeding, SCDs Code. Full Disposition. Anticipated discharge is 08/13, pending stabilization of conditions outlined above.
[2017-08-12] MEDS ORDERED: COCAINE HCL 4% 4 ML BTL TP ONE ×2 (13:25→13:39)
[2017-08-12] MEDS ORDERED: OXYMETAZOLINE 30 ML NASAL SPRAY EACHNARE ONE ×2 (13:25→20:07)
[2017-08-12] MEDS ORDERED: TRANEXAMIC ACID 1,000 MG in NS 100 ML IV ONE (13:50)
[2017-08-12] MEDS ORDERED: NON-FORMULARY NEW DRUG (Ceftriaxone [Rocephin] 2 GM) IV SCH (14:00)
[2017-08-12] MEDS ORDERED: TRANEXAMIC ACID 1,000 MG/10 ML VIAL ONE (14:07)
[2017-08-12] MEDS ORDERED: cefTRIAXone 2 GM in STERILE WATER INJ 20 ML IV ONE (14:15)
[2017-08-12] MEDS ORDERED: NS 1,000 ML IV ONE ×2 (15:13→15:45)
[2017-08-12] MEDS: MONTELUKAST SODIUM 10 MG TAB PO SCH (17:42)
[2017-08-12] MEDS: LUBIPROSTONE 24 MCG CAP PO SCH ×2 (17:43→18:04)
[2017-08-12] MEDS: VANCOMYCIN 125 MG/2.5 ML UDL PO SCH ×2 (17:45→22:01)
--- NOTE | 2017-08-12 17:45 | PDCONSULT ---
Trench Pipe Layer Helper Note: Subjective: This 77 year old male with complicated medical history presented to the ER for hemoptysis and was found to have left sided epistaxis. He is on eliquis and aspirin, last taken this morning. VATS completed 07/29/[address] Holland. Rapid rhino was placed by ED provider earlier today. He has pulled it out. He is on CPAP for ADAN. Allergies: NKDA Medications: Per ED note Past medical history: Afib, CAD, COPD, hypertension, hyperlipidemia, ADAN on CPAP Review of systems as per ED note. Objective: BP 132/62, HR 85. Patient was evaluated in the ED. He appears chronically ill, in no acute distress. Epistaxis noted from left nare. Rapid rhino has been pulled out. 8 cm merocel pack placed in left nare, center tube removed. The string has been cute to prevent patient from pulling pack out. Oropharynx was noted to have dried blood, epistaxis controlled following placement of merocel pack. Assessment/Plan: 77year old male with left sided epistaxis. Eliquis and aspirin has been held. Discussed with patent's and daughter that pack should remain in place 4-5 days. We will plan to see patient on Saturday in clinic for pack removal. Recommend keflex while pack is in place. Patient was evaluated and pack was placed by Dr. Ramirez.
--- NOTE | 2017-08-12 20:57 | SOAPPROG ---
SOAP Progress Note Assessment/Plan: Assessment: 77 male with hemoptysis which more likely 2/2 nose bleed in pt on eliquis cxr unchanged with no obvious tumor bs equal/ cor rr/ abd soft chest clear and wound ok Plan:ent consult to ro source of bleed/ reverse anticoagulation/ pulmonary consult for possible bronch 08/12/17 20:52 Objective: Vital Signs Temp Pulse Resp BP Pulse Ox 36.4 C 104 H 18 100/65 98 08/12/17 18:35 08/12/17 18:35 08/12/17 18:35 08/12/17 18:51 08/12/17 18:35 Laboratory Results 08/12/17 18:05 08/11/17 08/12/17 08/13/17 05:59 05:59 05:59 Intake Total 3025 Output Total 150 Balance 2875 PT 26.2 SEC (12.0-15.0) H 08/12/17 11:25 INR 2.41 (0.83-1.16) H 08/12/17 11:25 ICD10 Worksheet Patient Problems: Problems Problem Status Onset Anemia Acute Major hemoptysis Acute Pleural effusion Acute Weakness Acute Abrasion of left elbow, initial encounter Acute CHI (closed head injury) Acute Chronic Disease Mgmt/Transitional Care Acute Closed left clavicular fracture Acute Depression Acute Dyspnea Acute Failure to thrive in adult Acute Fracture of pubic ramus Acute HTN (hypertension) Acute Multiple falls Acute Pneumonia Acute Post concussion syndrome Acute Ribs, multiple fractures Acute Sepsis Acute Unsteady gait Acute Weakness of both legs Acute
[2017-08-12] MEDS: traZODone 50 MG TAB PO SCH (22:01)
[2017-08-12] MEDS: ATORVASTATIN CALCIUM 10 MG TAB PO SCH (22:01)
[2017-08-12] MEDS: MELATONIN 3 MG TAB PO SCH (22:01)
[2017-08-12] MEDS: LIDO/ZINC OX/CLOTRIMAZOLE (MAD) 116 GM CREAM TP SCH (22:02)
--- NOTE | 2017-08-12 23:08 | HOSPPROG ---
Hospitalist Progress Note Assessment/Plan: XC note: Called by RN for ongoing epistaxis in pt on eliquis and ASA (last dose this am). Hgb 9.2 --> 8.6. On 3 LPM O2. Hemodynamically stable. S/P TXA. I phoned ENT, who packed his left side in the ED on admission. Dr. Ramirez does not have anything further to offer, noting risk of worsening bleeding with operative intervention. -will give platelets now -trend h&h -gale to jennifer -consider re-consulting ENT for packing of right side vs operative attention or could try K-Centra if bleeding becomes severe / life threatening -change to ICU status, 20 min crit care time Objective: Vital Signs Temp Pulse Resp BP Pulse Ox 36.5 C 90 24 H 108/38 L 93 08/12/17 22:00 08/12/17 22:00 08/12/17 22:00 08/12/17 22:00 08/12/17 22:00 Laboratory Results 08/12/17 20:15 08/11/17 08/12/17 08/13/17 05:59 05:59 05:59 Intake Total 3025 Output Total 150 Balance 2875 PT 26.2 SEC (12.0-15.0) H 08/12/17 11:25 INR 2.41 (0.83-1.16) H 08/12/17 11:25 ICD10 Worksheet Patient Problems: Problems Problem Status Onset Anemia Acute Major hemoptysis Acute Pleural effusion Acute Weakness Acute Abrasion of left elbow, initial encounter Acute CHI (closed head injury) Acute Chronic Disease Mgmt/Transitional Care Acute Closed left clavicular fracture Acute Depression Acute Dyspnea Acute Failure to thrive in adult Acute Fracture of pubic ramus Acute HTN (hypertension) Acute Multiple falls Acute Pneumonia Acute Post concussion syndrome Acute Ribs, multiple fractures Acute Sepsis Acute Unsteady gait Acute Weakness of both legs Acute
[2017-08-13] MEDS ORDERED: DOPamine/DEXTROSE/250 ML BAG IV ONE (00:04)
[2017-08-13] MEDS ORDERED: ALBUMIN 5% 250 ML BOTTLE IV ONE (00:04)
[2017-08-13] MEDS ORDERED: PROPOFOL/EMULSION 1,000 MG/100 ML BOTTLE IV ONE (00:17)
--- NOTE | 2017-08-13 00:52 | CPEKG ---
Heart Rate: 75 RR Interval: 800 P-R Interval: 274 QRSD Interval: 104 QT Interval: 420 QTC Interval: 470 P [place]: 0 QRS [place]: -59 T Wave [place]: 118 EKG Severity - ABNORMAL ECG - EKG Impression: SINUS RHYTHM EKG Impression: VENTRICULAR PREMATURE COMPLEX EKG Impression: FIRST DEGREE AV BLOCK EKG Impression: LAD, CONSIDER LEFT ANTERIOR FASCICULAR BLOCK EKG Impression: NONSPECIFIC T ABNORMALITIES, LATERAL LEADS Electronically Signed By: Enio Mccoy 13-Aug-2017 09:43:58
[2017-08-13 00:58] LABS: PLATELET COUNT 416 10^3/uL (150-400)
[2017-08-13] MEDS ORDERED: TRANEXAMIC ACID 1,000 MG in NS (SYRINGE) 50 ML IV ONE (01:00)
[2017-08-13] MEDS: NOREPINEPHRINE/NS 500 ML IV SCH ×2 (01:00→05:40)
[2017-08-13] MEDS ORDERED: NOREPINEPHRINE/NS 500 ML IV SCH (01:00)
[2017-08-13] MEDS: PROPOFOL/EMULSION 100 ML IV SCH ×2 (01:00→13:27)
[2017-08-13 01:04] LABS: INR 3.09 (0.83-1.16); PROTIME(PATIENT) 31.7 SEC (12.0-15.0)
[2017-08-13] MEDS ORDERED: VANCOMYCIN 1.25 GM in NS 250 ML IV SCH (01:30)
[2017-08-13] MEDS ORDERED: VASOPRESSIN 25 UNIT in NS 250 ML IV SCH (01:30)
[2017-08-13] MEDS ORDERED: SODIUM BICARBONATE 50 MEQ/50 ML SYR IV ONE ×2 (03:15→05:12)
[2017-08-13] MEDS ORDERED: ALBUMIN 5% 250 ML IV ONE (04:00)
[2017-08-13] MEDS ORDERED: PROTOCOL MAGNESIUM 1 DOSE IV PRN (04:14)
[2017-08-13] MEDS ORDERED: PROTOCOL POTASSIUM 1 DOSE MISC PRN (04:14)
--- NOTE | 2017-08-13 04:21 | HOSPPROG ---
Hospitalist Progress Note Assessment/Plan: Patient with continued epistaxis throughout the night. ENT performed packing but bleeding continued despite this. ENT service was again contacted but could not provide additional intervention due to risk of further exacerbating bleeding. I provided supportive care with aggressive IVF and blood products but patient's hemodynamics worsened to the point of arrest. Code blue was called and patient required chest compressions and intubation. ROSC was obtained and BP was maintained with significant vasopressor support (NE, dopamine). Laboratory work-up was notable for acidosis, coagulopathy, and rising WBC. Bicarb, broadened antibiotics (Vanc, Zosyn), and TXA were administered to address these findings. It is unclear why patient continued to display chronotropic incompetence. I discussed the case with vice president global digital marketing (Dr. Rocha), general surgeon (Dr. Holland), and ED physician )Dr. Jimenes). I personally spent >60 minutes of critical care time interpreting findings, providing direct patient care, and coordinating with staff and consultants. Objective: Vital Signs Temp Pulse Resp BP Pulse Ox 36.7 C 112 H 23 H 101/58 L 93 08/13/17 03:00 08/13/17 03:00 08/13/17 03:00 08/13/17 03:00 08/13/17 02:47 Laboratory Results 08/13/17 02:15 08/13/17 02:15 08/11/17 08/12/17 08/13/17 05:59 05:59 05:59 Intake Total 3025 Output Total 150 Balance 2875 PT 31.7 SEC (12.0-15.0) H 08/13/17 00:20 INR 3.09 (0.83-1.16) H 08/13/17 00:20 - Physical Exam Constitutional: chronically ill appearing, other (Intubated, sedated) Eyes: PERRL, EOMI Ears, Nose, Mouth, Throat: moist mucous membranes, other (Copious epistaxis, numerous blood clots noted) Cardiovascular: regular rate and rhythym, systolic murmur Respiratory: inspiratory crackles, rhonchi, other (Intubated) Gastrointestinal: soft, non-tender abdomen, no palpable masses Skin: warm, normal color Neurologic: other (Intubated, sedated) ICD10 Worksheet Patient Problems: Problems Problem Status Onset Anemia Acute Major hemoptysis Acute Pleural effusion Acute Weakness Acute Abrasion of left elbow, initial encounter Acute CHI (closed head injury) Acute Chronic Disease Mgmt/Transitional Care Acute Closed left clavicular fracture Acute Depression Acute Dyspnea Acute Failure to thrive in adult Acute Fracture of pubic ramus Acute HTN (hypertension) Acute Multiple falls Acute Pneumonia Acute Post concussion syndrome Acute Ribs, multiple fractures Acute Sepsis Acute Unsteady gait Acute Weakness of both legs Acute
--- NOTE | 2017-08-13 04:23 | EDPHY ---
Inpatient Procedure Narrative: INTUBATION Procedure: Rapid sequence intubation. Indication for the procedure was airway protection and respiratory failure. The patient was preoxygenated with 100% oxygen by face mask. The patient was given no medications as ACLS was in progress. The patient was orally endotracheally intubated under direct visualization with a 8.0 ETT. Tracheal intubation was confirmed with misting on the tube; breath sounds were auscultated equally bilaterally; appropriate color change with [place] [employer] CO2 detector. Chest X-ray shows ETT in good position. The procedure was performed by myself.
[2017-08-13] MEDS ORDERED: EPINEPHrine 1 MG/10 ML SYR IVP ONE (05:12)
[2017-08-13] MEDS ORDERED: ATROPINE SULFATE 1 MG/10 ML SYR IVP ONE (05:12)
[2017-08-13] MEDS ORDERED: POTASSIUM Cl (KCl) 50 ML IV ONE (05:36)
[2017-08-13] MEDS ORDERED: MAGNESIUM SULF 1 GM/DEXTROSE 100 ML IV ONE (05:36)
[2017-08-13 05:46] LABS: PLATELET COUNT 392 10^3/uL (150-400)
[2017-08-13 05:47] LABS: INR 3.65 (0.83-1.16)
[2017-08-13] MEDS ORDERED: MAGNESIUM SULF 1 GM/DEXTROSE 100 ML BAG IV ONE (05:48)
[2017-08-13] MEDS: PIPERACILLIN/TAZO 3.375 GM/DEX 50 ML IV SCH ×3 (05:49→18:19)
[2017-08-13] MEDS: VANCOMYCIN 125 MG/2.5 ML UDL PO SCH ×4 (05:49→21:23)
[2017-08-13] MEDS ORDERED: LEVOTHYROXINE 75 MCG TAB PO SCH (06:00)
[2017-08-13] MEDS ORDERED: LIDOCAINE 1% 5 ML SDV ONE (08:11)
[2017-08-13] MEDS ORDERED: LIDOCAINE 1% 2 ML INJ ONE (08:11)
[2017-08-13] MEDS: LUBIPROSTONE 24 MCG CAP PO SCH (08:34)
[2017-08-13] MEDS: FERROUS SULFATE 325 MG TAB PO SCH (08:34)
[2017-08-13] MEDS: CHOLECALCIFEROL VIT D3 2,000 UNITS TAB/CAP PO SCH (08:34)
[2017-08-13] MEDS: POTASSIUM CL 20 MEQ TAB PO SCH (08:35)
[2017-08-13] MEDS: OXYMETAZOLINE 30 ML NASAL SPRAY EACHNARE SCH ×2 (08:35→21:26)
[2017-08-13] MEDS: LIDO/ZINC OX/CLOTRIMAZOLE (MAD) 116 GM CREAM TP SCH ×2 (08:35→21:25)
[2017-08-13] MEDS: Fluticasone/Vilanterol [Breo Ellipta 200-25 Mcg Inh] IH SCH (08:35)
[2017-08-13] MEDS ORDERED: buPROPion XL 150 MG TAB PO SCH (09:00)
[2017-08-13] MEDS: NOREPINEPHRINE BITARTRATE 4 MG in NS 500 ML IV SCH ×2 (09:11→12:26)
--- NOTE | 2017-08-13 09:20 | POSTOPPROG ---
Post Op Note Date of Operation: 08/13/17 Surgeon: Yung Holland Anesthesia: Local (Specify) Pre-op Diagnosis: LEFT TENSION PNEUMO Post-op Diagnosis: SAME Indication: TENSION Procedure: LEFT CHEST TUBE PLACEMENT Findings: RELEASE OF TENSION PNEUMO Inf/Abcess present in the surg proc area at time of surgery?: No Depth: Organ Space EBL: Minimal Complications: 0 Drains: Constavac
--- NOTE | 2017-08-13 09:27 | ASMTCMCOM ---
CM Note CM Note Notes: 77yr old male discharged from [facility] 08/10/17 to [facility] admitted for Hemoptysis, Hypotension, Epistaxis. He has a Hx of CAD-stents to LAD, RCA, COPD, HTN, HLD, ADAN-Cpap, Recurrent falls, Depression. CM to follow for discharge needs. Date Signed: 08/13/2017 09:26 AM Electronically Signed By:Lucero Wood LCSW
[2017-08-13] MEDS ORDERED: NS 500 ML IV ONE (09:30)
--- NOTE | 2017-08-13 09:50 | POSTOPPROG ---
Post Op Note Date of Operation: 08/13/17 Surgeon: Yung Holland Anesthesia: Local (Specify) Pre-op Diagnosis: cardiac arrest Post-op Diagnosis: same Indication: monitor Procedure: rt femoral art line Findings: low bp Inf/Abcess present in the surg proc area at time of surgery?: No Depth: Deep Incisional (Fascial) EBL: Minimal Complications: 0
--- NOTE | 2017-08-13 09:52 | POSTOPPROG ---
Post Op Note Date of Operation: 08/13/17 Surgeon: Yung Holland Anesthesia: Local (Specify) Pre-op Diagnosis: cardiac arrest Post-op Diagnosis: same Indication: iv access Procedure: rt femoral triple lumen Findings: good flow Inf/Abcess present in the surg proc area at time of surgery?: No Depth: Deep Incisional (Fascial) EBL: Minimal Complications: 0
--- NOTE | 2017-08-13 09:54 | PCMIDPN ---
Assessment/Plan: Assessment/Plan: 1. Hemoptysis and Epistaxis 2. Acute respiratory failure, tension pneumothorax, 3.. Cardiac arrest 4. acute leukocytosis 5. Group A strep bacteremia secondary to Septic thrombophlebitis with subsequent Empyema s/p VATS 6. C.diff 7. elevated LFts Plan: Was on Ceftriaxone to complete therapy for #5 due to end on 08/27/17. currently antbx broadened given yesterdays events. Will continue vanco + zosyn for now while cultures in progress and given acute events. Given creatinine creeping favor changing to daily therapy however, a recheck of creatinine in AM will help determine if able to stay with a scheduled dosing vs spot dosing. Zosyn dosing may need to be adjusted as well if creatinine continues to rise. care coordinated with pharmacy. Continue with liquid vanco for #6. Leukocytosis likely multifactorial and related to recent events. Care coordinated with pharmacy,receiving supervisor, RN. Subjective: Asked to see patient due to leukocytosis. REcords, cultures, images reviewed. pt known to our service. Current treatment issues are Group A strep bacteremia secondary to septic thrombophlebitis with subsequent Empyema s/p VATS (07/29/17) . Also with C. diff. Was on Ceftriaxone to complete treatment for the former due to end on 08/27/17. Remains in icu, intubated, sedated. events of last night, business systems manager reviewed. Ongoing epistaxis during the night. s/p code blue this morning. Some pinkish secretions from ETT. not making urine this morning per RN. tension pneumotx this Am s/p chest tube. Objective: Vital Signs Temp Pulse Resp BP Pulse Ox 38.7 C H 101 H 27 H 126/61 H 99 08/13/17 08:58 08/13/17 08:58 08/13/17 08:58 08/13/17 08:58 08/13/17 08:58 Laboratory Results 08/13/17 04:49 08/13/17 04:49 08/12/17 08/13/17 08/14/17 05:59 05:59 05:59 Intake Total 5893.9 150 Output Total 560 Balance 5333.9 150 - Physical Exam General Appearance: other (intubated, sedated) EENT: ET Tube, other (pupils dilated but reactive to light b/l) Respiratory: coarse breath sounds Cardiac/Chest: tachycardia Extremities: swelling (b/l forearms), other (knees with ecchymosis) Abdomen: normal bowel sounds, non-tender, soft, No distended Male Genitalia: phan Skin: No rash - Time Spent With Patient Time Spent with Patient: greater than 35 minutes Time Spent with Patient: Greater than 35 minutes spent on this patients care, greater than 50% of time spent counseling, educating, and coordinating care regarding the above mentioned plan. ICD10 Worksheet Patient Problems: Problems Problem Status Onset Abrasion of left elbow, initial encounter Acute Anemia Acute CHI (closed head injury) Acute Chronic Disease Mgmt/Transitional Care Acute Closed left clavicular fracture Acute Depression Acute Dyspnea Acute Failure to thrive in adult Acute Fracture of pubic ramus Acute HTN (hypertension) Acute Major hemoptysis Acute Multiple falls Acute Pleural effusion Acute Pneumonia Acute Post concussion syndrome Acute Ribs, multiple fractures Acute Sepsis Acute Unsteady gait Acute Weakness Acute Weakness of both legs Acute
[2017-08-13] MEDS ORDERED: ALBUMIN 25% 100 ML IV ONE (09:56)
--- NOTE | 2017-08-13 09:56 | SOAPPROG ---
SOAP Progress Note Assessment/Plan: Assessment: 77 male with hemoptysis which more likely 2/2 nose bleed in pt on eliquis cxr unchanged with no obvious tumor bs equal/ cor rr/ abd soft chest clear and wound ok Plan:ent consult to ro source of bleed/ reverse anticoagulation/ pulmonary consult for possible bronch 08/12/17 20:52 08/13/17 09:52 seen earlier this am for cardiac arrest/ critical care for 1.5 hrs with art line and triple lumen placement now seen for left tension pneumo-- left 28f chest tube placed witout difficulty arrest may have 2/2 airplug from nasal packing Objective: Vital Signs Temp Pulse Resp BP Pulse Ox 38.7 C H 101 H 27 H 126/61 H 99 08/13/17 08:58 08/13/17 08:58 08/13/17 08:58 08/13/17 08:58 08/13/17 08:58 Laboratory Results 08/13/17 04:49 08/13/17 04:49 08/12/17 08/13/17 08/14/17 05:59 05:59 05:59 Intake Total 5893.9 150 Output Total 560 Balance 5333.9 150 PT 36.0 SEC (12.0-15.0) H 08/13/17 04:49 INR 3.65 (0.83-1.16) H 08/13/17 04:49 ICD10 Worksheet Patient Problems: Problems Problem Status Onset Anemia Acute Major hemoptysis Acute Pleural effusion Acute Weakness Acute Abrasion of left elbow, initial encounter Acute CHI (closed head injury) Acute Chronic Disease Mgmt/Transitional Care Acute Closed left clavicular fracture Acute Depression Acute Dyspnea Acute Failure to thrive in adult Acute Fracture of pubic ramus Acute HTN (hypertension) Acute Multiple falls Acute Pneumonia Acute Post concussion syndrome Acute Ribs, multiple fractures Acute Sepsis Acute Unsteady gait Acute Weakness of both legs Acute
--- NOTE | 2017-08-13 09:59 | GCON ---
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 HISTORY OF PRESENT ILLNESS: The patient is an unfortunate 77-year-old white male, who was admitted o n 08/12/2017 with acute hemoptysis. He had a prolonged hospitalization here, including group A strep bacteremia and sepsis of right lower lobe empyema requiring surgery. He had acute on chronic respir atory failure as well as encephalopathy. He was admitted at that time, on July 16 and was discharge d on August 10. He returned 2 days later with epistaxis. The patient has suffered an acute cardiac arre st yesterday evening requiring prolonged code. He was subsequently intubated placed on mechanical ve ntilation. He was found this morning to have a large pneumothorax. Chest tube was placed by surgery . Currently, the patient is obtunded. All history is gleaned from the medical record. PAST MEDICAL HISTORY: Includes atrial fibrillation for which he is on Eliquis, coronary artery disea se for which he has undergone stents. He has chronic obstructive pulmonary disease, hypertension, hy perlipidemia and a recent prolonged hospitalization secondary to sepsis and empyema. ALLERGIES: No known allergies to medications. SOCIAL HISTORY: Previous heavy smoker, nothing recently. Infrequent alcohol use. He has good famil y support. He was recently discharged to retirement. FAMILY HISTORY: Noncontributory. REVIEW OF SYSTEMS: Ten-point review of systems was attempted. Unable to be performed secondary to o btundation mechanical ventilation. PHYSICAL EXAMINATION: VITAL SIGNS: Blood pressure is 126/51, pulse 101, respirations 27, temperatur e 38.7, and oxygen saturation 99% on 50% mechanical ventilation. GENERAL: He is a thin, elderly whi te male who is obtunded on mechanical ventilation. HEENT: Eyes are PERRLA, EOMI. Throat endotrache al tube is good position. NECK: Supple. There is no cervical adenopathy. HEART: Irregular, irreg ular with a 2/6 systolic murmur at the left sternal border without radiation. LUNGS: Show diminishe d breath sounds. Increased crackles in the left base with some chest tube noise. ABDOMEN: Soft, no ntender. Bowel sounds are present. EXTREMITIES: No clubbing, cyanosis, or edema. LABORATORY: White count 27.6, hemoglobin is 7.8, hematocrit 23, platelet count is 377. INR is 3.09. Sodium 144, potassium 4.6, chloride 106, CO2 17, BUN 22, creatinine 1.3, glucose is 106. Arterial blood gas, pH 7.36, pCO2 of 32, pO2 of 156, bicarb of 19, oxygen saturation 99%. This is on assist c ontrol of 22, tidal volume 460, +5 of PEEP, 80%. IMPRESSION: 1. Hemoptysis. 2. Status post cardiac arrest. 3. Acute respiratory failure. 4. Shock. 5. Pneumothorax. 6. Chronic obstructive pulmonary disease. 7. History of empyema. 8. History of coronary artery disease. 9. Clostridium difficile colitis. RECOMMENDATIONS: 1. Continue mechanical ventilation. 2. Follow chest tube closely. 3. Wean pressors as tolerated. 4. Deep venous thrombosis and pulmonary embolus prophylaxis. Holding anticoagulation for now. 5. Stress ulcer prophylaxis. 6. Will assess neuro status when patient awakens. Query whether this may be some evidence of anoxic brain injury. 7. Treat with nebulizer treatment both albuterol and Atrovent. 8. Will hold IV steroids for now. /[id number]/MODL
[2017-08-13] MEDS: FAMOTIDINE 20 MG/NACL 50 ML IV SCH ×2 (10:22→21:23)
[2017-08-13] MEDS: CHLORHEXIDINE GLUCONATE 15 ML UDL PO SCH ×2 (10:24→21:23)
--- NOTE | 2017-08-13 10:33 | PDMN ---
Medical Necessity Medical necessity: los>2mn for hemoptysis w/antionette red blood w/cough, and subsequent acute epistaxis, SBP 70's , while still in ED, requiring 35 min of critical care; admit to ICU/SDU, IVF, follow h&h, latic acid, transfuse prn, and ENT consult; comorbid coagulopathy on aspirin and Eliquis, afib, CAD, COPD , HTN, and HLD; per order and H&P 08/12/17
[2017-08-13 11:04] LABS: INR 3.65 (0.83-1.16)
[2017-08-13 11:27] LABS: PLATELET COUNT 331 10^3/uL (150-400)
[2017-08-13] MEDS ORDERED: cefTRIAXone 2 GM in STERILE WATER INJ 20 ML IV SCH (14:00)
[2017-08-13] MEDS: MONTELUKAST SODIUM 10 MG TAB PO SCH (17:06)
--- NOTE | 2017-08-13 17:11 | HOSPPROG ---
Hospitalist Progress Note Assessment/Plan: Assessment: 77-year-old male presents with acute hemoptysis and epistaxis resulting in acute blood loss anemia, shock, and cardiac arrest Plan: # Hemoptysis and epistaxis. 2/2 combination of eliquis (Afib), ASA 81 and ranolazine (CAD, stens 10yrs ago) w/ spontaneous bleeding 08/12 which was the reason for presentation from SNF -s/p packing by ENT -experienced acute worsening 5/ PM w/ resultant ABLA and shock -stabilized s/p TXA/platelets # Shock. Combination of hypovolemic and possibly septic, with hypotension and lactic 7.5 in setting of blood loss as well as acute increase in WBC 37,000, indicative that concomitant infxn may have resulted from aspiration of blood -s/p IVF and albumin, currently on NS 100 w/ levophed and dopamine -possible septic shock component, so Abx adjusted from CTX to Vanco/Zosyn # Cardiac arrest. Unclear etiology, although the events immediately prior included increased blood loss, hypotension, and acidosis, resulting in the patient tiffanie'ing down and losing pulse -CPR performed, epi, atropine, levo/dopa and subsequent return of circulation -unclear if patient experienced anoxic event, pupils currently reactive but remain dilated # Acute blood loss anemia. Hgb initially stable on presentation (9s), but downtrended to 7s w/ ongoing epistaxis, s/p PRBCs and stabilized around 11 -cont monitoring Hgb # Acute metabolic acidosis. 2/2 lactic acid in setting of above, pH as low as 7.19, lactic stabilized at 1.6 this AM on pressors # Acute tension pneumothorax. Likely 2/2 CPR w/ bleb rupture, L side on CXR this AM, resolved s/p emergent chest tube by Dr. Holland -ongoing chest tube mgmt # Acute hypoxic respiratory failure. 2/2 shock, cardiac arrest, required intubation, ongoing vent mgmt # Acute shock liver failure. Evidenced by abruptly rising transaminases w/ impaired synthetic fxn (INR rising), 2/2 shock and low flow to liver -cont to monitor LFTs # Coagulopathy. 2/2 circulating anticoagulant from eliquis, anti-platelet effects of aspirin and ranolazine, as well as impaired synthetic fxn of liver w / rising INR to 3.65 -DIC panel negative -s/p TXA and platelet transfusion -bleeding stabilized presently, but if liver failure worsening, then bleeding could reoccur # Acute encephalopathy. Evidenced by global brain dysfunction characterized as unresponsiveness which was an acute change from presentation, 2/2 metabolic effects of acidosis, toxic effects of possible infxn, and hemodynamic effects of shock/cardiac arrest -remains sedated on vent w/ fent/propofol -if family believes patient would want further aggressive measures, would recommend lightening sedation to gauge whether there is neuro response, as anoxic injury in setting of cardiac arrest is also very possible, particularly given his dilated pupils # Group A Strep Empyema. 2/2 Strep pyo bacteremia 2/2 LUE thrombophlebitis, s/p VATs by Dr. Holland 07/29/17, stable on CXR -ongoing coverage w/ IV Abx # Recent CDifficile colitis. No e/o toxic megacolon on aXray, cont PO vanco via OGT # Coronary artery disease. Holding meds given shock, liver failure # Atrial fibrillation. Recent diagnosis, holding eliquis and metoprolol -d/w Dr. Lee, hold on consultation as patient's goals are moving toward hospice and it is unlikely that consideration for restarting blood thinners/ cardiac meds will be relevant moving forward, Dr. Lee will notify primary general warehouse worker (Dr. Parson) of patient's decline # COPD. Chronic, no wheeze Diet. OGT Prophylaxis. High risk patient, hold pharmacologic given recent bleeding, SCDs Code. Full at present Disposition. Unclear, hospice conversations currently w/ patient's family Patient's and son are clear that patient would not want to continue aggressive support and live in this present state; daughter is advocating for ongoing aggressive care; agents' records clerk contacted by to administer rights; hospice consulted to assist in facilitating goals of care coordination between family members and care team. 50 minutes of critical care time spent w/ this patient and son, coordinating care w/ Jesus Gerber, [place], specifically addressing the shock, coagulopathy, bleeding, which render him critically ill and at high risk of mortality. Subjective: intubated, sedated Objective: Vital Signs Temp Pulse Resp BP Pulse Ox 36.8 C 81 17 108/56 L 100 08/13/17 17:08 08/13/17 17:08 08/13/17 17:08 08/13/17 17:00 08/13/17 17:08 Laboratory Results 08/13/17 10:15 08/13/17 04:49 08/12/17 08/13/17 08/14/17 05:59 05:59 05:59 Intake Total 5893.9 150 Output Total 560 Balance 5333.9 150 PT 36.0 SEC (12.0-15.0) H 08/13/17 10:15 INR 3.65 (0.83-1.16) H 08/13/17 10:15 - Physical Exam Constitutional: not in pain, chronically ill appearing, No uncomfortable Eyes: other (dilated, centrally fixed pupils which are reactive to light) Ears, Nose, Mouth, Throat: other (ET in place) Cardiovascular: tachycardia, No irregularly irregular, No edema Respiratory: other (high pitched insp wheeze L anterior field, insp rhonchi on R lateral field, L chest tube in place) Gastrointestinal: No normoactive bowel sounds (hypoactive bowel sounds), No distension Psychiatric: encephalopathic ICD10 Worksheet Patient Problems: Problems Problem Status Onset Anemia Acute Major hemoptysis Acute Pleural effusion Acute Weakness Acute Abrasion of left elbow, initial encounter Acute CHI (closed head injury) Acute Chronic Disease Mgmt/Transitional Care Acute Closed left clavicular fracture Acute Depression Acute Dyspnea Acute Failure to thrive in adult Acute Fracture of pubic ramus Acute HTN (hypertension) Acute Multiple falls Acute Pneumonia Acute Post concussion syndrome Acute Ribs, multiple fractures Acute Sepsis Acute Unsteady gait Acute Weakness of both legs Acute
[2017-08-13] MEDS ORDERED: NS 1,000 ML IV SCH (17:15)
[2017-08-13] MEDS: ATORVASTATIN CALCIUM 10 MG TAB PO SCH (21:24)
[2017-08-13] MEDS: MELATONIN 3 MG TAB PO SCH (21:25)
[2017-08-13] MEDS: traZODone 50 MG TAB PO SCH (21:26)
[2017-08-14] MEDS: NOREPINEPHRINE BITARTRATE 4 MG in NS 500 ML IV SCH (00:09)
[2017-08-14] MEDS: PIPERACILLIN/TAZO 3.375 GM/DEX 50 ML IV SCH ×2 (00:09→05:58)
[2017-08-14] MEDS ORDERED: POTASSIUM Cl (KCl) 50 ML IV ONE (01:23)
[2017-08-14 05:15] LABS: PLATELET COUNT 311 10^3/uL (150-400)
[2017-08-14] MEDS: VANCOMYCIN 125 MG/2.5 ML UDL PO SCH ×2 (05:59→12:18)
[2017-08-14] MEDS ORDERED: LEVOTHYROXINE 75 MCG TAB TUBE SCH (06:00)
[2017-08-14] MEDS ORDERED: PROPOFOL/EMULSION 50 ML IV SCH (06:30)
[2017-08-14] MEDS ORDERED: D5W 1/2 NS W/ 20 KCl/L 1,000 ML IV SCH (07:15)
[2017-08-14] MEDS ORDERED: MAGNESIUM SULF 1 GM/DEXTROSE 100 ML IV ONE (08:02)
--- NOTE | 2017-08-14 08:32 | PDINTPN ---
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 Stable * Shock-on low-dose Levophed -will wean off as tolerated * Mental status-beginning to follow commands. -will follow closely * Coronary disease * Acute renal failure-worsening BUN and creatinine * Chronic obstructive pulmonary disease -continue nebs * Hypertension * Recent hospitalization for sepsis and empyema * VTE prophylaxis * Stress ulcer prophylaxis * Nutrition-none currently * Disposition-will discuss again with family regarding end of life issues Subjective: Sedated on mechanical ventilation Objective: Vital Signs Temp Pulse Resp BP Pulse Ox 37.2 C 79 25 H 110/55 L 96 08/14/17 07:49 08/14/17 08:11 08/14/17 08:11 08/14/17 08:11 08/14/17 08:11 Laboratory Results 08/14/17 04:20 08/14/17 04:20 08/13/17 08/14/17 08/15/17 05:59 05:59 05:59 Intake Total 5893.9 3343.3 Output Total 560 195 Balance 5333.9 3148.3 PT 36.0 SEC (12.0-15.0) H 08/13/17 10:15 INR 3.65 (0.83-1.16) H 08/13/17 10:15 Laboratory Results 08/14/17 04:20 08/14/17 04:20 08/14/17 08/14/17 08/13/17 04:20 04:20 04:49 Patient Temperature 37.4 DEGREES DEGREES 37.6 DEGREES DEGREES pCO2 27 mmHg L mmHg 32 mmHg L mmHg (34 - 38) (34 - 38) pO2 92 mmHg H mmHg 156 mmHg H mmHg (65 - 75) (65 - 75) Total CO2 19 mEq/L L mEq/L 19 mEq/L L mEq/L (23 - 27) (23 - 27) ABG pH 7.45 7.36 (7.35 - 7.45) (7.35 - 7.45) ABG PO2/FiO2 Ratio 230 RATIO RATIO 195 RATIO RATIO ABG HCO3 19 mEq/L L mEq/L 18 mEq/L L mEq/L (22 - 26) (22 - 26) ABG O2 Saturation 97 % H % 99 % H % (92 - 95) (92 - 95) ABG Base Excess -4.2 mEq/L L mEq/L -6.3 mEq/L L mEq/L (-2.5 - 2.5) (-2.5 - 2.5) O2 Concentration % 40 % % 80 % % Respiration Rate 22 Set Respiration Rate 22 22 Assist Control YES YES Tidal Volume 460 460 End Tidal CO2 24 26 PEEP 5 5 Calcium 6.6 mg/dL L mg/dL (8.5 - 10.4) Magnesium 1.7 mg/dL mg/dL (1.6 - 2.3) Total Bilirubin 1.0 mg/dL mg/dL (0.1 - 1.4) AST 271 IU/L H IU/L (17 - 59) ALT 161 IU/L H IU/L (21 - 72) Alkaline Phosphatase 57 IU/L IU/L (38 - 126) Total Protein 4.5 g/dL L g/dL (6.3 - 8.2) Albumin 1.7 g/dL L g/dL (3.5 - 5.0) 08/13/17 04:49 Patient Temperature pCO2 pO2 Total CO2 ABG pH ABG PO2/FiO2 Ratio ABG HCO3 ABG O2 Saturation ABG Base Excess O2 Concentration % Respiration Rate Set Respiration Rate Assist Control Tidal Volume End Tidal CO2 PEEP Calcium 6.7 mg/dL L mg/dL (8.5 - 10.4) Magnesium 1.5 mg/dL L mg/dL (1.6 - 2.3) Total Bilirubin AST ALT Alkaline Phosphatase Total Protein Albumin - Time Spent With Patient Time Spent With Patient: 35 min of critical care time spent with patient, case discussed with Nursing and Respiratory therapy Physical Exam - Physical Exam General Appearance: WD/WN, alert, no apparent distress EENT: PERRL/EOMI, ET tube Neck: non-tender, full range of motion Respiratory: decreased breath sounds, rhonchi (Few scattered), prolonged expiration, No wheezing Cardiac/Chest: normal peripheral pulses, regular rate, rhythm, systolic murmur Peripheral Pulses: 2+: carotid (R), carotid (L), femoral (R), femoral (L), dorsalis-pedis (R), dorsalis-pedis (L) Abdomen: normal bowel sounds, non-tender, soft Male Genitalia: deferred Rectal: deferred Skin: normal color, warm/dry Extremities: normal range of motion, non-tender, normal inspection, normal capillary refill Neuro/Psych: No alert ICD10 Worksheet Patient Problems: Problems Problem Status Onset Anemia Acute Major hemoptysis Acute Pleural effusion Acute Weakness Acute Abrasion of left elbow, initial encounter Acute CHI (closed head injury) Acute Chronic Disease Mgmt/Transitional Care Acute Closed left clavicular fracture Acute Depression Acute Dyspnea Acute Failure to thrive in adult Acute Fracture of pubic ramus Acute HTN (hypertension) Acute Multiple falls Acute Pneumonia Acute Post concussion syndrome Acute Ribs, multiple fractures Acute Sepsis Acute Unsteady gait Acute Weakness of both legs Acute
[2017-08-14] MEDS: POTASSIUM Cl (KCl) 50 ML IV SCH ×2 (08:35→13:13)
[2017-08-14] MEDS: CHOLECALCIFEROL VIT D3 2,000 UNITS TAB/CAP PO SCH (08:44)
[2017-08-14] MEDS: FERROUS SULFATE 325 MG TAB PO SCH (08:44)
[2017-08-14] MEDS: Fluticasone/Vilanterol [Breo Ellipta 200-25 Mcg Inh] IH SCH (08:44)
[2017-08-14] MEDS: POTASSIUM CL 20 MEQ TAB PO SCH (08:45)
[2017-08-14] MEDS: OXYMETAZOLINE 30 ML NASAL SPRAY EACHNARE SCH (08:45)
[2017-08-14] MEDS ORDERED: VANCOMYCIN 1.25 GM in NS 250 ML IV SCH ×2 (09:00→10:00)
[2017-08-14] MEDS: LIDO/ZINC OX/CLOTRIMAZOLE (MAD) 116 GM CREAM TP SCH (09:06)
[2017-08-14] MEDS: CHLORHEXIDINE GLUCONATE 15 ML UDL PO SCH (09:06)
[2017-08-14] MEDS: FAMOTIDINE 20 MG/NACL 50 ML IV SCH (09:06)
--- NOTE | 2017-08-14 10:42 | PCMIDPN ---
Assessment/Plan: GAS bacteremia R sided empyema now with L tension PTX, very poor prognosis, moving to comfort care --dc zosyn --discussed may not be stable enough to transfer home w hospice --wants to be DNR CDiff : contact precautions while hospitalized Call ID for additional questions Subjective: patient extubated, daughter at bedside tearful desires her dad to be moved home as soon as possible w hospice Objective: Vital Signs Temp Pulse Resp BP Pulse Ox 37.2 C 102 H 22 H 155/80 H 96 08/14/17 07:49 08/14/17 10:00 08/14/17 10:00 08/14/17 10:00 08/14/17 10:00 Laboratory Results 08/14/17 04:20 08/14/17 04:20 08/13/17 08/14/17 08/15/17 05:59 05:59 05:59 Intake Total 5893.9 3343.3 Output Total 560 195 Balance 5333.9 3148.3 - Physical Exam General Appearance: thin, other (slumped over in bed) Respiratory: accessory muscle use ICD10 Worksheet Patient Problems: Problems Problem Status Onset Anemia Acute Major hemoptysis Acute Pleural effusion Acute Weakness Acute Abrasion of left elbow, initial encounter Acute CHI (closed head injury) Acute Chronic Disease Mgmt/Transitional Care Acute Closed left clavicular fracture Acute Depression Acute Dyspnea Acute Failure to thrive in adult Acute Fracture of pubic ramus Acute HTN (hypertension) Acute Multiple falls Acute Pneumonia Acute Post concussion syndrome Acute Ribs, multiple fractures Acute Sepsis Acute Unsteady gait Acute Weakness of both legs Acute
--- NOTE | 2017-08-14 11:00 | SOAPPROG ---
SOAP Progress Note Assessment/Plan: Assessment/Plan: 77 Y M recent history of thoracotomy for empyema. S/p severe epistaxis. s/p nasal packing by ENT. s/p cardiac arrest. s/p tube thoracostomy for PTX. Seen and examined with Dr. Holland. Weaning from sedation. Follows commands. Squeezed Dr. Holland hand. Chest tube in place. No resting air leak. Palliative care/hospice under consideration. Per RN, would like to d/w Dr. Holland who agrees to make himself available. Appreciate other teams input, including medicine who cites detailed discussion with family. S: no complaints. under sedation but still interactive O: follows commands, squeezes Dr. Holland' hand lungs are clear no resting air leak 08/14/17 11:01 Objective: Vital Signs Temp Pulse Resp BP Pulse Ox 37.2 C 102 H 22 H 155/80 H 96 08/14/17 07:49 08/14/17 10:00 08/14/17 10:00 08/14/17 10:00 08/14/17 10:00 Laboratory Results 08/14/17 04:20 08/14/17 04:20 08/13/17 08/14/17 08/15/17 05:59 05:59 05:59 Intake Total 5893.9 3343.3 Output Total 560 195 Balance 5333.9 3148.3 PT 36.0 SEC (12.0-15.0) H 08/13/17 10:15 INR 3.65 (0.83-1.16) H 08/13/17 10:15 ICD10 Worksheet Patient Problems: Problems Problem Status Onset Anemia Acute Major hemoptysis Acute Pleural effusion Acute Weakness Acute Abrasion of left elbow, initial encounter Acute CHI (closed head injury) Acute Chronic Disease Mgmt/Transitional Care Acute Closed left clavicular fracture Acute Depression Acute Dyspnea Acute Failure to thrive in adult Acute Fracture of pubic ramus Acute HTN (hypertension) Acute Multiple falls Acute Pneumonia Acute Post concussion syndrome Acute Ribs, multiple fractures Acute Sepsis Acute Unsteady gait Acute Weakness of both legs Acute
--- NOTE | 2017-08-14 12:19 | PDINTPN ---
Automobile Damage Appraiser Progress Note Assessment/Plan: Assessment/plan: * Acute respiratory failure-stable on mechanical ventilation -will assess for extubation with CPAP trial and weaning parameters * Status post cardiac arrest * Hemoptysis * Pneumothorax-status post chest tube. Stable * Shock-on low-dose Levophed -will wean off as tolerated * Mental status-beginning to follow commands. -will follow closely * Coronary disease * Acute renal failure-worsening BUN and creatinine * Chronic obstructive pulmonary disease -continue nebs * Hypertension * Recent hospitalization for sepsis and empyema * VTE prophylaxis * Stress ulcer prophylaxis * Nutrition-none currently * Disposition-I had a long discussion with the family regarding end of life issues it is their wish that patient be made do not resuscitate now that he is been extubated from mechanical ventilation. They wish that hospice be consulted and that he go to their care facility tomorrow. 08/14/17 12:18 Objective: Vital Signs Temp Pulse Resp BP Pulse Ox 37.2 C 111 H 24 H 147/79 H 99 08/14/17 07:49 08/14/17 11:00 08/14/17 11:00 08/14/17 11:00 08/14/17 11:00 Laboratory Results 08/14/17 04:20 08/14/17 04:20 08/13/17 08/14/17 08/15/17 05:59 05:59 05:59 Intake Total 5893.9 3343.3 Output Total 560 195 Balance 5333.9 3148.3 PT 36.0 SEC (12.0-15.0) H 08/13/17 10:15 INR 3.65 (0.83-1.16) H 08/13/17 10:15 ICD10 Worksheet Patient Problems: Problems Problem Status Onset Anemia Acute Major hemoptysis Acute Pleural effusion Acute Weakness Acute Abrasion of left elbow, initial encounter Acute CHI (closed head injury) Acute Chronic Disease Mgmt/Transitional Care Acute Closed left clavicular fracture Acute Depression Acute Dyspnea Acute Failure to thrive in adult Acute Fracture of pubic ramus Acute HTN (hypertension) Acute Multiple falls Acute Pneumonia Acute Post concussion syndrome Acute Ribs, multiple fractures Acute Sepsis Acute Unsteady gait Acute Weakness of both legs Acute
--- NOTE | 2017-08-14 12:22 | HOSPPROG ---
Hospitalist Progress Note Assessment/Plan: 77-year-old male presents with epistaxis resulting in acute blood loss anemia, shock, and cardiac arrest. Plans at this point are for hospice in am. # Hemoptysis and epistaxis. 2/2 combination of eliquis (Afib), ASA 81 and ranolazine (CAD, stens 10yrs ago) w/ spontaneous bleeding -s/p packing by ENT -experienced acute worsening 5/7 PM w/ resultant ABLA and shock / arrest -stabilized s/p TXA/platelets # Shock / cardiac arrest. Required brief chest compressions with ROSC. -s/p IVF and albumin, currently on NS 100 w/ levophed at 2 mcg/min -possible septic shock component, so Abx broadened from CTX to Vanco/Zosyn # ABLA. Hgb 9.2 -> 7, s/p PRBCs and stabilized around 11 -cont monitoring Hgb # Acute tension pneumothorax. Likely 2/2 CPR w/ bleb rupture, L side on CXR this AM, resolved s/p emergent chest tube by Dr. Holland -ongoing chest tube mgmt, hopefully can remove tomorrow # Acute hypoxic respiratory failure. 2/2 shock, cardiac arrest, required intubation -extubated today # Acute shock liver failure. Evidenced by abruptly rising transaminases w/ impaired synthetic fxn (INR rising), 2/2 shock and low flow to liver -cont to monitor LFTs # Coagulopathy. 2/2 circulating anticoagulant from eliquis, anti-platelet effects of aspirin and ranolazine, as well as impaired synthetic fxn of liver w / rising INR to 3.65 -DIC panel negative -s/p TXA and platelet transfusion # Acute encephalopathy. Sedation off. # Group A Strep Empyema. 2/2 Strep pyo bacteremia 2/2 LUE thrombophlebitis, s/p VATs by Dr. Holland 07/29/17, stable on CXR -ongoing coverage w/ IV Abx # Recent CDifficile colitis. No e/o toxic megacolon on aXray, cont PO vanco via OGT # Coronary artery disease. Holding meds given shock, liver failure # Atrial fibrillation. Recent diagnosis, holding eliquis and metoprolol # COPD. Chronic, no wheeze Diet. OGT Prophylaxis. High risk patient, hold pharmacologic given recent bleeding, SCDs Code. Full at present Disposition. Likely d/c tomorrow with hospice Patient's and son are clear that patient would not want to continue aggressive support and live in this present state; Dr. Ayoub had family meeting and will change to DNR with hospice eval today Subjective: Pt extubated, resting comfortably with O2 by face mask. Answers basic questions. No fevers. No more bleeding. Objective: Vital Signs Temp Pulse Resp BP Pulse Ox 37.2 C 111 H 24 H 147/79 H 99 08/14/17 07:49 08/14/17 11:00 08/14/17 11:00 08/14/17 11:00 08/14/17 11:00 Laboratory Results 08/14/17 04:20 08/14/17 04:20 08/13/17 08/14/17 08/15/17 05:59 05:59 05:59 Intake Total 5893.9 3343.3 Output Total 560 195 Balance 5333.9 3148.3 PT 36.0 SEC (12.0-15.0) H 08/13/17 10:15 INR 3.65 (0.83-1.16) H 08/13/17 10:15 - Physical Exam Constitutional: no apparent distress Eyes: PERRL Ears, Nose, Mouth, Throat: moist mucous membranes Cardiovascular: regular rate and rhythym Respiratory: no respiratory distress, reduced air movement, bronchial breath sounds Gastrointestinal: normoactive bowel sounds, soft, non-tender abdomen Skin: warm Musculoskeletal: generalized weakness Psychiatric: encephalopathic ICD10 Worksheet Patient Problems: Problems Problem Status Onset Anemia Acute Major hemoptysis Acute Pleural effusion Acute Weakness Acute Abrasion of left elbow, initial encounter Acute CHI (closed head injury) Acute Chronic Disease Mgmt/Transitional Care Acute Closed left clavicular fracture Acute Depression Acute Dyspnea Acute Failure to thrive in adult Acute Fracture of pubic ramus Acute HTN (hypertension) Acute Multiple falls Acute Pneumonia Acute Post concussion syndrome Acute Ribs, multiple fractures Acute Sepsis Acute Unsteady gait Acute Weakness of both legs Acute
--- NOTE | 2017-08-14 13:44 | ASMTCMCOM ---
CM Note CM Note Notes: Dr. Ayoub spoke with the family about options for the patient. A hospice eval was ordered. [facility] was contacted and they will be here to meet with the family today at 3:00 (15:00). Maddie from [facility] states they cannot support a vent and they cannot reintubate the patient. However, they do have the inpatient center patient can transfer to initially from the hospital and then work towards the goal of patient returning home with Hospice support. Patient's nurse was informed of the meeting at 3:00 as the family has stepped away from the room temporarily.CM will follow. Date Signed: 08/14/2017 01:43 PM Electronically Signed By:Maye Reed LCSW
[2017-08-14 13:56] VITALS: BP 140/80
[2017-08-14] MEDS ORDERED: LORazepam 2 MG/ML INJ IVP PRN (15:27)
[2017-08-14] MEDS ORDERED: morphINE 10 MG/0.5 ML UDSYR PO PRN (15:27)
[2017-08-14] MEDS: morphINE 10 MG/0.5 ML UDSYR PO PRN (22:12)
[2017-08-15] MEDS: morphINE 10 MG/0.5 ML UDSYR PO PRN ×3 (00:25→04:05)
--- NOTE | 2017-08-15 18:31 | GDS ---
[f rep st] DISCHARGE SUMMARY DATE AND TIME OF : August 15 at 0555. HISTORY: For details, please see the History and Physical dated August 12, 2017. In brief, the patient is a 77-year-old male who recently had a prolonged hospitalization for empyema requiring VATS and a c hest tube. He was started on Eliquis prior to discharge from his recent hospitalization as well as a spirin. He returned to the emergency department with epistaxis in the setting of Eliquis and aspirin . He was admitted to the hospital for further management. HOSPITAL COURSE: The patient had ENT consultation while in the emergency department and left-sided n juli packing was placed after he pulled out a Rhinorocket placed by the ED physician. It seems the b leeding stabilized, he was transferred to the step-down unit. However, his bleeding became more bris k. He received tranexamic acid as well as platelets. There is no reversal agent for Eliquis. ENT w as reconsulted due to ongoing bleeding, though had nothing further to offer. He continued to receive supportive care with upright positioning, oxygen and suctioning. His hemoglobin drifted down to 7.4 . He received packed red blood cells. Unfortunately, his condition deteriorated and he had a cardia c arrest requiring CPR and intubation, as well as initiation of vasopressor support with norepinephri ne and dopamine. Labs revealed a rising white blood cell count with acidosis. He received bicarb an d his antibiotics were broadened from ceftriaxone to vancomycin plus Zosyn. Our legal practice manager had lengthy family conversations and they ultimately wished to discontinue aggressive care. He was transitioned to comfort care, and he peacefully on the morning of August 15 at 5:55. /[id number]/MODL
--- NOTE | 2017-08-16 09:43 | ASDISCHSUM ---
Discharge Information Plan Status: Medically Cleared to Leave: Discharge Date:08/15/2017 10:25 AM CM D/C Disposition: ADT D/C Disposition: Projected Discharge Date:08/15/2017 11:00 AM Transportation at D/C: Discharge Delay Reason: Follow-Up Date:08/15/2017 11:00 AM Discharge Slot: Final Diagnosis:Hemoptysis, Hypotension, Epistaxis Placement Information Referral Type:*Hospice Referral ID:[id number] Provider Name: Address 1: Phone Number: Address 2: Fax Number: City: Selection Factors: State: Patient Contact Information Contact Name:KENTRELL Relationship: Address:[address] City:[facility] Phone: [facility]/Zip Code:[place] [address] Email: Financial Information Financial Class:Medicare Primary Plan Desc:MEDICARE INPATIENT Primary Plan Number:[id number] Secondary Plan Desc:VIOLET INDEMNITY Secondary Plan Number:[id number] Assessment Information [facility] CM Progress Note CM Note CM Note Notes: 77yr old male [facility] from [facility], Hypotension, Epistaxis. He has a Hx of CAD-stents to LAD, RCA, COPD, HTN, HLD, ADAN-Cpap, Recurrent falls, Depression. CM to follow for discharge needs. Date Signed: 08/13/2017 09:26 AM Electronically Signed By:Lucero Wood LCSW [facility] CM Progress Note CM Note CM Note Notes: Dr. Ayoub spoke with the family about options for the patient. A hospice eval was ordered. [facility] was contacted and they will be here to meet with the family today at 3:00 (15:00). Maddie from [facility] states they cannot support a vent and they cannot reintubate the patient. However, they do have the inpatient center patient can transfer to initially from the hospital and then work towards the goal of patient returning home with Hospice support. Patient's nurse was informed of the meeting at 3:00 as the family has stepped away from the room temporarily.CM will follow. Date Signed: 08/14/2017 01:43 PM Electronically Signed By:Maye Reed LCSW Intervention Information
--- NOTE | 2017-08-19 18:40 | PQFORM ---
PHYSICIAN QUERY FORM Needs Your Response This query form is being sent to you to assure this patient record is coded properly. Please respond to the question below: SKULL GRINDER QUESTION: Dear Dr. Schwartz, In reviewing this patients medical record it was noted the patient had a "tension pneumothorax." Noted in Dr. Ayoub's 08/13 consult patient had the diagnosis of 'pneumothorax.' In the 08/13 Infectious disease progress note patient had the diagnosis of "tension pneumothorax." Also noted in the Hospitalist progress notes dated 08/13-08/14 patient was diagnosed with "Acute tension pneumothorax." On the 08/13 chest X-ray patient was noted to have a ' tension pneumothorax.' Dr. Holland treated the "tension pneumothorax" by placing a chest tube on 08/13. After study, should the diagnosis of "Tension pneumothorax , not present on admission" be included in the discharge summary? ___x__ Yes No Unable to determine Other more appropriate diagnosis (please specify) Thank you Naila Krishna, [facility]. [phone] INSTRUCTIONS FOR RESPONSE: Answer question by clicking on the "Edit Document" button. Move cursor to area below the stars. When complete, hit "Save." Click on the "Sign" button, then click "Sign" again. Type in your PIN and hit "Enter." LEATHAD
== END 2017-08-15 10:25 | disposition expired | DRG 150 ==
LOC: EDUNIT# → INTOOBSV 11:53 → OBSVTOIN 12:04 → F2N 18:25 → F1N 08-14 18:26
PROVIDERS: ADMIT Internal Medicine; ATTEND Internal Medicine
PROC: 30233R1 Transfusion of Nonautologous Platelets into Peripheral Vein, Percutaneous Approach (ICD-10-PCS; 2017-08-12)
PROC: 04HK33Z Insertion of Infusion Device into Right Femoral Artery, Percutaneous Approach (ICD-10-PCS; principal; 2017-08-13)
PROC: 0W9B30Z Drainage of Left Pleural Cavity with Drainage Device, Percutaneous Approach (ICD-10-PCS; principal; 2017-08-13)
PROC: 0BH17EZ Insertion of Endotracheal Airway into Trachea, Via Natural or Artificial Opening (ICD-10-PCS; 2017-08-13)
PROC: 5A1945Z Respiratory Ventilation, 24-96 Consecutive Hours (ICD-10-PCS; 2017-08-13)
PROC: 30233N1 Transfusion of Nonautologous Red Blood Cells into Peripheral Vein, Percutaneous Approach (ICD-10-PCS; 2017-08-13)
DX: R04.0 Epistaxis (principal); J93.0 Spontaneous tension pneumothorax; E87.2 Acidosis; R57.1 Hypovolemic shock; I46.9 Cardiac arrest, cause unspecified; I95.89 Other hypotension; I25.10 Atherosclerotic heart disease of native coronary artery without angina pectoris; J44.9 Chronic obstructive pulmonary disease, unspecified; E78.5 Hyperlipidemia, unspecified; I10 Essential (primary) hypertension; G47.33 Obstructive sleep apnea (adult) (pediatric); Z79.01 Long term (current) use of anticoagulants; Z79.82 Long term (current) use of aspirin; Z95.5 Presence of coronary angioplasty implant and graft; Z86.19 Personal history of other infectious and parasitic diseases; Z51.5 Encounter for palliative care
CPT/HCPCS: 82947-QW; J0461; J0696; J1170; J1265; J2060; J2543; J2704; J3010; J3370; J3475; J3480; P9016; P9035; P9041; P9047